=== PATIENT | female | born 1935 | race Caucasian/White ===

== ENCOUNTER → 2017-07-28 12:15 | Outpatient (CLI) | payer MEDICARE, SELFPAY ==
[2017-07-28 12:56] VITALS: PULSE 74; PULSE 79; PULSE 89; PULSE 93; PULSE 95; PULSE 96; PULSE 97; O2SAT 91; O2SAT 92; O2SAT 94; O2SAT 95
--- NOTE | 2017-07-29 08:26 | WT_ITS ---
PSN 6 Minute Walk Test - 6 Minute Walk Test 6 Minute Walk Test: 6 Minute Walk Test PSN:6-Minute Walk Test Start: 07/28/17 12: 56 Freq: Status: Active Protocol: [id number] Document 07/28/17 12:56 CARLOS (Rec: 07/28/17 12:59 CARLOS [id number]) 6 Minute Walk Test Date Performed 07/28/17 Time Performed 12:30 Height 5 ft 2 in Weight: 210 lb Weight in Pounds 210.[address]: Abhijeet Galvan Assistive device used: Cane Pre-test Oxygen Delivery Method Room Air Pulse Ox (%) 94 Pulse Rate (60-100 beats/min) 74 Dyspnea Kya Scale (0-10) 0 Exertion Kya Scale (6-20) 6 1st minute Oxygen Delivery Method Room Air Pulse Ox (%) 92 Pulse Rate (60-100 beats/min) 89 Number of Rests Taken 1 Reported Symptoms Increased Work of Breathing 2nd minute Oxygen Delivery Method Room Air Pulse Ox (%) 95 Pulse Rate (60-100 beats/min) 89 Number of Rests Taken 1 3rd minute Oxygen Delivery Method Room Air Pulse Ox (%) 94 Pulse Rate (60-100 beats/min) 93 4th minute Oxygen Delivery Method Room Air Pulse Ox (%) 94 Pulse Rate (60-100 beats/min) 95 Number of Rests Taken 1 5th minute Oxygen Delivery Method Room Air Pulse Ox (%) 92 Pulse Rate (60-100 beats/min) 96 6th minute Oxygen Delivery Method Room Air Pulse Ox (%) 91 Pulse Rate (60-100 beats/min) 97 Dyspnea Kya Scale (0-10) 4 Exertion Kya Scale (6-20) 14 Post-test Oxygen Delivery Method Room Air Pulse Ox (%) 95 Pulse Rate (60-100 beats/min) 79 Full Laps Walked 6 Partial Lap, Number of Tiles Walked 72 Total Distance Walked (ft) 426 - Interpretation Interpretation: The patient ambulated 426 feet over the course of 6 minutes on room air with the assistance of a cane. Pretesting oxygen saturation was noted to be 94% on room air. With ambulation, the meghan oxygen saturation was 91%. Although there was evidence of impaired walk distance, there was no significant exertional oxygen desaturation. - Recommendations Recommendations: There is no indication for the use of supplemental oxygen at this time.
== END ==
PROVIDERS: Family Provider Family Medicine; PCP Family Medicine; Visit Provider Internal Medicine Critical Care Medicine
DX: R06.09 Other forms of dyspnea (principal)
CPT/HCPCS: 94618

== ENCOUNTER → 2017-08-23 13:31 | Outpatient (CLI) | payer MEDICARE, SELFPAY ==
--- NOTE | 2017-08-23 13:32 | ECHOCS_ITS ---
Reason For Study: SOB Procedure This was a 2D Doppler, Color Flow transthoracic echocardiogram. Exam performed in department. Left Ventricle Normal LV size. The estimated ejection fraction is 40 %. Mild to moderate segmental systolic dysfunction (see wall motion). Mid-Posterior: Normal. Mid-Lateral : Normal. The rest of the wall segments are hypokinetic. Right Ventricle Normal RV size. Normal systolic function. Atria Normal left atrium. Normal right atrium. Mitral Valve Normal mitral valve. Tricuspid Valve Normal tricuspid valve. Mild tricuspid valve insufficiency. Pulmonary artery systolic pressure is 23 mmHg. Aortic Valve Normal aortic valve. Trisinus/trileaflet aortic valve. Pulmonic Valve The pulmonic valve is not well visualized. Great Vessels Normal aortic root. The pulmonary artery is normal size. Pericardium/Pleural No pericardial effusion. Medication 22 gauge I.V. with prn adaptor inserted into right arm. Diluted definity 3ml given slow IV push to enhance endocardial definition. MMode/2D Measurements & Calculations LVIDd: 4.9 cm IVSd: 1.1 cm Ao root diam: 3.3 cm LVIDs: 4.4 cm LVPWd: 1.1 cm LA dimension: 4.0 cm FS: 9.7 % LAV(MOD-bp): 44.2 ml LA A4 area: 17.4 cm2 RA A4 area: 16.2 cm2 LAV(MOD-bp) Indexed: 22.7 ml/m2 LAV(MOD-sp2): 42.4 ml LAV(MOD-sp4): 45.9 ml Doppler Measurements & Calculations MV E max caroline: 31.1 cm/sec Ao V2 max: 116.9 cm/sec LV V1 max: 86.6 cm/sec MV A max caroline: 77.7 cm/sec Ao max P.5 mmHg LV V1 max P.0 mmHg MV E/A: 0.40 PA V2 max: 74.7 cm/sec TR max caroline: 240.1 cm/sec TR max P.1 mmHg Interpretation Summary Normal LV size. The estimated ejection fraction is 40 %. The rest of the wall segments are hypokinetic. Mild to moderate segmental systolic dysfunction (see wall motion). Contrast injection was performed. Ordering Physician: Abhijeet Galvan Referring Physician: Stefany Durham Performed By: Radha Turner RDCS
== END ==
PROVIDERS: Family Provider Family Medicine; PCP Family Medicine; Visit Provider Internal Medicine Critical Care Medicine
DX: I25.5 Ischemic cardiomyopathy (principal)
CPT/HCPCS: 93306; Q9957; A4216; C8929

== ENCOUNTER → 2017-08-27 12:46 | Outpatient (CLI) | payer MEDICARE, SELFPAY ==
--- NOTE | 2017-08-28 09:53 | PFT ---
INTRODUCTION: The patient is an 82-year-old female currently under the care of Dr. Galvan that presents for pulmonary function testing secondary to a diagnosis of dyspnea on exertion. Respiratory therapy reports good patient effort and reports no other concerns. Bronchodilators were used during testing. INTERPRETATION: Forced expiration spirometry demonstrates the presence of a mild large airways obstructive ventilatory impairment. There was no significant response to aerosolized bronchodilators, based upon strict ATS criteria. However, the patient did have a significant mid flow bronchodilator response. In fact, the patient's small airway obstruction did reverse following administration of bronchodilators. Spirograms are of good quality and do not plateau indicating slow emptying of the lungs. The respiratory flow volume loop reveals decreased expiratory flow rates primarily at high lung volumes consistent with small airways obstruction. Body plethysmography was performed and reveals lung volumes to be within normal limits. Diffusing capacity by single breath CO is moderately reduced at 55% of predicted. IMPRESSION: These pulmonary function studies demonstrate the presence of a mild large airways obstructive ventilatory defect. Although the bronchodilator response was not considered significant by ATS criteria, the patient's large airway obstruction did reverse with bronchodilator administration. There is an associated moderate reduction in diffusing capacity.
== END ==
PROVIDERS: Family Provider Family Medicine; PCP Family Medicine; Visit Provider Internal Medicine Critical Care Medicine
DX: R06.09 Other forms of dyspnea (principal)
CPT/HCPCS: 94060; 94726; 94729

== ENCOUNTER 2017-12-01 13:50 | Observation (INO) | payer MEDICARE, MEDICAID, SELFPAY ==
[2017-12-01] VITALS (15 sets, daily range): BP systolic 115–166; BP diastolic 54–77; PULSE 60–68; RESP 14–20; TEMP 36.7–37.2; O2SAT 92–98; BMI 40.2; BMI 40.6
--- NOTE | 2017-12-01 14:15 | EKG12_ITS ---
Test Reason : NEURO S/SX Blood Pressure : / mmHG Vent. Rate : 064 BPM Atrial Rate : 064 BPM P-R Int : 174 ms QRS Dur : 150 ms QT Int : 480 ms P-R-T Axes : -03 000 132 degrees QTc Int : 495 ms Normal sinus rhythm Left bundle branch block Abnormal ECG Confirmed by ABDULLAHI TREJO, ARLETTE ([id number]), index editor NIKOLAS GRIFFIN ([id number]) on 12/03/2017 1:40:37 PM Referred By: ARETHA Confirmed By:ARLETTE FERNANDO MD
--- NOTE | 2017-12-01 14:15 | CT_ITS ---
STUDY: CT BRAIN WITHOUT CONTRAST REASON FOR EXAM: Female, 82 years old. 2 week history of right-sided weakness. RADIATION DOSAGE (If Supplied By Facility): CTDIvol = ( 44.99 ) mGy, DLP = ( 745.49 ) mGycm TECHNIQUE: Transaxial CT imaging of the brain was performed without administration of intravenous contrast material. Individualized dose optimization techniques were used for this CT. COMPARISON: Comparison is made with prior study dated December 03, 2015. FINDINGS: Normal soft tissue structures. Normal calvarium. There is mild cerebral atrophy with widening of the extra-axial spaces and ventricular dilatation. There are areas of decreased attenuation within the white matter tracts of the supratentorial brain, consistent with microvascular disease changes. Normal basal ganglia and thalami. Normal brainstem. Normal cerebellum. There is no intracranial hemorrhage. There are no findings of an acute ischemic infarction. Atherosclerotic calcification of the vertebral arteries and cavernous portions of the internal carotid arteries bilaterally. Normal visualized paranasal sinuses. CT/Brain/Head without Contrast IMPRESSION: Chronic involutional changes of the brain. Electronically Signed: Jalil Gotti MD at 15:11 EDT Tel [phone], Service support ,
--- NOTE | 2017-12-01 14:22 | RAD_ITS ---
STUDY: X-RAY CHEST REASON FOR EXAM: Female, 82 years old. Cough. TECHNIQUE: Single AP portable view of the chest. COMPARISON: Comparison is made with prior study dated April 27, 2017. FINDINGS: EKG electrodes are seen. The lungs are clear and expanded. There is no demonstrated pleural abnormality. Sternal cerclage wires and vascular clips are present from a prior sternotomy and coronary artery bypass graft procedure (CABG). Borderline cardiomegaly. Normal mediastinum and ana maria. Normal visualized pulmonary arteries. There is atherosclerotic calcification of the aortic arch with tortuosity. There are diffuse degenerative changes of the visualized thoracic spine. Normal visualized ribs, clavicles, and shoulders. There is no demonstrated abnormality of the visualized soft tissue structures of the upper abdomen. RAD/Chest 1 View (Portable) IMPRESSION: No acute abnormality is seen. Electronically Signed: Jalil Gotti MD at 15:16 EDT Tel [phone], Service support ,
[2017-12-01 14:41] LABS: Bedside Glucose 88 mg/dL (70-110)
[2017-12-01 14:49] LABS: Absolute Lymphocyte Count 2.51 X10^3/ul (0.83-4.51); Basophil# 0.07 X10^3/uL; Basophil% 0.9 % (0-1); Eosinophil# 0.29 X10^3/uL; Eosinophils% 3.8 % (0-5); Hematocrit 40.1 % (37-47); Lymphocyte # 2.51 X10^3/ul (4.0); Lymphocyte % 32.8 % (19-41); Mean Corp Hgb Conc 32.4 g/gl (32-36); Mean Corpuscular Hgb 31.4 pg (27.0-32.0); Mean Corpuscular Volume 96.9 fL (81-99); Mean Platelet Vol. 9.9 fl (6.2-12.0); Monocyte% 10.5 % (0-10); Neutrophil # 3.96 X10^3/uL (2.7-7.7); Neutrophil % 51.7 % (47-70); Platelet Count 329 K/mm3 (150-450); RBC Distribution Width CV 13.7 % (11.6-14.6); RBC Distribution Width SD 46.7 fl (35.1-43.9); Red Blood Count 4.14 M/mm3 (4.2-5.4); White Blood Count 7.7 K/mm3 (4.4-11.0)
[2017-12-01 14:50] LABS: POSITIVE COUNT NO; POSITIVE DIFFERENTIAL NO; POSITIVE MORPHOLOGY NO
[2017-12-01 15:08] LABS: Anion Gap 7 (5-15); BUN 13 mg/dL (7-18); BUN/Creat Ratio 11.7 RATIO (10-20); Calcium,Total 8.5 mg/dL (8.5-10.1); Chloride 107 mmol/L (98-107); Creatinine, Serum 1.11 mg/dL (0.55-1.02); EST Glomerular Filtration Rate 50 mL/min (>60); Est Glom Filt Rate - Afr Amer 61 mL/min (>60); Estimated Creatinine Clearance 31.97 ml/min; Glucose 90 mg/dL (74-106); Sodium Level 142 mmol/L (136-145)
[2017-12-01] MEDS: 0.9% Normal Saline 1,000 ML 100 ML IV (15:08)
[2017-12-01 15:13] LABS: Prothrombin Time (Protime)PT. 12.9 SECONDS (11.7-14.9)
--- NOTE | 2017-12-01 15:36 | ED.DCSUM_ITS ---
- ER Visit Summary Date of Service: 12/01/17 Chief Complaint: Right-sided weakness History of Present Illness: The patient is a [address] Galvan, Dr. Rueda, and Dr. damon. She reports that she went to a visit with Dr. Galvan today for follow-up on a COPD exacerbation and was sent to the emergency department for stroke workup. Patient reports that she has had right arm and leg numbness and weakness as well as a right facial droop for 2 weeks. She combines of headache is 3 out of 10 severity. She denies any vertigo. Patient reports that she has an occasional cough over the course the past 2 weeks that is nonproductive. She denies any fever, chills, chest pain, or shortness of breath. Physical Examination: Vitals: Stable. Afebrile. General: Well-nourished and well-developed. Head: Normocephalic atraumatic. Neck: Supple, no lymphadenopathy. No JVD. Nontender. Cardiovascular: Regular rate and rhythm. No murmurs. Respiratory: No respiratory distress. Clear to auscultation bilaterally. Abdominal: Soft, nontender, nondistended, normal bowel sounds. No guarding, rebound, or peritoneal signs. Back: Nontender. Extremities: Nontender, no edema. Skin: Normal color, no rash. Neurologic: Alert and oriented ?3. Cranial nerves II through XII are intact, no facial droop. She has essentially 3 out of 5 strength right upper and right lower extremity. 5 out of 5 strength on the left. Decreased sensation light touch on the right. Psych: Normal affect. Test Results: EKG is sinus at 64 for left bundle branch block and no acute changes. Troponins negative. Coags are normal. Chem-7 is more for creatinine 1.11. CBC is more for monocytes of 11. CT head shows chronic changes. Chest x -ray shows chronic changes. Emergency Department Course and Treatment: Patient's exam is inconsistent and I suspect a supratentorial component. Her NIH scale is 7, but her symptoms been present for 2 weeks and she is not a TPA candidate. Treatment Plan: Patient was discussed Dr. Davies. Given her age and risk factors she will be admitted to the hospital for further relation and treatment. Disposition: Admitted in stable condition. Impression: 1. Right-sided weakness. This note was generated with Dragon dictation software. It may contain incorrect words, spelling, and punctuation that were not noted in review of the chart prior to signing ED Disposition - Plan for ED Patient: Chief Complaint: Neuro S/Sx Referrals: Stefany Damon DO [Primary Care Provider] -
--- NOTE | 2017-12-01 15:46 | PCM.CONS.GEN ---
Problem List (1) Right sided weakness Status: Acute Reason for Consult Date of Consultation: 12/01/17 Reason for Consultation: Right sided weakness History of Present Illness: The patient is a 82 year old CF with PMH HTN, HLD, H/O seizures, CAD s/p stents, s/p CABG, CHF, COPD on oxygen, ELIE, cervical stenosis, morbid obesity admitted with right sided weakness. Per patient she started having right sided weakness and numbness for the past 2 weeks, went to see Dr. Galvan today in the office, and was sent to ED for further evaluation. Patient denies any falls, lives with , does use cane and walker to ambulate, does not drive. Per patient she is on ASA/Plavix and takes Keppra for seizures, per patient she had seizures since age 14, was on Dilantin and Phenobarbital for seizures in the past, has been on Keppra for about 10 yrs, last seizure was about 5 yrs ago, has been compliant with medications. Per ED documentation her admission NIHSS was 7, but was not a tpa candidate since symptoms have been for about 2 weeks. She does complaint of neck pain but denies any radicular symptoms. [] Past Medical History Past Medical History (Chronic Problems): Chronic Problems (Last Reviewed 12/01/17 @ 12:57 by Laureen Barragan) ELIE (obstructive sleep apnea) (Chronic) Cardiomyopathy, ischemic (Chronic) S/P CABG x 3 (Chronic) [facility]: 10/13/2012: FUENTES to LCX/OM; SVG to DX; SVG to RCA CAD (coronary artery disease) (Chronic) [facility]: 10/13/2012: FUENTES to LCX/OM; SVG to DX; SVG to RCA; PTCA/ANGELIC to proximal and mid RCA in May 2017; CHF (congestive heart failure) (Chronic) HTN (hypertension) (Chronic) Asthma (Chronic) HLD (hyperlipidemia) (Chronic) Cervical spinal stenosis (Chronic) Seizure (Chronic) cva (Chronic) Medical History: Medical History (Last Reviewed 12/01/17 @ 12:57 by Laureen Barragan) ELIE (obstructive sleep apnea) (Chronic) G47.33 Cardiomyopathy, ischemic (Chronic) I25.5 CAD (coronary artery disease) (Chronic) I25.10 [facility]: 10/13/2012: FUENTES to LCX/OM; SVG to DX; SVG to RCA; PTCA/ANGELIC to proximal and mid RCA in May 2017; Gallbladder & bile duct stone with obstruction (Resolved) K80.71 UTI (urinary tract infection) (Acute) N39.0 CHF (congestive heart failure) (Chronic) I50.9 HTN (hypertension) (Chronic) I10 Asthma (Chronic) J45.909 HLD (hyperlipidemia) (Chronic) E78.5 Cervical spinal stenosis (Chronic) M48.02 Seizure (Chronic) R56.9 cva (Chronic) Allergies acyclovir Allergy (Verified 08/30/17 13:01) Unknown belladonna alkaloids Allergy (Verified 08/30/17 13:01) Unknown tree and shrub pollen Allergy (Verified 08/30/17 13:01) cough valacyclovir HCl [From Valtrex] Allergy (Verified 08/30/17 13:01) Other venom-honey bee [bee venom (honey bee)] Allergy (Verified 08/30/17 13:01) Angioedema iodine Adverse Reaction (Unknown, Unverified 08/30/17 13:01) Unknown lisinopril Adverse Reaction (Unknown, Unverified 08/30/17 13:01) Diarrhea Vomiting, Cough, Congestion, Pain, Headache, Drainage, Nausea metformin Adverse Reaction (Unknown, Unverified 08/30/17 13:01) Diarrhea, GI upset, Vomiting, Headache, Dizziness, Nausea nitrofurantoin [From Macrodantin] Adverse Reaction (Unknown, Unverified 08/30/17 13:01) Unknown propoxyphene [From Darvocet-N] Adverse Reaction (Unknown, Unverified 08/30/17 13:01) Unknown Tetracyclines Adverse Reaction (Unknown, Unverified 08/30/17 13:01) Rash valacyclovir [From Valtrex] Adverse Reaction (Unknown, Unverified 08/30/17 13:01) Seizure acetaminophen [From Darvocet-N 100] Adverse Reaction (Verified 08/30/17 13:01) Unknown animal dander Adverse Reaction (Verified 08/30/17 13:01) Other aspirin Adverse Reaction (Verified 08/30/17 13:01) Other atropine sulfate [From ] Adverse Reaction (Verified 08/30/17 13:01) Unknown codeine Adverse Reaction (Verified 08/30/17 13:01) Nausea/Vom/Diarrhea hyoscyamine sulfate [From ] Adverse Reaction (Verified 08/30/17 13:01) Unknown Iodinated Contrast- Oral and IV Dye [CONTRASTS] Adverse Reaction (Verified 08/30/17 13:01) Rash meperidine HCl [From Demerol] Adverse Reaction (Verified 08/30/17 13:01) Unknown niacin Adverse Reaction (Verified 08/30/17 13:01) Upset Stomach nitroglycerin [From Nitro-Dur] Adverse Reaction (Verified 08/30/17 13:01) Other RASH, CAUSED PATIENT TO GET AGITATED. oxytetracycline [From Terramycin] Adverse Reaction (Verified 08/30/17 13:01) Hives oxytetracycline HCl [From Terramycin] Adverse Reaction (Verified 08/30/17 13:01) Hives Penicillins Adverse Reaction (Verified 08/30/17 13:01) Hives perfume Adverse Reaction (Verified 08/30/17 13:01) Shortness of breath phenobarbital [From ] Adverse Reaction (Verified 08/30/17 13:01) Unknown piroxicam Adverse Reaction (Verified 08/30/17 13:01) Unknown prochlorperazine Adverse Reaction (Verified 08/30/17 13:01) Rash propoxyphene napsylate [From Darvocet-N 100] Adverse Reaction (Verified 08/30/17 13:01) Unknown scopolamine hydrobromide [From ] Adverse Reaction (Verified 08/30/17 13:01) Unknown Sulfa (Sulfonamide Antibiotics) Adverse Reaction (Verified 08/30/17 13:01) Rash terfenadine [From Seldane] Adverse Reaction (Verified 08/30/17 13:01) Unknown tetracycline Adverse Reaction (Verified 08/30/17 13:01) Rash Codeine Adverse Reaction (Unknown, Uncoded 08/30/17 13:01) Diarrhea, Vomiting, Nausea Prochlorperazine Adverse Reaction (Unknown, Uncoded 08/30/17 13:01) Rash sulfonamide antibiotics Adverse Reaction (Unknown, Uncoded 08/30/17 13:01) Rash, Hives Home Medications: Ambulatory Orders Medication Instructions Recorded Acetaminophen [Tylenol] 1,000 mg PO Q4H PRN PRN 12/03/15 Cholecalciferol (VIT D3) [Vitamin 1,000 unit PO BID 12/03/15 D3] Ferrous Sulfate 325 mg PO DAILY@0800 12/03/15 Fluticasone 0.05% [Flonase Nasal 2 spray NASAL BID 12/03/15 [place]] Furosemide [Lasix] 40 mg PO BID 12/03/15 Lactobacillus Acidophilus 1 capsule PO TID 12/03/15 [Acidophilus] Loperamide [Imodium] 2 mg PO Q2H PRN PRN 12/03/15 Loratadine [Claritin] 10 mg PO DAILY 12/03/15 Metoprolol Tartrate [Lopressor 12.5 mg PO BID 12/03/15 (beta emma)] Nitroglycerin [Nitrostat] 0.4 mg SUBLINGUAL Q5M PRN 12/03/15 Potassium Chloride [Klor-Con M10] 20 meq PO BID 12/03/15 Premarin Vag Cream 0.5 gm TOPICAL SUWE 12/03/15 Ranolazine [Ranexa] 500 mg PO DAILY 12/03/15 levETIRAcetam tablet [Keppra 500 mg PO 0800,199912/03/15 tablet] proMETHazine tablet [Phenergan 25 mg PO Q6H PRN PRN 12/03/15 tablet] Albuterol Aerosols [Ventolin 2.5 mg INHALATION Q2H PRN PRN #90 04/27/17 Aerosols] vial.neb. albuterol sulfate HFA 90 2 puff INHALATION Q4H PRN g 05/04/17 mcg/actuation aerosol inhaler fenofibrate 160 mg tablet 160 mg PO DAILY #90 tab 08/16/17 isosorbide mononitrate ER 60 mg 60 mg PO DAILY tab 08/16/17 tablet,extended release 24 hr losartan 25 mg tablet 25 mg PO DAILY #90 tab 08/16/17 Aspirin E.C. [Ecotrin] 81 mg PO DAILY 12/01/17 Atorvastatin Calcium [Lipitor] 40 mg PO QHS 12/01/17 Clopidogrel Bisulfate [Clopidogrel] 75 mg PO QDAY 12/01/17 Co Q10 200 [Co Q-10] 100 mg PO DAILY 12/01/17 Dicyclomine HCl 10 mg PO BID 12/01/17 Gabapentin [Neurontin] 300 mg PO BID 12/01/17 Pantoprazole Sodium [Protonix] 40 mg PO DAILY 12/01/17 Sodium Chloride 0.65% [[place] Nasal 1 spray NASAL PRN 12/01/17 [place]] Umeclidinium Brm/Vilanterol Tr 1 inh INHALATION Q24H 12/01/17 [Anoro Ellipta 62.5-25 Mcg INH] Surgical History: Surgical History (Last Reviewed 12/01/17 @ 12:57 by Laureen Barragan) S/P PTCA (percutaneous transluminal coronary angioplasty) (Acute) Z98.61 PTCA/ANGELIC to prox RCA and mid RCA 05/24/2017 S/P CABG x 3 (Chronic) Z95.1 [facility]: 10/13/2012: FUENTES to LCX/OM; SVG to DX; SVG to RCA S/P triple vessel bypass (Resolved) Z95.1 [facility]: 10/13/2012: FUENTES to LCX/OM; SVG to DX; SVG to RCA; History of appendectomy (Resolved) Z98.890, Z90.49 History of hysterectomy (Resolved) Z98.890, Z90.710 Surgical History: appendectomy, coronary bypass surgery, hysterectomy - bladder surgery, pilonidal cyst, gallbladder surgery,, - - bladder surgery Psychiatric History: Anxiety, Depression 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 Lives: Spouse/ Significant Other Smoking Status: Never smoker Tobacco Use: Secondhand Alcohol: None Drugs: None - *Family History Maternal Family History: Family History (Last Reviewed 12/01/17 @ 12:57 by Laureen Barragan) Father Heart disease Cancer CVA (cerebral vascular accident) Mother Colon cancer Brother Cancer Brother Cancer History Items: Cancer, - - colon cancer Paternal Family History: Family History (Last Reviewed 12/01/17 @ 12:57 by Laureen Barragan) Father Heart disease Cancer CVA (cerebral vascular accident) Mother Colon cancer Brother Cancer Brother Cancer History Items: - - father with cva Review of Systems Constitutional: Reports: - - complete ROS negative except as documented in HPI Patient Problems: Active and Suspected Problems (Last Reviewed 12/01/17 @ 12:57 by Laureen Barragan) Right sided weakness (Acute) - Physical Exam General: Alert HEENT: Normocephalic Neck: Supple Lungs: Clear to auscultation Cardiovascular: Normal S1, Normal S2 Abdomen: Bowel Sounds Present Extremities: No cyanosis Musculoskeletal: No Tenderness to Palpation of Joints or Extremities Neurological: - - CN 2-12 grossly intact, power- moves all 4 extremities, movement limited by shoulder pain bilaterally per patient, moves both LE, has Chang's sign positive, has give away weakness on the right UE, complaints of subjective right sided mild loss of sensation to light touch, unable to cooperate for cerebellar signs, Reflexes + B/L B/S/T/K/A. Vital Signs Temp Pulse Resp BP Pulse Ox 98.1 F 62 16 145/67 H 96 12/01/17 13:51 12/01/17 15:08 12/01/17 15:08 12/01/17 15:08 12/01/17 15:08 Oxygen Flow Rate (L/min) 3 Oxygen Delivery Method Nasal Cannula Weight: 99.79 kg Body Mass Index (BMI) 40.2 Finger Stick Blood Glucose 88 Laboratory Tests Past 24 Hrs 12/01/17 12/01/17 12/01/17 14:38 14:38 14:38 WBC 7.7 RBC 4.14 L Hgb 13.0 Hct 40.1 MCV 96.9 MCH 31.4 MCHC 32.4 RDW 13.7 RDW Differential 46.7 H Plt Count 329 MPV 9.9 Immature Gran % (Auto) 0.300 Neut % (Auto) 51.7 Lymph % (Auto) 32.8 [place] % (Auto) 10.5 H Eos % (Auto) 3.8 Baso % (Auto) 0.9 Absolute Neuts (auto) 4.0 Absolute Lymphs (auto) 2.51 Total Counted Not Reportable PT 12.9 INR 1.0 APTT 25.0 Sodium 142 Potassium 4.0 Chloride 107 Carbon Dioxide 28.0 Anion Gap 7 BUN 13 Creatinine 1.11 H Estim Creat Clear Calc 31.97 Est GFR (MDRD) Af Amer 61 Est GFR (MDRD) Non-Af 50 L BUN/Creatinine Ratio 11.7 Glucose 90 Calcium 8.5 Troponin I < 0.015 POC Glucose 12/01/17 14:26 POC Glucose 88 Assessment/Plan All Active Problems (Last Reviewed 12/01/17 @ 12:57 by Laureen Barragan) Right sided weakness (Acute) Stage 1 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 (Acute) S/P PTCA (percutaneous transluminal coronary angioplasty) (Acute) Dyspnea on exertion (Acute) NSTEMI (non-ST elevated myocardial infarction) (Acute) COPD with acute exacerbation (Acute) Gallbladder & bile duct stone with obstruction (Resolved) S/P triple vessel bypass (Resolved) History of appendectomy (Resolved) History of hysterectomy (Resolved) UTI (urinary tract infection) (Acute) The patient is a 82 year old CF with PMH HTN, HLD, H/O seizures, CAD s/p stents, s/p CABG, CHF, COPD on oxygen, ELIE, cervical stenosis, morbid obesity admitted with right sided weakness. Per patient she started having right sided weakness and numbness for the past 2 weeks, went to see Dr. Galvan today in the office, and was sent to ED for further evaluation. Patient denies any falls, lives with , does use cane and walker to ambulate, does not drive. Per patient she is on ASA/Plavix and takes Keppra for seizures, per patient she had seizures since age 14, was on Dilantin and Phenobarbital for seizures in the past, has been on Keppra for about 10 yrs, last seizure was about 5 yrs ago, has been compliant with medications. Per ED documentation her admission NIHSS was 7, but was not a tpa candidate since symptoms have been for about 2 weeks. She does complaint of neck pain but denies any radicular symptoms. Impression Right sided weakness R/O Stroke vs Cervical stenosis/myelopathy vs Conversion d/o Plan -ON ASA/Plavix per patient -On lipitor -Continue home dose of Keppra -Check MRI brain/MRA head/neck and MRI C spine w/o contrast -Check TTE, LDL, Hba1c -PT/OT -GI/DVT prophylaxis -Please call with questions if any -Thank you for allowing us to participate in patient's care and management I spent 60 minutes of critical care time taking history, doing physical examination, reviewing medical records, coordinating care and counseling the patient. Code Visit Inpatient E&M: [id number] Init Hosp L3
--- NOTE | 2017-12-01 15:56 | CON.PCM_ITS ---
Problem List (1) Right sided weakness Status: Acute Reason for Consult Date of Consultation: 12/01/17 Reason for Consultation: Right sided weakness History of Present Illness: The patient is a 82 year old CF with PMH HTN, HLD, H/O seizures, CAD s/p stents , s/p CABG, CHF, COPD on oxygen, ELIE, cervical stenosis, morbid obesity admitted with right sided weakness. Per patient she started having right sided weakness and numbness for the past 2 weeks, went to see Dr. Galvan today in the office, and was sent to ED for further evaluation. Patient denies any falls, lives with , does use cane and walker to ambulate, does not drive. Per patient she is on ASA/Plavix and takes Keppra for seizures, per patient she had seizures since age 14, was on Dilantin and Phenobarbital for seizures in the past, has been on Keppra for about 10 yrs, last seizure was about 5 yrs ago, has been compliant with medications. Per ED documentation her admission NIHSS was 7, but was not a tpa candidate since symptoms have been for about 2 weeks. She does complaint of neck pain but denies any radicular symptoms. [] Past Medical History Past Medical History (Chronic Problems): Chronic Problems (Last Reviewed 12/01/17 @ 12:57 by Laureen Barragan) ELIE (obstructive sleep apnea) (Chronic) Cardiomyopathy, ischemic (Chronic) S/P CABG x 3 (Chronic) [facility]: FUENTES to LCX/OM; SVG to DX; SVG to RCA CAD (coronary artery disease) (Chronic) [facility] 10/[facility]2012: FUENTES to LCX/OM; SVG to DX; SVG to RCA; PTCA/ANGELIC to proximal and mid RCA in May 2017; CHF (congestive heart failure) (Chronic) HTN (hypertension) (Chronic) Asthma (Chronic) HLD (hyperlipidemia) (Chronic) Cervical spinal stenosis (Chronic) Seizure (Chronic) cva (Chronic) Medical History: Medical History (Last Reviewed 12/01/17 @ 12:57 by Laureen Barragan) ELIE (obstructive sleep apnea) (Chronic) G47.33 Cardiomyopathy, ischemic (Chronic) I25.5 CAD (coronary artery disease) (Chronic) I25.10 [facility] 10/[facility]2012: FUENTES to LCX/OM; SVG to DX; SVG to RCA; PTCA/ANGELIC to proximal and mid RCA in May 2017; Gallbladder & bile duct stone with obstruction (Resolved) K80.71 UTI (urinary tract infection) (Acute) N39.0 CHF (congestive heart failure) (Chronic) I50.9 HTN (hypertension) (Chronic) I10 Asthma (Chronic) J45.909 HLD (hyperlipidemia) (Chronic) E78.5 Cervical spinal stenosis (Chronic) M48.02 Seizure (Chronic) R56.9 cva (Chronic) Allergies acyclovir Allergy (Verified 08/30/17 13:01) Unknown belladonna alkaloids Allergy (Verified 08/30/17 13:01) Unknown tree and shrub pollen Allergy (Verified 08/30/17 13:01) cough valacyclovir HCl [From Valtrex] Allergy (Verified 08/30/17 13:01) Other venom-honey bee [bee venom (honey bee)] Allergy (Verified 08/30/17 13:01) Angioedema iodine Adverse Reaction (Unknown, Unverified 08/30/17 13:01) Unknown lisinopril Adverse Reaction (Unknown, Unverified 08/30/17 13:01) Diarrhea Vomiting, Cough, Congestion, Pain, Headache, Drainage, Nausea metformin Adverse Reaction (Unknown, Unverified 08/30/17 13:01) Diarrhea, GI upset, Vomiting, Headache, Dizziness, Nausea nitrofurantoin [From Macrodantin] Adverse Reaction (Unknown, Unverified 13:01) Unknown propoxyphene [From Darvocet-N] Adverse Reaction (Unknown, Unverified 08/30/17 13 :01) Unknown Tetracyclines Adverse Reaction (Unknown, Unverified 08/30/17 13:01) Rash valacyclovir [From Valtrex] Adverse Reaction (Unknown, Unverified 08/30/17 13:01 ) Seizure acetaminophen [From Darvocet-N 100] Adverse Reaction (Verified 08/30/17 13:01) Unknown animal dander Adverse Reaction (Verified 08/30/17 13:01) Other aspirin Adverse Reaction (Verified 08/30/17 13:01) Other atropine sulfate [From ] Adverse Reaction (Verified 08/30/17 13:01) Unknown codeine Adverse Reaction (Verified 08/30/17 13:01) Nausea/Vom/Diarrhea hyoscyamine sulfate [From ] Adverse Reaction (Verified 08/30/17 13:01) Unknown Iodinated Contrast- Oral and IV Dye [CONTRASTS] Adverse Reaction (Verified 08/30 13:01) Rash meperidine HCl [From Demerol] Adverse Reaction (Verified 08/30/17 13:01) Unknown niacin Adverse Reaction (Verified 08/30/17 13:01) Upset Stomach nitroglycerin [From Nitro-Dur] Adverse Reaction (Verified 08/30/17 13:01) Other RASH, CAUSED PATIENT TO GET AGITATED. oxytetracycline [From Terramycin] Adverse Reaction (Verified 08/30/17 13:01) Hives oxytetracycline HCl [From Terramycin] Adverse Reaction (Verified 08/30/17 13:01) Hives Penicillins Adverse Reaction (Verified 08/30/17 13:01) Hives perfume Adverse Reaction (Verified 08/30/17 13:01) Shortness of breath phenobarbital [From ] Adverse Reaction (Verified 08/30/17 13:01) Unknown piroxicam Adverse Reaction (Verified 08/30/17 13:01) Unknown prochlorperazine Adverse Reaction (Verified 08/30/17 13:01) Rash propoxyphene napsylate [From Darvocet-N 100] Adverse Reaction (Verified 13:01) Unknown scopolamine hydrobromide [From ] Adverse Reaction (Verified 08/30/17 13: 01) Unknown Sulfa (Sulfonamide Antibiotics) Adverse Reaction (Verified 08/30/17 13:01) Rash terfenadine [From Seldane] Adverse Reaction (Verified 08/30/17 13:01) Unknown tetracycline Adverse Reaction (Verified 08/30/17 13:01) Rash Codeine Adverse Reaction (Unknown, Uncoded 08/30/17 13:01) Diarrhea, Vomiting, Nausea Prochlorperazine Adverse Reaction (Unknown, Uncoded 08/30/17 13:01) Rash sulfonamide antibiotics Adverse Reaction (Unknown, Uncoded 08/30/17 13:01) Rash, Hives Home Medications: Ambulatory Orders Medication Instructions Recorded Acetaminophen [Tylenol] 1,000 mg PO Q4H PRN PRN 12/03/15 Cholecalciferol (VIT D3) [Vitamin 1,000 unit PO BID 12/03/15 D3] Ferrous Sulfate 325 mg PO DAILY@0800 12/03/15 Fluticasone 0.05% [Flonase Nasal 2 spray NASAL BID 12/03/15 [place]] Furosemide [Lasix] 40 mg PO BID 12/03/15 Lactobacillus Acidophilus 1 capsule PO TID 12/03/15 [Acidophilus] Loperamide [Imodium] 2 mg PO Q2H PRN PRN 12/03/15 Loratadine [Claritin] 10 mg PO DAILY 12/03/15 Metoprolol Tartrate [Lopressor 12.5 mg PO BID 12/03/15 (beta emma)] Nitroglycerin [Nitrostat] 0.4 mg SUBLINGUAL Q5M PRN 12/03/15 Potassium Chloride [Klor-Con M10] 20 meq PO BID 12/03/15 Premarin Vag Cream 0.5 gm TOPICAL SUWE 12/03/15 Ranolazine [Ranexa] 500 mg PO DAILY 12/03/15 levETIRAcetam tablet [Keppra 500 mg PO 0800,199912/03/15 tablet] proMETHazine tablet [Phenergan 25 mg PO Q6H PRN PRN 12/03/15 tablet] Albuterol Aerosols [Ventolin 2.5 mg INHALATION Q2H PRN PRN #90 04/27/17 Aerosols] vial.neb. albuterol sulfate HFA 90 2 puff INHALATION Q4H PRN g 05/04/17 mcg/actuation aerosol inhaler fenofibrate 160 mg tablet 160 mg PO DAILY #90 tab 08/16/17 isosorbide mononitrate ER 60 mg 60 mg PO DAILY tab 08/16/17 tablet,extended release 24 hr losartan 25 mg tablet 25 mg PO DAILY #90 tab 08/16/17 Aspirin E.C. [Ecotrin] 81 mg PO DAILY 12/01/17 Atorvastatin Calcium [Lipitor] 40 mg PO QHS 12/01/17 Clopidogrel Bisulfate [Clopidogrel] 75 mg PO QDAY 12/01/17 Co Q10 200 [Co Q-10] 100 mg PO DAILY 12/01/17 Dicyclomine HCl 10 mg PO BID 12/01/17 Gabapentin [Neurontin] 300 mg PO BID 12/01/17 Pantoprazole Sodium [Protonix] 40 mg PO DAILY 12/01/17 Sodium Chloride 0.65% [[place] Nasal 1 spray NASAL PRN 12/01/17 [place]] Umeclidinium Brm/Vilanterol Tr 1 inh INHALATION Q24H 12/01/17 [Anoro Ellipta 62.5-25 Mcg INH] Surgical History: Surgical History (Last Reviewed 12/01/17 @ 12:57 by Laureen Barragan) S/P PTCA (percutaneous transluminal coronary angioplasty) (Acute) Z98.61 PTCA/ANGELIC to prox RCA and mid RCA 05/24/2017 S/P CABG x 3 (Chronic) Z95.1 [facility]: FUENTES to LCX/OM; SVG to DX; SVG to RCA S/P triple vessel bypass (Resolved) Z95.1 [facility] 10/[facility]2012: FUENTES to LCX/OM; SVG to DX; SVG to RCA; History of appendectomy (Resolved) Z98.890, Z90.49 History of hysterectomy (Resolved) Z98.890, Z90.710 Surgical History: appendectomy, coronary bypass surgery, hysterectomy - bladder surgery, pilonidal cyst, gallbladder surgery,, - - bladder surgery Psychiatric History: Anxiety, Depression REPORT MANAGER History: No pertinent REPORT MANAGER history Lives: Spouse/ Significant Other Smoking Status: Never smoker Tobacco Use: Secondhand Alcohol: None Drugs: None - *Family History Maternal Family History: Family History (Last Reviewed 12/01/17 @ 12:57 by Laureen Barragan) Father Heart disease Cancer CVA (cerebral vascular accident) Mother Colon cancer Brother Cancer Brother Cancer History Items: Cancer, - - colon cancer Paternal Family History: Family History (Last Reviewed 12/01/17 @ 12:57 by Laureen Barragan) Father Heart disease Cancer CVA (cerebral vascular accident) Mother Colon cancer Brother Cancer Brother Cancer History Items: - - father with cva Review of Systems Constitutional: Reports: - - complete ROS negative except as documented in HPI Patient Problems: Active and Suspected Problems (Last Reviewed 12/01/17 @ 12:57 by Laureen Barragan ) Right sided weakness (Acute) - Physical Exam General: Alert HEENT: Normocephalic Neck: Supple Lungs: Clear to auscultation Cardiovascular: Normal S1, Normal S2 Abdomen: Bowel Sounds Present Extremities: No cyanosis Musculoskeletal: No Tenderness to Palpation of Joints or Extremities Neurological: - - CN 2-12 grossly intact, power- moves all 4 extremities, movement limited by shoulder pain bilaterally per patient, moves both LE, has Chang's sign positive, has give away weakness on the right UE, complaints of subjective right sided mild loss of sensation to light touch, unable to cooperate for cerebellar signs, Reflexes + B/L B/S/T/K/A. Vital Signs Temp Pulse Resp BP Pulse Ox 98.1 F 62 16 145/67 H 96 12/01/17 13:51 12/01/17 15:08 12/01/17 15:08 12/01/17 15:08 12/01/17 15:08 Oxygen Flow Rate (L/min) 3 Oxygen Delivery Method Nasal Cannula Weight: 99.79 kg Body Mass Index (BMI) 40.2 Finger Stick Blood Glucose 88 Laboratory Tests Past 24 Hrs 12/01/17 12/01/17 12/01/17 14:38 14:38 14:38 WBC 7.7 RBC 4.14 L Hgb 13.0 Hct 40.1 MCV 96.9 MCH 31.4 MCHC 32.4 RDW 13.7 RDW Differential 46.7 H Plt Count 329 MPV 9.9 Immature Gran % (Auto) 0.300 Neut % (Auto) 51.7 Lymph % (Auto) 32.8 [place] % (Auto) 10.5 H Eos % (Auto) 3.8 Baso % (Auto) 0.9 Absolute Neuts (auto) 4.0 Absolute Lymphs (auto) 2.51 Total Counted Not Reportable PT 12.9 INR 1.0 APTT 25.0 Sodium 142 Potassium 4.0 Chloride 107 Carbon Dioxide 28.0 Anion Gap 7 BUN 13 Creatinine 1.11 H Estim Creat Clear Calc 31.97 Est GFR (MDRD) Af Amer 61 Est GFR (MDRD) Non-Af 50 L BUN/Creatinine Ratio 11.7 Glucose 90 Calcium 8.5 Troponin I < 0.015 POC Glucose 12/01/17 14:26 POC Glucose 88 Assessment/Plan All Active Problems (Last Reviewed 12/01/17 @ 12:57 by Laureen Barragan) Right sided weakness (Acute) Stage 1 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 (Acute) S/P PTCA (percutaneous transluminal coronary angioplasty) (Acute) Dyspnea on exertion (Acute) NSTEMI (non-ST elevated myocardial infarction) (Acute) COPD with acute exacerbation (Acute) Gallbladder & bile duct stone with obstruction (Resolved) S/P triple vessel bypass (Resolved) History of appendectomy (Resolved) History of hysterectomy (Resolved) UTI (urinary tract infection) (Acute) The patient is a 82 year old CF with PMH HTN, HLD, H/O seizures, CAD s/p stents , s/p CABG, CHF, COPD on oxygen, ELIE, cervical stenosis, morbid obesity admitted with right sided weakness. Per patient she started having right sided weakness and numbness for the past 2 weeks, went to see Dr. Galvan today in the office, and was sent to ED for further evaluation. Patient denies any falls, lives with , does use cane and walker to ambulate, does not drive. Per patient she is on ASA/Plavix and takes Keppra for seizures, per patient she had seizures since age 14, was on Dilantin and Phenobarbital for seizures in the past, has been on Keppra for about 10 yrs, last seizure was about 5 yrs ago, has been compliant with medications. Per ED documentation her admission NIHSS was 7, but was not a tpa candidate since symptoms have been for about 2 weeks. She does complaint of neck pain but denies any radicular symptoms. Impression Right sided weakness R/O Stroke vs Cervical stenosis/myelopathy vs Conversion d/o Plan -ON ASA/Plavix per patient -On lipitor -Continue home dose of Keppra -Check MRI brain/MRA head/neck and MRI C spine w/o contrast -Check TTE, LDL, Hba1c -PT/OT -GI/DVT prophylaxis -Please call with questions if any -Thank you for allowing us to participate in patient's care and management I spent 60 minutes of critical care time taking history, doing physical examination, reviewing medical records, coordinating care and counseling the patient. Code Visit Inpatient E&M: 39464 Init Hosp L3
--- NOTE | 2017-12-01 15:57 | MRI_ITS ---
STUDY: MRI BRAIN WITHOUT CONTRAST REASON FOR EXAM: Female, 82 years old. Right-sided weakness TECHNIQUE: Standardized multiplanar fat and water weighted pulse sequences were obtained. COMPARISON: CT of the brain on December 01, 2017 FINDINGS: Mild atrophy and periventricular white matter ischemic change without mass effect or restricted diffusion.. Normal bilateral basal ganglia. Normal thalami. There is no extra-axial fluid accumulation. Normal flow voids within the major intracranial circulation suggesting patency by spin echo criteria. Normal sella turcica, pituitary gland, infundibular stalk, optic chiasm and hypothalamus. Normal tectal plate and pineal gland. Normal midbrain, jennifer and medulla. Normal cerebellum. Normal basal cisterns. Normal bilateral temporal bones. Normal bilateral internal auditory canals. There is fluid signal within left mastoid which may be consistent with inflammatory disease No demonstrated orbital abnormality, within the constraints of a routine brain study. Normal visualized paranasal sinuses. Normal calvarium and skull base. Normal visualized soft tissue structures. Normal visualized upper cervical spine. MRI/Brain without Contrast IMPRESSION: Mild atrophy and periventricular white matter ischemic change without evidence for acute infarct Electronically Signed: Jama Mccloud MD at 21:40 EDT , Service support ,
--- NOTE | 2017-12-01 15:57 | MRI_ITS ---
STUDY: MRA NECK WITHOUT CONTRAST REASON FOR EXAM: Female, 82 years old. Right-sided weakness TECHNIQUE: Source images were obtained, MIPs were performed. The study was performed unenhanced. COMPARISON: None. FINDINGS: RIGHT CAROTID ARTERIES: Normal right common carotid artery (CCA). Mild plaquing of the right common carotid bulb. Mild plaquing of the origin of the right internal carotid (ICA) artery without a hemodynamically significant stenosis. Normal visualized cervical portion of the right internal carotid artery. Normal origin of the right external carotid artery (ECA). LEFT CAROTID ARTERIES: Normal left common carotid artery (CCA). Mild plaquing of the left common carotid bulb. Mild plaquing of the origin of the left internal carotid (ICA) artery without a hemodynamically significant stenosis. Normal visualized cervical portion of the left internal carotid artery. Normal origin of the left external carotid artery (ECA). VERTEBRAL ARTERIES: Normal antegrade flow within the bilateral vertebral artery without a hemodynamically significant stenosis. MRI/MRA Neck without Contrast IMPRESSION: Mild atherosclerotic disease. No evidence for hemodynamically significant stenosis utilizing NASCET criteria Electronically Signed: Jama Mccloud MD at 21:45 EDT , Service support ,
--- NOTE | 2017-12-01 15:57 | MRI_ITS ---
STUDY: MRA OF THE HEAD WITHOUT CONTRAST REASON FOR EXAM: Female, 82 years old. Right-sided weakness TECHNIQUE: 3-D [id number] (TOF) imaging was performed with MIPs. The study was performed unenhanced. COMPARISON: None. FINDINGS: Normal bilateral petrous carotid arteries. Mild plaquing of the right cavernous carotid artery with a normal supraclinoid bifurcation. Mild plaquing of the left cavernous carotid artery with a normal supraclinoid bifurcation. Normal right A1 segments of the anterior cerebral artery. Normal left A1 segments of the anterior cerebral artery. Normal intact anterior communicating artery (ACOM). Normal bilateral A2 segments of the anterior cerebral arteries. Normal right M1 and M2 segments of the middle cerebral arteries, with a normal M1 bifurcation. Normal left M1 and M2 segments of the middle cerebral arteries, with a normal M1 bifurcation. Normal right posterior communicating artery (PCOM). Normal left posterior communicating artery (PCOM). Normal bilateral vertebral arteries. There is a small segment of focal stenosis within the distal basilar artery. The visualized bilateral superior cerebellar (SCA) arteries are normal. Normal bilateral P1, P2 and visualized P3 segments of the posterior cerebral arteries. There is no demonstrated aneurysm of the [place]. There is no major vessel occlusion or hemodynamically significant stenosis. There is no demonstrated abnormality of the visualized brain. MRI/MRA Head ONLY without Contrast IMPRESSION: Mild atherosclerotic changes with mild focal segmental stenosis of the distal basilar artery Electronically Signed: Jama Mccloud MD at 21:43 EDT , Service support ,
--- NOTE | 2017-12-01 15:57 | MRI_ITS ---
STUDY: MRI CERVICAL SPINE WITHOUT CONTRAST REASON FOR EXAM: Female, 82 years old. Right-sided weakness TECHNIQUE: Standardized fat and water weighted pulse sequences were obtained in the sagittal and axial planes. COMPARISON: None FINDINGS: Normal foramen magnum and brainstem-cervical cord junction. Normal craniovertebral junction. Normal anterior atlantoaxial articulation. Normal odontoid process. Decreased cervical lordosis. Normal vertebral bodies and posterior osseous elements. C2-3: Normal endplates. Normal disc height, signal and morphology. Normal central canal and intervertebral neural foramina. C3-4: Narrowed disc space and endplate spurring.. Small central disc osteophyte protrusion mildly narrowing the spinal canal and encroaching upon the ventral surface of the cord. Moderate to severe bilateral neural foraminal stenosis secondary to bony hypertrophy C4-5: Normal endplates. Normal disc height, signal and morphology. Normal central canal and intervertebral neural foramina. C5-6: Narrowed disc space and endplate spurring with minor bulging disc and small right posterolateral/foraminal disc/osteophyte protrusion.. Normal central canal.. Mild to moderate left neuroforaminal stenosis and severe narrowing on the right secondary to disc and bony hypertrophy C6-7: Normal endplates. Normal disc height, signal and morphology. Normal central canal and intervertebral neural foramina. C7-T1: Normal endplates. Normal disc height, signal and morphology. Normal central canal and intervertebral neural foramina. Normal cervical cord. Normal visualized soft tissue structures. MRI/Spine Cervical (Routine) IMPRESSION: No evidence for acute fracture or subluxation Mild spondylosis and spinal stenosis at C3-4 and C5-C6 greater on the right secondary to disc disease and bony hypertrophy Electronically Signed: Jama Mccloud MD at 23:18 EDT , Service support ,
--- NOTE | 2017-12-01 16:03 | CM.ED ---
Addendum entered by Geraldine Potter 12/01/17 16:11: Social Work Note Placed call to [facility] and left vm with Katelyn Chung notifying of pt's admission this date. Left contact information for SW on assigned unit. VICKIE Agrawal, LIFE TEACHER Original Note: Social Work Note Into complete initial assessment at pt is to be admitted. Pt is accompanied by spouse, Jarrod, and SW introduces self and role at [facility]. Pt reports to live with her spouse in a mobile trailer with 4 JESUS and grab bars. DME consists of walker, cane, grab bas, and oxygen ([employer]). Pt uses walker for community ambulation and cane for home ambulation. Pt reports to be independent with ADL's such as bathing, dressing and feedings. Reports that her spouse does assist with meal preparation. She does have [employer] services and aides that come out M, W, F in the mornings for two hours and her case supervisor is Katelyn Chung. Confirms that her PCP is Dr. Durham, and she also sees Dr. Galvan and Dr. Rueda. Preferred pharmacy is [facility] in [place]. Discussed palliative care services and pt declines at this time. Denies having advanced directives completed, but states that she would like to complete these throughout her admission. Inform that SW on assigned unit can assist with completion. No further needs anticipated by pt and spouse. Plan: Assistance with completion of advanced directives. VICKIE Agrawal, SHAUN
--- NOTE | 2017-12-01 16:55 | NURSING ---
110 OBS RT SIDED WEAKNESS TERELETSKY
--- NOTE | 2017-12-01 17:03 | NURSING ---
Liam notified patient may transfer to PCU.
--- NOTE | 2017-12-01 17:22 | PCM.HP.STD ---
Problem List (1) Right sided weakness Status: Acute History of Present Illness Date of Admission: 12/01/17 Chief Complaint: Right-sided weakness The patient is a 82 year old F who was seen in the emergency room at [facility] with chief complaint of right-sided weakness ?2 weeks. states she is stubborn. Patient admits that she has been able to walk, she states that she does not have the strength on her right side that she has on her left side. 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 Patient denies any visual disturbances presently, denies any speech disturbance, denies any swallowing difficulties and denies any left-sided weakness. Emergency room physician stated that her NIH score was 7. Evaluation in the ER included a CT of the brain which showed no acute process, cerebral atrophy was noted,, patient's labs were remarkable for creatinine of 1.11. On examination, patient was able to lift her right arm but not hold it in place, she was unable to hold her right leg in place after it was raised up. Patient was seen in consultation by neurology in the emergency room, I talked with neurology, neurology feels that the patient probably has a conversion reaction as her neurological exam was not consistent to indicate a stroke. Patient will be placed in observation status on PCU, and a stroke score is will be obtained, patient will be kept on Plavix and aspirin and her statin. An echocardiogram will be performed tomorrow, patient will have an MRA of her head and neck as well as an MRI of her brain tomorrow. Patient will be seen by neurology again tomorrow. She will be seen by PT and OT Past Medical History Past Medical History (Chronic Problems): Chronic Problems (Last Reviewed 12/01/17 @ 12:57 by Laureen Barragan) ELIE (obstructive sleep apnea) (Chronic) Cardiomyopathy, ischemic (Chronic) S/P CABG x 3 (Chronic) [facility]: 10/13/2012: FUENTES to LCX/OM; SVG to DX; SVG to RCA CAD (coronary artery disease) (Chronic) [facility]: 10/13/2012: FUENTES to LCX/OM; SVG to DX; SVG to RCA; PTCA/ANGELIC to proximal and mid RCA in May 2017; CHF (congestive heart failure) (Chronic) HTN (hypertension) (Chronic) Asthma (Chronic) HLD (hyperlipidemia) (Chronic) Cervical spinal stenosis (Chronic) Seizure (Chronic) cva (Chronic) Medical History: Medical History (Last Reviewed 12/01/17 @ 12:57 by Laureen Barragan) ELIE (obstructive sleep apnea) (Chronic) G47.33 Cardiomyopathy, ischemic (Chronic) I25.5 CAD (coronary artery disease) (Chronic) I25.10 [facility]: 10/13/2012: FUENTES to LCX/OM; SVG to DX; SVG to RCA; PTCA/ANGELIC to proximal and mid RCA in May 2017; Gallbladder & bile duct stone with obstruction (Resolved) K80.71 CHF (congestive heart failure) (Chronic) I50.9 HTN (hypertension) (Chronic) I10 Asthma (Chronic) J45.909 HLD (hyperlipidemia) (Chronic) E78.5 Cervical spinal stenosis (Chronic) M48.02 Seizure (Chronic) R56.9 cva (Chronic) Allergies acyclovir Allergy (Verified 08/30/17 13:01) Unknown belladonna alkaloids Allergy (Verified 08/30/17 13:01) Unknown tree and shrub pollen Allergy (Verified 08/30/17 13:01) cough valacyclovir HCl [From Valtrex] Allergy (Verified 08/30/17 13:01) Other venom-honey bee [bee venom (honey bee)] Allergy (Verified 08/30/17 13:01) Angioedema iodine Adverse Reaction (Unknown, Unverified 08/30/17 13:01) Unknown lisinopril Adverse Reaction (Unknown, Unverified 08/30/17 13:01) Diarrhea Vomiting, Cough, Congestion, Pain, Headache, Drainage, Nausea metformin Adverse Reaction (Unknown, Unverified 08/30/17 13:01) Diarrhea, GI upset, Vomiting, Headache, Dizziness, Nausea nitrofurantoin [From Macrodantin] Adverse Reaction (Unknown, Unverified 08/30/17 13:01) Unknown propoxyphene [From Darvocet-N] Adverse Reaction (Unknown, Unverified 08/30/17 13:01) Unknown Tetracyclines Adverse Reaction (Unknown, Unverified 08/30/17 13:01) Rash valacyclovir [From Valtrex] Adverse Reaction (Unknown, Unverified 08/30/17 13:01) Seizure acetaminophen [From Darvocet-N 100] Adverse Reaction (Verified 08/30/17 13:01) Unknown animal dander Adverse Reaction (Verified 08/30/17 13:01) Other aspirin Adverse Reaction (Verified 08/30/17 13:01) Other atropine sulfate [From ] Adverse Reaction (Verified 08/30/17 13:01) Unknown codeine Adverse Reaction (Verified 08/30/17 13:01) Nausea/Vom/Diarrhea hyoscyamine sulfate [From ] Adverse Reaction (Verified 08/30/17 13:01) Unknown Iodinated Contrast- Oral and IV Dye [CONTRASTS] Adverse Reaction (Verified 08/30/17 13:01) Rash meperidine HCl [From Demerol] Adverse Reaction (Verified 08/30/17 13:01) Unknown niacin Adverse Reaction (Verified 08/30/17 13:01) Upset Stomach nitroglycerin [From Nitro-Dur] Adverse Reaction (Verified 08/30/17 13:01) Other RASH, CAUSED PATIENT TO GET AGITATED. oxytetracycline [From Terramycin] Adverse Reaction (Verified 08/30/17 13:01) Hives oxytetracycline HCl [From Terramycin] Adverse Reaction (Verified 08/30/17 13:01) Hives Penicillins Adverse Reaction (Verified 08/30/17 13:01) Hives perfume Adverse Reaction (Verified 08/30/17 13:01) Shortness of breath phenobarbital [From ] Adverse Reaction (Verified 08/30/17 13:01) Unknown piroxicam Adverse Reaction (Verified 08/30/17 13:01) Unknown prochlorperazine Adverse Reaction (Verified 08/30/17 13:01) Rash propoxyphene napsylate [From Darvocet-N 100] Adverse Reaction (Verified 08/30/17 13:01) Unknown scopolamine hydrobromide [From ] Adverse Reaction (Verified 08/30/17 13:01) Unknown Sulfa (Sulfonamide Antibiotics) Adverse Reaction (Verified 08/30/17 13:01) Rash terfenadine [From Seldane] Adverse Reaction (Verified 08/30/17 13:01) Unknown tetracycline Adverse Reaction (Verified 08/30/17 13:01) Rash Codeine Adverse Reaction (Unknown, Uncoded 08/30/17 13:01) Diarrhea, Vomiting, Nausea Prochlorperazine Adverse Reaction (Unknown, Uncoded 08/30/17 13:01) Rash sulfonamide antibiotics Adverse Reaction (Unknown, Uncoded 08/30/17 13:01) Rash, Hives Home Medications: Ambulatory Orders Medication Instructions Recorded Acetaminophen [Tylenol] 1,000 mg PO Q4H PRN PRN 12/03/15 Cholecalciferol (VIT D3) [Vitamin 1,000 unit PO BID 12/03/15 D3] Ferrous Sulfate 325 mg PO DAILY@0800 12/03/15 Fluticasone 0.05% [Flonase Nasal 2 spray NASAL BID 12/03/15 [place]] Furosemide [Lasix] 40 mg PO BID 12/03/15 Lactobacillus Acidophilus 1 capsule PO TID 12/03/15 [Acidophilus] Loperamide [Imodium] 2 mg PO Q2H PRN PRN 12/03/15 Loratadine [Claritin] 10 mg PO DAILY 12/03/15 Metoprolol Tartrate [Lopressor 12.5 mg PO BID 12/03/15 (beta emma)] Nitroglycerin [Nitrostat] 0.4 mg SUBLINGUAL Q5M PRN 12/03/15 Potassium Chloride [Klor-Con M10] 20 meq PO BID 12/03/15 Premarin Vag Cream 0.5 gm TOPICAL SUWE 12/03/15 Ranolazine [Ranexa] 500 mg PO DAILY 12/03/15 levETIRAcetam tablet [Keppra 500 mg PO 0800,199912/03/15 tablet] proMETHazine tablet [Phenergan 25 mg PO Q6H PRN PRN 12/03/15 tablet] Albuterol Aerosols [Ventolin 2.5 mg INHALATION Q2H PRN PRN #90 04/27/17 Aerosols] vial.neb. albuterol sulfate HFA 90 2 puff INHALATION Q4H PRN g 05/04/17 mcg/actuation aerosol inhaler fenofibrate 160 mg tablet 160 mg PO DAILY #90 tab 08/16/17 isosorbide mononitrate ER 60 mg 60 mg PO DAILY tab 08/16/17 tablet,extended release 24 hr losartan 25 mg tablet 25 mg PO DAILY #90 tab 08/16/17 Aspirin E.C. [Ecotrin] 81 mg PO DAILY 12/01/17 Atorvastatin Calcium [Lipitor] 40 mg PO QHS 12/01/17 Clopidogrel Bisulfate [Clopidogrel] 75 mg PO QDAY 12/01/17 Co Q10 200 [Co Q-10] 100 mg PO DAILY 12/01/17 Dicyclomine HCl 10 mg PO BID 12/01/17 Gabapentin [Neurontin] 300 mg PO BID 12/01/17 Pantoprazole Sodium [Protonix] 40 mg PO DAILY 12/01/17 Sodium Chloride 0.65% [Nikep Nasal 1 spray NASAL PRN 12/01/17 [place]] Umeclidinium Brm/Vilanterol Tr 1 inh INHALATION Q24H 12/01/17 [Anoro Ellipta 62.5-25 Mcg INH] Surgical History: Surgical History (Last Reviewed 12/01/17 @ 12:57 by Laureen Barragan) S/P CABG x 3 (Chronic) Z95.1 [facility]: 10/13/2012: FUENTES to LCX/OM; SVG to DX; SVG to RCA S/P triple vessel bypass (Resolved) Z95.1 [facility]: 10/13/2012: FUENTES to LCX/OM; SVG to DX; SVG to RCA; History of appendectomy (Resolved) Z98.890, Z90.49 History of hysterectomy (Resolved) Z98.890, Z90.710 Surgical History: appendectomy, coronary bypass surgery, hysterectomy - bladder surgery, pilonidal cyst, gallbladder surgery,, - - bladder surgery (multiple), left ovarian removal, pilonidal cyst surgery, coronary artery stent placement Psychiatric History: No pertinent psych hx INSULATION HELPER History: No pertinent INSULATION HELPER history Lives: Spouse/ Significant Other Smoking Status: Never smoker Tobacco Use: Secondhand Alcohol: None Drugs: None - *Family History Maternal Family History: Family History (Last Reviewed 12/01/17 @ 12:57 by Laureen Barragan) Father Heart disease Cancer CVA (cerebral vascular accident) Mother Colon cancer Brother Cancer Brother Cancer History Items: Cancer, - - colon cancer Paternal Family History: Family History (Last Reviewed 12/01/17 @ 12:57 by Laureen Barragan) Father Heart disease Cancer CVA (cerebral vascular accident) Mother Colon cancer Brother Cancer Brother Cancer History Items: Stroke, - - father with cva Review of Systems Constitutional: Reports: Weakness - Complains of right sided weakness. Denies: Anorexia, Chills, Fever, Night Sweats, Malaise, Weight Change, Fatigue Eyes: Denies: Blurred vision, Cataracts, Conjunctivae Inflammation, Double vision, Drainage HEENT: Denies: Difficulty Swallowing, Dysphasia, Ear Pain, Eye Pain, Head Aches, Hearing Changes, Nasal bleeding, Nasal Congestion, Post Nasal Drip Cardiovascular: Denies: Chest Pain, Claudication, Chest Pressure, Chest Tightness, Edema, Heaviness, Orthopnea, Palpitations Respiratory: Reports: Shortness of breath upon exertion - Patient has history of asthma. Denies: Cough, Hemoptysis, Pleuritic Pain, Shortness of Breath, Shortness of breath at rest, Sputum production Gastrointestinal: Denies: Abdominal Pain, Constipation, Diarrhea, Hematemesis, Hematochezia, Nausea, Melena, Vomiting Genitourinary: Reports: Incontinence - Patient has chronic incontinence. Denies: Dysuria, Frequency, Hematuria, Hesitancy, Urgency Gynecological: Denies: Breast symptoms Musculoskeletal: Denies: Back Pain, Foot Pain, Hand Pain, Joint Pain, Joint stiffness, Joint swelling, Joint Tenderness, Leg Pain Skin: Denies: Dryness, Jaundice, Pruritis, Rash Neurological: Reports: Focal weakness - Right upper lower extremity weakness ?2 weeks. Denies: Blurred vision, Double vision, Slurred speech, Difficulty swallowing, Headaches, Numbness, Tingling Psychiatric: Denies: Anxiety, Depression, Homicidal Ideations, Suicidal Ideations Endocrine: Denies: Change in Body Habitus, Heat/ Cold Intolerance, Polydipsia, Polyuria Hematologic/ Lymphatic: Denies: Adenopathy, Anemia, Easy Bruising, Easy Bleeding, Petechiae, Purpura VTE Information - Inpt Only VTE Present on Admission: No VTE Mechan Device Prophylaxis: None VTE Pharm Prophylaxis ordered?: Yes Patient Problems: Active and Suspected Problems (Last Reviewed 12/01/17 @ 12:57 by Laureen Barragan) Right sided weakness (Acute) - Physical Exam General: Alert, Oriented x3, Cooperative, No apparent distress, Well developed, Well nourished HEENT: Atraumatic, PERRLA, EOMI, Normocephalic Oral: Moist Mucosa Neck: Supple, No JVD, Negative Carotid Bruits, No Nuchal Rigidity, Trachea Midline, Thyroid Normal Size and Texture Lungs: Clear to auscultation, Normal air movement, No rhonchi, No wheeze, No rales Cardiovascular: Regular rate, Regular Rhythm, Normal S1, Normal S2, No murmurs, No Ectopic Activity, PMI Normal, No rub noted, No Gallop Abdomen: Bowel Sounds Present, Soft, Non Tender, Non-Distended, Obese, No hernias noted Extremities: No clubbing, No cyanosis, No edema, Capillary Refill Less than 3 Seconds Skin: No rashes, No breakdown Musculoskeletal: No Tenderness to Palpation of Joints or Extremities Neurological: Cranial nerves II-XII grossly intact, Neuro grossly intact, - - Patient has right upper extremity weakness at 3/5 as compared with the left upper extremity, patient was unable to hold her right leg up or flex her knee or hip. She has decreased sensation to light touch over her right leg Psych/Mental Status: Appropriate, Flat Affect, Alert and oriented to time, place, person, mood and affect Vital Signs Temp Pulse Resp BP Pulse Ox 98.1 F 60 17 124/62 H 97 12/01/17 13:51 12/01/17 16:08 12/01/17 16:08 12/01/17 16:08 12/01/17 16:08 Assessment/Plan All Active Problems (Last Reviewed 12/01/17 @ 12:57 by Laureen Barragan) Right sided weakness (Acute) Stage 1 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 (Acute) NSTEMI (non-ST elevated myocardial infarction) (Resolved) COPD with acute exacerbation (Resolved) Gallbladder & bile duct stone with obstruction (Resolved) S/P triple vessel bypass (Resolved) History of appendectomy (Resolved) History of hysterectomy (Resolved) UTI (urinary tract infection) (Resolved) #1 right sided hemiparesis-etiology unclear, 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 She will be seen again tomorrow by neurology, echocardiogram will be performed tomorrow #2 coronary artery disease-stable at this time #3 obstructive sleep apnea-patient uses 2 L of oxygen at night via nasal cannula #4 cerebrovascular disease-by history #5 Hypertension #6 hyperlipidemia #7 asthma-by history Code Visit OBSV E&M: [id number] Initial observation care L3
[2017-12-01 18:02] LABS: Bacteria 0 SEEN /hpf (None Seen); Mucous, Urine 0 SEEN /hpf (<or=2+); Red Blood Cells-Urine 0 SEEN /hpf (0-5); White Blood Cells 0 SEEN /hpf (0-5)
[2017-12-01] MEDS: Furosemide 40 MG Tablet PO (18:03)
[2017-12-01 18:20] LABS: Color, Urine Yellow (Yellow); Glucose, Dipstick Normal (Normal); Ketone-Dipstick Negative (Negative); Leukocyte Esterase-Dipstick Negative /ul (Negative); Nitrite-Dipstick Negative (Negative); Occult Blood-Urine Negative /ul (Negative); Protein-Dipstick Negative (Negative); Specific Gravity, Urine 1.015 (1.002-1.030); Urine Bilirubin Dipstick Negative (Negative); Urine Clarity Clear (Clear); Urine Urobilinogen Normal (Normal)
[2017-12-01 19:01] LABS: Squamous Epithelial Cells - UA 0-5 SEEN /hpf (5-10)
--- NOTE | 2017-12-01 22:04 | NURSING ---
PATIENT BACK FROM MRI AT THIS TIME.
[2017-12-01] MEDS: Acetaminophen 325 MG Tablet 650 MG PO (22:18)
[2017-12-01] MEDS: Dicyclomine 10 MG Capsule PO (22:19)
[2017-12-01] MEDS: Atorvastatin Calcium 40 MG Tablet PO (22:19)
[2017-12-01] MEDS: levETIRAcetam 500 MG Tablet PO (22:19)
[2017-12-01] MEDS: Metoprolol Tartrate 25 MG Tablet 12.5 MG PO (22:20)
[2017-12-01] MEDS: Gabapentin 300 MG Capsule PO (22:21)
[2017-12-02] VITALS (16 sets, daily range): BP systolic 117–149; BP diastolic 52–83; PULSE 56–77; RESP 16–18; TEMP 36–36.9; O2SAT 93–97; BMI 40.6
[2017-12-02] MEDS: Acetaminophen 325 MG Tablet 650 MG PO (03:59)
[2017-12-02 06:21] LABS: Cholesterol 127 mg/dL (200); High Density Lipoprotein 33 mg/dL; Triglycerides 177 mg/dL; Very Low Density Lipoprotein 35 mg/dL (5-40)
[2017-12-02] MEDS: Ipratropium/Albuterol Sulfate 3 ML AMPUL.NEB INHALATION ×3 (07:25→23:08)
[2017-12-02] MEDS: levETIRAcetam 500 MG Tablet PO ×2 (08:27→20:41)
[2017-12-02] MEDS: Dicyclomine 10 MG Capsule PO ×2 (10:13→22:25)
[2017-12-02] MEDS: Clopidogrel Bisulfate 75 MG Tablet PO (10:13)
[2017-12-02] MEDS: Isosorbide Mononitrate 60 MG Tablet PO (10:13)
[2017-12-02] MEDS: Pantoprazole Sodium 40 MG Tablet PO (10:14)
[2017-12-02] MEDS: Gabapentin 300 MG Capsule PO ×2 (10:14→22:25)
[2017-12-02] MEDS: Metoprolol Tartrate 25 MG Tablet 12.5 MG PO ×2 (10:14→22:25)
[2017-12-02] MEDS: Furosemide 40 MG Tablet PO ×2 (10:15→17:17)
[2017-12-02] MEDS: Ranolazine 500 MG Tablet PO (10:15)
[2017-12-02] MEDS: Aspirin E.C. 81 MG Tablet PO (10:15)
[2017-12-02] MEDS: Losartan Potassium 25 MG Tablet PO (10:16)
--- NOTE | 2017-12-02 11:40 | CASEMGMT ---
Addendum entered by Ioana Luis 12/02/17 14:23: SW spoke with [facility] and they can take patient pending insurance approval. Ileana at [place] said she started the pre-cert already. Plan: [facility] pending insurance approval Ioana NETTLES SKILLED NURSING FACILITY COUNSELOR Original Note: SW spoke with patient and her granddaughter. Patient spoke with ED SW and was interested in completing advance directives. Patient said she will take the documents home, but would like to talk with her daughter about them. SW discussed home health and patient's granddaughter spoke up and asked how patient can go home if she is not getting around very well. SW asked patient if she was interested in going to a custodial facility. She said [facility] has a unit and she would be open to going there for a short time. SW told her SW will contact them with referral. SW told her insurance will have to approve her before she can go. SW notified physician and MEDICAID NURSE. SW called [facility] and made a referral as well as faxed referral information. Await their response. Plan: SNF pending accepting facility and insurance approval. Ioana NETTLES SKILLED NURSING FACILITY COUNSELOR
--- NOTE | 2017-12-02 11:56 | TREXTCA.CO_ITS ---
- Diet 12/01/17 16:49 Diet: Regular Diet Is pt able to select menu?: Yes - Routine Orders/Code Status Enema Type: Fleetz Enema Frequency: Daily PRN Suppository Type: Dulcolax 10mg Suppository Frequency: Daily PRN Routine Lab Work: CBC, BMP, - - Q Week - Suggestions for Active Care Change Position every (hours): 2 Times a day to sit in chair: 3 - Therapies Weight Bearing: Full weight bearing Extremity Affected:: Right Upper Physical Therapy: Eval and Treat Occupational Therapy: Eval and Treat - Problem/Diagnosis (1) Right sided weakness Status: Acute Comment: Secondary to suspected conversion disorder Current Visit: Yes (2) Stage 1 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 Status: Chronic Current Visit: No (3) Asthma Status: Chronic Current Visit: No (4) CAD (coronary artery disease) Status: Chronic Comment: [facility]: 10/13/2012: FUENTES to LCX/OM; SVG to DX; SVG to RCA; PTCA/ANGELIC to proximal and mid RCA in May 2017; Current Visit: No (5) CHF (congestive heart failure) Status: Chronic Current Visit: No (6) Cardiomyopathy, ischemic Status: Chronic Current Visit: No (7) Cervical spinal stenosis Status: Chronic Current Visit: No (8) HLD (hyperlipidemia) Status: Chronic Current Visit: No (9) HTN (hypertension) Status: Chronic Current Visit: No (10) ELIE (obstructive sleep apnea) Status: Chronic Current Visit: No (11) Seizure Status: Chronic Current Visit: No (12) cva Status: Chronic Current Visit: No (13) Gallbladder & bile duct stone with obstruction Status: Resolved Current Visit: No (14) History of appendectomy Status: Resolved Current Visit: No (15) History of hysterectomy Status: Resolved Current Visit: No (16) NSTEMI (non-ST elevated myocardial infarction) Status: Resolved Current Visit: No (17) S/P triple vessel bypass Status: Resolved Comment: [facility]: 10/13/2012: FUENTES to LCX/OM; SVG to DX; SVG to RCA; Current Visit: No (18) UTI (urinary tract infection) Status: Resolved Current Visit: No (19) Dyspnea on exertion Status: Inactive Current Visit: No (20) S/P PTCA (percutaneous transluminal coronary angioplasty) Status: Inactive Comment: PTCA/ANGELIC to prox RCA and mid RCA 05/24/2017 Current Visit: No - Allergies/Procedures Done in Hospital Allergies/Adverse Reactions: Allergies acyclovir Allergy (Verified 08/30/17 13:01) Unknown belladonna alkaloids Allergy (Verified 08/30/17 13:01) Unknown tree and shrub pollen Allergy (Verified 08/30/17 13:01) cough valacyclovir HCl [From Valtrex] Allergy (Verified 08/30/17 13:01) Other venom-honey bee [bee venom (honey bee)] Allergy (Verified 08/30/17 13:01) Angioedema iodine Adverse Reaction (Severe, Verified 12/02/17 00:35) Other burning, rash lisinopril Adverse Reaction (Severe, Verified 12/02/17 00:35) Diarrhea Vomiting, Cough, Congestion, Pain, Headache, Drainage, Nausea metformin Adverse Reaction (Severe, Verified 12/02/17 00:35) Diarrhea, GI upset, Vomiting, Headache, Dizziness, Nausea Tetracyclines Adverse Reaction (Severe, Verified 12/02/17 00:35) headache, vomiting, rash nitrofurantoin [From Macrodantin] Adverse Reaction (Unknown, Unverified 13:01) Unknown propoxyphene [From Darvocet-N] Adverse Reaction (Unknown, Unverified 08/30/17 13 :01) Unknown valacyclovir [From Valtrex] Adverse Reaction (Unknown, Unverified 08/30/17 13:01 ) Seizure acetaminophen [From Darvocet-N 100] Adverse Reaction (Verified 08/30/17 13:01) Unknown animal dander Adverse Reaction (Verified 08/30/17 13:01) Other aspirin Adverse Reaction (Verified 08/30/17 13:01) Other atropine sulfate [From ] Adverse Reaction (Verified 08/30/17 13:01) Unknown codeine Adverse Reaction (Verified 08/30/17 13:01) Nausea/Vom/Diarrhea hyoscyamine sulfate [From ] Adverse Reaction (Verified 08/30/17 13:01) Unknown Iodinated Contrast- Oral and IV Dye [CONTRASTS] Adverse Reaction (Verified 08/30 13:01) Rash meperidine HCl [From Demerol] Adverse Reaction (Verified 08/30/17 13:01) Unknown niacin Adverse Reaction (Verified 08/30/17 13:01) Upset Stomach nitroglycerin [From Nitro-Dur] Adverse Reaction (Verified 08/30/17 13:01) Other RASH, CAUSED PATIENT TO GET AGITATED. oxytetracycline [From Terramycin] Adverse Reaction (Verified 08/30/17 13:01) Hives oxytetracycline HCl [From Terramycin] Adverse Reaction (Verified 08/30/17 13:01) Hives Penicillins Adverse Reaction (Verified 08/30/17 13:01) Hives perfume Adverse Reaction (Verified 08/30/17 13:01) Shortness of breath phenobarbital [From ] Adverse Reaction (Verified 08/30/17 13:01) Unknown piroxicam Adverse Reaction (Verified 08/30/17 13:01) Unknown prochlorperazine Adverse Reaction (Verified 08/30/17 13:01) Rash propoxyphene napsylate [From Darvocet-N 100] Adverse Reaction (Verified 13:01) Unknown scopolamine hydrobromide [From ] Adverse Reaction (Verified 08/30/17 13: 01) Unknown Sulfa (Sulfonamide Antibiotics) Adverse Reaction (Verified 08/30/17 13:01) Rash terfenadine [From Seldane] Adverse Reaction (Verified 08/30/17 13:01) Unknown tetracycline Adverse Reaction (Verified 08/30/17 13:01) Rash Codeine Adverse Reaction (Unknown, Uncoded 08/30/17 13:01) Diarrhea, Vomiting, Nausea Prochlorperazine Adverse Reaction (Unknown, Uncoded 08/30/17 13:01) Rash sulfonamide antibiotics Adverse Reaction (Unknown, Uncoded 08/30/17 13:01) Rash, Hives Procedures: 2-D Echocardiogram - Type of Care/Length of Stay Estimated LOS: Convalescent Care Less Than 30 days Type of Care Needed: Skilled Rehab Potential: Fair Prognosis: Fair - Additional Orders/Day of Discharge H&P will serve as current which was dated: 12/01/17 Day of Discharge: 12/02/17 - Follow Up Care Primary Care Physician: Stefany Durham DO [Primary Care Provider] - Please follow up with your Primary Care Physician in: 1 Week Please Follow Up With: Jackson Davies MD When: 2-4 Weeks Please Follow Up With: [facility] When: Call to schedule
--- NOTE | 2017-12-02 14:32 | CASEMGMT ---
FAUZIA called Kristin Chung to let her know SW is working on getting patient to [facility] for rehab. FAUZIA explained hopefully will have insurance approval tomorrow. She asked that FAUZIA let her know when she is d/c. Plan: [facility] unit pending insurance approval. Ioana JOHNSTON
--- NOTE | 2017-12-02 14:50 | PN_ITS ---
Patient Problems: Active and Suspected Problems (Last Reviewed 12/01/17 @ 12:57 by Laureen Barragan ) Right sided weakness (Acute) Secondary to suspected conversion disorder Subjective: Patient seen and examined. Continues to complain of right-sided weakness. States this is been ongoing for weeks. Denies other neurologic deficits. [facility] [place] [facility] [place] [facility]. Pre-cert pending. - Physical Exam General: Alert, Oriented x3, Cooperative HEENT: Atraumatic, PERRLA, EOMI, Normocephalic Neck: Supple, No JVD, Negative Carotid Bruits Lungs: Clear to auscultation, Normal air movement Cardiovascular: Regular rate, Regular Rhythm, Normal S1, Normal S2, No murmurs Abdomen: Bowel Sounds Present, Soft, Non Tender, Non-Distended Extremities: No clubbing, No cyanosis, No edema, Capillary Refill Less than 3 Seconds Skin: No rashes, No breakdown Musculoskeletal: No Tenderness to Palpation of Joints or Extremities Neurological: Cranial nerves II-XII grossly intact, - - 3/5 strength right upper and right lower extremity. Neuro otherwise grossly intact. Psych/Mental Status: Normal Affect, Appropriate Vital Signs Temp Pulse Resp BP Pulse Ox 98.1 F 70 18 117/52 L 95 12/02/17 11:33 12/02/17 13:55 12/02/17 13:55 12/02/17 11:33 12/02/17 11:33 Oxygen Delivery Method Room Air Weight: 222 lb 7.143 oz Body Mass Index (BMI) 40.6 Intake and Output for Last 24 Hours 11/30/17 12/01/17 12/02/17 23:59 23:59 23:59 Intake Total 282 / 282 1480 / 1480 Output Total 500 / 500 600 / 600 Balance -218 / -218 880 / 880 Laboratory Tests Past 24 Hrs 12/01/17 12/02/17 17:55 05:35 Triglycerides 177 Cholesterol 127 LDL Cholesterol 59 VLDL Cholesterol 35 HDL Cholesterol 33 L Urine Color Yellow Urine Clarity Clear Urine pH 5.0 Ur Specific [place] 1.015 Urine Protein Negative Urine Glucose (UA) Normal Urine Ketones Negative Urine Occult Blood Negative Urine Nitrite Negative Urine Bilirubin Negative Urine Urobilinogen Normal Ur Leukocyte Esterase Negative Urine RBC 0 SEEN Urine WBC 0 SEEN Ur Squamous Epith Cells 0-5 SEEN Urine Bacteria 0 SEEN Urine Mucus 0 SEEN Medical Necessity - Tobacco Use Smoking Status: Never smoker Tobacco Use: Secondhand Assessment/Plan All Active Problems (Last Reviewed 12/01/17 @ 12:57 by Laureen Barragan) Right sided weakness (Acute) NSTEMI (non-ST elevated myocardial infarction) (Resolved) Gallbladder & bile duct stone with obstruction (Resolved) S/P triple vessel bypass (Resolved) History of appendectomy (Resolved) History of hysterectomy (Resolved) UTI (urinary tract infection) (Resolved) 1. Right-sided weakness-probable conversion reaction. Neuro consulted. MRI of brain without acute infarct. Cervical spine MRI with mild spondylosis and spinal stenosis at C3-C4 and C5-C6. No evidence of acute fracture. Neck MRA with no evidence of hemodynamically significant stenosis. PT/OT. Follow-up with neurology and [facility] as previously referred as outpatient. Pending pre-CERT to SNF. 2. CAD status post triple-vessel bypass/PTCA-continue aspirin, statin, Plavix, metoprolol. 3. Chronic systolic CHF-echocardiogram August 2017 with an EF of 40%, mild to moderate segmental systolic dysfunction. No acute exacerbation. 4. ELIE with chronic hypoxia-continue supplemental oxygen nightly, PRN. 5. COPD-no acute exacerbation. Continue albuterol and DuoNeb aerosols. 6. Hypertension-stable, continue home regimen. 7. Hyperlipidemia-continue statin. 8. History of seizure-continue home Keppra regimen. 9. History of CVA-continue aspirin, statin, Plavix. DVT prophylaxis-SCDs, lovenox sc This patient was seen by JORGE Perry under the supervision of Dr. Spence.
--- NOTE | 2017-12-02 15:07 | CHAPLAIN ---
Type of Pastoral Visit _x__ Initial Visit ___ Follow-up Visit ___ On-call Visit ___ General Patient Visit ___ Spiritual Assessment ___ Family Conference ___ Bereavement ___ Rapid Response ___ Code Blue ___ Other (describe below) Pastoral Care Referral From _x__ Patient ___ Family ___ Nurse ___ Physician ___ Gerontological Nurse Practitioner ___ Woodwork Salvage Inspector ___ Other (describe below) Sacrament/Intervention _x__ Active listening ___ Anointing ___ Temple ___ Bereavement ___ Communion ___ Aileen exploration ___ ___ Life review _x__ Prayer ___ Reconciliation ___ Sacrament of Sick ___ Supportive presence ___ Wedding ___ Other (describe below) Pastoral Comments family member is visiting with patient; pt requests a prayer is what I need; family member also joins in saying a prayer for pt; pt is pleasant and has no concerns expressed; pt says that her issue is using her legs which don't seem to work well right now; pt reports having family members and mu-ism for her support
[2017-12-02] MEDS: Atorvastatin Calcium 40 MG Tablet PO (22:25)
[2017-12-03] VITALS (7 sets, daily range): BP systolic 135–144; BP diastolic 69–72; PULSE 60–74; RESP 16–18; TEMP 37; O2SAT 92–95; BMI 40.6
[2017-12-03] MEDS: Enoxaparin 40 MG/0.4 ML Syringe SC (05:05)
[2017-12-03 06:35] LABS: Anion Gap 8 (5-15); BUN 16 mg/dL (7-18); BUN/Creat Ratio 16.9 RATIO (10-20); Chloride 108 mmol/L (98-107); Creatinine, Serum 0.95 mg/dL (0.55-1.02); EST Glomerular Filtration Rate 60 mL/min (>60); Est Glom Filt Rate - Afr Amer 73 mL/min (>60); Estimated Creatinine Clearance 37.36 ml/min; Glucose 96 mg/dL (74-106); Potassium 3.9 mmol/L (3.5-5.1); Sodium Level 140 mmol/L (136-145)
[2017-12-03] MEDS: Ipratropium/Albuterol Sulfate 3 ML AMPUL.NEB INHALATION (07:09)
[2017-12-03] MEDS: levETIRAcetam 500 MG Tablet PO (08:10)
[2017-12-03] MEDS: Furosemide 40 MG Tablet PO (10:17)
[2017-12-03] MEDS: Aspirin E.C. 81 MG Tablet PO (10:17)
[2017-12-03] MEDS: Isosorbide Mononitrate 60 MG Tablet PO (10:17)
[2017-12-03] MEDS: Losartan Potassium 25 MG Tablet PO (10:17)
[2017-12-03] MEDS: Metoprolol Tartrate 25 MG Tablet 12.5 MG PO (10:17)
[2017-12-03] MEDS: Dicyclomine 10 MG Capsule PO (10:17)
[2017-12-03] MEDS: Gabapentin 300 MG Capsule PO (10:18)
[2017-12-03] MEDS: Pantoprazole Sodium 40 MG Tablet PO (10:18)
[2017-12-03] MEDS: Ranolazine 500 MG Tablet PO (10:18)
[2017-12-03] MEDS: Clopidogrel Bisulfate 75 MG Tablet PO (10:18)
--- NOTE | 2017-12-03 11:36 | PCM.DC.SUM ---
Discharge Date and Diagnosis Date of Admission: 12/01/17 Date of Discharge: 12/03/17 - Primary Discharge Diagnosis Active and Suspected Problems (Last Reviewed 12/01/17 @ 12:57 by Laureen Barragan) 1. Right sided weakness secondary to suspected conversion disorder - Secondary Discharge Diagnosis Chronic Problems (Last Reviewed 12/01/17 @ 12:57 by Laureen Barragan) 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) ELIE (obstructive sleep apnea) (Chronic) Cardiomyopathy, ischemic (Chronic) S/P CABG x 3 (Chronic) [facility]: 10/13/2012: FUENTES to LCX/OM; SVG to DX; SVG to RCA CAD (coronary artery disease) (Chronic) [facility]: 10/13/2012: FUENTES to LCX/OM; SVG to DX; SVG to RCA; PTCA/ANGELIC to proximal and mid RCA in May 2017; CHF (congestive heart failure) (Chronic) HTN (hypertension) (Chronic) Asthma (Chronic) HLD (hyperlipidemia) (Chronic) Cervical spinal stenosis (Chronic) Seizure (Chronic) cva (Chronic) Hospital Course and Treatment Imaging Results: Diagnostic Data Brain CT 12/01/17 14:15 IMPRESSION: Chronic involutional changes of the brain. Electronically Signed: Jalil Gotti MD at 15:11 EDT Tel [phone], Service support , ADDENDUM: 12/01/17 195 Chest X-Ray 12/01/17 14:22 IMPRESSION: No acute abnormality is seen. Electronically Signed: Jalil Gotti MD at 15:16 EDT Tel [phone], Service support , Brain MRI 12/01/17 15:57 IMPRESSION: Mild atrophy and periventricular white matter ischemic change without evidence for acute infarct Electronically Signed: Jama Mccloud MD at 21:40 EDT , Service support , Cervical Spine MRI 12/01/17 15:57 IMPRESSION: No evidence for acute fracture or subluxation Mild spondylosis and spinal stenosis at C3-4 and C5-C6 greater on the right secondary to disc disease and bony hypertrophy Electronically Signed: Jama Mccloud MD at 23:18 EDT , Service support , Head MRA 12/01/17 15:57 IMPRESSION: Mild atherosclerotic changes with mild focal segmental stenosis of the distal basilar artery Electronically Signed: Jama Mccloud MD at 21:43 EDT , Service support , Neck MRA 12/01/17 15:57 IMPRESSION: Mild atherosclerotic disease. No evidence for hemodynamically significant stenosis utilizing NASCET criteria Electronically Signed: Jama Mccloud MD at 21:45 EDT , Service support , Dr. Davies- Neurology Operations: None Procedures: None Summary of Care Provided: Patient is a 82-year-old female admitted 12/01/2017 due to right-sided weakness. She has a past medical history of CAD status post triple-vessel bypass and PTCA, chronic systolic CHF, ELIE with chronic hypoxia, COPD, hypertension, hyperlipidemia, history of seizure, history of CVA. 1. Right-sided weakness-probable conversion reaction. Neuro consulted. MRI of brain without acute infarct. Cervical spine MRI with mild spondylosis and spinal stenosis at C3-C4 and C5-C6. No evidence of acute fracture. Neck MRA with no evidence of hemodynamically significant stenosis. PT/OT. Follow-up with neurology in 1-2 weeks and [facility] as previously referred as outpatient. SNF at discharge for further therapy. 2. CAD status post triple-vessel bypass/PTCA-continue aspirin, statin, Plavix, metoprolol. 3. Chronic systolic CHF-echocardiogram August 2017 with an EF of 40%, mild to moderate segmental systolic dysfunction. No acute exacerbation. 4. ELIE with chronic hypoxia-continue supplemental oxygen nightly, PRN. 5. COPD-no acute exacerbation. Continue albuterol PRN. 6. Hypertension-stable, continue home regimen. 7. Hyperlipidemia-continue statin. 8. History of seizure-continue home Keppra regimen. 9. History of CVA-continue aspirin, statin, Plavix. General: Alert, Oriented x3, Cooperative HEENT: Atraumatic, PERRLA, EOMI, Normocephalic Neck: Supple, No JVD, Negative Carotid Bruits Lungs: Clear to auscultation, Normal air movement Cardiovascular: Regular rate, Regular Rhythm, Normal S1, Normal S2, No murmurs Abdomen: Bowel Sounds Present, Soft, Non Tender, Non-Distended Extremities: No clubbing, No cyanosis, No edema, Capillary Refill Less than 3 Seconds Skin: No rashes, No breakdown Musculoskeletal: No Tenderness to Palpation of Joints or Extremities Neurological: Cranial nerves II-XII grossly intact, - - 3/5 strength right upper and right lower extremity. Neuro otherwise grossly intact. Psych/Mental Status: Normal Affect, Appropriate Patient seen exam prior to discharge. Physical assessment as above. Patient stable for discharge to SNF. This patient was seen by JORGE Perry under the supervision of Dr. Spence. Home Medications: Medications to take at Discharge Acetaminophen [Tylenol] 1,000 mg PO Q4H PRN PRN 12/03/15 Cholecalciferol (VIT D3) [Vitamin D3] 1,000 unit PO BID 12/03/15 Ferrous Sulfate 325 mg PO DAILY@0800 12/03/15 Fluticasone 0.05% [Flonase Nasal [place]] 2 spray NASAL BID 12/03/15 Furosemide [Lasix] 40 mg PO BID 12/03/15 Lactobacillus Acidophilus [Acidophilus] 1 capsule PO TID 12/03/15 Loperamide [Imodium] 2 mg PO Q2H PRN PRN 12/03/15 Loratadine [Claritin] 10 mg PO DAILY 12/03/15 Metoprolol Tartrate [Lopressor (beta emma)] 12.5 mg PO BID 12/03/15 Nitroglycerin [Nitrostat] 0.4 mg SUBLINGUAL Q5M PRN 12/03/15 Potassium Chloride [Klor-Con M10] 20 meq PO BID 12/03/15 Premarin Vag Cream 0.5 gm TOPICAL SUWE 12/03/15 Ranolazine [Ranexa] 500 mg PO DAILY 12/03/15 levETIRAcetam tablet [Keppra tablet] 500 mg PO 0800,199912/03/15 proMETHazine tablet [Phenergan tablet] 25 mg PO Q6H PRN PRN 12/03/15 Albuterol Aerosols [Ventolin Aerosols] 2.5 mg INHALATION Q2H PRN PRN #90 vial.neb. 04/27/17 albuterol sulfate HFA 90 mcg/actuation aerosol inhaler 2 puff INHALATION Q4H PRN g 05/04/17 fenofibrate 160 mg tablet 160 mg PO DAILY #90 tab 08/16/17 isosorbide mononitrate ER 60 mg tablet,extended release 24 hr 60 mg PO DAILY tab 08/16/17 losartan 25 mg tablet 25 mg PO DAILY #90 tab 08/16/17 Aspirin E.C. [Ecotrin] 81 mg PO DAILY 12/01/17 Atorvastatin Calcium [Lipitor] 40 mg PO QHS 12/01/17 Clopidogrel Bisulfate [Clopidogrel] 75 mg PO QDAY 12/01/17 Co Q10 200 [Co Q-10] 100 mg PO DAILY 12/01/17 Dicyclomine HCl 10 mg PO BID 12/01/17 Gabapentin [Neurontin] 300 mg PO BID 12/01/17 Pantoprazole Sodium [Protonix] 40 mg PO DAILY 12/01/17 Sodium Chloride 0.65% [[place] Nasal [place]] 1 spray NASAL PRN 12/01/17 Umeclidinium Brm/Vilanterol Tr [Anoro Ellipta 62.5-25 Mcg INH] 1 inh INHALATION Q24H 12/01/17 Primary Care Physician: Stefany Durham DO [Primary Care Provider] - Please follow up with your Primary Care Physician in: 1 Week Please Follow Up With: Jacksno Davies MD When: 2-4 Weeks Please Follow Up With: [facility] When: Call to schedule Disposition: Detention facility Minutes spent on discharge:: 35 Patient Condition:: Stable Medical Necessity - Tobacco Use Smoking Status: Never smoker Tobacco Use: Secondhand Meaningful Use Info Meaningful Use Diagnoses (Choose all that apply): None applicable
--- NOTE | 2017-12-03 11:43 | DS.PCM_ITS ---
Discharge Date and Diagnosis Date of Admission: 12/01/17 Date of Discharge: 12/03/17 - Primary Discharge Diagnosis Active and Suspected Problems (Last Reviewed 12/01/17 @ 12:57 by Laureen Barragan ) 1. Right sided weakness secondary to suspected conversion disorder - Secondary Discharge Diagnosis Chronic Problems (Last Reviewed 12/01/17 @ 12:57 by Laureen Barragan) 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) ELIE (obstructive sleep apnea) (Chronic) Cardiomyopathy, ischemic (Chronic) S/P CABG x 3 (Chronic) [facility]: 10/13/2012: FUENTES to LCX/OM; SVG to DX; SVG to RCA CAD (coronary artery disease) (Chronic) [facility]: 10/13/2012: FUENTES to LCX/OM; SVG to DX; SVG to RCA; PTCA/ANGELIC to proximal and mid RCA in May 2017; CHF (congestive heart failure) (Chronic) HTN (hypertension) (Chronic) Asthma (Chronic) HLD (hyperlipidemia) (Chronic) Cervical spinal stenosis (Chronic) Seizure (Chronic) cva (Chronic) Hospital Course and Treatment Imaging Results: Diagnostic Data Brain CT 12/01/17 14:15 IMPRESSION: Chronic involutional changes of the brain. Electronically Signed: Jalil Gotti MD at 15:11 EDT Tel [phone], Service support , ADDENDUM: 12/01/17 195 Chest X-Ray 12/01/17 14:22 IMPRESSION: No acute abnormality is seen. Electronically Signed: Jalil Gotti MD at 15:16 EDT Tel [phone], Service support , Brain MRI 12/01/17 15:57 IMPRESSION: Mild atrophy and periventricular white matter ischemic change without evidence for acute infarct Electronically Signed: Jama Mccloud MD at 21:40 EDT , Service support , Cervical Spine MRI 12/01/17 15:57 IMPRESSION: No evidence for acute fracture or subluxation Mild spondylosis and spinal stenosis at C3-4 and C5-C6 greater on the right secondary to disc disease and bony hypertrophy Electronically Signed: Jama Mccloud MD at 23:18 EDT , Service support , Head MRA 12/01/17 15:57 IMPRESSION: Mild atherosclerotic changes with mild focal segmental stenosis of the distal basilar artery Electronically Signed: Jama Mccloud MD at 21:43 EDT , Service support , Neck MRA 12/01/17 15:57 IMPRESSION: Mild atherosclerotic disease. No evidence for hemodynamically significant stenosis utilizing NASCET criteria Electronically Signed: Jama Mccloud MD at 21:45 EDT , Service support , Dr. Davies- Neurology Operations: None Procedures: None Summary of Care Provided: Patient is a 82-year-old female admitted 12/01/2017 due to right-sided weakness. She has a past medical history of CAD status post triple-vessel bypass and PTCA, chronic systolic CHF, ELIE with chronic hypoxia, COPD, hypertension, hyperlipidemia, history of seizure, history of CVA. 1. Right-sided weakness-probable conversion reaction. Neuro consulted. MRI of brain without acute infarct. Cervical spine MRI with mild spondylosis and spinal stenosis at C3-C4 and C5-C6. No evidence of acute fracture. Neck MRA with no evidence of hemodynamically significant stenosis. PT/OT. Follow-up with neurology in 1-2 weeks and [facility] as previously referred as outpatient. SNF at discharge for further therapy. 2. CAD status post triple-vessel bypass/PTCA-continue aspirin, statin, Plavix, metoprolol. 3. Chronic systolic CHF-echocardiogram August 2017 with an EF of 40%, mild to moderate segmental systolic dysfunction. No acute exacerbation. 4. ELIE with chronic hypoxia-continue supplemental oxygen nightly, PRN. 5. COPD-no acute exacerbation. Continue albuterol PRN. 6. Hypertension-stable, continue home regimen. 7. Hyperlipidemia-continue statin. 8. History of seizure-continue home Keppra regimen. 9. History of CVA-continue aspirin, statin, Plavix. General: Alert, Oriented x3, Cooperative HEENT: Atraumatic, PERRLA, EOMI, Normocephalic Neck: Supple, No JVD, Negative Carotid Bruits Lungs: Clear to auscultation, Normal air movement Cardiovascular: Regular rate, Regular Rhythm, Normal S1, Normal S2, No murmurs Abdomen: Bowel Sounds Present, Soft, Non Tender, Non-Distended Extremities: No clubbing, No cyanosis, No edema, Capillary Refill Less than 3 Seconds Skin: No rashes, No breakdown Musculoskeletal: No Tenderness to Palpation of Joints or Extremities Neurological: Cranial nerves II-XII grossly intact, - - 3/5 strength right upper and right lower extremity. Neuro otherwise grossly intact. Psych/Mental Status: Normal Affect, Appropriate Patient seen exam prior to discharge. Physical assessment as above. Patient stable for discharge to SNF. This patient was seen by JORGE Perry under the supervision of Dr. Spence. Home Medications: Medications to take at Discharge Acetaminophen [Tylenol] 1,000 mg PO Q4H PRN PRN 12/03/15 Cholecalciferol (VIT D3) [Vitamin D3] 1,000 unit PO BID 12/03/15 Ferrous Sulfate 325 mg PO DAILY@0800 12/03/15 Fluticasone 0.05% [Flonase Nasal [place]] 2 spray NASAL BID 12/03/15 Furosemide [Lasix] 40 mg PO BID 12/03/15 Lactobacillus Acidophilus [Acidophilus] 1 capsule PO TID 12/03/15 Loperamide [Imodium] 2 mg PO Q2H PRN PRN 12/03/15 Loratadine [Claritin] 10 mg PO DAILY 12/03/15 Metoprolol Tartrate [Lopressor (beta emma)] 12.5 mg PO BID 12/03/15 Nitroglycerin [Nitrostat] 0.4 mg SUBLINGUAL Q5M PRN 12/03/15 Potassium Chloride [Klor-Con M10] 20 meq PO BID 12/03/15 Premarin Vag Cream 0.5 gm TOPICAL SUWE 12/03/15 Ranolazine [Ranexa] 500 mg PO DAILY 12/03/15 levETIRAcetam tablet [Keppra tablet] 500 mg PO 0800,199912/03/15 proMETHazine tablet [Phenergan tablet] 25 mg PO Q6H PRN PRN 12/03/15 Albuterol Aerosols [Ventolin Aerosols] 2.5 mg INHALATION Q2H PRN PRN #90 vial.neb. 04/27/17 albuterol sulfate HFA 90 mcg/actuation aerosol inhaler 2 puff INHALATION Q4H PRN g 05/04/17 fenofibrate 160 mg tablet 160 mg PO DAILY #90 tab 08/16/17 isosorbide mononitrate ER 60 mg tablet,extended release 24 hr 60 mg PO DAILY tab 08/16/17 losartan 25 mg tablet 25 mg PO DAILY #90 tab 08/16/17 Aspirin E.C. [Ecotrin] 81 mg PO DAILY 12/01/17 Atorvastatin Calcium [Lipitor] 40 mg PO QHS 12/01/17 Clopidogrel Bisulfate [Clopidogrel] 75 mg PO QDAY 12/01/17 Co Q10 200 [Co Q-10] 100 mg PO DAILY 12/01/17 Dicyclomine HCl 10 mg PO BID 12/01/17 Gabapentin [Neurontin] 300 mg PO BID 12/01/17 Pantoprazole Sodium [Protonix] 40 mg PO DAILY 12/01/17 Sodium Chloride 0.65% [[place] Nasal [place]] 1 spray NASAL PRN 12/01/17 Umeclidinium Brm/Vilanterol Tr [Anoro Ellipta 62.5-25 Mcg INH] 1 inh INHALATION Q24H 12/01/17 Primary Care Physician: Stefany Durham DO [Primary Care Provider] - Please follow up with your Primary Care Physician in: 1 Week Please Follow Up With: Jackson Davies MD When: 2-4 Weeks Please Follow Up With: [facility] When: Call to schedule Disposition: Assisted facility Minutes spent on discharge:: 35 Patient Condition:: Stable Medical Necessity - Tobacco Use Smoking Status: Never smoker Tobacco Use: Secondhand Meaningful Use Info Meaningful Use Diagnoses (Choose all that apply): None applicable
--- NOTE | 2017-12-03 12:01 | CASEMGMT ---
Patient was approved to go to [facility]. Notified physician, RN, and patient. Await orders and will then arrange transport. Plan: [facility] Ioana JOHNSTON
--- NOTE | 2017-12-03 12:16 | CASEMGMT ---
Faxed orders to [facility]. Called [facility] and arranged for patient to get picked up at via wheelchair van. SW notified patient, supercharge repair supervisor who notified RN, patient's , and Yolis at [facility]. Plan: d/c to [facility] under skilled level of care. [facility] transported via wheelchair van. Ioana NETTLES MSW
== END 2017-12-03 14:10 | disposition skilled nursing facility (03) ==
LOC: ED 16:11 → PCU 16:56
PROVIDERS: Nurse Practitioner Family; Admitting Provider Internal Medicine; Emergency Provider Emergency Medicine; Family Provider Family Medicine; PCP Family Medicine; Visit Provider Family Medicine
DX: G81.91 Hemiplegia, unspecified affecting right dominant side (principal); E78.5 Hyperlipidemia, unspecified; E66.01 Morbid (severe) obesity due to excess calories; I25.10 Atherosclerotic heart disease of native coronary artery without angina pectoris; J44.9 Chronic obstructive pulmonary disease, unspecified; G40.909 Epilepsy, unspecified, not intractable, without status epilepticus; G47.33 Obstructive sleep apnea (adult) (pediatric); K21.9 Gastro-esophageal reflux disease without esophagitis; G89.29 Other chronic pain; M48.02 Spinal stenosis, cervical region; I11.0 Hypertensive heart disease with heart failure; I50.22 Chronic systolic (congestive) heart failure; Z68.41 Body mass index [BMI] 40.0-44.9, adult; Z71.3 Dietary counseling and surveillance; Z95.1 Presence of aortocoronary bypass graft; Z79.899 Other long term (current) drug therapy; Z79.51 Long term (current) use of inhaled steroids; Z79.02 Long term (current) use of antithrombotics/antiplatelets; Z79.82 Long term (current) use of aspirin; R29.810 Facial weakness; I25.2 Old myocardial infarction; I69.354 Hemiplegia and hemiparesis following cerebral infarction affecting left non-dominant side
CPT/HCPCS: 36415; 70450; 70544; 70547; 70551; 71045; 72141; 80048; 80061; 81001; 82962; 84484; 85025; 85610; 85730; 93005; 94640; 97162; 97165; 97530; 99218; 99284; 99406; J7030; A4216; G0378

== ENCOUNTER 2017-12-21 11:09 | Inpatient (IN) | payer MEDICARE, MEDICAID, SELFPAY ==
[2017-12-21] VITALS (15 sets, daily range): BP systolic 104–159; BP diastolic 46–77; PULSE 64–77; RESP 14–18; TEMP 36.7–37.7; O2SAT 94–96; BMI 40.6; BMI 40.1
[2017-12-21 11:46] LABS: Absolute Lymphocyte Count 2.07 X10^3/ul (0.83-4.51); Absolute Neutrophil Count 5.6 X10^3/uL (2.0-7.7); Basophil# 0.05 X10^3/uL; Basophil% 0.6 % (0-1); Eosinophil# 0.25 X10^3/uL; Eosinophils% 2.8 % (0-5); Hematocrit 41.7 % (37-47); Hemoglobin 13.2 g/dl (12.0-15.0); Lymphocyte # 2.07 X10^3/ul (4.0); Lymphocyte % 23.5 % (19-41); Mean Corp Hgb Conc 31.7 g/gl (32-36); Mean Corpuscular Hgb 30.6 pg (27.0-32.0); Mean Corpuscular Volume 96.5 fL (81-99); Mean Platelet Vol. 9.5 fl (6.2-12.0); Monocyte# 0.84 X10^3/uL; Monocyte% 9.5 % (0-10); Neutrophil # 5.58 X10^3/uL (2.7-7.7); Neutrophil % 63.5 % (47-70); Platelet Count 319 K/mm3 (150-450); RBC Distribution Width CV 13.4 % (11.6-14.6); RBC Distribution Width SD 47.5 fl (35.1-43.9); Red Blood Count 4.32 M/mm3 (4.2-5.4); White Blood Count 8.8 K/mm3 (4.4-11.0)
[2017-12-21 11:47] LABS: POSITIVE COUNT NO; POSITIVE DIFFERENTIAL NO; POSITIVE MORPHOLOGY NO
--- NOTE | 2017-12-21 12:00 | RAD_ITS ---
STUDY: X-RAY CHEST REASON FOR EXAM: Female, 82 years old. Chest pain. TECHNIQUE: Chest two-view study with PA and lateral projections. COMPARISON: None. FINDINGS: EKG wires overlie chest. The lungs are clear and expanded. There is no demonstrated pleural abnormality. Heart size appears upper limits of normal for AP upright portable view, stable appearance as are sternal wires and jean and mediastinal/pericardial post CABG surgical clips. No change mediastinum/ana maria. Normal visualized pulmonary arteries. No change visualized heavily calcified aortic arch. Stable appearing visualized thoracic spine noted. No change single thoracic mild anterior wedge compression fracture noted versus CT chest 04/25/2017. Nonacute visualized bones including old left AC separation. There is no demonstrated abnormality of the visualized soft tissue structures of the upper abdomen. No subdiaphragmatic free air seen grossly. RAD/Chest PA and Lateral IMPRESSION: Stable chest study. No finding of active carpal disease status post prior thoracic surgery and old mild mid thoracic single anterior wedge compression fracture. Electronically Signed: Minh Ryan, at 12:31 EDT Tel , Service support ,
[2017-12-21 12:02] LABS: Anion Gap 6 (5-15); BUN 16 mg/dL (7-18); BUN/Creat Ratio 15.5 RATIO (10-20); Calcium,Total 8.4 mg/dL (8.5-10.1); Chloride 110 mmol/L (98-107); Creatinine, Serum 1.03 mg/dL (0.55-1.02); EST Glomerular Filtration Rate 55 mL/min (>60); Est Glom Filt Rate - Afr Amer 66 mL/min (>60); Estimated Creatinine Clearance 34.45 ml/min; Glucose 134 mg/dL (74-106); Potassium 3.5 mmol/L (3.5-5.1); Sodium Level 144 mmol/L (136-145)
--- NOTE | 2017-12-21 14:20 | ED.VISSUMM ---
- ER Visit Summary Date of Service: 12/21/17 Chief Complaint: Chest pain History of Present Illness: The patient is a 82 F who presents with chest pain that began approximately 5 hours prior to arrival. Patient describes as burning pain in her chest. Patient states nothing seems to make it worse. She states nothing seems to make it better. Patient admits to some shortness of breath. Patient states she did have some diaphoresis and palpitations with the pain. Patient also admits to a cough. Patient admits to some lightheadedness. Patient does have a history of coronary artery disease. Patient also has a history of hypertension hypercholesterolemia. Physical Examination: Vital signs are stable. Patient is afebrile. Patient is in no acute distress. Oral mucosa is pink and moist. Neck is supple. There is no JVD noted. Heart was regular rate and rhythm. Lungs are clear and equal bilaterally. There is good respiratory effort noted. Abdomen is soft and nontender. Cranial nerves II through XII are intact. There are no focal motor or sensory deficits noted. Extremities are intact. There is no peripheral edema noted. Test Results: EKG showed a normal sinus rhythm with a rate of 75. There is a left bundle branch block pattern noted. This was unchanged compared to previous EKG dated 12/01/2017. Chest x-ray does not show any acute cardiopulmonary process. This was interpreted by the radiologist and reviewed by myself. CBC, basic metabolic profile, troponin were obtained and were within normal limits. Emergency Department Course and Treatment: Patient was given 4 baby aspirin here. Patient was given 3 sublingual nitroglycerin tablets here. Patient states her pain is resolved after this. Patient has a HEART score of 6. Patient has a JOSE score of 4. I reviewed the patient's most recent heart catheterization which showed 85% stenosis of the vein graft and 75% stenosis in the right coronary artery. There is also some stenosis in the left anterior descending artery. This was in May of this year. Case was discussed with Dr. Storey. He will admit the patient to his service. Patient understood and was agreeable with the plan. All questions were answered. Disposition: Admit to hospital Impression: Chest pain, history of coronary artery disease This note was generated with Sonicbids[employer] software. It may contain incorrect words, spelling, and punctuation that were not noted in review of the chart prior to signing ED Disposition - Plan for ED Patient: Disposition: Acute Care Hospital [facility] Chief Complaint: Chest Pain Diagnosis: Chest pain, CAD (coronary artery disease), S/P CABG x 3 Referrals: Stefany Durham DO [Primary Care Provider] -
--- NOTE | 2017-12-21 14:30 | NURSING ---
DR HOPKINS IN ER
--- NOTE | 2017-12-21 14:39 | PCM.HP.STD ---
Problem List (1) Unstable angina Status: Acute History of Present Illness Date of Admission: 12/21/17 Chief Complaint: chest pain The patient is a 82 year old F complains of midsternal chest pain, radiating to her right shoulder, left neck into her back. This is similar to when the patient had not ovation myocardial infarction back in May requiring 2 stents. Patient states he feels short of breath and dizzy. Patient does endorse that she has lower extremity edema but that is unchanged. Patient was evaluated in the emergency room with troponins which were negative ?1. EKG shows a left bundle branch block change from previous. Patient being admitted for further chest pain evaluation. [] Past Medical History Past Medical History (Chronic Problems): Chronic Problems (Last Reviewed 12/01/17 @ 12:57 by Laureen Barragan) History of coronary artery stent placement (Chronic) S/P A/ANGELIC to proximal and mid RCA in May 2017; 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) ELIE (obstructive sleep apnea) (Chronic) Cardiomyopathy, ischemic (Chronic) S/P CABG x 3 (Chronic) [facility]: 10/13/2012: FUENTES to LCX/OM; SVG to DX; SVG to RCA CAD (coronary artery disease) (Chronic) [facility]: 10/13/2012: FUENTES to LCX/OM; SVG to DX; SVG to RCA; PTCA/ANGELIC to proximal and mid RCA in May 2017; CHF (congestive heart failure) (Chronic) HTN (hypertension) (Chronic) Asthma (Chronic) HLD (hyperlipidemia) (Chronic) Cervical spinal stenosis (Chronic) Seizure (Chronic) cva (Chronic) Medical History: Medical History (Last Reviewed 12/21/17 @ 14:40 by Rufus Storey DO) ELIE (obstructive sleep apnea) (Chronic) G47.33 Cardiomyopathy, ischemic (Chronic) I25.5 CAD (coronary artery disease) (Chronic) I25.10 [facility]: 10/13/2012: FUENTES to LCX/OM; SVG to DX; SVG to RCA; PTCA/ANGELIC to proximal and mid RCA in May 2017; Gallbladder & bile duct stone with obstruction (Resolved) K80.71 CHF (congestive heart failure) (Chronic) I50.9 HTN (hypertension) (Chronic) I10 Asthma (Chronic) J45.909 HLD (hyperlipidemia) (Chronic) E78.5 Cervical spinal stenosis (Chronic) M48.02 Seizure (Chronic) R56.9 cva (Chronic) Allergies acyclovir Allergy (Verified 12/21/17 11:17) Unknown belladonna alkaloids Allergy (Verified 12/21/17 11:17) Unknown tree and shrub pollen Allergy (Verified 12/21/17 11:17) cough valacyclovir HCl [From Valtrex] Allergy (Verified 12/21/17 11:17) Other venom-honey bee [bee venom (honey bee)] Allergy (Verified 12/21/17 11:17) Angioedema iodine Adverse Reaction (Severe, Verified 12/21/17 11:17) Other burning, rash lisinopril Adverse Reaction (Severe, Verified 12/21/17 11:17) Diarrhea Vomiting, Cough, Congestion, Pain, Headache, Drainage, Nausea metformin Adverse Reaction (Severe, Verified 12/21/17 11:17) Diarrhea, GI upset, Vomiting, Headache, Dizziness, Nausea Tetracyclines Adverse Reaction (Severe, Verified 12/21/17 11:17) headache, vomiting, rash nitrofurantoin [From Macrodantin] Adverse Reaction (Unknown, Verified 12/21/17 11:17) Unknown propoxyphene [From Darvocet-N] Adverse Reaction (Unknown, Verified 12/21/17 11:17) Unknown valacyclovir [From Valtrex] Adverse Reaction (Unknown, Verified 12/21/17 11:17) Seizure acetaminophen [From Darvocet-N 100] Adverse Reaction (Verified 12/21/17 11:17) Unknown animal dander Adverse Reaction (Verified 12/21/17 11:17) Other aspirin Adverse Reaction (Verified 12/21/17 11:17) Other atropine sulfate [From ] Adverse Reaction (Verified 12/21/17 11:17) Unknown codeine Adverse Reaction (Verified 12/21/17 11:17) Nausea/Vom/Diarrhea hyoscyamine sulfate [From ] Adverse Reaction (Verified 12/21/17 11:17) Unknown Iodinated Contrast- Oral and IV Dye [CONTRASTS] Adverse Reaction (Verified 12/21/17 11:17) Rash meperidine HCl [From Demerol] Adverse Reaction (Verified 12/21/17 11:17) Unknown niacin Adverse Reaction (Verified 12/21/17 11:17) Upset Stomach nitroglycerin [From Nitro-Dur] Adverse Reaction (Verified 12/21/17 11:17) Other RASH, CAUSED PATIENT TO GET AGITATED. oxytetracycline [From Terramycin] Adverse Reaction (Verified 12/21/17 11:17) Hives oxytetracycline HCl [From Terramycin] Adverse Reaction (Verified 12/21/17 11:17) Hives Penicillins Adverse Reaction (Verified 12/21/17 11:17) Hives perfume Adverse Reaction (Verified 12/21/17 11:17) Shortness of breath phenobarbital [From ] Adverse Reaction (Verified 12/21/17 11:17) Unknown piroxicam Adverse Reaction (Verified 12/21/17 11:17) Unknown prochlorperazine Adverse Reaction (Verified 12/21/17 11:17) Rash propoxyphene napsylate [From Darvocet-N 100] Adverse Reaction (Verified 12/21/17 11:17) Unknown scopolamine hydrobromide [From ] Adverse Reaction (Verified 12/21/17 11:17) Unknown Sulfa (Sulfonamide Antibiotics) Adverse Reaction (Verified 12/21/17 11:17) Rash terfenadine [From Seldane] Adverse Reaction (Verified 12/21/17 11:17) Unknown tetracycline Adverse Reaction (Verified 12/21/17 11:17) Rash Codeine Adverse Reaction (Unknown, Uncoded 08/30/17 13:01) Diarrhea, Vomiting, Nausea Prochlorperazine Adverse Reaction (Unknown, Uncoded 08/30/17 13:01) Rash sulfonamide antibiotics Adverse Reaction (Unknown, Uncoded 08/30/17 13:01) Rash, Hives Home Medications: Ambulatory Orders Medication Instructions Recorded Acetaminophen [Tylenol] 1,000 mg PO Q4H PRN PRN 12/03/15 Cholecalciferol (VIT D3) [Vitamin 1,000 unit PO BID 12/03/15 D3] Ferrous Sulfate 325 mg PO DAILY@0800 12/03/15 Fluticasone 0.05% [Flonase Nasal 2 spray NASAL BID 12/03/15 [place]] Furosemide [Lasix] 40 mg PO BID 12/03/15 Lactobacillus Acidophilus 1 capsule PO TID 12/03/15 [Acidophilus] Loperamide [Imodium] 2 mg PO Q2H PRN PRN 12/03/15 Loratadine [Claritin] 10 mg PO DAILY 12/03/15 Metoprolol Tartrate [Lopressor 12.5 mg PO BID 12/03/15 (beta emma)] Nitroglycerin [Nitrostat] 0.4 mg SUBLINGUAL Q5M PRN 12/03/15 Potassium Chloride [Klor-Con M10] 20 meq PO BID 12/03/15 Premarin Vag Cream 0.5 gm TOPICAL SUWE 12/03/15 Ranolazine [Ranexa] 500 mg PO DAILY 12/03/15 levETIRAcetam tablet [Keppra 500 mg PO 0800,199912/03/15 tablet] proMETHazine tablet [Phenergan 25 mg PO Q6H PRN PRN 12/03/15 tablet] Albuterol Aerosols [Ventolin 2.5 mg INHALATION Q2H PRN PRN #90 04/27/17 Aerosols] vial.neb. albuterol sulfate HFA 90 2 puff INHALATION Q4H PRN g 05/04/17 mcg/actuation aerosol inhaler fenofibrate 160 mg tablet 160 mg PO DAILY #90 tab 08/16/17 isosorbide mononitrate ER 60 mg 60 mg PO DAILY tab 08/16/17 tablet,extended release 24 hr Aspirin E.C. [Ecotrin] 81 mg PO DAILY 12/01/17 Atorvastatin Calcium [Lipitor] 40 mg PO QHS 12/01/17 Clopidogrel Bisulfate [Clopidogrel] 75 mg PO QDAY 12/01/17 Gabapentin [Neurontin] 300 mg PO BID 12/01/17 Pantoprazole Sodium [Protonix] 40 mg PO DAILY 12/01/17 Sodium Chloride 0.65% [[place] Nasal 1 spray NASAL PRN 12/01/17 [place]] Umeclidinium Brm/Vilanterol Tr 1 inh INHALATION Q24H 12/01/17 [Anoro Ellipta 62.5-25 Mcg INH] lorazepam 0.5 mg tablet 0.5 mg PO BID PRN tab 12/14/17 tramadol 50 mg tablet 50 mg PO Q6H 12/14/17 Surgical History: Surgical History (Last Reviewed 12/21/17 @ 14:40 by Rufus Storey DO) S/P CABG x 3 (Chronic) Z95.1 [facility]: 10/13/2012: FUENTES to LCX/OM; SVG to DX; SVG to RCA S/P triple vessel bypass (Resolved) Z95.1 [facility]: 10/13/2012: FUENTES to LCX/OM; SVG to DX; SVG to RCA; History of appendectomy (Resolved) Z98.890, Z90.49 History of hysterectomy (Resolved) Z98.890, Z90.710 History of cholecystectomy Z90.49 History of excision of pilonidal cyst Z98.890 Status post left oophorectomy Z90.721 Surgical History: appendectomy, coronary bypass surgery, hysterectomy - bladder surgery, pilonidal cyst, gallbladder surgery,, - - bladder surgery (multiple), left ovarian removal, pilonidal cyst surgery, coronary artery stent placement Psychiatric History: No pertinent psych hx 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 METAL 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 History: No pertinent HOT METAL CHARGER history Smoking Status: Former smoker - *Family History Maternal Family History: Family History (Last Reviewed 12/21/17 @ 14:40 by Rufus Storey DO) Father Heart disease Cancer CVA (cerebral vascular accident) Mother Colon cancer Brother Cancer Brother Cancer History Items: Cancer, - - colon cancer Paternal Family History: Family History (Last Reviewed 12/21/17 @ 14:40 by Rufus Storey DO) Father Heart disease Cancer CVA (cerebral vascular accident) Mother Colon cancer Brother Cancer Brother Cancer History Items: Stroke, - - father with cva Review of Systems Constitutional: Denies: Chills, Fever, Weight Change Eyes: Denies: Blurred vision, Double vision HEENT: Denies: Head Aches, Sinus Congestion, Sinus Drainage Cardiovascular: Reports: Chest Pain, Edema Respiratory: Reports: Shortness of Breath. Denies: Cough Gastrointestinal: Denies: Abdominal Pain, Nausea, Vomiting Genitourinary: Denies: Dysuria Musculoskeletal: Reports: Shoulder Pain - Right Skin: Denies: Rash, Wounds Neurological: Denies: Numbness, Tingling, Focal weakness Psychiatric: Denies: Anxiety, Depression Endocrine: Denies: Change in Body Habitus, Heat/ Cold Intolerance Hematologic/ Lymphatic: Denies: Easy Bruising, Easy Bleeding, Hx of blood clot Comment: All review of systems are negative except as mentioned in the history of present illness and the other review of systems. VTE Information - Inpt Only VTE Present on Admission: No VTE Mechan Device Prophylaxis: None VTE Pharm Prophylaxis ordered?: Yes Patient Problems: Active and Suspected Problems (Last Reviewed 12/01/17 @ 12:57 by Laureen Barragan) Chest pain (Acute) Unstable angina (Acute) - Physical Exam General: Alert, - - This list. Afebrile. Nontoxic. HEENT: Atraumatic, Normocephalic Oral: Moist Mucosa, No Gingival or Mucosal Lesions/ Ulcerations Neck: No Nodes, Thyroid Normal Size and Texture Lungs: Clear to auscultation, Normal air movement, No rhonchi, No wheeze Cardiovascular: Regular rate, Regular Rhythm, Normal S1, Normal S2, No murmurs Abdomen: Bowel Sounds Present, Soft, Non Tender, Non-Distended, No Hepato-splenomegaly, Obese Extremities: No Calf Tenderness, Edema - Nonpitting lower extremities Skin: No rashes, No breakdown Musculoskeletal: - - Reproducible chest pain though the patient states that this is different than the chest pain that brought her in today. Psych/Mental Status: Appropriate, Flat Affect Vital Signs Temp Pulse Resp BP Pulse Ox 37.7 C H 72 16 104/63 94 12/21/17 11:11 12/21/17 12:21 12/21/17 12:15 12/21/17 12:21 12/21/17 12:15 Oxygen Flow Rate (L/min) 2 Oxygen Delivery Method Nasal Cannula Weight: 100.7 kg Body Mass Index (BMI) 40.6 Finger Stick Blood Glucose 88 Laboratory Tests Past 24 Hrs 12/21/17 12/21/17 11:34 11:34 WBC 8.8 RBC 4.32 Hgb 13.2 Hct 41.7 MCV 96.5 MCH 30.6 MCHC 31.7 L RDW 13.4 RDW Differential 47.5 H Plt Count 319 MPV 9.5 Immature Gran % (Auto) 0.100 Neut % (Auto) 63.5 Lymph % (Auto) 23.5 [place] % (Auto) 9.5 Eos % (Auto) 2.8 Baso % (Auto) 0.6 Absolute Neuts (auto) 5.6 Absolute Lymphs (auto) 2.07 Total Counted Not Reportable Sodium 144 Potassium 3.5 Chloride 110 H Carbon Dioxide 28.0 Anion Gap 6 BUN 16 Creatinine 1.03 H Estim Creat Clear Calc 34.45 Est GFR (MDRD) Af Amer 66 Est GFR (MDRD) Non-Af 55 L BUN/Creatinine Ratio 15.5 Glucose 134 H Calcium 8.4 L Troponin I < 0.015 EKG showed normal sinus rhythm with left bundle branch block. Clinical Impression(s) from Imaging Studies Chest X-Ray 12/21/17 12:00 IMPRESSION: Stable chest study. No finding of active carpal disease status post prior thoracic surgery and old mild mid thoracic single anterior wedge compression fracture. Electronically Signed: Minh Ryan, at 12:31 EDT Tel , Service support , Assessment/Plan All Active Problems (Last Reviewed 12/01/17 @ 12:57 by Laureen Barragan) Chest pain (Acute) Unstable angina (Acute) Right sided weakness (Acute) NSTEMI (non-ST elevated myocardial infarction) (Resolved) Gallbladder & bile duct stone with obstruction (Resolved) S/P triple vessel bypass (Resolved) History of appendectomy (Resolved) History of hysterectomy (Resolved) UTI (urinary tract infection) (Resolved) 1. Unstable angina Thus far workup is unremarkable. The patient's extensive cardiac history and recent non-ST vision myocardial infarction requiring stents back in May, I am going to consult cardiology for further evaluation. Continue with her home medications Patient's troponins start to go up then may need to consider putting patient on a heparin drip per weight-based dosing of Lovenox. 2. CAD As above Continue with prior cardiac medications 3. DVT prophylaxis with Lovenox Code Visit OBSV E&M: 09121 Initial observation care L2
--- NOTE | 2017-12-21 14:44 | HP.PCM_ITS ---
Problem List (1) Unstable angina Status: Acute History of Present Illness Date of Admission: 12/21/17 Chief Complaint: chest pain The patient is a 82 year old F complains of midsternal chest pain, radiating to her right shoulder, left neck into her back. This is similar to when the patient had not ovation myocardial infarction back in May requiring 2 stents. Patient states he feels short of breath and dizzy. Patient does endorse that she has lower extremity edema but that is unchanged. Patient was evaluated in the emergency room with troponins which were negative ?1. EKG shows a left bundle branch block change from previous. Patient being admitted for further chest pain evaluation. [] Past Medical History Past Medical History (Chronic Problems): Chronic Problems (Last Reviewed 12/01/17 @ 12:57 by Laureen Barragan) History of coronary artery stent placement (Chronic) S/P A/ANGELIC to proximal and mid RCA in May 2017; 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) ELIE (obstructive sleep apnea) (Chronic) Cardiomyopathy, ischemic (Chronic) S/P CABG x 3 (Chronic) [facility]: 10/13/2012: FUENTES to LCX/OM; SVG to DX; SVG to RCA CAD (coronary artery disease) (Chronic) [facility]: 10/13/2012: FUENTES to LCX/OM; SVG to DX; SVG to RCA; PTCA/ANGELIC to proximal and mid RCA in May 2017; CHF (congestive heart failure) (Chronic) HTN (hypertension) (Chronic) Asthma (Chronic) HLD (hyperlipidemia) (Chronic) Cervical spinal stenosis (Chronic) Seizure (Chronic) cva (Chronic) Medical History: Medical History (Last Reviewed 12/21/17 @ 14:40 by Rufus Storey DO) ELIE (obstructive sleep apnea) (Chronic) G47.33 Cardiomyopathy, ischemic (Chronic) I25.5 CAD (coronary artery disease) (Chronic) I25.10 [facility]: 10/13/2012: FUENTES to LCX/OM; SVG to DX; SVG to RCA; PTCA/ANGELIC to proximal and mid RCA in May 2017; Gallbladder & bile duct stone with obstruction (Resolved) K80.71 CHF (congestive heart failure) (Chronic) I50.9 HTN (hypertension) (Chronic) I10 Asthma (Chronic) J45.909 HLD (hyperlipidemia) (Chronic) E78.5 Cervical spinal stenosis (Chronic) M48.02 Seizure (Chronic) R56.9 cva (Chronic) Allergies acyclovir Allergy (Verified 12/21/17 11:17) Unknown belladonna alkaloids Allergy (Verified 12/21/17 11:17) Unknown tree and shrub pollen Allergy (Verified 12/21/17 11:17) cough valacyclovir HCl [From Valtrex] Allergy (Verified 12/21/17 11:17) Other venom-honey bee [bee venom (honey bee)] Allergy (Verified 12/21/17 11:17) Angioedema iodine Adverse Reaction (Severe, Verified 12/21/17 11:17) Other burning, rash lisinopril Adverse Reaction (Severe, Verified 12/21/17 11:17) Diarrhea Vomiting, Cough, Congestion, Pain, Headache, Drainage, Nausea metformin Adverse Reaction (Severe, Verified 12/21/17 11:17) Diarrhea, GI upset, Vomiting, Headache, Dizziness, Nausea Tetracyclines Adverse Reaction (Severe, Verified 12/21/17 11:17) headache, vomiting, rash nitrofurantoin [From Macrodantin] Adverse Reaction (Unknown, Verified 12/21/17 11:17) Unknown propoxyphene [From Darvocet-N] Adverse Reaction (Unknown, Verified 12/21/17 11: 17) Unknown valacyclovir [From Valtrex] Adverse Reaction (Unknown, Verified 12/21/17 11:17) Seizure acetaminophen [From Darvocet-N 100] Adverse Reaction (Verified 12/21/17 11:17) Unknown animal dander Adverse Reaction (Verified 12/21/17 11:17) Other aspirin Adverse Reaction (Verified 12/21/17 11:17) Other atropine sulfate [From ] Adverse Reaction (Verified 12/21/17 11:17) Unknown codeine Adverse Reaction (Verified 12/21/17 11:17) Nausea/Vom/Diarrhea hyoscyamine sulfate [From ] Adverse Reaction (Verified 12/21/17 11:17) Unknown Iodinated Contrast- Oral and IV Dye [CONTRASTS] Adverse Reaction (Verified 12/21 11:17) Rash meperidine HCl [From Demerol] Adverse Reaction (Verified 12/21/17 11:17) Unknown niacin Adverse Reaction (Verified 12/21/17 11:17) Upset Stomach nitroglycerin [From Nitro-Dur] Adverse Reaction (Verified 12/21/17 11:17) Other RASH, CAUSED PATIENT TO GET AGITATED. oxytetracycline [From Terramycin] Adverse Reaction (Verified 12/21/17 11:17) Hives oxytetracycline HCl [From Terramycin] Adverse Reaction (Verified 12/21/17 11:17) Hives Penicillins Adverse Reaction (Verified 12/21/17 11:17) Hives perfume Adverse Reaction (Verified 12/21/17 11:17) Shortness of breath phenobarbital [From ] Adverse Reaction (Verified 12/21/17 11:17) Unknown piroxicam Adverse Reaction (Verified 12/21/17 11:17) Unknown prochlorperazine Adverse Reaction (Verified 12/21/17 11:17) Rash propoxyphene napsylate [From Darvocet-N 100] Adverse Reaction (Verified 11:17) Unknown scopolamine hydrobromide [From ] Adverse Reaction (Verified 12/21/17 11: 17) Unknown Sulfa (Sulfonamide Antibiotics) Adverse Reaction (Verified 12/21/17 11:17) Rash terfenadine [From [place]] Adverse Reaction (Verified 12/21/17 11:17) Unknown tetracycline Adverse Reaction (Verified 12/21/17 11:17) Rash Codeine Adverse Reaction (Unknown, Uncoded 08/30/17 13:01) Diarrhea, Vomiting, Nausea Prochlorperazine Adverse Reaction (Unknown, Uncoded 08/30/17 13:01) Rash sulfonamide antibiotics Adverse Reaction (Unknown, Uncoded 08/30/17 13:01) Rash, Hives Home Medications: Ambulatory Orders Medication Instructions Recorded Acetaminophen [Tylenol] 1,000 mg PO Q4H PRN PRN 12/03/15 Cholecalciferol (VIT D3) [Vitamin 1,000 unit PO BID 12/03/15 D3] Ferrous Sulfate 325 mg PO DAILY@0800 12/03/15 Fluticasone 0.05% [Flonase Nasal 2 spray NASAL BID 12/03/15 [place]] Furosemide [Lasix] 40 mg PO BID 12/03/15 Lactobacillus Acidophilus 1 capsule PO TID 12/03/15 [Acidophilus] Loperamide [Imodium] 2 mg PO Q2H PRN PRN 12/03/15 Loratadine [Claritin] 10 mg PO DAILY 12/03/15 Metoprolol Tartrate [Lopressor 12.5 mg PO BID 12/03/15 (beta emma)] Nitroglycerin [Nitrostat] 0.4 mg SUBLINGUAL Q5M PRN 12/03/15 Potassium Chloride [Klor-Con M10] 20 meq PO BID 12/03/15 Premarin Vag Cream 0.5 gm TOPICAL SUWE 12/03/15 Ranolazine [Ranexa] 500 mg PO DAILY 12/03/15 levETIRAcetam tablet [Keppra 500 mg PO 0800,199912/03/15 tablet] proMETHazine tablet [Phenergan 25 mg PO Q6H PRN PRN 12/03/15 tablet] Albuterol Aerosols [Ventolin 2.5 mg INHALATION Q2H PRN PRN #90 04/27/17 Aerosols] vial.neb. albuterol sulfate HFA 90 2 puff INHALATION Q4H PRN g 05/04/17 mcg/actuation aerosol inhaler fenofibrate 160 mg tablet 160 mg PO DAILY #90 tab 08/16/17 isosorbide mononitrate ER 60 mg 60 mg PO DAILY tab 08/16/17 tablet,extended release 24 hr Aspirin E.C. [Ecotrin] 81 mg PO DAILY 12/01/17 Atorvastatin Calcium [Lipitor] 40 mg PO QHS 12/01/17 Clopidogrel Bisulfate [Clopidogrel] 75 mg PO QDAY 12/01/17 Gabapentin [Neurontin] 300 mg PO BID 12/01/17 Pantoprazole Sodium [Protonix] 40 mg PO DAILY 12/01/17 Sodium Chloride 0.65% [[place] Nasal 1 spray NASAL PRN 12/01/17 [place]] Umeclidinium Brm/Vilanterol Tr 1 inh INHALATION Q24H 12/01/17 [Anoro Ellipta 62.5-25 Mcg INH] lorazepam 0.5 mg tablet 0.5 mg PO BID PRN tab 12/14/17 tramadol 50 mg tablet 50 mg PO Q6H 12/14/17 Surgical History: Surgical History (Last Reviewed 12/21/17 @ 14:40 by Rufus Storey DO) S/P CABG x 3 (Chronic) Z95.1 [facility]: 10/13/2012: FUENTES to LCX/OM; SVG to DX; SVG to RCA S/P triple vessel bypass (Resolved) Z95.1 [facility]: 10/13/2012: FUENTES to LCX/OM; SVG to DX; SVG to RCA; History of appendectomy (Resolved) Z98.890, Z90.49 History of hysterectomy (Resolved) Z98.890, Z90.710 History of cholecystectomy Z90.49 History of excision of pilonidal cyst Z98.890 Status post left oophorectomy Z90.721 Surgical History: appendectomy, coronary bypass surgery, hysterectomy - bladder surgery, pilonidal cyst, gallbladder surgery,, - - bladder surgery ( multiple), left ovarian removal, pilonidal cyst surgery, coronary artery stent placement Psychiatric History: No pertinent psych hx [employer] History: No pertinent [employer] history Smoking Status: Former smoker - *Family History Maternal Family History: Family History (Last Reviewed 12/21/17 @ 14:40 by Rufus Storey DO) Father Heart disease Cancer CVA (cerebral vascular accident) Mother Colon cancer Brother Cancer Brother Cancer History Items: Cancer, - - colon cancer Paternal Family History: Family History (Last Reviewed 12/21/17 @ 14:40 by Rufus Storey DO) Father Heart disease Cancer CVA (cerebral vascular accident) Mother Colon cancer Brother Cancer Brother Cancer History Items: Stroke, - - father with cva Review of Systems Constitutional: Denies: Chills, Fever, Weight Change Eyes: Denies: Blurred vision, Double vision HEENT: Denies: Head Aches, Sinus Congestion, Sinus Drainage Cardiovascular: Reports: Chest Pain, Edema Respiratory: Reports: Shortness of Breath. Denies: Cough Gastrointestinal: Denies: Abdominal Pain, Nausea, Vomiting Genitourinary: Denies: Dysuria Musculoskeletal: Reports: Shoulder Pain - Right Skin: Denies: Rash, Wounds Neurological: Denies: Numbness, Tingling, Focal weakness Psychiatric: Denies: Anxiety, Depression Endocrine: Denies: Change in Body Habitus, Heat/ Cold Intolerance Hematologic/ Lymphatic: Denies: Easy Bruising, Easy Bleeding, Hx of blood clot Comment: All review of systems are negative except as mentioned in the history of present illness and the other review of systems. VTE Information - Inpt Only VTE Present on Admission: No VTE Mechan Device Prophylaxis: None VTE Pharm Prophylaxis ordered?: Yes Patient Problems: Active and Suspected Problems (Last Reviewed 12/01/17 @ 12:57 by Laureen Barragan ) Chest pain (Acute) Unstable angina (Acute) - Physical Exam General: Alert, - - This list. Afebrile. Nontoxic. HEENT: Atraumatic, Normocephalic Oral: Moist Mucosa, No Gingival or Mucosal Lesions/ Ulcerations Neck: No Nodes, Thyroid Normal Size and Texture Lungs: Clear to auscultation, Normal air movement, No rhonchi, No wheeze Cardiovascular: Regular rate, Regular Rhythm, Normal S1, Normal S2, No murmurs Abdomen: Bowel Sounds Present, Soft, Non Tender, Non-Distended, No Hepato- splenomegaly, Obese Extremities: No Calf Tenderness, Edema - Nonpitting lower extremities Skin: No rashes, No breakdown Musculoskeletal: - - Reproducible chest pain though the patient states that this is different than the chest pain that brought her in today. Psych/Mental Status: Appropriate, Flat Affect Vital Signs Temp Pulse Resp BP Pulse Ox 37.7 C H 72 16 104/63 94 12/21/17 11:11 12/21/17 12:21 12/21/17 12:15 12/21/17 12:21 12/21/17 12:15 Oxygen Flow Rate (L/min) 2 Oxygen Delivery Method Nasal Cannula Weight: 100.7 kg Body Mass Index (BMI) 40.6 Finger Stick Blood Glucose 88 Laboratory Tests Past 24 Hrs 12/21/17 12/21/17 11:34 11:34 WBC 8.8 RBC 4.32 Hgb 13.2 Hct 41.7 MCV 96.5 MCH 30.6 MCHC 31.7 L RDW 13.4 RDW Differential 47.5 H Plt Count 319 MPV 9.5 Immature Gran % (Auto) 0.100 Neut % (Auto) 63.5 Lymph % (Auto) 23.5 [place] % (Auto) 9.5 Eos % (Auto) 2.8 Baso % (Auto) 0.6 Absolute Neuts (auto) 5.6 Absolute Lymphs (auto) 2.07 Total Counted Not Reportable Sodium 144 Potassium 3.5 Chloride 110 H Carbon Dioxide 28.0 Anion Gap 6 BUN 16 Creatinine 1.03 H Estim Creat Clear Calc 34.45 Est GFR (MDRD) Af Amer 66 Est GFR (MDRD) Non-Af 55 L BUN/Creatinine Ratio 15.5 Glucose 134 H Calcium 8.4 L Troponin I < 0.015 EKG showed normal sinus rhythm with left bundle branch block. Clinical Impression(s) from Imaging Studies Chest X-Ray 12/21/17 12:00 IMPRESSION: Stable chest study. No finding of active carpal disease status post prior thoracic surgery and old mild mid thoracic single anterior wedge compression fracture. Electronically Signed: Minh Ryan, at 12:31 EDT Tel , Service support , Assessment/Plan All Active Problems (Last Reviewed 12/01/17 @ 12:57 by Laureen Barragan) Chest pain (Acute) Unstable angina (Acute) Right sided weakness (Acute) NSTEMI (non-ST elevated myocardial infarction) (Resolved) Gallbladder & bile duct stone with obstruction (Resolved) S/P triple vessel bypass (Resolved) History of appendectomy (Resolved) History of hysterectomy (Resolved) UTI (urinary tract infection) (Resolved) 1. Unstable angina * Thus far workup is unremarkable. * The patient's extensive cardiac history and recent non-ST vision myocardial infarction requiring stents back in May, I am going to consult cardiology for further evaluation. * Continue with her home medications * Patient's troponins start to go up then may need to consider putting patient on a heparin drip per weight-based dosing of Lovenox. 2. CAD * As above * Continue with prior cardiac medications 3. DVT prophylaxis with Lovenox Code Visit OBSV E&M: [id number] Initial observation care L2
--- NOTE | 2017-12-21 16:04 | CASEMGMT ---
RN CM NOTE. Attempted to see pt for RN CM Assessment. Nursing in room with pt at this time. Message left with FAUZIA Akbar to notify of pt admission from home, [facility] RN ACM
[2017-12-21] MEDS: traMADol 50 MG Tablet PO ×2 (16:21→21:12)
[2017-12-21] MEDS: Furosemide 40 MG Tablet PO (16:21)
--- NOTE | 2017-12-21 18:39 | ECHOCS_ITS ---
Reason For Study: CAD Procedure This was a 2D Doppler, Color Flow transthoracic echocardiogram. The study was technically difficult. Contrast injection was performed. Exam performed portable in patient room. Left Ventricle Normal LV size. Moderate segmental systolic dysfunction (see wall motion). The estimated ejection fraction is 35 %. Normal diastology for age. Anterio-Basal: Not visualized. Infero-Basal: Akinetic. Basal inferoseptal: Akinetic. Basal anteroseptal: Hypokinetic. Mid-Anterior : Hypokinetic. Mid- Lateral : Hypokinetic. Mid-Posterior: Hypokinetic. Mid-Inferior: Akinetic. Mid-inferoseptal : Akinetic. Mid-anteroseptal : Hypokinetic. [place] : Hypokinetic. Right Ventricle Normal RV size. Normal systolic function. Atria Normal left atrium. Normal right atrium. No doppler evidence for ASD. Mitral Valve There is no mitral annular calcification. Mild diffuse mitral valve thickening. Mild (1+) mitral valve insufficiency. Tricuspid Valve Normal tricuspid valve. Trivial tricuspid valve insufficiency. Right ventricular systolic pressure estimated to be 25 mmHg. Aortic Valve Trisinus/trileaflet aortic valve. Mild focal aortic valve calcification. Pulmonic Valve The pulmonic valve is not well visualized. Great Vessels Normal sized aortic root. Calcified aortic root. Pericardium/Pleural No pericardial effusion. Medication Diluted definity 4ml given slow IV push to enhance endocardial definition. MMode/2D Measurements & Calculations LVIDd: 4.3 cm IVSd: 0.98 cm Ao root diam: 2.8 cm LVIDs: 3.5 cm LVPWd: 1.1 cm LA dimension: 4.2 cm RVDd: 3.2 cm FS: 18.8 % LAV(MOD-bp): 50.9 ml LVAd ap4: 36.4 cm2 SV(MOD-sp4): 67.5 ml LAV(MOD-bp) Indexed: 25.6 ml/m2 EDV(MOD-sp4): 126.9 ml LAV(MOD-sp2): 55.7 ml EDV(sp4-el): 130.3 ml LAV(MOD-sp4): 46.9 ml LVAs ap4: 22.0 cm2 ESV(MOD-sp4): 59.4 ml ESV(sp4-el): 58.7 ml EF(MOD-sp4): 53.2 % EF(sp4-el): 54.9 % SV(sp4-el): 71.6 ml LA A4 area: 18.6 cm2 RA A4 area: 15.6 cm2 Time Measurements MV dec time: 0.26 sec Doppler Measurements & Calculations MV E max arnel: 36.7 cm/sec Lat Peak E' Arnel: 4.6 cm/sec Med Peak E' Arnel: 3.9 cm/sec MV A max arnel: 66.9 cm/sec E/E' lat: 7.9 E/E' med: 9.3 MV E/A: 0.55 Ao V2 max: 120.2 cm/sec LV V1 max: 78.7 cm/sec PA V2 max: 66.3 cm/sec Ao max P.8 mmHg LV V1 max P.5 mmHg TR max arnel: 233.6 cm/sec TR max P.8 mmHg Interpretation Summary The study was technically difficult. Contrast injection was performed. Moderate segmental systolic dysfunction (see wall motion). The estimated ejection fraction is 35 %. Mild diffuse mitral valve thickening. Mild (1+) mitral valve insufficiency. Trivial tricuspid valve insufficiency. Mild focal aortic valve calcification. Calcified aortic root. Right ventricular systolic pressure estimated to be 25 mmHg. Normal diastology for age. Ordering Physician: Kailash Rueda Referring Physician: ALEK SUBRAMANIAN DO Performed By: Lanny Perry, RDCS, RVT
--- NOTE | 2017-12-21 18:41 | PCM.CONS.C ---
Problem List (1) Chest pain Status: Acute (2) CAD (coronary artery disease) Status: Chronic Qualifiers: Coronary Disease-Associated Artery/Lesion type: bypass graft [place] vs. transplanted heart: [place] dehe heart Associated angina: with unstable angina Qualified Code(s): I25.700 - Atherosclerosis of coronary artery bypass graft(s), unspecified, with unstable angina pectoris Comment: [facility]: 10/13/2012: FUENTES to LCX/OM; SVG to DX; SVG to RCA; PTCA/ANGELIC to proximal and mid RCA in May 2017; (3) S/P PTCA (percutaneous transluminal coronary angioplasty) Status: Inactive Comment: PTCA/ANGELIC to prox RCA and mid RCA 05/24/2017 (4) S/P CABG x 3 Status: Chronic Comment: [facility]: 10/13/2012: FUENTES to LCX/OM; SVG to DX; SVG to RCA (5) Cardiomyopathy, ischemic Status: Chronic (6) CHF (congestive heart failure) Status: Chronic (7) HLD (hyperlipidemia) Status: Chronic Qualifiers: Hyperlipidemia type: unspecified Qualified Code(s): E78.5 - Hyperlipidemia, unspecified (8) HTN (hypertension) Status: Chronic Qualifiers: Hypertension type: essential hypertension Qualified Code(s): I10 - Essential (primary) hypertension Reason for Consult Date of Consultation: 12/21/17 History of Present Illness: The patient is a 82 year old white female with a past medical history which is included CAD, NE, PCI, CABG, ischemic mediated cardiomyopathy, CHF, hyperlipidemia, hypertension, and underlying seizure disorder, who presents for evaluation of chest pain. She states that she awoke earlier this morning with chest discomfort radiating towards her neck. She thought this was reminiscent of discomfort she has had in the past related to her cardiovascular disease. She felt this was somewhat different from any underlying gastrointestinal related issues. She did not complain of any acute shortness of breath or dyspnea nor did she have obvious nausea, emesis, or diaphoresis. She states she did attempt nitroglycerin sublingual at home without significant relief. She presented to the [facility] emergency department for further evaluation. Upon evaluation she had a troponin I level which was negative. Her ECG demonstrated sinus rhythm with a left bundle branch block pattern which was similar to previous ECGs. She was subsequently placed in the PCU for further evaluation and care. She had repeat troponin I level which was considered negative. She notes overall the present time she does feel better. She is denied any recent acute orthopnea, PND, however, she does admit to waxing and waning peripheral pitting edema. There has been no near syncope or syncope. [] Past Medical History Allergies/Adverse Reactions: Allergies acyclovir Allergy (Verified 12/21/17 11:17) Unknown belladonna alkaloids Allergy (Verified 12/21/17 11:17) Unknown tree and shrub pollen Allergy (Verified 12/21/17 11:17) cough valacyclovir HCl [From Valtrex] Allergy (Verified 12/21/17 11:17) Other venom-honey bee [bee venom (honey bee)] Allergy (Verified 12/21/17 11:17) Angioedema iodine Adverse Reaction (Severe, Verified 12/21/17 11:17) Other burning, rash lisinopril Adverse Reaction (Severe, Verified 12/21/17 11:17) Diarrhea Vomiting, Cough, Congestion, Pain, Headache, Drainage, Nausea metformin Adverse Reaction (Severe, Verified 12/21/17 11:17) Diarrhea, GI upset, Vomiting, Headache, Dizziness, Nausea Tetracyclines Adverse Reaction (Severe, Verified 12/21/17 11:17) headache, vomiting, rash nitrofurantoin [From Macrodantin] Adverse Reaction (Unknown, Verified 12/21/17 11:17) Unknown propoxyphene [From Darvocet-N] Adverse Reaction (Unknown, Verified 12/21/17 11:17) Unknown valacyclovir [From Valtrex] Adverse Reaction (Unknown, Verified 12/21/17 11:17) Seizure acetaminophen [From Darvocet-N 100] Adverse Reaction (Verified 12/21/17 11:17) Unknown animal dander Adverse Reaction (Verified 12/21/17 11:17) Other aspirin Adverse Reaction (Verified 12/21/17 11:17) Other atropine sulfate [From ] Adverse Reaction (Verified 12/21/17 11:17) Unknown codeine Adverse Reaction (Verified 12/21/17 11:17) Nausea/Vom/Diarrhea hyoscyamine sulfate [From ] Adverse Reaction (Verified 12/21/17 11:17) Unknown Iodinated Contrast- Oral and IV Dye [CONTRASTS] Adverse Reaction (Verified 12/21/17 11:17) Rash meperidine HCl [From Demerol] Adverse Reaction (Verified 12/21/17 11:17) Unknown niacin Adverse Reaction (Verified 12/21/17 11:17) Upset Stomach nitroglycerin [From Nitro-Dur] Adverse Reaction (Verified 12/21/17 11:17) Other RASH, CAUSED PATIENT TO GET AGITATED. oxytetracycline [From Terramycin] Adverse Reaction (Verified 12/21/17 11:17) Hives oxytetracycline HCl [From Terramycin] Adverse Reaction (Verified 12/21/17 11:17) Hives Penicillins Adverse Reaction (Verified 12/21/17 11:17) Hives perfume Adverse Reaction (Verified 12/21/17 11:17) Shortness of breath phenobarbital [From ] Adverse Reaction (Verified 12/21/17 11:17) Unknown piroxicam Adverse Reaction (Verified 12/21/17 11:17) Unknown prochlorperazine Adverse Reaction (Verified 12/21/17 11:17) Rash propoxyphene napsylate [From Darvocet-N 100] Adverse Reaction (Verified 12/21/17 11:17) Unknown scopolamine hydrobromide [From ] Adverse Reaction (Verified 12/21/17 11:17) Unknown Sulfa (Sulfonamide Antibiotics) Adverse Reaction (Verified 12/21/17 11:17) Rash terfenadine [From Seldane] Adverse Reaction (Verified 12/21/17 11:17) Unknown tetracycline Adverse Reaction (Verified 12/21/17 11:17) Rash Codeine Adverse Reaction (Unknown, Uncoded 08/30/17 13:01) Diarrhea, Vomiting, Nausea Prochlorperazine Adverse Reaction (Unknown, Uncoded 08/30/17 13:01) Rash sulfonamide antibiotics Adverse Reaction (Unknown, Uncoded 08/30/17 13:01) Rash, Hives Home Medications: Ambulatory Orders Medication Instructions Recorded Acetaminophen [Tylenol] 1,000 mg PO Q4H PRN PRN 12/03/15 Cholecalciferol (VIT D3) [Vitamin 1,000 unit PO BID 12/03/15 D3] Ferrous Sulfate 325 mg PO DAILY@0800 12/03/15 Fluticasone 0.05% [Flonase Nasal 2 spray NASAL BID 12/03/15 Dixon] Furosemide [Lasix] 40 mg PO BID 12/03/15 Lactobacillus Acidophilus 1 capsule PO TID 12/03/15 [Acidophilus] Loperamide [Imodium] 2 mg PO Q2H PRN PRN 12/03/15 Loratadine [Claritin] 10 mg PO DAILY 12/03/15 Metoprolol Tartrate [Lopressor 12.5 mg PO BID 12/03/15 (beta emma)] Nitroglycerin [Nitrostat] 0.4 mg SUBLINGUAL Q5M PRN 12/03/15 Potassium Chloride [Klor-Con M10] 20 meq PO BID 12/03/15 Premarin Vag Cream 0.5 gm TOPICAL SUWE 12/03/15 Ranolazine [Ranexa] 500 mg PO DAILY 12/03/15 levETIRAcetam tablet [Keppra 500 mg PO 08,199912/03/15 tablet] proMETHazine tablet [Phenergan 25 mg PO Q6H PRN PRN 12/03/15 tablet] Albuterol Aerosols [Ventolin 2.5 mg INHALATION Q2H PRN PRN #90 04/27/17 Aerosols] vial.neb. albuterol sulfate HFA 90 2 puff INHALATION Q4H PRN g 05/04/17 mcg/actuation aerosol inhaler fenofibrate 160 mg tablet 160 mg PO DAILY #90 tab 08/16/17 isosorbide mononitrate ER 60 mg 60 mg PO DAILY tab 08/16/17 tablet,extended release 24 hr Aspirin E.C. [Ecotrin] 81 mg PO DAILY 12/01/17 Atorvastatin Calcium [Lipitor] 40 mg PO QHS 12/01/17 Clopidogrel Bisulfate [Clopidogrel] 75 mg PO QDAY 12/01/17 Gabapentin [Neurontin] 300 mg PO BID 12/01/17 Pantoprazole Sodium [Protonix] 40 mg PO DAILY 12/01/17 Sodium Chloride 0.65% [[place] Nasal 1 spray NASAL PRN 12/01/17 Dixon] Umeclidinium Brm/Vilanterol Tr 1 inh INHALATION Q24H 12/01/17 [Anoro Ellipta 62.5-25 Mcg INH] lorazepam 0.5 mg tablet 0.5 mg PO BID PRN tab 12/14/17 tramadol 50 mg tablet 50 mg PO Q6H 07/31/18 Past Medical History (Chronic Problems): Chronic Problems (Last Reviewed 12/21/17 @ 14:40 by Rufus Storey DO) History of coronary artery stent placement (Chronic) S/P A/ANGELIC to proximal and mid RCA in May 2017; 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) ELIE (obstructive sleep apnea) (Chronic) Cardiomyopathy, ischemic (Chronic) S/P CABG x 3 (Chronic) [facility]: 10/13/2012: FUENTES to LCX/OM; SVG to DX; SVG to RCA CAD (coronary artery disease) (Chronic) [facility]: 10/13/2012: FUENTES to LCX/OM; SVG to DX; SVG to RCA; PTCA/ANGELIC to proximal and mid RCA in May 2017; CHF (congestive heart failure) (Chronic) HTN (hypertension) (Chronic) Asthma (Chronic) HLD (hyperlipidemia) (Chronic) Cervical spinal stenosis (Chronic) Seizure (Chronic) cva (Chronic) Surgical History: appendectomy, coronary bypass surgery, hysterectomy - bladder surgery, pilonidal cyst, gallbladder surgery,, - - bladder surgery (multiple), left ovarian removal, pilonidal cyst surgery, coronary artery stent placement Psychiatric History: No pertinent psych hx [employer] 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[employer] 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 - *Family History Maternal Family History: Family History (Last Reviewed 12/21/17 @ 14:40 by Rufus Storey DO) Father Heart disease Cancer CVA (cerebral vascular accident) Mother Colon cancer Brother Cancer Brother Cancer History Items: Cancer, - - colon cancer Paternal Family History: Family History (Last Reviewed 12/21/17 @ 14:40 by Rufus Storey DO) Father Heart disease Cancer CVA (cerebral vascular accident) Mother Colon cancer Brother Cancer Brother Cancer History Items: Stroke, - - father with cva Smoking Status: Former smoker Review of Systems - Review of Systems General: Denies: Fever, Night Sweats, Fatigue Cardiovascular: Reports: Chest Discomfort, Chest Discomfort at Rest, Peripheral Edema. Denies: Shortness of Breath, Orthopnea, PND, Palpitations, Lightheadedness, Dizziness, Near Syncope, Syncope Respiratory: Denies: Cough, Sputum Production, Hemoptysis Gastrointestinal: Denies: Hematemesis, Hematochezia, Melena Genitourinary: Denies: Dysuria, Hematuria Skin: Denies: Rash Subjectve: This is an 82-year-old white female who appears to be resting comfortably at the moment in no acute distress. Objective: Vital Signs Temp Pulse Resp BP Pulse Ox 98.1 F 73 18 129/69 H 95 12/21/17 15:43 12/21/17 15:45 12/21/17 16:10 12/21/17 15:43 12/21/17 15:43 Oxygen Flow Rate (L/min) 2 Oxygen Delivery Method Nasal Cannula Weight: 219 lb 2.232 oz Body Mass Index (BMI) 40.1 Intake and Output for Last 24 Hours 12/19/17 12/20/17 12/21/17 23:59 23:59 23:59 Intake Total 360 / 360 Balance 360 / 360 General: Awake, Alert, Oriented x 3, Cooperative, No Acute Distress, Obese HEENT: Atraumatic, Normocephalic, PERRL, EOMI, Sclera Non Icteric Oral: Moist Mucosa Neck: Supple, Good ROM, No JVD Lungs: Clear to auscultation Cardiovascular: Regular Rhythm, Normal S1, Normal S2 Vascular: No Carotid Bruits Abdomen: Bowel Sounds Present, Soft, Non Tender Extremities: Trace RLE Edema, Trace LLE Edema Neurological: No Focal Motor or Sensory Deficit Psych/Mental Status: Appropriate, Normal Affect 12/21/17 16:20: Troponin I < 0.015 Rhythm: Sinus rhythm EKG: As noted above ECHO: 02/03/2018: Left ventricle: Left ventricular regional wall motion abnormalities; LVEF 40%; mild TR; estimated RV systolic pressure of 23 mmHg Cardiac Cath: 05/24/2017: Elevated left ventricular end-diastolic pressure; segmental left ventricular systolic dysfunction with an estimated LVEF 50%; y[place] dehe multivessel CAD; FUENTES to the LCx/OM patent; SVG to diagonal branch patent; SVG to the RCA atretic and some subsequently occluded PCI: 05/24/2017: PTCA/ANGELIC of the proximal and mid RCA CT Surgery: Report unavailable for review: However: Based on previous medical records available for review it appears the patient had a FUENTES graft to the OM 1, and SVG to diagonal branch 1, and an SVG to the RCA CXR: Luminary evaluation: No acute cardiopulmonary disease process appreciated: Postsurgical changes noted: Please see official report Assessment/Plan 1. Chest pain The patient presents with chest pain. It is unclear whether this truly represents her underlying cardiovascular disease process or a noncardiac process. At the present time she is being monitored. Her repeat troponin I levels are negative. Her ECG demonstrates a continued left bundle branch block pattern. She will continue further evaluation. Barring a change in her clinical course or objective findings this will include a pharmacologic stress nuclear imaging study to reassess her coronary physiology. Depending upon the findings she may need repeat invasive evaluation and care as well. The interim she will continue medical management. 2. CAD status post NE status post PCI status post CABG The patient has undergone extensive noninvasive and invasive evaluation care as noted above. She will continue to be monitored. She will continue her noninvasive evaluation thus far. She will continue medical management with respect to her underlying CAD and graft status as deemed appropriate. 3. Ischemic mediated cardiomyopathy The patient appears to be without acute on chronic systolic CHF at this time. She will continue medical management. Her LV wall motion systolic function will be reassessed with a transthoracic echocardiogram. 4. CHF: Chronic systolic Patient appears to be without acute issues. Again she will continue medical management. Her LV be reassessed as noted above. 5. Hyperlipidemia The patient will continue risk factor modification and medical management. 6. Hypertension The patient's blood pressure will be monitored. She will continue medical therapy. Comment: The above was discussed and reviewed with the patient and her family members present. This note was generated with [employer] software. It may contain incorrect words, spelling, and punctuation that were not noted in checking the note before signing.
--- NOTE | 2017-12-21 18:46 | CON.PCM_ITS ---
Problem List (1) Chest pain Status: Acute (2) CAD (coronary artery disease) Status: Chronic Qualifiers: Coronary Disease-Associated Artery/Lesion type: bypass graft [place] vs. transplanted heart: [place] heart Associated angina: with unstable angina Qualified Code(s): I25.700 - Atherosclerosis of coronary artery bypass graft(s) , unspecified, with unstable angina pectoris Comment: [facility]: 10/13/2012: FUENTES to LCX/OM; SVG to DX; SVG to RCA; PTCA/ANGELIC to proximal and mid RCA in May 2017; (3) S/P PTCA (percutaneous transluminal coronary angioplasty) Status: Inactive Comment: PTCA/ANGELIC to prox RCA and mid RCA 05/24/2017 (4) S/P CABG x 3 Status: Chronic Comment: [facility]: 10/13/2012: FUENTES to LCX/OM; SVG to DX; SVG to RCA (5) Cardiomyopathy, ischemic Status: Chronic (6) CHF (congestive heart failure) Status: Chronic (7) HLD (hyperlipidemia) Status: Chronic Qualifiers: Hyperlipidemia type: unspecified Qualified Code(s): E78.5 - Hyperlipidemia , unspecified (8) HTN (hypertension) Status: Chronic Qualifiers: Hypertension type: essential hypertension Qualified Code(s): I10 - Essential (primary) hypertension Reason for Consult Date of Consultation: 12/21/17 History of Present Illness: The patient is a 82 year old white female with a past medical history which is included CAD, AZ, PCI, CABG, ischemic mediated cardiomyopathy, CHF, hyperlipidemia, hypertension, and underlying seizure disorder, who presents for evaluation of chest pain. She states that she awoke earlier this morning with chest discomfort radiating towards her neck. She thought this was reminiscent of discomfort she has had in the past related to her cardiovascular disease. She felt this was somewhat different from any underlying gastrointestinal related issues. She did not complain of any acute shortness of breath or dyspnea nor did she have obvious nausea, emesis, or diaphoresis. She states she did attempt nitroglycerin sublingual at home without significant relief. She presented to the [facility] emergency department for further evaluation. Upon evaluation she had a troponin I level which was negative. Her ECG demonstrated sinus rhythm with a left bundle branch block pattern which was similar to previous ECGs. She was subsequently placed in the PCU for further evaluation and care. She had repeat troponin I level which was considered negative. She notes overall the present time she does feel better. She is denied any recent acute orthopnea, PND, however, she does admit to waxing and waning peripheral pitting edema. There has been no near syncope or syncope. [] Past Medical History Allergies/Adverse Reactions: Allergies acyclovir Allergy (Verified 12/21/17 11:17) Unknown belladonna alkaloids Allergy (Verified 12/21/17 11:17) Unknown tree and shrub pollen Allergy (Verified 12/21/17 11:17) cough valacyclovir HCl [From Valtrex] Allergy (Verified 12/21/17 11:17) Other venom-honey bee [bee venom (honey bee)] Allergy (Verified 12/21/17 11:17) Angioedema iodine Adverse Reaction (Severe, Verified 12/21/17 11:17) Other burning, rash lisinopril Adverse Reaction (Severe, Verified 12/21/17 11:17) Diarrhea Vomiting, Cough, Congestion, Pain, Headache, Drainage, Nausea metformin Adverse Reaction (Severe, Verified 12/21/17 11:17) Diarrhea, GI upset, Vomiting, Headache, Dizziness, Nausea Tetracyclines Adverse Reaction (Severe, Verified 12/21/17 11:17) headache, vomiting, rash nitrofurantoin [From Macrodantin] Adverse Reaction (Unknown, Verified 12/21/17 11:17) Unknown propoxyphene [From Darvocet-N] Adverse Reaction (Unknown, Verified 12/21/17 11: 17) Unknown valacyclovir [From Valtrex] Adverse Reaction (Unknown, Verified 12/21/17 11:17) Seizure acetaminophen [From Darvocet-N 100] Adverse Reaction (Verified 12/21/17 11:17) Unknown animal dander Adverse Reaction (Verified 12/21/17 11:17) Other aspirin Adverse Reaction (Verified 12/21/17 11:17) Other atropine sulfate [From ] Adverse Reaction (Verified 12/21/17 11:17) Unknown codeine Adverse Reaction (Verified 12/21/17 11:17) Nausea/Vom/Diarrhea hyoscyamine sulfate [From ] Adverse Reaction (Verified 12/21/17 11:17) Unknown Iodinated Contrast- Oral and IV Dye [CONTRASTS] Adverse Reaction (Verified 12/21 11:17) Rash meperidine HCl [From Demerol] Adverse Reaction (Verified 12/21/17 11:17) Unknown niacin Adverse Reaction (Verified 12/21/17 11:17) Upset Stomach nitroglycerin [From Nitro-Dur] Adverse Reaction (Verified 12/21/17 11:17) Other RASH, CAUSED PATIENT TO GET AGITATED. oxytetracycline [From Terramycin] Adverse Reaction (Verified 12/21/17 11:17) Hives oxytetracycline HCl [From Terramycin] Adverse Reaction (Verified 12/21/17 11:17) Hives Penicillins Adverse Reaction (Verified 12/21/17 11:17) Hives perfume Adverse Reaction (Verified 12/21/17 11:17) Shortness of breath phenobarbital [From ] Adverse Reaction (Verified 12/21/17 11:17) Unknown piroxicam Adverse Reaction (Verified 12/21/17 11:17) Unknown prochlorperazine Adverse Reaction (Verified 12/21/17 11:17) Rash propoxyphene napsylate [From Darvocet-N 100] Adverse Reaction (Verified 11:17) Unknown scopolamine hydrobromide [From ] Adverse Reaction (Verified 12/21/17 11: 17) Unknown Sulfa (Sulfonamide Antibiotics) Adverse Reaction (Verified 12/21/17 11:17) Rash terfenadine [From [place]] Adverse Reaction (Verified 12/21/17 11:17) Unknown tetracycline Adverse Reaction (Verified 12/21/17 11:17) Rash Codeine Adverse Reaction (Unknown, Uncoded 08/30/17 13:01) Diarrhea, Vomiting, Nausea Prochlorperazine Adverse Reaction (Unknown, Uncoded 08/30/17 13:01) Rash sulfonamide antibiotics Adverse Reaction (Unknown, Uncoded 08/30/17 13:01) Rash, Hives Home Medications: Ambulatory Orders Medication Instructions Recorded Acetaminophen [Tylenol] 1,000 mg PO Q4H PRN PRN 12/03/15 Cholecalciferol (VIT D3) [Vitamin 1,000 unit PO BID 12/03/15 D3] Ferrous Sulfate 325 mg PO DAILY@0800 12/03/15 Fluticasone 0.05% [Flonase Nasal 2 spray NASAL BID 12/03/15 [place]] Furosemide [Lasix] 40 mg PO BID 12/03/15 Lactobacillus Acidophilus 1 capsule PO TID 12/03/15 [Acidophilus] Loperamide [Imodium] 2 mg PO Q2H PRN PRN 12/03/15 Loratadine [Claritin] 10 mg PO DAILY 12/03/15 Metoprolol Tartrate [Lopressor 12.5 mg PO BID 12/03/15 (beta emma)] Nitroglycerin [Nitrostat] 0.4 mg SUBLINGUAL Q5M PRN 12/03/15 Potassium Chloride [Klor-Con M10] 20 meq PO BID 12/03/15 Premarin Vag Cream 0.5 gm TOPICAL SUWE 12/03/15 Ranolazine [Ranexa] 500 mg PO DAILY 12/03/15 levETIRAcetam tablet [Keppra 500 mg PO 08,199912/03/15 tablet] proMETHazine tablet [Phenergan 25 mg PO Q6H PRN PRN 12/03/15 tablet] Albuterol Aerosols [Ventolin 2.5 mg INHALATION Q2H PRN PRN #90 04/27/17 Aerosols] vial.neb. albuterol sulfate HFA 90 2 puff INHALATION Q4H PRN g 05/04/17 mcg/actuation aerosol inhaler fenofibrate 160 mg tablet 160 mg PO DAILY #90 tab 08/16/17 isosorbide mononitrate ER 60 mg 60 mg PO DAILY tab 08/16/17 tablet,extended release 24 hr Aspirin E.C. [Ecotrin] 81 mg PO DAILY 12/01/17 Atorvastatin Calcium [Lipitor] 40 mg PO QHS 12/01/17 Clopidogrel Bisulfate [Clopidogrel] 75 mg PO QDAY 12/01/17 Gabapentin [Neurontin] 300 mg PO BID 12/01/17 Pantoprazole Sodium [Protonix] 40 mg PO DAILY 12/01/17 Sodium Chloride 0.65% [[place] Nasal 1 spray NASAL PRN 12/01/17 [place]] Umeclidinium Brm/Vilanterol Tr 1 inh INHALATION Q24H 12/01/17 [Anoro Ellipta 62.5-25 Mcg INH] lorazepam 0.5 mg tablet 0.5 mg PO BID PRN tab 12/14/17 tramadol 50 mg tablet 50 mg PO Q6H 07/31/18 Past Medical History (Chronic Problems): Chronic Problems (Last Reviewed 12/21/17 @ 14:40 by Rufus Storey DO) History of coronary artery stent placement (Chronic) S/P A/ANGELIC to proximal and mid RCA in May 2017; 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) ELIE (obstructive sleep apnea) (Chronic) Cardiomyopathy, ischemic (Chronic) S/P CABG x 3 (Chronic) [facility]: 10/13/2012: FUENTES to LCX/OM; SVG to DX; SVG to RCA CAD (coronary artery disease) (Chronic) [facility]: 10/13/2012: FUENTES to LCX/OM; SVG to DX; SVG to RCA; PTCA/ANGELIC to proximal and mid RCA in May 2017; CHF (congestive heart failure) (Chronic) HTN (hypertension) (Chronic) Asthma (Chronic) HLD (hyperlipidemia) (Chronic) Cervical spinal stenosis (Chronic) Seizure (Chronic) cva (Chronic) Surgical History: appendectomy, coronary bypass surgery, hysterectomy - bladder surgery, pilonidal cyst, gallbladder surgery,, - - bladder surgery ( multiple), left ovarian removal, pilonidal cyst surgery, coronary artery stent placement Psychiatric History: No pertinent psych hx 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: No pertinent CAR BODY INSPECTOR history - *Family History Maternal Family History: Family History (Last Reviewed 12/21/17 @ 14:40 by Rufus Storey DO) Father Heart disease Cancer CVA (cerebral vascular accident) Mother Colon cancer Brother Cancer Brother Cancer History Items: Cancer, - - colon cancer Paternal Family History: Family History (Last Reviewed 12/21/17 @ 14:40 by Rufus Storey DO) Father Heart disease Cancer CVA (cerebral vascular accident) Mother Colon cancer Brother Cancer Brother Cancer History Items: Stroke, - - father with cva Smoking Status: Former smoker Review of Systems - Review of Systems General: Denies: Fever, Night Sweats, Fatigue Cardiovascular: Reports: Chest Discomfort, Chest Discomfort at Rest, Peripheral Edema. Denies: Shortness of Breath, Orthopnea, PND, Palpitations, Lightheadedness, Dizziness, Near Syncope, Syncope Respiratory: Denies: Cough, Sputum Production, Hemoptysis Gastrointestinal: Denies: Hematemesis, Hematochezia, Melena Genitourinary: Denies: Dysuria, Hematuria Skin: Denies: Rash Subjectve: This is an 82-year-old white female who appears to be resting comfortably at the moment in no acute distress. Objective: Vital Signs Temp Pulse Resp BP Pulse Ox 98.1 F 73 18 129/69 H 95 12/21/17 15:43 12/21/17 15:45 12/21/17 16:10 12/21/17 15:43 12/21/17 15:43 Oxygen Flow Rate (L/min) 2 Oxygen Delivery Method Nasal Cannula Weight: 219 lb 2.232 oz Body Mass Index (BMI) 40.1 Intake and Output for Last 24 Hours 12/19/17 12/20/17 12/21/17 23:59 23:59 23:59 Intake Total 360 / 360 Balance 360 / 360 General: Awake, Alert, Oriented x 3, Cooperative, No Acute Distress, Obese HEENT: Atraumatic, Normocephalic, PERRL, EOMI, Sclera Non Icteric Oral: Moist Mucosa Neck: Supple, Good ROM, No JVD Lungs: Clear to auscultation Cardiovascular: Regular Rhythm, Normal S1, Normal S2 Vascular: No Carotid Bruits Abdomen: Bowel Sounds Present, Soft, Non Tender Extremities: Trace RLE Edema, Trace LLE Edema Neurological: No Focal Motor or Sensory Deficit Psych/Mental Status: Appropriate, Normal Affect 12/21/17 16:20: Troponin I < 0.015 Rhythm: Sinus rhythm EKG: As noted above ECHO: 02/03/2018: Left ventricle: Left ventricular regional wall motion abnormalities; LVEF 40%; mild TR; estimated RV systolic pressure of 23 mmHg Cardiac Cath: 05/24/2017: Elevated left ventricular end-diastolic pressure; segmental left ventricular systolic dysfunction with an estimated LVEF 50%; [place] multivessel CAD; FUENTES to the LCx/OM patent; SVG to diagonal branch patent ; SVG to the RCA atretic and some subsequently occluded PCI: 05/24/2017: PTCA/ANGELIC of the proximal and mid RCA CT Surgery: Report unavailable for review: However: Based on previous medical records available for review it appears the patient had a FUENTES graft to the OM 1 , and SVG to diagonal branch 1, and an SVG to the RCA CXR: Luminary evaluation: No acute cardiopulmonary disease process appreciated: Postsurgical changes noted: Please see official report Assessment/Plan 1. Chest pain The patient presents with chest pain. It is unclear whether this truly represents her underlying cardiovascular disease process or a noncardiac process. At the present time she is being monitored. Her repeat troponin I levels are negative. Her ECG demonstrates a continued left bundle branch block pattern. She will continue further evaluation. Barring a change in her clinical course or objective findings this will include a pharmacologic stress nuclear imaging study to reassess her coronary physiology. Depending upon the findings she may need repeat invasive evaluation and care as well. The interim she will continue medical management. 2. CAD status post AZ status post PCI status post CABG The patient has undergone extensive noninvasive and invasive evaluation care as noted above. She will continue to be monitored. She will continue her noninvasive evaluation thus far. She will continue medical management with respect to her underlying CAD and graft status as deemed appropriate. 3. Ischemic mediated cardiomyopathy The patient appears to be without acute on chronic systolic CHF at this time. She will continue medical management. Her LV wall motion systolic function will be reassessed with a transthoracic echocardiogram. 4. CHF: Chronic systolic Patient appears to be without acute issues. Again she will continue medical management. Her LV be reassessed as noted above. 5. Hyperlipidemia The patient will continue risk factor modification and medical management. 6. Hypertension The patient's blood pressure will be monitored. She will continue medical therapy. Comment: The above was discussed and reviewed with the patient and her family members present. This note was generated with [employer] software. It may contain incorrect words, spelling, and punctuation that were not noted in checking the note before signing.
[2017-12-21] MEDS: Ipratropium 0.5 MG/2.5 ML SOLUTION INHALATION (19:32)
[2017-12-21] MEDS: Atorvastatin Calcium 40 MG Tablet PO (21:11)
[2017-12-21] MEDS: Metoprolol Tartrate 25 MG Tablet PO (21:11)
[2017-12-21] MEDS: levETIRAcetam 500 MG Tablet PO (21:12)
[2017-12-21] MEDS: Ranolazine 500 MG Tablet PO (21:12)
[2017-12-21] MEDS: Gabapentin 300 MG Capsule PO (21:12)
[2017-12-21] MEDS: LORazepam 0.5 MG Tablet PO (21:13)
[2017-12-21] MEDS: Fluticasone 0.05% 1 SPRAY NASAL.SRY 2 SPRAY NASAL (21:16)
[2017-12-21] MEDS: 0.9% NaCl Peripheral Flush Adult/Peds IV (21:17)
[2017-12-21] MEDS: Acetaminophen 325 MG Tablet 650 MG PO (23:27)
[2017-12-22] VITALS (15 sets, daily range): BP systolic 104–166; BP diastolic 58–70; PULSE 60–78; RESP 16–20; TEMP 36.3–36.9; O2SAT 94–98
[2017-12-22] MEDS: traMADol 50 MG Tablet PO ×4 (03:23→21:42)
[2017-12-22 04:39] LABS: Absolute Lymphocyte Count 3.23 X10^3/ul (0.83-4.51); Absolute Neutrophil Count 4.3 X10^3/uL (2.0-7.7); Basophil# 0.06 X10^3/uL; Basophil% 0.7 % (0-1); Eosinophil# 0.33 X10^3/uL; Eosinophils% 3.7 % (0-5); Hematocrit 38.6 % (37-47); Hemoglobin 12.5 g/dl (12.0-15.0); Lymphocyte # 3.23 X10^3/ul (4.0); Lymphocyte % 36.5 % (19-41); Mean Corp Hgb Conc 32.4 g/gl (32-36); Mean Corpuscular Hgb 31.6 pg (27.0-32.0); Mean Corpuscular Volume 97.7 fL (81-99); Mean Platelet Vol. 9.7 fl (6.2-12.0); Monocyte# 0.96 X10^3/uL; Monocyte% 10.8 % (0-10); Neutrophil # 4.26 X10^3/uL (2.7-7.7); Neutrophil % 48.1 % (47-70); Platelet Count 313 K/mm3 (150-450); RBC Distribution Width CV 13.3 % (11.6-14.6); RBC Distribution Width SD 46.7 fl (35.1-43.9); Red Blood Count 3.95 M/mm3 (4.2-5.4); White Blood Count 8.9 K/mm3 (4.4-11.0)
[2017-12-22 04:43] LABS: POSITIVE COUNT NO; POSITIVE DIFFERENTIAL NO; POSITIVE MORPHOLOGY NO; Prothrombin Time (Protime)PT. 13.4 SECONDS (11.7-14.9)
[2017-12-22 04:44] LABS: Partial Thromboplast Time 31.8 Seconds (24.1-36.2)
[2017-12-22 05:00] LABS: Anion Gap 9 (5-15); BUN 16 mg/dL (7-18); BUN/Creat Ratio 15.5 RATIO (10-20); Calcium,Total 8.1 mg/dL (8.5-10.1); Chloride 108 mmol/L (98-107); Cholesterol 116 mg/dL (200); Creatinine, Serum 1.03 mg/dL (0.55-1.02); EST Glomerular Filtration Rate 55 mL/min (>60); Est Glom Filt Rate - Afr Amer 66 mL/min (>60); Estimated Creatinine Clearance 34.45 ml/min; Glucose 92 mg/dL (74-106); High Density Lipoprotein 32 mg/dL; Sodium Level 144 mmol/L (136-145); Triglycerides 132 mg/dL; Very Low Density Lipoprotein 26 mg/dL (5-40)
[2017-12-22] MEDS: Aspirin E.C. 81 MG Tablet PO (05:10)
[2017-12-22] MEDS: Clopidogrel Bisulfate 75 MG Tablet PO (05:10)
--- NOTE | 2017-12-22 05:55 | EKG12_ITS ---
Test Reason : AM EKG Blood Pressure : / mmHG Vent. Rate : 060 BPM Atrial Rate : 060 BPM P-R Int : 202 ms QRS Dur : 152 ms QT Int : 484 ms P-R-T Axes : 046 020 116 degrees QTc Int : 484 ms Normal sinus rhythm Left bundle branch block Abnormal ECG Confirmed by COLLIN TREJO, SARWAT ([id number]), editor in chief newspaper NIKOLAS GRIFFIN ([id number]) on 12/24/2017 2:04:38 PM Referred By: KELLIE Confirmed By:SARWAT POLANCO MD
[2017-12-22] MEDS: Ipratropium 0.5 MG/2.5 ML SOLUTION INHALATION ×2 (07:28→20:43)
[2017-12-22] MEDS: Ranolazine 500 MG Tablet PO ×2 (10:12→21:43)
[2017-12-22] MEDS: Fluticasone 0.05% 1 SPRAY NASAL.SRY 2 SPRAY NASAL ×2 (10:13→21:43)
[2017-12-22] MEDS: Loratadine 10 MG Tablet PO (10:13)
[2017-12-22] MEDS: levETIRAcetam 500 MG Tablet PO ×2 (10:13→21:43)
[2017-12-22] MEDS: Pantoprazole Sodium 40 MG Tablet PO (10:13)
[2017-12-22] MEDS: Furosemide 40 MG Tablet PO ×2 (10:13→17:49)
[2017-12-22] MEDS: Gabapentin 300 MG Capsule PO ×2 (10:13→21:44)
[2017-12-22] MEDS: Fenofibrate 145 MG Tablet PO (10:13)
[2017-12-22] MEDS: Ferrous Sulfate 325 MG Tablet PO (10:13)
[2017-12-22] MEDS: Metoprolol Tartrate 25 MG Tablet PO ×2 (10:13→21:43)
[2017-12-22] MEDS: Isosorbide Mononitrate 60 MG Tablet PO (10:13)
[2017-12-22] MEDS: Acetaminophen 325 MG Tablet 650 MG PO (13:15)
--- NOTE | 2017-12-22 13:59 | STRESSREP_ITS ---
Stress Test Report Date: 12/22/2017 Procedure: Pharmacologic stress nuclear imaging study Indications: Chest pain; CAD; status post CABG; status post PCI Consent: Per the patient Procedure: The patient underwent pharmacologic (Regadenoson) evaluation with a peak heart rate of 82 beats per minute (58 predicted maximal heart rate) and a peak blood pressure of 142/70 mmHg. The baseline ECG demonstrated normal sinus rhythm; left bundle branch block pattern. The peak pharmacologic ECG demonstrated no obvious ECG changes. There were no cardiac dysrhythmias pretest, during pharmacologic infusion, or recovery. There was no complaint of chest discomfort during pharmacologic infusion or recovery. The examination was discontinued secondary to completion of protocol. Impression: 1. Pharmacologic (Regadenoson) evaluation 2. Peak pharmacologic ECG with continued left bundle branch block pattern with no obvious ECG changes. 3. There were no cardiac dysrhythmias pretest, during pharmacologic infusion, or recovery 4. Nuclear images pending Myocardial perfusion imaging study: Technique: The patient was injected with 12 millicuries of technetium 99m Cardiolite and subsequently rest SPECT Cardiolite nuclear imaging was obtained in the horizontal long, vertical long, and short axis views. The patient underwent pharmacologic (Regadenoson) evaluation with a peak heart rate of 82 beats per minute (58 % percent predicted maximal heart rate) and a peak blood pressure of 142/70 mmHg. The patient was injected with 35.9 millicuries of technetium 99m Cardiolite and subsequently stress SPECT Cardiolite nuclear imaging was obtained in the horizontal long, vertical long, and short axis views. A gated Cardiolite study at peak stress was obtained. Interpretation: Rest and stress SPECT Cardiolite nuclear imaging status post realignment, normalization, and attenuation correction demonstrate an area of diminished absence of tracer uptake in portions of the mid to distal anterior and anterior apical segments which appear to be somewhat more prominent following stress as opposed to rest. There is diminished end systolic thickening and brightening in the aforementioned areas. The gated Cardiolite study demonstrates diminished myocardial thickening and inward wall motion. The reported LVEF is 32 %. Impression: 1. Rest and stress SPECT currently nuclear imaging demonstrate myocardial perfusion changes appearing compatible with an area of previous myocardial injury/infarction in portions of the mid to distal anterior/anterior apical segments with post stress myocardial perfusion changes appearing compatible with edgardo-infarct related myocardial ischemia. 2. The gated Cardiolite study reports an LVEF of 32%. This note was generated with [employer] software. It may contain incorrect words, spelling, and punctuation that were not noted in checking the note before signing.
--- NOTE | 2017-12-22 14:33 | PN_ITS ---
Patient Problems: Active and Suspected Problems (Last Reviewed 12/21/17 @ 14:40 by Rufus Storey DO) Unstable angina (Acute) Subjective: Chief complaint: Follow-up after admission for chest pain/probable unstable angina. Patient seen and examined. No acute events overnight. This morning, she mentioned that chest pain is getting better but still there. She denied shortness of breath this morning. She denied dizziness or lightheadedness. Her vital signs are stable. - Physical Exam General: Alert, Oriented x3, Cooperative, No apparent distress HEENT: Atraumatic, PERRLA, EOMI, Normocephalic Oral: Moist Mucosa Neck: Supple, No JVD, Negative Carotid Bruits, Trachea Midline, Thyroid Normal Size and Texture Lungs: Clear to auscultation, No rhonchi, No wheeze, No rales, Diminished Cardiovascular: Regular rate, Regular Rhythm, Normal S1, Normal S2, PMI Normal Abdomen: Bowel Sounds Present, Soft, Non Tender, Non-Distended, No Hepato- splenomegaly Extremities: No clubbing, No cyanosis, Edema - Trace edema. Skin: No rashes, No breakdown Lymphatic: No Cervical, Supraclavicular, or Inguinal Adenopathy Neurological: Cranial nerves II-XII grossly intact, Motor Exam 5/5 strength throughout Psych/Mental Status: Normal Affect, Appropriate, Alert and oriented to time, place, person, mood and affect Vital Signs Temp Pulse Resp BP Pulse Ox 97.4 F L 69 16 150/70 H 94 12/22/17 10:17 12/22/17 11:04 12/22/17 10:17 12/22/17 10:17 12/22/17 10:17 Oxygen Flow Rate (L/min) 2 Oxygen Delivery Method Nasal Cannula Weight: 219 lb 2.232 oz Body Mass Index (BMI) 40.1 Intake and Output for Last 24 Hours 12/20/17 12/21/17 12/22/17 23:59 23:59 23:59 Intake Total 480 / 480 550 / 550 Balance 480 / 480 550 / 550 Laboratory Tests Past 24 Hrs 12/21/17 12/21/17 12/22/17 16:20 18:48 04:26 WBC RBC Hgb Hct MCV MCH MCHC RDW RDW Differential Plt Count MPV Immature Gran % (Auto) Neut % (Auto) Lymph % (Auto) Humphreys % (Auto) Eos % (Auto) Baso % (Auto) Absolute Neuts (auto) Absolute Lymphs (auto) Total Counted PT INR APTT Sodium 144 Potassium 4.0 Chloride 108 H Carbon Dioxide 27.0 Anion Gap 9 BUN 16 Creatinine 1.03 H Estim Creat Clear Calc 34.45 Est GFR (MDRD) Af Amer 66 Est GFR (MDRD) Non-Af 55 L BUN/Creatinine Ratio 15.5 Glucose 92 Calcium 8.1 L Troponin I < 0.015 < 0.015 Triglycerides 132 Cholesterol 116 LDL Cholesterol 58 VLDL Cholesterol 26 HDL Cholesterol 32 L 12/22/17 12/22/17 04:26 04:26 WBC 8.9 RBC 3.95 L Hgb 12.5 Hct 38.6 MCV 97.7 MCH 31.6 MCHC 32.4 RDW 13.3 RDW Differential 46.7 H Plt Count 313 MPV 9.7 Immature Gran % (Auto) 0.200 Neut % (Auto) 48.1 Lymph % (Auto) 36.5 Humphreys % (Auto) 10.8 H Eos % (Auto) 3.7 Baso % (Auto) 0.7 Absolute Neuts (auto) 4.3 Absolute Lymphs (auto) 3.23 Total Counted Not Reportable PT 13.4 INR 1.0 APTT 31.8 Sodium Potassium Chloride Carbon Dioxide Anion Gap BUN Creatinine Estim Creat Clear Calc Est GFR (MDRD) Af Amer Est GFR (MDRD) Non-Af BUN/Creatinine Ratio Glucose Calcium Troponin I Triglycerides Cholesterol LDL Cholesterol VLDL Cholesterol HDL Cholesterol Clinical Impression(s) from Imaging Studies Chest X-Ray 12/21/17 12:00 IMPRESSION: Stable chest study. No finding of active carpal disease status post prior thoracic surgery and old mild mid thoracic single anterior wedge compression fracture. Electronically Signed: Minh Ryan, at 12:31 EDT Tel , Service support , Medical Necessity - Tobacco Use Smoking Status: Former smoker Assessment/Plan All Active Problems (Last Reviewed 12/21/17 @ 14:40 by Rufus Storey DO) Unstable angina (Acute) NSTEMI (non-ST elevated myocardial infarction) (Resolved) Gallbladder & bile duct stone with obstruction (Resolved) S/P triple vessel bypass (Resolved) This is an 82 years old female patient admitted for chest pain for evaluation. #1 chest pain/probable unstable angina: Her EKG revealed no acute ischemic changes. Troponin negative ?2. Chest x-ray showed no acute findings. Her vital signs are stable. Routine blood work was unremarkable. Today, she underwent stress test that was reported as abnormal with post stress myocardial perfusion changes of previous myocardial injury/infarction with edgardo-infarct relative myocardial ischemia. She is on aspirin, statins, Plavix, nitrates and metoprolol. Cardiology on the case. Plan for possible cardiac catheterization tomorrow. #2 CAD status post CABG and stents: Plan as above, continue aspirin, statins, Plavix, Ranexa, nitrates and beta blockers. 2D echocardiogram ordered. #3 hypertension: Blood pressure stable, continue Lasix, isosorbide mononitrate and metoprolol. #4 COPD: Clinically stable. Chest x-ray showed no acute findings. She is on albuterol as needed. Pulse ox is 94% on 2 L. Patient was on 2 L at home mainly at night. #5 chronic systolic CHF/ischemic cardiomyopathy: Compensated, stable, no evidence of acute CHF. Plan to continue Lasix, metoprolol and nitrates. She is allergic to lisinopril. #6 hyperlipidemia: Continue statins. #7 seizure disorder: Continue Keppra. #8 DVT prophylaxis: Subcu Lovenox. This note was generated with [employer] dictation software. It may contain incorrect words, spelling, and punctuation that were not noted in checking the note before signing. Code Visit OBSV E&M: 43552 Subsequent observation care L2
--- NOTE | 2017-12-22 14:43 | CASEMGMT ---
This RN CM to room to f/u with discharge planning for pt. Pt states that she is current with [facility] for RN and PT/OT and plans to go home with same. Call to [facility] to verify and notify of pt admission. Per [facility], pt is current with them. Resumption of care order placed at this time. [facility] to be notified of pt discharge and faxed discharge instructions when available. Green sheet left on chart at this time. [place]en LISSA CERON
[2017-12-22] MEDS: Enoxaparin 40 MG/0.4 ML Syringe SC (14:54)
--- NOTE | 2017-12-22 15:22 | CASEMGMT ---
This RN CM to room with MALAGON form at this time, explanation done and pt voices understanding at this time. Pt signed MALAGON form at this time and voices no further questions/concerns/needs at this time. Original to chart at this time. SStaten LISSA CM
--- NOTE | 2017-12-22 18:03 | PCM.PN.CARD ---
Subjectve: The patient underwent pharmacologic stress nuclear study earlier this day. It did demonstrate concerns of myocardial perfusion changes compatible with anterior/anterior apical infarct with edgardo-infarct related ischemia. He underwent her procedure without obvious adverse event. Objective: Vital Signs Temp Pulse Resp BP Pulse Ox 97.3 F L 66 16 131/58 H 96 12/22/17 14:59 12/22/17 14:59 12/22/17 14:59 12/22/17 14:59 12/22/17 14:59 Oxygen Flow Rate (L/min) 2 Oxygen Delivery Method Nasal Cannula Weight: 219 lb 2.232 oz Body Mass Index (BMI) 40.1 Intake and Output for Last 24 Hours 12/20/17 12/21/17 12/22/17 23:59 23:59 23:59 Intake Total 480 / 480 550 / 550 Balance 480 / 480 550 / 550 General: Awake, Alert, Oriented x 3, Obese Neck: No JVD Cardiovascular: Regular Rhythm, Normal S1, Normal S2 Abdomen: Bowel Sounds Present, Soft, Non Tender Extremities: Mild RLE Edema, Mild LLE Edema 12/21/17 18:48: Troponin I < 0.015 12/22/17 04:26: Sodium 144, Potassium 4.0, Chloride 108 H, Carbon Dioxide 27.0, Anion Gap 9, BUN 16, Creatinine 1.03 H, Est GFR (MDRD) Af Amer 66, Est GFR (MDRD) Non-Af 55 L, BUN/Creatinine Ratio 15.5, Glucose 92, Calcium 8.1 L, Triglycerides 132, Cholesterol 116, LDL Cholesterol 58, VLDL Cholesterol 26, HDL Cholesterol 32 L 12/22/17 04:26: WBC 8.9, RBC 3.95 L, Hgb 12.5, Hct 38.6, MCV 97.7, MCH 31.6, MCHC 32.4, RDW 13.3, RDW Differential 46.7 H, Plt Count 313, MPV 9.7, Immature Gran % (Auto) 0.200, Neut % (Auto) 48.1, Lymph % (Auto) 36.5, [place] % (Auto) 10.8 H, Eos % (Auto) 3.7, Baso % (Auto) 0.7, Absolute Neuts (auto) 4.3, Total Counted Not Reportable 12/22/17 04:26: PT 13.4, INR 1.0, APTT 31.8 Rhythm: Sinus rhythm EKG: Sinus rhythm; left bundle branch block pattern Stress Test: Please see official report Medical Necessity - Tobacco Use Smoking Status: Former smoker Assessment/Plan 1. Chest pain The patient presents with chest pain. Her troponin I levels have remained negative. Her ECG continues to demonstrate a left bundle branch block pattern. A pharmacologic stress nuclear imaging study is as described above. Her case has been reviewed. At the present time it appears that she will require repeat diagnostic cardiac catheterization. She may require additional catheter based revascularization therapy of her LAD distribution, depending upon the cardiac catheterization results. 2. CAD status post [place] status post PCI status post CABG The patient has undergone extensive noninvasive and invasive evaluation care as noted above. She will continue to be monitored. She will continue evaluation as noted above. She will continue medical therapy in the interim. 3. Ischemic mediated cardiomyopathy The patient appears to be without acute on chronic systolic CHF at this time. She will continue medical management. An echocardiogram to reevaluate her left ventricular wall motion and systolic function is pending. 4. CHF: Chronic systolic Patient appears to be without acute issues. Again she will continue medical management. Her LV be reassessed as noted above. 5. Hyperlipidemia The patient will continue risk factor modification and medical management. 6. Hypertension The patient's blood pressure will be monitored. She will continue medical therapy. Comment: The above was discussed and reviewed with the patient. This note was generated with [employer] software. It may contain incorrect words, spelling, and punctuation that were not noted in checking the note before signing.
--- NOTE | 2017-12-22 18:07 | PN.CARD_ITS ---
Subjectve: The patient underwent pharmacologic stress nuclear study earlier this day. It did demonstrate concerns of myocardial perfusion changes compatible with anterior/anterior apical infarct with edgardo-infarct related ischemia. He underwent her procedure without obvious adverse event. Objective: Vital Signs Temp Pulse Resp BP Pulse Ox 97.3 F L 66 16 131/58 H 96 12/22/17 14:59 12/22/17 14:59 12/22/17 14:59 12/22/17 14:59 12/22/17 14:59 Oxygen Flow Rate (L/min) 2 Oxygen Delivery Method Nasal Cannula Weight: 219 lb 2.232 oz Body Mass Index (BMI) 40.1 Intake and Output for Last 24 Hours 12/20/17 12/21/17 12/22/17 23:59 23:59 23:59 Intake Total 480 / 480 550 / 550 Balance 480 / 480 550 / 550 General: Awake, Alert, Oriented x 3, Obese Neck: No JVD Cardiovascular: Regular Rhythm, Normal S1, Normal S2 Abdomen: Bowel Sounds Present, Soft, Non Tender Extremities: Mild RLE Edema, Mild LLE Edema 12/21/17 18:48: Troponin I < 0.015 12/22/17 04:26: Sodium 144, Potassium 4.0, Chloride 108 H, Carbon Dioxide 27.0, Anion Gap 9, BUN 16, Creatinine 1.03 H, Est GFR (MDRD) Af Amer 66, Est GFR (MDRD ) Non-Af 55 L, BUN/Creatinine Ratio 15.5, Glucose 92, Calcium 8.1 L, Triglycerides 132, Cholesterol 116, LDL Cholesterol 58, VLDL Cholesterol 26, HDL Cholesterol 32 L 12/22/17 04:26: WBC 8.9, RBC 3.95 L, Hgb 12.5, Hct 38.6, MCV 97.7, MCH 31.6, MCHC 32.4, RDW 13.3, RDW Differential 46.7 H, Plt Count 313, MPV 9.7, Immature Gran % (Auto) 0.200, Neut % (Auto) 48.1, Lymph % (Auto) 36.5, [place] % (Auto) 10.8 H, Eos % (Auto) 3.7, Baso % (Auto) 0.7, Absolute Neuts (auto) 4.3, Total Counted Not Reportable 12/22/17 04:26: PT 13.4, INR 1.0, APTT 31.8 Rhythm: Sinus rhythm EKG: Sinus rhythm; left bundle branch block pattern Stress Test: Please see official report Medical Necessity - Tobacco Use Smoking Status: Former smoker Assessment/Plan 1. Chest pain The patient presents with chest pain. Her troponin I levels have remained negative. Her ECG continues to demonstrate a left bundle branch block pattern. A pharmacologic stress nuclear imaging study is as described above. Her case has been reviewed. At the present time it appears that she will require repeat diagnostic cardiac catheterization. She may require additional catheter based revascularization therapy of her LAD distribution, depending upon the cardiac catheterization results. 2. CAD status post [place] status post PCI status post CABG The patient has undergone extensive noninvasive and invasive evaluation care as noted above. She will continue to be monitored. She will continue evaluation as noted above. She will continue medical therapy in the interim. 3. Ischemic mediated cardiomyopathy The patient appears to be without acute on chronic systolic CHF at this time. She will continue medical management. An echocardiogram to reevaluate her left ventricular wall motion and systolic function is pending. 4. CHF: Chronic systolic Patient appears to be without acute issues. Again she will continue medical management. Her LV be reassessed as noted above. 5. Hyperlipidemia The patient will continue risk factor modification and medical management. 6. Hypertension The patient's blood pressure will be monitored. She will continue medical therapy. Comment: The above was discussed and reviewed with the patient. This note was generated with [employer] software. It may contain incorrect words, spelling, and punctuation that were not noted in checking the note before signing.
[2017-12-22] MEDS: Atorvastatin Calcium 40 MG Tablet PO (21:44)
[2017-12-23] VITALS (29 sets, daily range): BP systolic 115–166; BP diastolic 41–102; PULSE 60–76; RESP 11–23; TEMP 36.7–37.2; O2SAT 91–97; BMI 40.0
[2017-12-23] MEDS: traMADol 50 MG Tablet PO ×3 (03:48→21:17)
[2017-12-23 04:24] LABS: Hematocrit 38.7 % (37-47); Hemoglobin 12.7 g/dl (12.0-15.0); Mean Corp Hgb Conc 32.8 g/gl (32-36); Mean Corpuscular Hgb 31.8 pg (27.0-32.0); Mean Corpuscular Volume 96.8 fL (81-99); Mean Platelet Vol. 9.8 fl (6.2-12.0); Platelet Count 315 K/mm3 (150-450); White Blood Count 8.3 K/mm3 (4.4-11.0)
[2017-12-23 04:25] LABS: International Normalized Ratio 1.1; Partial Thromboplast Time 31.8 Seconds (24.1-36.2); Prothrombin Time (Protime)PT. 13.7 SECONDS (11.7-14.9)
[2017-12-23 04:30] LABS: Scan Indicated on CBC? Y/N NO
[2017-12-23 04:32] LABS: Anion Gap 9 (5-15); BUN 16 mg/dL (7-18); BUN/Creat Ratio 15.4 RATIO (10-20); Calcium,Total 8.2 mg/dL (8.5-10.1); Chloride 107 mmol/L (98-107); Creatinine, Serum 1.04 mg/dL (0.55-1.02); EST Glomerular Filtration Rate 54 mL/min (>60); Est Glom Filt Rate - Afr Amer 66 mL/min (>60); Estimated Creatinine Clearance 34.12 ml/min; Glucose 115 mg/dL (74-106); Potassium 3.7 mmol/L (3.5-5.1); Sodium Level 142 mmol/L (136-145)
[2017-12-23] MEDS: Clopidogrel Bisulfate 75 MG Tablet PO (06:06)
[2017-12-23] MEDS: Isosorbide Mononitrate 60 MG Tablet PO (06:06)
[2017-12-23] MEDS: Metoprolol Tartrate 25 MG Tablet PO ×2 (06:06→21:17)
[2017-12-23] MEDS: Aspirin E.C. 81 MG Tablet PO (06:06)
[2017-12-23] MEDS: levETIRAcetam 500 MG Tablet PO ×2 (06:12→19:41)
[2017-12-23 06:59] LABS: Color, Urine Yellow (Yellow); Glucose, Dipstick Normal (Normal); Ketone-Dipstick Negative (Negative); Leukocyte Esterase-Dipstick 25 /ul (Negative); Nitrite-Dipstick Negative (Negative); Occult Blood-Urine Negative /ul (Negative); Protein-Dipstick Negative (Negative); Specific Gravity, Urine 1.015 (1.002-1.030); Urine Bilirubin Dipstick Negative (Negative); Urine Clarity Clear (Clear); Urine Urobilinogen Normal (Normal); Urine pH 6.5 (5.0 - 8.0)
--- NOTE | 2017-12-23 09:00 | CL.I_ITS ---
Patient Name: SILVESTRE FERMIN Study Date: 12/23/2017 Performing: Royal Zurita MD Ht: 61.81 inches 157 cm : 1935 Wt: 218.26 lbs 99 kg Age: 82 Gender: female BSA: 1.98 PROCEDURE(S) PERFORMED [id number] W OR WO PTCA, SINGLE CORONARY ARTERY CLINICAL PROFILE AND CO-MORBIDITIES Indications: ACS <= 24 hrs Heart Failure: None Stress/Imaging Stress Test w/SPECT MPI: Yes Result: Positive Intermediate Risk Stress Test with S PECT MPI: Positive Intermediate Risk Angina Classification Anginal Classification w/in 2 Weeks: CCS III CAD Presentations: Unstable angina. Comorbidities/Risk Factors: Hypertension Dyslipidemia Prior PCI CONCLUSIONS Successful PTCA/ANGELIC of the of distal LAD with a 2.25 x 38 Resolute, followed immediately distally wit h a 2.25 x 12 Resolute ANGELIC; 85%-->0%, no dissection. RECOMMENDATIONS Highly recommend quitting all tobacco products Follow up with primary music autographer Risk factor modification Plavix for at least 12 months Routine post interventional care Refer for Outpatient Cardiac Rehab Manual sheath removal per protocol Follow up with Dr. Zurita Plavix indefinitely as pt has true ASA allergy. Successful Mynx closure to RFA. DESCRIPTION OF PROCEDURE The patient arrived to the procedure lab. The risks and benefits of the procedure as well as a full d escription of our services here and current unavailability of surgical backup were fully explained to the patient and/or their significant other prior to the catheterization. The Timeout was completed, verifying the correct patient and procedure. The patient's procedural site was prepped and draped in the usual fashion. Local anesthetic was given subcutaneously to right groin region with Lidocaine 2% Using a modified Seldinger technique,arterial access was obtained via the right femoral artery, a 4Fr sheath was inserted Left Coronary Artery selective angiography was performed in multiple views using a 4 Fr. JL5 catheter. Right Coronary Artery selective angiography was then performed in multiple vie ws using a 4 Fr. 3DRC catheter. Left internal mammary artery graft to the Circumflex/OM selective ang iography was performed in multiple views using a 4 Fr. JR4 catheter. Saphenous Vein graft to the DIAG 1 selective angiography was performed in multiple views using a 4 Fr. JR4 catheter.The images were r eviewed and options discussed. A decision was then made to proceed with an Intervention, IVUS or othe r adjunct procedure. Arterial sheath was exchanged for a 6 Fr Sheath. EBU 3.75 Guide catheter was inserted and engaged int o the LCA. BMW Guide wire was advanced to the LAD. emerge 2.0x12 Balloon catheter was inserted. PTCA balloon inflated at 6 atms for 12 secs. PTCA balloon inflated at 6 atms for 9 secs. PTCA balloon infl ated at 8 atms for 13 secs. PTCA balloon inflated at 8 atms for 14 secs. PTCA balloon inflated at 8 a tms for 14 secs. PTCA balloon inflated at 6 atms for 14 secs. Angiogram performed post balloon dilata tion. Resolute 2.25x30 Drug Eluting stent was inserted. Angiogram performed post stent deployment. Re solute 2.25x12 Drug Eluting stent was inserted. Angiogram performed post stent deployment. Contrast w as injected through the sheath and the Right Iliac and Femoral artery were assessed for possible clos ure device. The arterial sheath was pulled and a Mynx closure device was deployed for hemostasis INTERVENTION INFORMATION LESION SITE: LAD (Distal) Lesion Complexity: High/C, lesion at bifurcation: No, thrombus present: No, lesion length: 50 mm, cul prit lesion: Yes Pre Stenosis: 85 % Pre intervention JOSE flow: 3 PROCEDURE: Drug Eluting Stent with pre dilatation. Post Stenosis: 0 % Post intervention JOSE flow: 3 Lesion Devices: Medtronic 6 Fr EBU3.75 100cm Guide Catheter [place] .014 BMW [place] Straight 190cm Mj Sci EMERGE MR 2.00x12 BALLOON Medtronic Resolute RX ANGELIC 2.25x30 Medtronic Resolute RX ANGELIC 2.25x12 COMPLICATIONS No Complications PROCEDURE MEDICATIONS Fentanyl 50 mcg IV Versed 1 mg IV Oxygen: 2 L/min via nasal cannula Oxygen: 4 L/min via nasal cannula Benadryl 50 mg IV @ 12/23/2017 07:25:16 Heparin 6000 unit(s) IV 12/23/2017 08:15:44 Nitro 100 mcg IC 12/23/2017 08:17:23 Nitro 200 mcg IC 12/23/2017 08:25:55 Nitro 200 mcg IC 12/23/2017 08:30:37 Pepcid 20 mg IV 12/23/2017 07:33:07 Solu-medrol 125 mg IV 12/23/2017 07:25:25 SUMMARY OF HEMODYNAMIC DATA Time AIR REST ECG 07:18:32 AO 144/74 (100) SA 07:44:52 LV 160/18, 34 07:56:43 LV 163/19, 36 07:56:50 LVp 151/21, 30 07:57:23 AOp 152/72 (101) 07:57:28 Signed By Royal Zurita MD On 12/23/2017 09:00:16 Royal Zurita MD
[2017-12-23 09:11] LABS: ACT Activated Clotting Time 136 sec (74-137)
[2017-12-23 09:11] LABS: ACT Activated Clotting Time 87 sec (74-137)
--- NOTE | 2017-12-23 09:17 | PCM.PN.CARD ---
Subjectve: The patient underwent diagnostic cardiac catheterization earlier this day. She was found to have progression of her [place] vessel disease/LAD disease. Her previously stented RCA was patent with no angiographically significant appearing in-stent restenosis. Her FUENTES graft to the LCx OM system remain patent, her SVG graft to diagonal system remain patent, her SVG graft to the RCA system has previously been documented as occluded and was not reassessed. The patient appears to be resting comfortably at this time. Objective: Vital Signs Temp Pulse Resp BP Pulse Ox 98.1 F 68 18 146/71 H 97 12/23/17 03:30 12/23/17 07:05 12/23/17 03:30 12/23/17 03:30 12/23/17 03:30 Oxygen Flow Rate (L/min) 2 Oxygen Delivery Method Nasal Cannula Weight: 219 lb 2.232 oz Body Mass Index (BMI) 40.1 Intake and Output for Last 24 Hours 12/21/17 12/22/17 12/23/17 23:59 23:59 23:59 Intake Total 480 / 480 550 / 550 Balance 480 / 480 550 / 550 General: Awake, Alert, Oriented x 3, No Acute Distress Neck: No JVD Lungs: Clear to auscultation Cardiovascular: Regular Rhythm, Normal S1, Normal S2 Abdomen: Bowel Sounds Present, Soft, Non Tender Extremities: Trace RLE Edema, Trace LLE Edema 12/23/17 04:06: WBC 8.3, RBC 4.00 L, Hgb 12.7, Hct 38.7, MCV 96.8, MCH 31.8, MCHC 32.8, RDW 13.0, RDW Differential 45.0 H, Plt Count 315, MPV 9.8 12/23/17 04:06: PT 13.7, INR 1.1, APTT 31.8 12/23/17 04:06: Sodium 142, Potassium 3.7, Chloride 107, Carbon Dioxide 26.0, Anion Gap 9, BUN 16, Creatinine 1.04 H, Est GFR (MDRD) Af Amer 66, Est GFR (MDRD) Non-Af 54 L, BUN/Creatinine Ratio 15.4, Glucose 115 H, Calcium 8.2 L 12/23/17 06:02: Urine Color Yellow, Urine Clarity Clear, Urine pH 6.5, Ur Specific [place] 1.015, Urine Protein Negative, Urine Glucose (UA) Normal, Urine Ketones Negative, Urine Occult Blood Negative, Urine Nitrite Negative, Urine Bilirubin Negative, Urine Urobilinogen Normal, Ur Leukocyte Esterase 25 H Rhythm: Sinus rhythm Cardiac Cath: Please see official report PCI: Please see official report Medical Necessity - Tobacco Use Smoking Status: Former smoker Assessment/Plan 1. CAD status post CT status post PCI status post CABG The patient has undergone extensive noninvasive and invasive evaluation care as noted above. She will continue to be monitored. She is now status post repeat diagnostic cardiac catheterization which subsequently led to LAD PCI. She will continue medical management and follow-up. 2. Ischemic mediated cardiomyopathy The patient appears to be without acute on chronic systolic CHF at this time. Her echocardiogram was repeated. Her estimated LVEF was approximately 35%. She will continue medical therapy. Over time her LV wall motion and systolic function can be reassessed to see if there is any evidence of improvement status post her LAD PCI. 4. CHF: Chronic systolic She appears to be without acute on chronic systolic CHF symptoms.. Again she will continue medical management. 5. Hyperlipidemia The patient will continue risk factor modification and medical management. 6. Hypertension The patient's blood pressure will be monitored. She will continue medical therapy. Comment: The above was discussed and reviewed with the patient. This note was generated with [employer] dictation software. It may contain incorrect words, spelling, and punctuation that were not noted in checking the note before signing.
[2017-12-23] MEDS: 0.9% Normal Saline 1,000 ML 150 ML IV (09:20)
--- NOTE | 2017-12-23 09:20 | PN.CARD_ITS ---
Subjectve: The patient underwent diagnostic cardiac catheterization earlier this day. She was found to have progression of her [place] vessel disease/LAD disease. Her previously stented RCA was patent with no angiographically significant appearing in-stent restenosis. Her FUENTES graft to the LCx OM system remain patent, her SVG graft to diagonal system remain patent, her SVG graft to the RCA system has previously been documented as occluded and was not reassessed. The patient appears to be resting comfortably at this time. Objective: Vital Signs Temp Pulse Resp BP Pulse Ox 98.1 F 68 18 146/71 H 97 12/23/17 03:30 12/23/17 07:05 12/23/17 03:30 12/23/17 03:30 12/23/17 03:30 Oxygen Flow Rate (L/min) 2 Oxygen Delivery Method Nasal Cannula Weight: 219 lb 2.232 oz Body Mass Index (BMI) 40.1 Intake and Output for Last 24 Hours 12/21/17 12/22/17 12/23/17 23:59 23:59 23:59 Intake Total 480 / 480 550 / 550 Balance 480 / 480 550 / 550 General: Awake, Alert, Oriented x 3, No Acute Distress Neck: No JVD Lungs: Clear to auscultation Cardiovascular: Regular Rhythm, Normal S1, Normal S2 Abdomen: Bowel Sounds Present, Soft, Non Tender Extremities: Trace RLE Edema, Trace LLE Edema 12/23/17 04:06: WBC 8.3, RBC 4.00 L, Hgb 12.7, Hct 38.7, MCV 96.8, MCH 31.8, MCHC 32.8, RDW 13.0, RDW Differential 45.0 H, Plt Count 315, MPV 9.8 12/23/17 04:06: PT 13.7, INR 1.1, APTT 31.8 12/23/17 04:06: Sodium 142, Potassium 3.7, Chloride 107, Carbon Dioxide 26.0, Anion Gap 9, BUN 16, Creatinine 1.04 H, Est GFR (MDRD) Af Amer 66, Est GFR (MDRD ) Non-Af 54 L, BUN/Creatinine Ratio 15.4, Glucose 115 H, Calcium 8.2 L 12/23/17 06:02: Urine Color Yellow, Urine Clarity Clear, Urine pH 6.5, Ur Specific [place] 1.015, Urine Protein Negative, Urine Glucose (UA) Normal, Urine Ketones Negative, Urine Occult Blood Negative, Urine Nitrite Negative, Urine Bilirubin Negative, Urine Urobilinogen Normal, Ur Leukocyte Esterase 25 H Rhythm: Sinus rhythm Cardiac Cath: Please see official report PCI: Please see official report Medical Necessity - Tobacco Use Smoking Status: Former smoker Assessment/Plan 1. CAD status post [place] status post PCI status post CABG The patient has undergone extensive noninvasive and invasive evaluation care as noted above. She will continue to be monitored. She is now status post repeat diagnostic cardiac catheterization which subsequently led to LAD PCI. She will continue medical management and follow-up. 2. Ischemic mediated cardiomyopathy The patient appears to be without acute on chronic systolic CHF at this time. Her echocardiogram was repeated. Her estimated LVEF was approximately 35%. She will continue medical therapy. Over time her LV wall motion and systolic function can be reassessed to see if there is any evidence of improvement status post her LAD PCI. 4. CHF: Chronic systolic She appears to be without acute on chronic systolic CHF symptoms.. Again she will continue medical management. 5. Hyperlipidemia The patient will continue risk factor modification and medical management. 6. Hypertension The patient's blood pressure will be monitored. She will continue medical therapy. Comment: The above was discussed and reviewed with the patient. This note was generated with [employer] dictation software. It may contain incorrect words, spelling, and punctuation that were not noted in checking the note before signing.
--- NOTE | 2017-12-23 09:35 | PN_ITS ---
Patient Problems: Active and Suspected Problems (Last Reviewed 12/21/17 @ 14:40 by Rufus Storey DO) Unstable angina (Acute) Subjective: Chief complaint: Follow-up after admission for unstable angina, status post cardiac catheterization, status post PTCA/D is to distal LAD. Patient seen and examined. She just arrived to ICU from the [facility]. She is sleepy but arousable. She was able to answer my questions. She denied chest pain or shortness of breath. Denied abdominal pain, nausea or vomiting. Her vital signs are stable. - Physical Exam General: Alert, Cooperative, No apparent distress, - - Sleepy but arousable. HEENT: Atraumatic, PERRLA, EOMI, Normocephalic Oral: Moist Mucosa, No Gingival or Mucosal Lesions/ Ulcerations Neck: Supple, No JVD, Negative Carotid Bruits, Trachea Midline, Thyroid Normal Size and Texture Lungs: Clear to auscultation, No rhonchi, No wheeze, No rales, Diminished Cardiovascular: Regular rate, Regular Rhythm, Normal S1, Normal S2, PMI Normal Abdomen: Bowel Sounds Present, Soft, Non Tender, Non-Distended, No Hepato- splenomegaly, Obese Extremities: No clubbing, No cyanosis, No edema Skin: No rashes, No breakdown Lymphatic: No Cervical, Supraclavicular, or Inguinal Adenopathy Neurological: Cranial nerves II-XII grossly intact, Neuro grossly intact Psych/Mental Status: Normal Affect, Appropriate Vital Signs Temp Pulse Resp BP Pulse Ox 98.1 F 68 18 146/71 H 97 12/23/17 03:30 12/23/17 07:05 12/23/17 03:30 12/23/17 03:30 12/23/17 03:30 Oxygen Flow Rate (L/min) 2 Oxygen Delivery Method Nasal Cannula Weight: 219 lb 2.232 oz Body Mass Index (BMI) 40.1 Intake and Output for Last 24 Hours 12/21/17 12/22/17 12/23/17 23:59 23:59 23:59 Intake Total 480 / 480 550 / 550 Balance 480 / 480 550 / 550 Laboratory Tests Past 24 Hrs 12/23/17 12/23/17 12/23/17 04:06 04:06 04:06 WBC 8.3 RBC 4.00 L Hgb 12.7 Hct 38.7 MCV 96.8 MCH 31.8 MCHC 32.8 RDW 13.0 RDW Differential 45.0 H Plt Count 315 MPV 9.8 PT 13.7 INR 1.1 APTT 31.8 Activated Clotting Time Sodium 142 Potassium 3.7 Chloride 107 Carbon Dioxide 26.0 Anion Gap 9 BUN 16 Creatinine 1.04 H Estim Creat Clear Calc 34.12 Est GFR (MDRD) Af Amer 66 Est GFR (MDRD) Non-Af 54 L BUN/Creatinine Ratio 15.4 Glucose 115 H Calcium 8.2 L Urine Color Urine Clarity Urine pH Ur Specific [place] Urine Protein Urine Glucose (UA) Urine Ketones Urine Occult Blood Urine Nitrite Urine Bilirubin Urine Urobilinogen Ur Leukocyte Esterase 12/23/17 12/23/17 12/23/17 06:02 08:40 08:45 WBC RBC Hgb Hct MCV MCH MCHC RDW RDW Differential Plt Count MPV PT INR APTT Activated Clotting Time 87 136 Sodium Potassium Chloride Carbon Dioxide Anion Gap BUN Creatinine Estim Creat Clear Calc Est GFR (MDRD) Af Amer Est GFR (MDRD) Non-Af BUN/Creatinine Ratio Glucose Calcium Urine Color Yellow Urine Clarity Clear Urine pH 6.5 Ur Specific [place] 1.015 Urine Protein Negative Urine Glucose (UA) Normal Urine Ketones Negative Urine Occult Blood Negative Urine Nitrite Negative Urine Bilirubin Negative Urine Urobilinogen Normal Ur Leukocyte Esterase 25 H Medical Necessity - Tobacco Use Smoking Status: Former smoker Assessment/Plan All Active Problems (Last Updated 12/22/17 @ 14:34 by Abdiaziz Tomlin MD) Unstable angina (Acute) NSTEMI (non-ST elevated myocardial infarction) (Resolved) Gallbladder & bile duct stone with obstruction (Resolved) S/P triple vessel bypass (Resolved) This is an 82 years old female patient admitted for chest pain for evaluation. #1 chest pain/ unstable angina: Status post cardiac catheterization because she was found to have abnormal stress test, underwent PTCA/ANGELIC to distal LAD. At this time, vital signs are stable. She is on aspirin, Plavix, statins, metoprolol and isosorbide mononitrate. 2D echocardiogram revealed ejection fraction of 35% with moderate segmental systolic dysfunction, RVSP of 25. Troponin negative ?2. Chest x-ray showed no acute findings. Plan to continue same treatment. #2 CAD status post CABG and stents: Plan as above, continue aspirin, statins, Plavix, Ranexa, nitrates and beta blockers. 2D echocardiogram reviewed. #3 hypertension: Blood pressure stable, continue Lasix, isosorbide mononitrate and metoprolol. #4 COPD: Clinically stable. Chest x-ray showed no acute findings. She is on albuterol as needed. Pulse ox is 94% on 2 L. Patient was on 2 L at home mainly at night. #5 chronic systolic CHF/ischemic cardiomyopathy: Compensated, stable, no evidence of acute CHF. 2D echocardiogram revealed ejection fraction of 35%. Continue Lasix, metoprolol and nitrates. She is allergic to lisinopril. #6 hyperlipidemia: Continue statins. #7 seizure disorder: Continue Keppra. #8 DVT prophylaxis: Subcu Lovenox. This note was generated with [employer] dictation software. It may contain incorrect words, spelling, and punctuation that were not noted in checking the note before signing. Code Visit Inpatient E&M: 17894 Subs Hosp L2
--- NOTE | 2017-12-23 13:00 | CL.D_ITS ---
Patient Name: SILVESTRE FERMIN Study Date: 12/23/2017 Performing: Kailash Rueda MD Ht: 62 inches 157 cm : 1935 Wt: 218.5 lbs 99 kg Age: 82 Gender: female BSA: 1.98 PROCEDURE(S) PERFORMED [id number] W OR WO PTCA, SINGLE CORONARY ARTERY CLINICAL PROFILE AND INDICATIONS Indications: ACS <= 24 hrs, Worsening Angina Heart Failure: None Stress/Imaging Stress Test w/SPECT MPI: Yes Result: Positive Intermediate RiskStress Test with SP ECT MPI: Positive Intermediate Risk Angina Classification Anginal Classification w/in 2 Weeks: CCS III CAD Presentations: Unstable angina. Unstable angina. Comorbidities/Risk Factors: Hypertension Dyslipidemia Prior PCI CONCLUSIONS Elevated Left Ventricular End Diastolic Pressure [place] Multivessel CAD FUENTES to LCX/OM: patent SVG to DX1: patent SVG to RCA: previously documented as atretic and subsequently occluded and not reevaluated during thi s examination RECOMMENDATIONS Risk factor modification Medical therapy Referred for immediate PCI DESCRIPTION OF PROCEDURE The patient arrived to the procedure lab. The risks and benefits of the procedure as well as a full d escription of our services here and current unavailability of surgical backup were fully explained to the patient and/or their significant other prior to the catheterization. The Timeout was completed, verifying the correct patient and procedure. The patient's procedural site was prepped and draped in the usual fashion. Local anesthetic was given subcutaneously to right groin region with Lidocaine 2%. Using a modified Seldinger technique, arterial access was obtained via the right femoral artery, a 4 Fr sheath was inserted Left Coronary Artery selective angiography was performed in multiple views us ing a 4 Fr. JL5 catheter. Right Coronary Artery selective angiography was then performed in multiple views using a 4 Fr. 3DRC catheter. Left internal mammary artery graft to the Circumflex/OM selective angiography was performed in multiple views using a 4 Fr. JR4 catheter. Saphenous Vein graft to the D IAG 1 selective angiography was performed in multiple views using a 4 Fr. JR4 catheter.Contrast was i njected through the sheath and the Right Iliac and Femoral artery were assessed for possible closure device.The arterial sheath was pulled and a Mynx closure device was deployed for hemostasis CORONARY ANGIOGRAPHY DOMINANCE: Right Dominant LEFT HEART ASSESSMENT Left Ventricular Ejection Fraction: Not assessed Elevated Left Ventricular End Diastolic Pressure LVEDP: 34 mmHg LEFT MAIN: Angiographically normal LEFT ANTERIOR DECENDING ARTERY: OSTIAL LAD: 25 % Stenosis PROX LAD: Mild calcification MID LAD: 75 % Stenosis CIRCUMFLEX ARTERY: PROX CIRC: Eccentric: 50 % Stenosis MID CIRC: Long: Diffuse: 50 % Stenosis RIGHT CORONARY ARTERY: PROX RCA: Previously placed stent is patent MID RCA: Previously placed stent is patent GRAFTS: FUENTES graft to the 1st OM is patent with no angiographically significant appearing disease distal to t he graft attachment Saphenous Vein graft to the 1st Diagonal is patent with diffuse, irrgular, 75% stenosis distal to the graft attachment prior to proceeding as a small caliber vessel system Saphenous Vein graft to the RCA is totally occluded (documented on 05/24/2017 [facility] Cardiac Catheteriza tion: not reevaluated during this examination) COMPLICATIONS No Complications PROCEDURE MEDICATIONS Fentanyl 50 mcg IV Versed 1 mg IV Oxygen: 2 L/min via nasal cannula Oxygen: 4 L/min via nasal cannula Benadryl 50 mg IV @ 12/23/2017 07:25:16 Heparin 6000 unit(s) IV 12/23/2017 08:15:44 Nitro 100 mcg IC 12/23/2017 08:17:23 Nitro 200 mcg IC 12/23/2017 08:25:55 Nitro 200 mcg IC 12/23/2017 08:30:37 Pepcid 20 mg IV 12/23/2017 07:33:07 Solu-medrol 125 mg IV 12/23/2017 07:25:25 SUMMARY OF HEMODYNAMIC DATA Time AIR REST ECG 07:18:32 AO 144/74 (100) SA 07:44:52 LV 160/18, 34 07:56:43 LV 163/19, 36 07:56:50 LVp 151/21, 30 07:57:23 AOp 152/72 (101) 07:57:28 RM AIR REST 09:00:27 Signed By Kailash Rueda MD On 12/23/2017 13:00:01 Kailash Rueda MD
--- NOTE | 2017-12-23 13:40 | CRPHASE1 ---
Patient Data/Charges [place]:: Royal Zurita Phase II Referral:: [facility] Start Phase II:: After follow up visit with Cardiology Phase I Charge:: Level I - Education Risk Factors/Lifestyle Smoking Status: Never smoker Hx Hypertension: Yes Hx Dyslipidemia: Yes Hx Obesity: Yes Height: 1.57 m Weight:: 99.337 kg BMI: 40.0 Post-Menopausal: Yes Stress: Recent, Home/Family Family History: Family History (Last Reviewed 12/21/17 @ 14:40 by Rufus Storey DO) Father Heart disease Cancer CVA (cerebral vascular accident) Mother Colon cancer Brother Cancer Brother Cancer Family History: Cancer, Heart Disease, Stroke Past Cardiac Illness: Coronary Artery Disease, Coronary Artery Bypass Graft Laboratory Values: Cardiac Rehab Phase I Labs Triglycerides 132 mg/dL (-199) 12/22/17 04:26 Cholesterol 116 mg/dL (200) 12/22/17 04:26 LDL Cholesterol 58 mg/dL (0-130) 12/22/17 04:26 HDL Cholesterol 32 mg/dL (40-) L 12/22/17 04:26 Phase I Education Given On:: [place], Nutrition, Antiplatelet medication, CHF Issues Affecting Care:: Physical Knowledge of Condition:: Yes Learning Preferences: Verbal, Written, Audio/Visual, Demonstration Medical/Surgical History [place]:: Yes Cardiomyopathy:: Yes COPD:: Yes Hypertension:: Yes Dyslipidemia:: Yes Other Medical/Surgical Issues:: 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 CABG: Yes Ambulation Notes:: Neuropathy RLS Discharge/Home/Social Eval Marital Status:
--- NOTE | 2017-12-23 13:44 | CRPHASE1_ITS ---
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 Phase II Referral:: [facility] Start Phase II:: After follow up visit with Cardiology Phase I Charge:: Level I - Education Risk Factors/Lifestyle Smoking Status: Never smoker Hx Hypertension: Yes Hx Dyslipidemia: Yes Hx Obesity: Yes Height: 1.57 m Weight:: 99.337 kg BMI: 40.0 Post-Menopausal: Yes Stress: Recent, Home/Family Family History: Family History (Last Reviewed 12/21/17 @ 14:40 by Rufus Storey DO) Father Heart disease Cancer CVA (cerebral vascular accident) Mother Colon cancer Brother Cancer Brother Cancer Family History: Cancer, Heart Disease, Stroke Past Cardiac Illness: Coronary Artery Disease, Coronary Artery Bypass Graft Laboratory Values: Cardiac Rehab Phase I Labs Triglycerides 132 mg/dL (-199) 12/22/17 04:26 Cholesterol 116 mg/dL (200) 12/22/17 04:26 LDL Cholesterol 58 mg/dL (0-130) 12/22/17 04:26 HDL Cholesterol 32 mg/dL (40-) L 12/22/17 04:26 Phase I Education Given On:: [place], Nutrition, Antiplatelet medication, CHF Issues Affecting Care:: Physical Knowledge of Condition:: Yes Learning Preferences: Verbal, Written, Audio/Visual, Demonstration Medical/Surgical History [place]:: Yes Cardiomyopathy:: Yes COPD:: Yes Hypertension:: Yes Dyslipidemia:: Yes Other Medical/Surgical Issues:: 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 CABG: Yes Ambulation Notes:: Neuropathy RLS Discharge/Home/Social Eval Marital Status:
--- NOTE | 2017-12-23 13:45 | CRPH1.INSTRU ---
General Education CAD and cardiac anatomy and function:: Patient communicates acknowledgment, Needs reinforcement Explanation of diagnoses and procedures:: Patient communicates acknowledgment, Needs reinforcement Sign/Symptoms of ME:: Patient communicates acknowledgment, Needs reinforcement Antiplatelet therapy: Patient communicates acknowledgment, Needs reinforcement Proper use of NTG-SL: Patient communicates acknowledgment, Needs reinforcement Emergency procedures and activation of EMS: Patient communicates acknowledgment, Needs reinforcement Compliance of all prescribed medications: Patient communicates acknowledgment, Needs reinforcement Smoking Patient Nicotine/Smoking Risk Factors Are:: Non-smoker Nicotine/Smoking Response Code:: Not instructed Dyslipidemia Recommendations Include:: Reviewed NCEP/ATP guidelines, Therapeutic Lifestyle Change dietary guidelines Dyslipidemia Response Code:: Patient communicates acknowledgment, Needs reinforcement Overweight/Obesity Patient Overweight/Obesity Risk Factors Are:: Obesity - > or = 30 Recommendations Include:: Weight loss of 5-10%, Reduced calorie diet, Exercise 5-7 times/week Overweight/Obesity:: Patient communicates acknowledgment, Needs reinforcement Hypertension Recommendations Include:: Maintain BP <130/85, DASH dietary guidelines, Decrease/maintain normal body weight, Moderation of ETOH Hypertension:: Patient communicates acknowledgment, Needs reinforcement Heart Disease Patient Heart Disease Risk Factors Are:: Family history of heart disease < 65 years old, Previous cardiac event Recommendations Include:: Educated family members of their risk, Educated family members of importance of prevention of heart disease Heart Disease Response Code:: Patient communicates acknowledgment, Needs reinforcement Diabetes Patient Diabetes Risk Factors Are:: No documented hx of diabetes Diabetes:: Not instructed Metabolic Syndrome Patient Metabolic Syndrome Risk Factors Are [3 of 5]:: Waist circumference > 35 [female] or 40 [male], Hypertension Recommendations Include:: Reinforce compliance to risk factor modifications Metabolic Syndrome Response Code:: Patient communicates acknowledgment, Needs reinforcement Sedentary Patient Sedentary Risk Factors Are:: Lack of regular exercise Recommendations Include:: Aerobic exercise 5-7 times/week for 20-30 minutes continuously, Benefits of regular exercise, Discussed home walking program, Monitored Outpatient Cardiac Rehab Sedentary Response Code:: Patient communicates acknowledgment, Needs reinforcement Stress Recommendations Include:: Identification of stressors, and assessment of coping skills, Stress management techniques Stress Response Code:: Patient communicates acknowledgment, Needs reinforcement
--- NOTE | 2017-12-23 13:48 | CRPH1.INST_ITS ---
General Education CAD and cardiac anatomy and function:: Patient communicates acknowledgment, Needs reinforcement Explanation of diagnoses and procedures:: Patient communicates acknowledgment, Needs reinforcement Sign/Symptoms of DC:: Patient communicates acknowledgment, Needs reinforcement Antiplatelet therapy: Patient communicates acknowledgment, Needs reinforcement Proper use of NTG-SL: Patient communicates acknowledgment, Needs reinforcement Emergency procedures and activation of EMS: Patient communicates acknowledgment , Needs reinforcement Compliance of all prescribed medications: Patient communicates acknowledgment, Needs reinforcement Smoking Patient Nicotine/Smoking Risk Factors Are:: Non-smoker Nicotine/Smoking Response Code:: Not instructed Dyslipidemia Recommendations Include:: Reviewed NCEP/ATP guidelines, Therapeutic Lifestyle Change dietary guidelines Dyslipidemia Response Code:: Patient communicates acknowledgment, Needs reinforcement Overweight/Obesity Patient Overweight/Obesity Risk Factors Are:: Obesity - > or = 30 Recommendations Include:: Weight loss of 5-10%, Reduced calorie diet, Exercise 5 -7 times/week Overweight/Obesity:: Patient communicates acknowledgment, Needs reinforcement Hypertension Recommendations Include:: Maintain BP <130/85, DASH dietary guidelines, Decrease /maintain normal body weight, Moderation of ETOH Hypertension:: Patient communicates acknowledgment, Needs reinforcement Heart Disease Patient Heart Disease Risk Factors Are:: Family history of heart disease < 65 years old, Previous cardiac event Recommendations Include:: Educated family members of their risk, Educated family members of importance of prevention of heart disease Heart Disease Response Code:: Patient communicates acknowledgment, Needs reinforcement Diabetes Patient Diabetes Risk Factors Are:: No documented hx of diabetes Diabetes:: Not instructed Metabolic Syndrome Patient Metabolic Syndrome Risk Factors Are [3 of 5]:: Waist circumference > 35 [female] or 40 [male], Hypertension Recommendations Include:: Reinforce compliance to risk factor modifications Metabolic Syndrome Response Code:: Patient communicates acknowledgment, Needs reinforcement Sedentary Patient Sedentary Risk Factors Are:: Lack of regular exercise Recommendations Include:: Aerobic exercise 5-7 times/week for 20-30 minutes continuously, Benefits of regular exercise, Discussed home walking program, Monitored Outpatient Cardiac Rehab Sedentary Response Code:: Patient communicates acknowledgment, Needs reinforcement Stress Recommendations Include:: Identification of stressors, and assessment of coping skills, Stress management techniques Stress Response Code:: Patient communicates acknowledgment, Needs reinforcement
[2017-12-23] MEDS: Ipratropium 0.5 MG/2.5 ML SOLUTION INHALATION (13:52)
--- NOTE | 2017-12-23 14:34 | CASEMGMT ---
RN CM Assessment. DC PLAN: home PCP: Stefany Durham Pharmacy: [facility] role of CM to patient and her in room. Pt states she uses cane, but otherwise independent in ADL's, care of home. provides transportation. Anticipate home on Plavix. DME: cane, Oxygen through [employer]. Concentrator only for use @ night (no portability), nebulizer. Symone LOCKETT RN ACM
[2017-12-23] MEDS: Pantoprazole Sodium 40 MG Tablet PO (15:36)
[2017-12-23] MEDS: Loratadine 10 MG Tablet PO (15:36)
[2017-12-23] MEDS: Furosemide 40 MG Tablet PO (15:36)
[2017-12-23] MEDS: Ferrous Sulfate 325 MG Tablet PO (15:36)
[2017-12-23] MEDS: Gabapentin 300 MG Capsule PO ×2 (15:37→21:17)
--- NOTE | 2017-12-23 17:15 | PCM.PN.BLA ---
Progress Note Patient is scheduled for a post hospital follow-up with Aleksandar Nguyen Nurse Practitioner, with the [facility] on 01/07/2018 at 10:30 AM. If this needs changed please call [facility] at [phone].
[2017-12-23] MEDS: Fenofibrate 145 MG Tablet PO (18:45)
[2017-12-23] MEDS: Ranolazine 500 MG Tablet PO (18:46)
[2017-12-23] MEDS: Atorvastatin Calcium 40 MG Tablet PO (21:17)
[2017-12-23] MEDS: Fluticasone 0.05% 1 SPRAY NASAL.SRY 2 SPRAY NASAL (21:18)
[2017-12-24] VITALS (20 sets, daily range): BP systolic 119–173; BP diastolic 38–102; PULSE 57–72; RESP 11–18; TEMP 36.7–36.8; O2SAT 91–97
[2017-12-24] MEDS: traMADol 50 MG Tablet PO ×2 (03:21→09:51)
[2017-12-24 06:15] LABS: Hematocrit 37.8 % (37-47); Hemoglobin 12.2 g/dl (12.0-15.0); Mean Corp Hgb Conc 32.3 g/gl (32-36); Mean Corpuscular Hgb 30.8 pg (27.0-32.0); Mean Corpuscular Volume 95.5 fL (81-99); Mean Platelet Vol. 9.6 fl (6.2-12.0); Platelet Count 309 K/mm3 (150-450); RBC Distribution Width SD 45.1 fl (35.1-43.9); Red Blood Count 3.96 M/mm3 (4.2-5.4); White Blood Count 12.8 K/mm3 (4.4-11.0)
[2017-12-24 06:22] LABS: Scan Indicated on CBC? Y/N NO
[2017-12-24] MEDS: Ipratropium 0.5 MG/2.5 ML SOLUTION INHALATION (07:10)
--- NOTE | 2017-12-24 08:44 | PCM.PN.CARD ---
Subjectve: Patient doing very well this morning. No chest pain, angina or shortness of breath. Right groin is clean/dry/intact, no thrills or bruits. No tenderness. EKG shows normal sinus rhythm, no acute changes. Hemoglobin and creatinine within nominal limits. Unable to obtain creatinine this morning despite 5 different IV blood attempts. Telemetry negative. Objective: Vital Signs Temp Pulse Resp BP Pulse Ox 98.1 F 62 18 140/71 H 97 12/24/17 04:00 12/24/17 07:11 12/24/17 07:11 12/24/17 06:00 12/24/17 07:11 Oxygen Flow Rate (L/min) 2 Oxygen Delivery Method Nasal Cannula Weight: 219 lb Intake and Output for Last 24 Hours 12/22/17 12/23/17 12/24/17 23:59 23:59 23:59 Intake Total 300 / 300 Output Total 1050 / 1050 Balance -750 / -750 General: Awake, Alert, Oriented x 3 HEENT: PERRL, EOMI, Sclera Non Icteric Neck: Supple, Good ROM, No Lymph Node Enlargement Lungs: Clear to auscultation Cardiovascular: Regular Rhythm, Normal S1, Normal S2, No Murmurs, No Rubs, No Gallops Vascular: No Carotid Bruits, Normal Femoral Pulses, Normal Radial Pulses, Normal Dorsalis Pedal Pulse, Normal Posterior Tibial Pulses Abdomen: Bowel Sounds Present, Soft, Non Tender, No HSM, No Organomegaly Extremities: No Cyanosis, No Clubbing, No edema Neurological: No Focal Motor or Sensory Deficit 12/24/17 06:00: WBC 12.8 H, RBC 3.96 L, Hgb 12.2, Hct 37.8, MCV 95.5, MCH 30.8, MCHC 32.3, RDW 13.0, RDW Differential 45.1 H, Plt Count 309, MPV 9.6 Rhythm: EKG: ECHO: Stress Test: Cardiac Cath: PCI: CT Surgery: Holter monitor: EPS: PPM: CXR: Chest CT Scan: Medical Necessity - Tobacco Use Smoking Status: Never smoker Assessment/Plan 1. Coronary artery disease: Patient is status post angioplasty and drug-eluting stenting x2 to [place] LAD which was not bypassed. Patient is done well overnight, does not need any further evaluation. Hemoglobin and creatinine are within nominal limits although unable to obtain creatinine this morning despite several IV sticks attempts. I recommended the patient continue aspirin, Plavix, and antihypertensive agents. She will be enrolled in cardiac rehab in 2-3 weeks time. She will follow-up with Dr. Rueda going forward. 2. Hyperlipidemia: Continue TriCor and Lipitor. Repeat lipid profile after cardiac rehab is completed. 3. Patient may be discharged home. Code Visit Inpatient E&M: [id number] Subs Hosp L2
--- NOTE | 2017-12-24 08:47 | PN.CARD_ITS ---
Subjectve: Patient doing very well this morning. No chest pain, angina or shortness of breath. Right groin is clean/dry/intact, no thrills or bruits. No tenderness. EKG shows normal sinus rhythm, no acute changes. Hemoglobin and creatinine within nominal limits. Unable to obtain creatinine this morning despite 5 different IV blood attempts. Telemetry negative. Objective: Vital Signs Temp Pulse Resp BP Pulse Ox 98.1 F 62 18 140/71 H 97 12/24/17 04:00 12/24/17 07:11 12/24/17 07:11 12/24/17 06:00 12/24/17 07:11 Oxygen Flow Rate (L/min) 2 Oxygen Delivery Method Nasal Cannula Weight: 219 lb Intake and Output for Last 24 Hours 12/22/17 12/23/17 12/24/17 23:59 23:59 23:59 Intake Total 300 / 300 Output Total 1050 / 1050 Balance -750 / -750 General: Awake, Alert, Oriented x 3 HEENT: PERRL, EOMI, Sclera Non Icteric Neck: Supple, Good ROM, No Lymph Node Enlargement Lungs: Clear to auscultation Cardiovascular: Regular Rhythm, Normal S1, Normal S2, No Murmurs, No Rubs, No Gallops Vascular: No Carotid Bruits, Normal Femoral Pulses, Normal Radial Pulses, Normal Dorsalis Pedal Pulse, Normal Posterior Tibial Pulses Abdomen: Bowel Sounds Present, Soft, Non Tender, No HSM, No Organomegaly Extremities: No Cyanosis, No Clubbing, No edema Neurological: No Focal Motor or Sensory Deficit 12/24/17 06:00: WBC 12.8 H, RBC 3.96 L, Hgb 12.2, Hct 37.8, MCV 95.5, MCH 30.8, MCHC 32.3, RDW 13.0, RDW Differential 45.1 H, Plt Count 309, MPV 9.6 Rhythm: EKG: ECHO: Stress Test: Cardiac Cath: PCI: CT Surgery: Holter monitor: EPS: PPM: CXR: Chest CT Scan: Medical Necessity - Tobacco Use Smoking Status: Never smoker Assessment/Plan 1. Coronary artery disease: Patient is status post angioplasty and drug- eluting stenting x2 to [place] LAD which was not bypassed. Patient is done well overnight, does not need any further evaluation. Hemoglobin and creatinine are within nominal limits although unable to obtain creatinine this morning despite several IV sticks attempts. I recommended the patient continue aspirin, Plavix , and antihypertensive agents. She will be enrolled in cardiac rehab in 2-3 weeks time. She will follow-up with Dr. Rueda going forward. 2. Hyperlipidemia: Continue TriCor and Lipitor. Repeat lipid profile after cardiac rehab is completed. 3. Patient may be discharged home. Code Visit Inpatient E&M: [id number] Subs Hosp L2
[2017-12-24] MEDS: Fluticasone 0.05% 1 SPRAY NASAL.SRY 2 SPRAY NASAL (09:45)
[2017-12-24] MEDS: Pantoprazole Sodium 40 MG Tablet PO (09:46)
[2017-12-24] MEDS: Metoprolol Tartrate 25 MG Tablet PO (09:46)
[2017-12-24] MEDS: Ranolazine 500 MG Tablet PO (09:46)
[2017-12-24] MEDS: Clopidogrel Bisulfate 75 MG Tablet PO (09:46)
[2017-12-24] MEDS: Gabapentin 300 MG Capsule PO (09:46)
[2017-12-24] MEDS: Fenofibrate 145 MG Tablet PO (09:46)
[2017-12-24] MEDS: Furosemide 40 MG Tablet PO (09:46)
[2017-12-24] MEDS: levETIRAcetam 500 MG Tablet PO (09:47)
[2017-12-24] MEDS: Aspirin E.C. 81 MG Tablet PO (09:47)
[2017-12-24] MEDS: Loratadine 10 MG Tablet PO (09:47)
[2017-12-24] MEDS: Isosorbide Mononitrate 60 MG Tablet PO (09:47)
[2017-12-24] MEDS: Ferrous Sulfate 325 MG Tablet PO (09:47)
--- NOTE | 2017-12-24 10:35 | DCINST_ITS ---
- Discharge Diagnoses Current Active Problems: Current Active and Chronic Problems (Last Reviewed 12/21/17 @ 14:40 by Rufus Storey DO) Unstable angina (Acute) S/P CABG x 3 (Chronic) [facility]: 10/13/2012: FUENTES to LCX/OM; SVG to DX; SVG to RCA CAD (coronary artery disease) (Chronic) [facility]: 10/13/2012: FUENTES to LCX/OM; SVG to DX; SVG to RCA; PTCA/ANGELIC to proximal and mid RCA in May 2017; You will use the following diet at home:: Cardiac Your food should be the consistency of: Regular Discharge Activity: Return to Normal Activity Weight Bearing Status: Weight bearing as tolerated Call your doctor if you observe: Fever of 101 or Higher, Shortness of breath, Dizziness, Fainting spells, Chest pain, Increased palpitations (irregular heartbeat), Uncontrolled pain Allergies/Adverse Reactions: Allergies acyclovir Allergy (Verified 12/21/17 11:17) Unknown belladonna alkaloids Allergy (Verified 12/21/17 11:17) Unknown tree and shrub pollen Allergy (Verified 12/21/17 11:17) cough valacyclovir HCl [From Valtrex] Allergy (Verified 12/21/17 11:17) Other venom-honey bee [bee venom (honey bee)] Allergy (Verified 12/21/17 11:17) Angioedema iodine Adverse Reaction (Severe, Verified 12/21/17 11:17) Other burning, rash lisinopril Adverse Reaction (Severe, Verified 12/21/17 11:17) Diarrhea Vomiting, Cough, Congestion, Pain, Headache, Drainage, Nausea metformin Adverse Reaction (Severe, Verified 12/21/17 11:17) Diarrhea, GI upset, Vomiting, Headache, Dizziness, Nausea Tetracyclines Adverse Reaction (Severe, Verified 12/21/17 11:17) headache, vomiting, rash nitrofurantoin [From Macrodantin] Adverse Reaction (Unknown, Verified 12/21/17 11:17) Unknown propoxyphene [From Darvocet-N] Adverse Reaction (Unknown, Verified 12/21/17 11: 17) Unknown valacyclovir [From Valtrex] Adverse Reaction (Unknown, Verified 12/21/17 11:17) Seizure acetaminophen [From Darvocet-N 100] Adverse Reaction (Verified 12/21/17 11:17) Unknown animal dander Adverse Reaction (Verified 12/21/17 11:17) Other aspirin Adverse Reaction (Verified 12/21/17 11:17) Other atropine sulfate [From ] Adverse Reaction (Verified 12/21/17 11:17) Unknown codeine Adverse Reaction (Verified 12/21/17 11:17) Nausea/Vom/Diarrhea hyoscyamine sulfate [From ] Adverse Reaction (Verified 12/21/17 11:17) Unknown Iodinated Contrast- Oral and IV Dye [CONTRASTS] Adverse Reaction (Verified 12/21 11:17) Rash meperidine HCl [From Demerol] Adverse Reaction (Verified 12/21/17 11:17) Unknown niacin Adverse Reaction (Verified 12/21/17 11:) Upset Stomach nitroglycerin [From Nitro-Dur] Adverse Reaction (Verified 12/21/17 11:17) Other RASH, CAUSED PATIENT TO GET AGITATED. oxytetracycline [From Terramycin] Adverse Reaction (Verified 12/21/17 11:17) Hives oxytetracycline HCl [From Terramycin] Adverse Reaction (Verified 12/21/17 11:17) Hives Penicillins Adverse Reaction (Verified 12/21/17 11:17) Hives perfume Adverse Reaction (Verified 12/21/17 11:17) Shortness of breath phenobarbital [From ] Adverse Reaction (Verified 12/21/17 11:17) Unknown piroxicam Adverse Reaction (Verified 12/21/17 11:17) Unknown prochlorperazine Adverse Reaction (Verified 12/21/17 11:17) Rash propoxyphene napsylate [From Darvocet-N 100] Adverse Reaction (Verified 11:17) Unknown scopolamine hydrobromide [From ] Adverse Reaction (Verified 12/21/17 11: 17) Unknown Sulfa (Sulfonamide Antibiotics) Adverse Reaction (Verified 12/21/17 11:17) Rash terfenadine [From Seldane] Adverse Reaction (Verified 12/21/17 11:17) Unknown tetracycline Adverse Reaction (Verified 12/21/17 11:17) Rash Codeine Adverse Reaction (Unknown, Uncoded 08/30/17 13:01) Diarrhea, Vomiting, Nausea Prochlorperazine Adverse Reaction (Unknown, Uncoded 08/30/17 13:01) Rash sulfonamide antibiotics Adverse Reaction (Unknown, Uncoded 08/30/17 13:01) Rash, Hives Medications to take at Discharge Acetaminophen [Tylenol] 1,000 mg PO Q4H PRN PRN 12/03/15 Cholecalciferol (VIT D3) [Vitamin D3] 1,000 unit PO BID 12/03/15 Ferrous Sulfate 325 mg PO DAILY@0800 12/03/15 Fluticasone 0.05% [Flonase Nasal [place]] 2 spray NASAL BID 12/03/15 Furosemide [Lasix] 40 mg PO BID 12/03/15 Lactobacillus Acidophilus [Acidophilus] 1 capsule PO TID 12/03/15 Loperamide [Imodium] 2 mg PO Q2H PRN PRN 12/03/15 Loratadine [Claritin] 10 mg PO DAILY 12/03/15 Nitroglycerin [Nitrostat] 0.4 mg SUBLINGUAL Q5M PRN 12/03/15 Potassium Chloride [Klor-Con M10] 20 meq PO BID 12/03/15 Premarin Vag Cream 0.5 gm TOPICAL SUWE 12/03/15 Ranolazine [Ranexa] 500 mg PO DAILY 12/03/15 levETIRAcetam tablet [Keppra tablet] 500 mg PO 0800,199912/03/15 proMETHazine tablet [Phenergan tablet] 25 mg PO Q6H PRN PRN 12/03/15 Albuterol Aerosols [Ventolin Aerosols] 2.5 mg INHALATION Q2H PRN PRN #90 vial.neb. 04/27/17 albuterol sulfate HFA 90 mcg/actuation aerosol inhaler 2 puff INHALATION Q4H PRN g 05/04/17 fenofibrate 160 mg tablet 160 mg PO DAILY #90 tab 08/16/17 isosorbide mononitrate ER 60 mg tablet,extended release 24 hr 60 mg PO DAILY tab 08/16/17 Aspirin E.C. [Ecotrin] 81 mg PO DAILY 12/01/17 Atorvastatin Calcium [Lipitor] 40 mg PO QHS 12/01/17 Clopidogrel Bisulfate [Clopidogrel] 75 mg PO QDAY 12/01/17 Gabapentin [Neurontin] 300 mg PO BID 12/01/17 Pantoprazole Sodium [Protonix] 40 mg PO DAILY 12/01/17 Sodium Chloride 0.65% [[place] Nasal [place]] 1 spray NASAL PRN 12/01/17 Umeclidinium Brm/Vilanterol Tr [Anoro Ellipta 62.5-25 Mcg INH] 1 inh INHALATION Q24H 12/01/17 lorazepam 0.5 mg tablet 0.5 mg PO BID PRN tab 12/14/17 tramadol 50 mg tablet 50 mg PO Q6H 12/14/17 Metoprolol Tartrate [Lopressor (beta emma)] 25 mg PO BID #90 tab 12/24/17 The following prescriptions were given: Metoprolol Tartrate [Lopressor (beta emma)] 25 mg PO BID #90 tab Primary Care Physician: Stefany Durham DO [Primary Care Provider] - Please follow up with your Primary Care Physician in: 1-2 weeks. Test Results: Test results from this visit will be discussed in further detail at your follow- up appointment, if applicable. Please Follow Up With: Kailash Rueda MD When: call his office.
--- NOTE | 2017-12-24 11:39 | CASEMGMT ---
Resumption of care and discharge instructions faxed to [facility] at this time. Call to Ileana at [facility] and aware that pt to be discharged today and that fax sent for resumption of care and with discharge instructions. Graciela ALCARAZ CM
[2017-12-24] MEDS: Morphine 2 MG/ML Syringe IV (12:35)
[2017-12-24] MEDS: 0.9% NaCl Peripheral Flush Adult/Peds IV (12:36)
--- NOTE | 2017-12-24 15:13 | PCM.DC.SUM ---
Discharge Date and Diagnosis Date of Admission: 12/21/17 Date of Discharge: 12/24/17 - Primary Discharge Diagnosis Active and Suspected Problems (Last Reviewed 12/21/17 @ 14:40 by Rufus Storey DO) #1 unstable angina status post PTCA/ANGELIC to distal LAD (Acute) #2 ischemic cardiomyopathy. - Secondary Discharge Diagnosis Chronic Problems (Last Reviewed 12/21/17 @ 14:40 by Rufus Storey DO) History of coronary artery stent placement (Chronic) S/P A/ANGELIC to proximal and mid RCA in May 2017; 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) ELIE (obstructive sleep apnea) (Chronic) Cardiomyopathy, ischemic (Chronic) S/P CABG x 3 (Chronic) [facility]: 10/13/2012: FUENTES to LCX/OM; SVG to DX; SVG to RCA CAD (coronary artery disease) (Chronic) [facility]: 10/13/2012: FUENTES to LCX/OM; SVG to DX; SVG to RCA; PTCA/ANGELIC to proximal and mid RCA in May 2017; CHF (congestive heart failure) (Chronic) HTN (hypertension) (Chronic) Asthma (Chronic) HLD (hyperlipidemia) (Chronic) Cervical spinal stenosis (Chronic) Seizure (Chronic) cva (Chronic) Hospital Course and Treatment Imaging Results: Clinical Impression(s) from Imaging Studies Chest X-Ray 12/21/17 12:00 IMPRESSION: Stable chest study. No finding of active carpal disease status post prior thoracic surgery and old mild mid thoracic single anterior wedge compression fracture. Electronically Signed: Minh Villasenorer, at 12:31 EDT Tel , Service support , Dr. Zurita, cardiology. Operations: None Procedures: 2-D Echocardiogram, Cardiac catheterization, EKG, Stress test Summary of Care Provided: Patient seen and examined on the day of discharge and appeared to be stable to be discharged home. She denies any more chest pain. Her vital signs are stable. - Physical Exam General: Alert, Oriented x3, Cooperative, No apparent distress. HEENT: Atraumatic, PERRLA, EOMI. Neck: Supple, No JVD, Negative Carotid Bruits, Trachea Midline, Thyroid Normal. Lungs: Clear to auscultation, Normal air movement, No rhonchi, No wheeze, No rales. Cardiovascular: Regular rate, Regular Rhythm, Normal S1, Normal S2, PMI Normal. Abdomen: Bowel Sounds Present, Soft, Non Tender, Non-Distended, No Hepato-splenomegaly. Extremities: No clubbing, No cyanosis, No edema Skin: No rashes, No breakdown Neurological: Neuro grossly intact Vital Signs are stable. Hospital course: The patient is a 82 year old F admitted because of chest pain, diagnosed with unstable angina. Her EKG revealed no evidence of acute ischemic changes. Her troponin was negative ?3. Her chest x-ray revealed no acute findings. She underwent nuclear stress test that was abnormal and revealed area of previous myocardial injury with post stress myocardial perfusion changes. Compatible with edgardo-infarct myocardial ischemia, ejection fraction was 32%. Cardiology consulted and she underwent cardiac catheterization that revealed single coronary artery disease, status post PTCA/ANGELIC to distal LAD. She was treated with aspirin, Plavix, statins, beta blockers, nitrates and Ranexa. 2D echocardiogram revealed ejection fraction of 35%. There was no evidence of acute CHF. Her vital signs were stable throughout admission. Her routine blood work was unremarkable. After treatment with PTCA/ANGELIC, patient had no more chest pain and she remained stable. Patient discharged home with home health in a stable medical condition, discharged on aspirin, Plavix, statins, beta blockers, nitrates and Ranexa, recommended follow-up with PCP in 1-2 weeks and follow-up with cardiology according to Dr. Rueda. Discharge Activity: Return to Normal Activity Weight Bearing Status: Weight bearing as tolerated Call your doctor if you observe: Fever of 101 or Higher, Shortness of breath, Dizziness, Fainting spells, Chest pain, Increased palpitations (irregular heartbeat), Uncontrolled pain Home Medications: Medications to take at Discharge Acetaminophen [Tylenol] 1,000 mg PO Q4H PRN PRN 12/03/15 Cholecalciferol (VIT D3) [Vitamin D3] 1,000 unit PO BID 12/03/15 Ferrous Sulfate 325 mg PO DAILY@0800 12/03/15 Fluticasone 0.05% [Flonase Nasal [place]] 2 spray NASAL BID 12/03/15 Furosemide [Lasix] 40 mg PO BID 12/03/15 Lactobacillus Acidophilus [Acidophilus] 1 capsule PO TID 12/03/15 Loperamide [Imodium] 2 mg PO Q2H PRN PRN 12/03/15 Loratadine [Claritin] 10 mg PO DAILY 12/03/15 Nitroglycerin [Nitrostat] 0.4 mg SUBLINGUAL Q5M PRN 12/03/15 Potassium Chloride [Klor-Con M10] 20 meq PO BID 12/03/15 Premarin Vag Cream 0.5 gm TOPICAL SUWE 12/03/15 Ranolazine [Ranexa] 500 mg PO DAILY 12/03/15 levETIRAcetam tablet [Keppra tablet] 500 mg PO 0800,199912/03/15 proMETHazine tablet [Phenergan tablet] 25 mg PO Q6H PRN PRN 12/03/15 Albuterol Aerosols [Ventolin Aerosols] 2.5 mg INHALATION Q2H PRN PRN #90 vial.neb. 04/27/17 albuterol sulfate HFA 90 mcg/actuation aerosol inhaler 2 puff INHALATION Q4H PRN g 05/04/17 fenofibrate 160 mg tablet 160 mg PO DAILY #90 tab 08/16/17 isosorbide mononitrate ER 60 mg tablet,extended release 24 hr 60 mg PO DAILY tab 08/16/17 Aspirin E.C. [Ecotrin] 81 mg PO DAILY 12/01/17 Atorvastatin Calcium [Lipitor] 40 mg PO QHS 12/01/17 Clopidogrel Bisulfate [Clopidogrel] 75 mg PO QDAY 12/01/17 Gabapentin [Neurontin] 300 mg PO BID 12/01/17 Pantoprazole Sodium [Protonix] 40 mg PO DAILY 12/01/17 Sodium Chloride 0.65% [[place] Nasal [place]] 1 spray NASAL PRN 12/01/17 Umeclidinium Brm/Vilanterol Tr [Anoro Ellipta 62.5-25 Mcg INH] 1 inh INHALATION Q24H 12/01/17 lorazepam 0.5 mg tablet 0.5 mg PO BID PRN tab 12/14/17 tramadol 50 mg tablet 50 mg PO Q6H 12/14/17 Metoprolol Tartrate [Lopressor (beta emma)] 25 mg PO BID #90 tab 12/24/17 Following Prescrptions Were Given to Patient: Metoprolol Tartrate [Lopressor (beta emma)] 25 mg PO BID #90 tab Primary Care Physician: Stefany Durham DO [Primary Care Provider] - Please follow up with your Primary Care Physician in: 1-2 weeks. Please Follow Up With: Kailash Rueda MD When: call his office. Disposition: Home with Home Health Minutes spent on discharge:: 32 Patient Condition:: Stable Medical Necessity - Tobacco Use Smoking Status: Never smoker Meaningful Use Info Meaningful Use Diagnoses (Choose all that apply): None applicable Code Visit Inpatient E&M: 56952 Disch Hosp
--- NOTE | 2017-12-27 11:28 | CASEMGMT ---
RN JIE DC Phone Call: Call to pt's home phone. Intro role of CM to patient DC DATE: 12/24/17 LACE/STRATA: 01/17 -Pt states she is doing well. Home Health Nurse had been to see her, reviewed Dc instructions and her medications. Physical Therapist is coming this afternoon. No questions per pt. Symone LOCKETT RN ACM
== END 2017-12-24 15:30 | disposition home health service (06) | DRG 247 ==
LOC: ED 14:21 → PCU 14:49 → ICU 12-23 08:18
PROVIDERS: Internal Medicine Cardiovascular Disease; Emergency Provider Emergency Medicine; Family Provider Family Medicine; PCP Family Medicine; Visit Provider Hospitalist
DX: I25.110 Atherosclerotic heart disease of native coronary artery with unstable angina pectoris (principal); Z68.41 Body mass index [BMI] 40.0-44.9, adult; I50.22 Chronic systolic (congestive) heart failure; I25.810 Atherosclerosis of coronary artery bypass graft(s) without angina pectoris; Z87.891 Personal history of nicotine dependence; I25.2 Old myocardial infarction; I25.5 Ischemic cardiomyopathy; J44.9 Chronic obstructive pulmonary disease, unspecified; Z95.5 Presence of coronary angioplasty implant and graft; G47.33 Obstructive sleep apnea (adult) (pediatric); E78.5 Hyperlipidemia, unspecified; E66.9 Obesity, unspecified; I11.0 Hypertensive heart disease with heart failure; Z95.1 Presence of aortocoronary bypass graft; G40.909 Epilepsy, unspecified, not intractable, without status epilepticus; M48.02 Spinal stenosis, cervical region; Z79.899 Other long term (current) drug therapy; Z86.73 Personal history of transient ischemic attack (TIA), and cerebral infarction without residual deficits
CPT/HCPCS: 36415; 71046; 78452; 80048; 80061; 81002; 84484; 85025; 85027; 85347; 85610; 85730; 92928; 93005; 93017; 93306; 93455; 94640; 97162; 97166; 97802; 99152; 99153; 99285; A9500; J7030; Q9957; A4216; C1725; C1769; C1874; C1887; C1894; C8929; C9600; J2785; J3490; Q9967

== ENCOUNTER → 2018-08-30 06:50 | Outpatient (CLI) | payer MEDICARE, SELFPAY ==
[2017-12-23 13:44] VITALS: BMI 40.0
[2018-08-05 13:16] VITALS: BMI 41.3
--- NOTE | 2018-08-30 06:57 | ECHOD_ITS ---
Reason For Study: DYSPNEA Procedure This was a 2D Doppler, Color Flow transthoracic echocardiogram. The study was technically difficult. Exam performed in department. Left Ventricle Normal LV size. Mild segmental systolic dysfunction (see wall motion). The estimated ejection fraction is 50 %. Unable to assess diastolic dysfunction. Anterio-Basal: Hypokinetic. Infero-Basal: Akinetic. Basal inferoseptal: Hypokinetic. Basal anteroseptal: Hypokinetic. Mid-Anterior : Hypokinetic. Mid-Posterior: Hypokinetic. Mid-Inferior: Akinetic. Mid-inferoseptal : Akinetic. Mid- anteroseptal : Hypokinetic. Anterior [place] : Hypokinetic. Inferior [place] : Hypokinetic. Lateral [place] : Hypokinetic. Septal [place] : Hypokinetic. Right Ventricle Normal RV size. Normal systolic function. Atria Normal left atrium. Normal right atrium. No doppler evidence for ASD. Mitral Valve There is no mitral annular calcification. Mild diffuse mitral valve thickening. Mild (1+) mitral valve insufficiency. Tricuspid Valve Normal tricuspid valve. Trivial tricuspid valve insufficiency. Unable to estimate RV systolic pressure/pulmonary artery pressure due to technically difficult study. Aortic Valve Trisinus/trileaflet aortic valve. Mild focal aortic valve calcification. Pulmonic Valve The pulmonic valve is not well visualized. Great Vessels Normal sized aortic root. Pericardium/Pleural No pericardial effusion. MMode/2D Measurements & Calculations LVIDd: 4.4 cm IVSd: 0.99 cm Ao root diam: 2.8 cm LVIDs: 3.6 cm LVPWd: 1.0 cm FS: 18.2 % LAV(MOD-bp): 39.0 ml EDV(MOD-sp4): 110.0 ml EDV(MOD-sp2): 77.0 ml LAV(MOD-bp) Indexed: 20.0 ml/m2 ESV(MOD-sp4): 61.4 ml EF(MOD-sp2): 49.0 % LAV(MOD-sp2): 39.8 ml EF(MOD-sp4): 44.1 % LAV(MOD-sp4): 37.7 ml SV(MOD-sp4): 48.5 ml SV(MOD-sp2): 37.7 ml LA A4 area: 16.1 cm2 LA dimension(2D): 4.2 cm RA A4 area: 11.5 cm2 Time Measurements MV dec time: 0.27 sec Doppler Measurements & Calculations MV E max arnel: 43.5 cm/sec Lat Peak E' Arnel: 4.8 cm/sec Med Peak E' Arnel: 4.5 cm/sec MV A max arnel: 80.1 cm/sec E/E' lat: 9.0 E/E' med: 9.6 MV E/A: 0.54 Ao V2 max: 117.2 cm/sec LV V1 max: 76.0 cm/sec Ao max P.5 mmHg LV V1 max P.3 mmHg Interpretation Summary The study was technically difficult. Mild segmental systolic dysfunction (see wall motion). The estimated ejection fraction is 50 %. Mild diffuse mitral valve thickening. Mild (1+) mitral valve insufficiency. Trivial tricuspid valve insufficiency. Mild focal aortic valve calcification. Unable to estimate RV systolic pressure/pulmonary artery pressure due to technically difficult study. Unable to assess diastolic dysfunction. Ordering Physician: Aleksandar Odell/Kailash Rueda Referring Physician: ALEK ABBOTT Performed By: Lanny Perry, TERELL, RVT
--- NOTE | 2018-08-30 11:06 | STRESSREP_ITS ---
Stress Test Report Date: 08-30-18 Procedure: Pharmacologic stress nuclear imaging study Indications: Chest pain; shortness of breath/dyspnea on exertion PR: CAD; PCI; CABG Consent: Per the patient Procedure: The patient underwent pharmacologic (Regadenoson) evaluation with a peak heart rate of 88 beats per minute (63 %predicted maximal heart rate) and a peak blood pressure of 134/70 mmHg. The baseline ECG demonstrated sinus rhythm; left bundle branch block pattern. The peak pharmacologic ECG demonstrated continued left bundle branch block pattern. There were occasional PVCs during infusion and recovery. There was no complaint of chest discomfort during pharmacologic infusion or recovery. The examination was discontinued secondary to completion of protocol. Impression: 1. Pharmacologic (Regadenoson) evaluation 2. Peak pharmacologic ECG with continued left bundle branch block pattern. 3. There were occasional PVCs during infusion and recovery. 4. Nuclear images pending Myocardial perfusion imaging study: Technique: The patient was injected with 11.2 millicuries of technetium 99m Cardiolite and subsequently rest SPECT Cardiolite nuclear imaging was obtained in the horizontal long, vertical long, and short axis views. The patient underwent pharmacologic (Regadenoson) evaluation with a peak heart rate of 88 beats per minute (63 % percent predicted maximal heart rate) and a peak blood pressure of 134/70 mmHg. The patient was injected with 33.7 millicuries of technetium 99m Cardiolite and subsequently stress SPECT Cardiolite nuclear imaging was obtained in the horizontal long, vertical long, and short axis views. A gated Cardiolite study at peak stress was obtained. Interpretation: Rest and stress SPECT Cardiolite nuclear imaging status post realignment, normalization, and attenuation correction demonstrate diminished myocardial perfusion/tracer uptake in portions of the mid to distal anterior and anterior apical segments without significant change between rest and stress. There is diminished and systolic thickening and brightening. The gated Cardiolite study demonstrates diminished myocardial thickening and and were wall motion. The reported LVEF is 502%. Impression: 1. Rest and stress SPECT Cardiolite nuclear imaging demonstrate myocardial perfusion changes appearing compatible with an area of previous myocardial injury/infarction involving portions of the distal anterior and anterior apical segments with no myocardial perfusion changes consider diagnostic for associated stress-induced myocardial ischemia. 2. The gated Cardiolite study reports an LVEF of 52%. This note was generated with [employer] software. It may contain incorrect words, spelling, and punctuation that were not noted in checking the note before signing.
== END ==
PROVIDERS: Family Provider Family Medicine; PCP Family Medicine; Referring Provider Nurse Practitioner Family; Visit Provider Nurse Practitioner Family
DX: I25.110 Atherosclerotic heart disease of native coronary artery with unstable angina pectoris (principal); I25.5 Ischemic cardiomyopathy; Z95.1 Presence of aortocoronary bypass graft; R06.09 Other forms of dyspnea
CPT/HCPCS: 78452; 93017; 93306; A9500; A4216; J2785

== ENCOUNTER 2019-01-06 21:08 | Inpatient (IN) | payer MEDICARE, SELFPAY ==
[2017-12-23 13:44] VITALS: BMI 40.0
[2018-08-05 13:16] VITALS: BMI 41.3
[2019-01-06 21:15] VITALS: BP 145/59; PULSE 77; RESP 18; TEMP 37.1; O2SAT 92
--- NOTE | 2019-01-06 21:51 | PCM.HP.STD ---
Problem List (1) Community acquired pneumonia Status: Acute History of Present Illness Date of Admission: 01/06/19 Chief Complaint: nausea and vomiting The patient is a 83 year old F with a significant history of CAD status post CABG; hypertension; COPD; obstructive sleep apnea who presented to outside hospital because of nausea and vomiting. Patient was transferred from outside hospital ED to our hospital because of patient's preference. Recently patient's was recently admitted at our hospital for Legionella pneumonia. Patient thinks that her symptoms is consistent with her symptoms when her had Legionella pneumonia. Her is currently undergoing rehabilitation after his hospitalization for pneumonia. Associated with patient's symptoms is severe headache; subjective fever; rigors; shortness of breath, anorexia; and jitteriness and dry cough. At outside hospital ED because of high clinical index of suspicion of pneumonia patient was given azithromycin. On paperwork from outside hospital the patient was told Legionella may be from a condition in her trailer. Past Medical History Past Medical History (Chronic Problems): Chronic Problems (Last Reviewed 01/07/19 @ 05:06 by Asif Davis MD) Pure hypercholesterolemia (Chronic) Essential (primary) hypertension (Chronic) History of coronary artery stent placement (Chronic) S/P PTCA/ANGELIC to proximal and mid RCA in May 2017; PTCA/ANGELIC to LAD x2 in December 2017; 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) ELIE (obstructive sleep apnea) (Chronic) Cardiomyopathy, ischemic (Chronic) S/P CABG x 3 (Chronic) [facility]: 10/13/2012: FUENTES to LCX/OM; SVG to DX; SVG to RCA CAD (coronary artery disease) (Chronic) [facility]: 10/13/2012: FUENTES to LCX/OM; SVG to DX; SVG to RCA; PTCA/ANGELIC to proximal and mid RCA in May 2017; PTCA/ANGELIC to LAD x2 in December 2017; CHF (congestive heart failure) (Chronic) Asthma (Chronic) Cervical spinal stenosis (Chronic) Seizure (Chronic) cva (Chronic) Medical History: Medical History (Last Reviewed 01/07/19 @ 05:24 by Asif Davis MD) Pure hypercholesterolemia (Chronic) E78.00 Essential (primary) hypertension (Chronic) I10 Unstable angina (Acute) I20.0 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) J44.9 ELIE (obstructive sleep apnea) (Chronic) G47.33 Cardiomyopathy, ischemic (Chronic) I25.5 CAD (coronary artery disease) (Chronic) I25.10 [facility]: 10/13/2012: FUENTES to LCX/OM; SVG to DX; SVG to RCA; PTCA/ANGELIC to proximal and mid RCA in May 2017; PTCA/ANGELIC to LAD x2 in December 2017; NSTEMI (non-ST elevated myocardial infarction) (Resolved) I21.4 Gallbladder & bile duct stone with obstruction (Resolved) K80.71 CHF (congestive heart failure) (Chronic) I50.9 Asthma (Chronic) J45.909 Cervical spinal stenosis (Chronic) M48.02 Seizure (Chronic) R56.9 cva (Chronic) History of hysterectomy Z90.710 Allergies acyclovir Allergy (Verified 08/05/18 13:23) Unknown belladonna alkaloids Allergy (Verified 08/05/18 13:23) Unknown tree and shrub pollen Allergy (Verified 08/05/18 13:23) cough valacyclovir HCl [From Valtrex] Allergy (Verified 08/05/18 13:23) Other venom-honey bee [bee venom (honey bee)] Allergy (Verified 08/05/18 13:23) Angioedema iodine Adverse Reaction (Severe, Verified 08/05/18 13:23) Other burning, rash lisinopril Adverse Reaction (Severe, Verified 08/05/18 13:23) Diarrhea Vomiting, Cough, Congestion, Pain, Headache, Drainage, Nausea metformin Adverse Reaction (Severe, Verified 08/05/18 13:23) Diarrhea, GI upset, Vomiting, Headache, Dizziness, Nausea Tetracyclines Adverse Reaction (Severe, Verified 08/05/18 13:23) headache, vomiting, rash nitrofurantoin [From Macrodantin] Adverse Reaction (Unknown, Verified 08/05/18 13:23) Unknown propoxyphene [From Darvocet-N] Adverse Reaction (Unknown, Verified 08/05/18 13:23) Unknown valacyclovir [From Valtrex] Adverse Reaction (Unknown, Verified 08/05/18 13:23) Seizure acetaminophen [From Darvocet-N 100] Adverse Reaction (Verified 08/05/18 13:23) Unknown animal dander Adverse Reaction (Verified 08/05/18 13:23) Other aspirin Adverse Reaction (Verified 08/05/18 13:23) Other atropine sulfate [From ] Adverse Reaction (Verified 08/05/18 13:23) Unknown codeine Adverse Reaction (Verified 08/05/18 13:23) Nausea/Vom/Diarrhea hyoscyamine sulfate [From ] Adverse Reaction (Verified 08/05/18 13:23) Unknown Iodinated Contrast Media [CONTRASTS] Adverse Reaction (Verified 08/05/18 13:23) Rash meperidine HCl [From Demerol] Adverse Reaction (Verified 08/05/18 13:23) Unknown niacin Adverse Reaction (Verified 08/05/18 13:23) Upset Stomach nitroglycerin [From Nitro-Dur] Adverse Reaction (Verified 08/05/18 13:23) Other RASH, CAUSED PATIENT TO GET AGITATED. oxytetracycline [From Terramycin] Adverse Reaction (Verified 08/05/18 13:23) Hives oxytetracycline HCl [From Terramycin] Adverse Reaction (Verified 08/05/18 13:23) Hives Penicillins Adverse Reaction (Verified 08/05/18 13:23) Hives perfume Adverse Reaction (Verified 08/05/18 13:23) Shortness of breath phenobarbital [From ] Adverse Reaction (Verified 08/05/18 13:23) Unknown piroxicam Adverse Reaction (Verified 08/05/18 13:23) Unknown prochlorperazine Adverse Reaction (Verified 08/05/18 13:23) Rash propoxyphene napsylate [From Darvocet-N 100] Adverse Reaction (Verified 08/05/18 13:23) Unknown scopolamine hydrobromide [From ] Adverse Reaction (Verified 08/05/18 13:23) Unknown Sulfa (Sulfonamide Antibiotics) Adverse Reaction (Verified 08/05/18 13:23) Rash terfenadine [From Seldane] Adverse Reaction (Verified 08/05/18 13:23) Unknown tetracycline Adverse Reaction (Verified 08/05/18 13:23) Rash Codeine Adverse Reaction (Unknown, Uncoded 08/05/18 13:23) Diarrhea, Vomiting, Nausea Prochlorperazine Adverse Reaction (Unknown, Uncoded 08/05/18 13:23) Rash sulfonamide antibiotics Adverse Reaction (Unknown, Uncoded 08/05/18 13:23) Rash, Hives Home Medications: Ambulatory Orders Medication Instructions Recorded Acetaminophen [Tylenol] 1,000 mg PO Q6H PRN PRN 12/03/15 Cholecalciferol (VIT D3) [Vitamin 1,000 unit PO BID 12/03/15 D3] Ferrous Sulfate 325 mg PO DAILY@0800 12/03/15 Fluticasone 0.05% [Flonase Nasal 2 spray NASAL BID 12/03/15 [place]] Lactobacillus Acidophilus 1 cap PO TID 12/03/15 [Acidophilus] Loperamide [Imodium] 2 mg PO Q2H PRN PRN 12/03/15 Loratadine [Claritin] 10 mg PO DAILY 12/03/15 Nitroglycerin (INPATIENT USE) 0.4 mg SUBLINGUAL Q5M PRN 12/03/15 [Nitrostat] Premarin Vag Cream 0.5 gm TOPICAL SUWE 12/03/15 levETIRAcetam tablet [Keppra 500 mg PO 0800,199912/03/15 tablet] proMETHazine tablet [Phenergan 25 mg PO Q6H PRN PRN 12/03/15 tablet] Albuterol Aerosols [Ventolin 2.5 mg INHALATION Q2H PRN PRN #90 04/27/17 Aerosols] vial.neb. albuterol sulfate HFA 90 2 puff INHALATION Q4H PRN g 05/04/17 mcg/actuation aerosol inhaler Aspirin E.C. [Ecotrin] 81 mg PO DAILY 12/01/17 Gabapentin [Neurontin] 300 mg PO BID 12/01/17 Sodium Chloride 0.65% [[place] Nasal 1 spray NASAL PRN 12/01/17 [place]] umeclidinium 62.5 mcg-vilanterol 1 inh INHALATION Q24H #60 ea 03/24/18 25 mcg/actuation powdr for inhalation clopidogrel 75 mg tablet 75 mg PO DAILY #90 tab 08/04/18 fenofibrate 160 mg tablet 160 mg PO DAILY #90 tab 08/04/18 furosemide 40 mg tablet 40 mg PO BID #60 tab 08/10/18 pantoprazole 40 mg tablet,delayed 40 mg PO DAILY #30 tab 08/10/18 release potassium chloride ER 10 mEq 20 meq PO BID #60 tab 08/10/18 tablet,extended release(part/cryst) isosorbide mononitrate ER 60 mg 60 mg PO BID #60 tab 08/31/18 tablet,extended release 24 hr Metoprolol Tartrate [Lopressor 25 mg PO BID 01/06/19 (beta emma)] Surgical History: Surgical History (Last Reviewed 01/07/19 @ 05:07 by Asif Davis MD) History of coronary artery stent placement (Chronic) Z95.5 S/P PTCA/ANGELIC to proximal and mid RCA in May 2017; PTCA/ANGELIC to LAD x2 in December 2017; S/P PTCA (percutaneous transluminal coronary angioplasty) (Inactive) Z98.61 PTCA/ANGELIC to prox RCA and mid RCA 05/24/2017; PTCA/ANGELIC to LAD x2 in December 2017; S/P CABG x 3 (Chronic) Z95.1 [facility]: 10/13/2012: FUENTES to LCX/OM; SVG to DX; SVG to RCA S/P triple vessel bypass (Resolved) Z95.1 [facility]: 10/13/2012: FUENTES to LCX/OM; SVG to DX; SVG to RCA; History of cholecystectomy Z90.49 History of excision of pilonidal cyst Z98.890 Status post left oophorectomy Z90.721 Surgical History: appendectomy, coronary bypass surgery, hysterectomy - bladder surgery, pilonidal cyst, gallbladder surgery,, - - bladder surgery (multiple), left ovarian removal, pilonidal cyst surgery, coronary artery stent placement Psychiatric History: No pertinent psych hx 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 LAB History: No pertinent MANAGER CATH LAB history Lives: Spouse/ Significant Other - However spouse recently was admitted into a rehab unit for rehabilitation posthospitalization Smoking Status: Former smoker - *Family History Maternal Family History: Family History (Last Reviewed 01/07/19 @ 05:07 by Asif Davis MD) Father Heart disease CVA (cerebral vascular accident) Mother Colon cancer Brother Cancer Brother Cancer History Items: Cancer, - - colon cancer Paternal Family History: Family History (Last Reviewed 01/07/19 @ 05:07 by Asif Davis MD) Father Heart disease CVA (cerebral vascular accident) Mother Colon cancer Brother Cancer Brother Cancer History Items: Stroke, - - father with cva Review of Systems Constitutional: Reports: Chills, Fever - subjective, Malaise, Weakness, Fatigue. Denies: Weight Change HEENT: Reports: Head Aches. Denies: Sinus Congestion, Sinus Drainage Cardiovascular: Denies: Chest Pain, Palpitations Respiratory: Reports: Cough, Shortness of Breath. Denies: Sputum production Gastrointestinal: Reports: Abdominal Pain, Diarrhea, Nausea, Vomiting Genitourinary: Denies: Dysuria Musculoskeletal: Reports: Leg Pain. Denies: Joint Pain, Joint Tenderness Skin: Denies: Rash, Wounds Neurological: Denies: Numbness, Tingling, Focal weakness Psychiatric: Denies: Anxiety, Depression, Homicidal Ideations, Suicidal Ideations Hematologic/ Lymphatic: Denies: Easy Bruising, Easy Bleeding VTE Information - Inpt Only VTE Present on Admission: No VTE Mechan Device Prophylaxis: None VTE Pharm Prophylaxis ordered?: Yes Patient Problems: Active and Suspected Problems (Last Reviewed 01/07/19 @ 05:06 by Asif Davis MD) Community acquired pneumonia (Acute) - Physical Exam General: Alert, Oriented x3, Cooperative HEENT: Atraumatic, PERRLA, EOMI, Normocephalic Neck: Supple, No JVD, Negative Carotid Bruits Lungs: Normal air movement, Rales - left lower Cardiovascular: Regular rate, No murmurs Abdomen: Bowel Sounds Present, Soft, Non Tender Extremities: No edema, Capillary Refill Less than 3 Seconds Skin: No rashes, No breakdown Musculoskeletal: No Tenderness to Palpation of Joints or Extremities Neurological: Cranial nerves II-XII grossly intact Psych/Mental Status: Normal Affect, Appropriate Body Mass Index (BMI) 41.3 Finger Stick Blood Glucose 88 Assessment/Plan All Active Problems (Last Reviewed 01/07/19 @ 05:07 by Asif Davis MD) Community acquired pneumonia (Acute) Unstable angina (Acute) NSTEMI (non-ST elevated myocardial infarction) (Resolved) Gallbladder & bile duct stone with obstruction (Resolved) S/P triple vessel bypass (Resolved) The patient is a 83 year old F with a significant history of CAD status post CABG; hypertension; COPD; obstructive sleep apnea who presented to outside hospital because of nausea and vomiting; severe headache; subjective fever; rigors; shortness of breath, anorexia; and jitteriness and dry cough; and family member recently diagnosed with Legionella pneumonia consistent with community-acquired pneumonia probably secondary to Legionella pneumonia. community-acquired pneumonia Patient with rales on the left lower posterior lungs. Chest x-ray at outside hospital ED was interpreted as hazy opacities seen on lateral view may be represent developing inflammation/infection. With her recent diagnosis of Legionella pneumonia cannot rule out Legionella pneumonia at this time. Droplet precautions for probable Legionella pneumonia ordered. Other organisms for community acquired pneumonia is also possible. Patient was given azithromycin at outside hospital ED. Patient reported that when she takes penicillin she becomes unconscious. Will shy away from penicillins and cephalosporins at this time. Patient will be started on Levaquin. Trend CBC and BMP. Follow blood cultures from. Patient received Toradol at outside hospital ED for pain. CAD status post CABG Aspirin and Plavix continued TriCor continued Metoprolol and lisinopril continued Congestive heart failure Lasix with potassium supplementation continued GERD Protonix continued Hypertension On presentation her blood pressure was stable in regard to her age. Metoprolol and lisinopril continued Trend blood pressures and adjust blood pressure medications. Stage I mild COPD by gold classification At home patient is on LABA-LAMA. Changed to scheduled PAULO-NIECY at the hospital PRN Paulo continued DVT prophylaxis Subcutaneous heparin Code Visit Inpatient E&M: 19588 Init Hosp L3
[2019-01-06 21:56] VITALS: BMI 36.8
[2019-01-07] VITALS (8 sets, daily range): BP systolic 121–141; BP diastolic 54–64; PULSE 74–91; RESP 16–20; TEMP 36.9–38.1; O2SAT 95–98
[2019-01-07] MEDS: levoFLOXacin IV 750 MG/150 ML BAG 100 MG IV (01:08)
[2019-01-07] MEDS: Albuterol 2.5 MG/3 ML VIAL.NEB. INHALATION (03:42)
--- NOTE | 2019-01-07 04:29 | NURSING ---
Dysphagia screen completed at this time. Pt tolerated well and passed.
[2019-01-07] MEDS: Acetaminophen 325 MG Tablet 650 MG PO ×2 (04:30→16:49)
[2019-01-07] MEDS: Ondansetron 4 MG/2 ML Vial IV ×2 (05:50→10:10)
[2019-01-07] MEDS: 0.9% NaCl Peripheral Flush Adult/Peds IV ×2 (05:51→10:10)
[2019-01-07 06:35] LABS: Absolute Lymphocyte Count 1.24 X10^3/uL (0.83-4.51); Absolute Neutrophil Count 11.1 X10^3/uL (2.0-7.7); Basophil# 0.03 X10^3/uL; Basophil% 0.2 % (0-1); Eosinophil# 0.15 X10^3/uL; Eosinophils% 1.1 % (0-5); Hematocrit 35.1 % (37-47); Hemoglobin 11.6 g/dL (12.0-15.0); Lymphocyte # 1.24 X10^3/ul (4.0); Mean Corpuscular Hgb 31.3 pg (27.0-32.0); Mean Corpuscular Volume 94.6 fL (81-99); Mean Platelet Vol. 9.8 fl (6.2-12.0); Monocyte# 1.18 X10^3/uL; Monocyte% 8.6 % (0-10); NRBC Flagged by Analyzer 0 % (0-5); Neutrophil # 11.12 X10^3/uL (2.7-7.7); Neutrophil % 80.7 % (47-70); POSITIVE MORPHOLOGY YES; Platelet Count 255 K/mm3 (150-450); RBC Distribution Width CV 13.1 % (11.6-14.6); RBC Distribution Width SD 45.2 fl (35.1-43.9); Red Blood Count 3.71 M/mm3 (4.2-5.4); White Blood Count 13.8 K/mm3 (4.4-11.0)
[2019-01-07 06:46] LABS: Differential Indicated SCAN CRITERIA MET
[2019-01-07 07:03] LABS: Anion Gap 9 (5-15); BUN 18 mg/dL (7-18); BUN/Creat Ratio 16.8 RATIO (10-20); Calcium,Total 8.4 mg/dL (8.5-10.1); Chloride 106 mmol/L (98-107); Creatinine, Serum 1.07 mg/dL (0.55-1.02); EST Glomerular Filtration Rate 52 mL/min (>60); Est Glom Filt Rate - Afr Amer 63 mL/min (>60); Estimated Creatinine Clearance 32.61 ml/min; Glucose 111 mg/dL (74-106); Potassium 3.5 mmol/L (3.5-5.1); Sodium Level 140 mmol/L (136-145)
--- NOTE | 2019-01-07 08:39 | PN_ITS ---
Patient Problems: Active and Suspected Problems (Last Reviewed 01/07/19 @ 05:24 by Asif Davis MD) Community acquired pneumonia (Acute) Subjective: Not feeling much better since yesterday. No issues overnight Vitals/I&O's: Vital Signs Temp Pulse Resp BP Pulse Ox 100.5 F H 82 20 H 137/63 H 96 01/07/19 03:15 01/07/19 03:43 01/07/19 03:43 01/07/19 03:15 01/07/19 03:43 Oxygen Flow Rate (L/min) 2 Oxygen Delivery Method Nasal Cannula Weight: 201 lb 4.513 oz Body Mass Index (BMI) 36.8 Finger Stick Blood Glucose 88 Intake and Output for Last 24 Hours 01/05/19 01/06/19 01/07/19 23:59 23:59 23:59 Intake Total 650 / 650 Output Total 150 / 150 Balance 500 / 500 General: Alert, Oriented x3, Cooperative, No apparent distress HEENT: Atraumatic, PERRLA, EOMI, Normocephalic Oral: Moist Mucosa Neck: Supple, No JVD Lungs: Clear to auscultation, Normal air movement, No rhonchi, No wheeze, No rales Cardiovascular: Regular rate, Regular Rhythm, Normal S1, Normal S2, No murmurs Abdomen: Soft, Non Tender, Non-Distended, No Hepato-splenomegaly Extremities: No edema, Capillary Refill Less than 3 Seconds Skin: No rashes, No breakdown Neurological: Neuro grossly intact, Sensory exam intact to light touch and pain Psych/Mental Status: Normal Affect, Appropriate Microbiology Past 72 Hours 01/07/19 03:25 Urine, Clean Catch Legionella Antigen - Final Laboratory Results 01/07/19 06:28: WBC 13.8 H, RBC 3.71 L, Hgb 11.6 L, Hct 35.1 L, MCV 94.6, MCH 31.3, MCHC 33.0, RDW Std Deviation 45.2 H, RDW Coeff of Khalida 13.1, Plt Count 255, MPV 9.8, Immature Gran % (Auto) 0.400, Neut % (Auto) 80.7 H, Lymph % (Auto) 9.0 L, [place] % (Auto) 8.6, Eos % (Auto) 1.1, Baso % (Auto) 0.2, Absolute Neuts (auto) 11.1 H, Absolute Lymphs (auto) 1.24, Nucleated RBC % 0 01/07/19 06:28: Sodium 140, Potassium 3.5, Chloride 106, Carbon Dioxide 25.0, Anion Gap 9, BUN 18, Creatinine 1.07 H, Estim Creat Clear Calc 32.61, Est GFR (MDRD) Af Amer 63, Est GFR (MDRD) Non-Af 52 L, BUN/Creatinine Ratio 16.8, Glucose 111 H, Calcium 8.4 L Current Medications Acetaminophen (Tylenol) 650 mg PO Q6H PRN PRN PRN Reason: Temp > 100.7 F Last Admin: 01/07/19 04:30 Dose: 650 mg Documented by: Acetaminophen (Tylenol) 1,000 mg PO Q6H PRN PRN PRN Reason: PAIN Albuterol Sulfate (Ventolin Aerosols) 2.5 mg INHALATION Q2H PRN PRN PRN Reason: Shortness of Breath/Wheezing Last Admin: 01/07/19 03:42 Dose: 2.5 mg Documented by: Albuterol/Ipratropium (Duoneb) 3 ml INHALATION Q6HWA.RT MARÍA Last Admin: 01/07/19 07:20 Dose: Not Given Documented by: Aspirin (Ecotrin) 81 mg PO DAILYCM MARÍA Cholecalciferol (Vitamin D) 1,000 unit PO BID MARÍA Clopidogrel Bisulfate (Plavix) 75 mg PO DAILY MARÍA Dextrose (D50w Syringe) 0 gm IV X1 PRN; Protocol PRN Reason: Hypoglycemia Fenofibrate (Tricor) 145 mg PO DAILY MARÍA Ferrous Sulfate (Ferrous Sulfate) 325 mg PO DAILY@0800 [facility] Fluticasone Propionate (Flonase Nasal [place]) 2 spray NASAL BID MARÍA Furosemide (Lasix) 40 mg PO BIDLX MARÍA Gabapentin (Neurontin) 300 mg PO BID MARÍA Glucagon () 1 mg IM .X1 PRN PRN Reason: Hypoglycemia Guaifenesin (Mucinex) 1,200 mg PO BID MARÍA Heparin Sodium (Porcine) (Heparin Na) 5,000 unit SC Q12 MARÍA Sodium Chloride () 250 mls @ 15 mls/hr IV .[id number] PRN PRN Reason: SALINE FLUSH Levofloxacin (Levaquin Iv) 750 mg in 150 mls @ 100 mls/hr IV Q24@2200 MARÍA Last Infusion: 08/24/19 02:38 Dose: Infused Documented by: Isosorbide Mononitrate (Imdur) 60 mg PO BID [facility] Lactobacillus Acidophilus (Acidophilus) 1 tablet PO TID [facility] Last Admin: 01/07/19 06:33 Dose: Not Given Documented by: Levetiracetam (Keppra Tablet) 500 mg PO 0800,1999 [facility] Loperamide HCl (Imodium) 2 mg PO Q2H PRN PRN PRN Reason: Diarrhea Loratadine (Claritin) 10 mg PO DAILY [facility] Melatonin (Melatonin) 3 mg PO QHS PRN PRN PRN Reason: INSOMNIA Metoprolol Tartrate (Lopressor (Beta Rani)) 25 mg PO BID MARÍA Ondansetron HCl (Zofran) 4 mg IV Q8H PRN PRN PRN Reason: NAUSEA/VOMITING Last Admin: 01/07/19 05:50 Dose: 4 mg Documented by: Pantoprazole Sodium (Protonix) 40 mg PO DAILY [facility] Potassium Chlor[facility] (K[facility]Dur) [facility] Sodium Chloride () 10 - 40 ml IV UD PRN PRN Reason: SALINE FLUSH Last Admin: 01/07/19 05:51 Dose: 10 ml Documented by: Sodium Chloride ([place] Nasal [place]) 1 spray NASAL Q2H PRN PRN Medical Necessity - Tobacco Use Smoking Status: Former smoker Assessment/Plan All Active Problems (Last Reviewed 01/07/19 @ 05:07 by Asif Davis MD) Community acquired pneumonia (Acute) Unstable angina (Acute) NSTEMI (non-ST elevated myocardial infarction) (Resolved) Gallbladder & bile duct stone with obstruction (Resolved) S/P triple vessel bypass (Resolved) 1. Community-acquired pneumonia likely from gram-positive with acute hypoxic respiratory insufficiency/COPD without exacerbation/ELIE -Legionella antigen is negative -Continue with Levaquin daily -Sputum culture pending -Tinea with in the incentive spirometer -2 L nasal cannula, she is not on any home O2 -Continue with home inhalers 2. CAD status post CABG and stent/chronic diastolic CHF/HTN/HLD -Continue with aspirin and Plavix -Continue with home cholesterol medications and blood pressure medications 3. GERD -Stable -Continue with PPI DVT: Heparin Code Visit Inpatient E&M: 07841 Subs Hosp L2
[2019-01-07] MEDS: Furosemide 40 MG Tablet PO (12:45)
[2019-01-07] MEDS: Metoprolol Tartrate 25 MG Tablet PO ×2 (12:45→21:36)
[2019-01-07] MEDS: Gabapentin 300 MG Capsule PO ×2 (12:45→21:35)
[2019-01-07] MEDS: Isosorbide Mononitrate 60 MG Tablet PO ×2 (12:45→21:36)
[2019-01-07] MEDS: Clopidogrel Bisulfate 75 MG Tablet PO (12:46)
[2019-01-07] MEDS: levETIRAcetam 500 MG Tablet PO ×2 (12:48→21:36)
[2019-01-07] MEDS: Fenofibrate 145 MG Tablet PO (12:49)
[2019-01-07] MEDS: Heparin Injection (Vial) 5,000 UNIT/ML VIAL 5000 UNIT SC ×2 (12:50→21:35)
--- NOTE | 2019-01-07 12:51 | CM.UR ---
RN CM Assessment Introduced role of RN CM to patient. Patient is alert and able to participate in RN CM Assessment. Care providers, pharmacy, and demographics verified. No family at bedside. Presentation: Transferred from another hospital ED per patient request. Presented to that ER for n/v Admit Dx: CAP Re-Admit: no Barriers/Issues: 's health is declining. He used to do more to help her. PCP: Dr. Arambula Specialists: Dr. Rueda (cardiology) and Dr. Galvan (pulm). Preferred Pharmacy: [facility] Insurance: [facility]/medicaid Rx Benefit: Yes, no concerns. Has no copays. LNOK: , [place] LW/HPOA: Yes on file. HPOA is [facility] Living Arrangements: lives with ADL?s: Needs assistance with cooking, tank processor. Transportation: 's health declined and he is no longer driving. Son takes them where they need to go now. DME: Cane, oxygen concentrator (night only) nebulizer, rollator, shower chair, grab bars, handheld shower DME co: Oxygen is through [facility]: VNS before. 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 States caser up is Katelyn Chung. SNF: in [place]. Goal: Return home with resumption of MAGAZINE DESIGNER. DC PLAN: Home with resumption of MAGAZINE DESIGNER. ? need portability for oxygen. Still doesn't have any however she rarely leaves the home. Richar Louie RN, CCM.
--- NOTE | 2019-01-07 12:58 | NURSING ---
pt has been nauseated or resting w/eyes closed all morning. held some scheduled meds d/t this
[2019-01-07] MEDS: proMETHazine 25 MG Tablet 12.5 MG PO (16:43)
[2019-01-07] MEDS: Ipratropium/Albuterol Sulfate 3 ML AMPUL.NEB INHALATION (18:55)
[2019-01-07] MEDS: Fluticasone 0.05% 1 SPRAY NASAL.SRY 2 SPRAY NASAL (21:35)
[2019-01-07] MEDS: guaiFENesin 1,200 MG Tablet 1200 MG PO (21:35)
[2019-01-08] VITALS (11 sets, daily range): BP systolic 134–147; BP diastolic 56–63; PULSE 70–88; RESP 16–20; TEMP 37.1–37.4; O2SAT 92–97
[2019-01-08 05:52] LABS: Absolute Lymphocyte Count 1.94 X10^3/uL (0.83-4.51); Absolute Neutrophil Count 4.9 X10^3/uL (2.0-7.7); Basophil# 0.04 X10^3/uL; Basophil% 0.5 % (0-1); Eosinophil# 0.11 X10^3/uL; Eosinophils% 1.4 % (0-5); Hemoglobin 10.9 g/dL (12.0-15.0); Lymphocyte # 1.94 X10^3/ul (4.0); Lymphocyte % 24.5 % (19-41); Mean Corp Hgb Conc 32.1 g/dL (32-36); Mean Corpuscular Hgb 30.6 pg (27.0-32.0); Mean Corpuscular Volume 95.5 fL (81-99); Mean Platelet Vol. 10.2 fl (6.2-12.0); Monocyte# 0.91 X10^3/uL; Monocyte% 11.5 % (0-10); NRBC Flagged by Analyzer 0 % (0-5); Neutrophil # 4.91 X10^3/uL (2.7-7.7); Neutrophil % 61.8 % (47-70); Platelet Count 254 K/mm3 (150-450); RBC Distribution Width CV 13.1 % (11.6-14.6); RBC Distribution Width SD 45.9 fl (35.1-43.9); Red Blood Count 3.56 M/mm3 (4.2-5.4); White Blood Count 7.9 K/mm3 (4.4-11.0)
[2019-01-08 06:14] LABS: Anion Gap 6 (5-15); BUN 14 mg/dL (7-18); BUN/Creat Ratio 17.1 RATIO (10-20); Calcium,Total 8.4 mg/dL (8.5-10.1); Chloride 107 mmol/L (98-107); Creatinine, Serum 0.82 mg/dL (0.55-1.02); EST Glomerular Filtration Rate 71 mL/min (>60); Est Glom Filt Rate - Afr Amer 86 mL/min (>60); Estimated Creatinine Clearance 42.56 ml/min; Glucose 93 mg/dL (74-106); Potassium 4.5 mmol/L (3.5-5.1); Sodium Level 140 mmol/L (136-145)
[2019-01-08] MEDS: Ipratropium/Albuterol Sulfate 3 ML AMPUL.NEB INHALATION ×3 (07:13→19:18)
--- NOTE | 2019-01-08 08:02 | PCM.PN.HOSP ---
Patient Problems: Active and Suspected Problems (Last Reviewed 01/07/19 @ 05:24 by Asif Davis MD) Community acquired pneumonia (Acute) Subjective: Feeling better today, no issues overnight, breathing better. Her nausea is more controlled with the Zofran and Phenergan. Vitals/I&O's: Vital Signs Temp Pulse Resp BP Pulse Ox 98.7 F 70 18 134/63 H 97 01/08/19 05:00 01/08/19 05:00 01/08/19 05:00 01/08/19 05:00 01/08/19 05:00 Oxygen Flow Rate (L/min) 2 Oxygen Delivery Method Nasal Cannula Weight: 201 lb 4.513 oz Body Mass Index (BMI) 36.8 Finger Stick Blood Glucose 88 Intake and Output for Last 24 Hours 01/06/19 01/07/19 01/08/19 23:59 23:59 23:59 Intake Total 950 / 1190 240 / 240 Output Total 150 / 150 Balance 800 / 1040 240 / 240 General: Alert, Oriented x3, Cooperative, No apparent distress HEENT: Atraumatic, PERRLA, EOMI, Normocephalic Oral: Moist Mucosa Neck: Supple, No JVD Lungs: Normal air movement, No rhonchi, No wheeze, No rales, slight crackle in the left base Cardiovascular: Regular rate, Regular Rhythm, Normal S1, Normal S2, No murmurs Abdomen: Soft, Non Tender, Non-Distended, No Hepato-splenomegaly Extremities: No edema, Capillary Refill Less than 3 Seconds Skin: No rashes, No breakdown Neurological: Neuro grossly intact, Sensory exam intact to light touch and pain Psych/Mental Status: Normal Affect, Appropriate Microbiology Past 72 Hours 01/07/19 03:25 Urine, Clean Catch Streptococcus pneumoniae Antigen (M - Final 01/07/19 03:25 Urine, Clean Catch Legionella Antigen - Final Laboratory Results 01/08/19 05:25: WBC 7.9, RBC 3.56 L, Hgb 10.9 L, Hct 34.0 L, MCV 95.5, MCH 30.6, MCHC 32.1, RDW Std Deviation 45.9 H, RDW Coeff of Khalida 13.1, Plt Count 254, MPV 10.2, Immature Gran % (Auto) 0.300, Neut % (Auto) 61.8, Lymph % (Auto) 24.5, Starke % (Auto) 11.5 H, Eos % (Auto) 1.4, Baso % (Auto) 0.5, Absolute Neuts (auto) 4.9, Absolute Lymphs (auto) 1.94, Nucleated RBC % 0 01/08/19 05:25: Sodium 140, Potassium 4.5, Chloride 107, Carbon Dioxide 27.0, Anion Gap 6, BUN 14, Creatinine 0.82, Estim Creat Clear Calc 42.56, Est GFR (MDRD) Af Amer 86, Est GFR (MDRD) Non-Af 71, BUN/Creatinine Ratio 17.1, Glucose 93, Calcium 8.4 L Current Medications Acetaminophen (Tylenol) 650 mg PO Q6H PRN PRN PRN Reason: Temp > 100.7 F Last Admin: 01/07/19 16:49 Dose: 650 mg Documented by: Acetaminophen (Tylenol) 1,000 mg PO Q6H PRN PRN PRN Reason: PAIN Albuterol Sulfate (Ventolin Aerosols) 2.5 mg INHALATION Q2H PRN PRN PRN Reason: Shortness of Breath/Wheezing Last Admin: 01/07/19 03:42 Dose: 2.5 mg Documented by: Albuterol/Ipratropium (Duoneb) 3 ml INHALATION Q6HWA.RT [facility] Last Admin: 01/08/19 07:13 Dose: 3 ml Documented by: [facility]) [facility] Last Admin: 01/07/19 12:46 Dose: Not Given Documented by: Cholecalciferol (Vitamin D) 1,000 unit PO BID [facility] Last Admin: 01/07/19 21:35 Dose: 1,000 unit Documented by: Clopidogrel Bisulfate (Plavix) 75 mg PO DAILY [facility] Last Admin: 01/07/19 12:46 Dose: 75 mg Documented by: Dextrose (D50w Syringe) 0 gm IV X1 PRN; Protocol PRN Reason: Hypoglycemia Fenofibrate (Tricor) 145 mg PO DAILY [facility] Last Admin: 01/07/19 12:49 Dose: 145 mg Documented by: Ferrous Sulfate (Ferrous Sulfate) 325 mg PO DAILY@0800 [facility] Last Admin: 01/07/19 12:46 Dose: Not Given Documented by: Fluticasone Propionate (Flonase Nasal [place]) 2 spray NASAL BID [facility] Last Admin: 01/07/19 21:35 Dose: 2 spray Documented by: Furosemide (Lasix) 40 mg PO BIDLX [facility] Last Admin: 01/07/19 16:44 Dose: Not Given Documented by: Gabapentin (Neurontin) 300 mg PO BID [facility] Last Admin: 01/07/19 21:35 Dose: 300 mg Documented by: Glucagon () 1 mg IM .X1 PRN PRN Reason: Hypoglycemia Guaifenesin (Mucinex) 1,200 mg PO BID [facility] Last Admin: 01/07/19 21:35 Dose: 1,200 mg Documented by: Heparin Sodium (Porcine) (Heparin Na) 5,000 unit SC Q12 [facility] Last Admin: 01/07/19 21:35 Dose: 5,000 unit Documented by: Sodium Chloride () 250 mls @ 15 mls/hr IV .[id number] PRN PRN Reason: SALINE FLUSH Levofloxacin (Levaquin Iv) 750 mg in 150 mls @ 100 mls/hr IV Q48 [facility] Isosorbide Mononitrate (Imdur) 60 mg PO BID [facility] Last Admin: 01/07/19 21:36 Dose: 60 mg Documented by: Lactobacillus Acidophilus (Acidophilus) 1 tablet PO TID [facility] Last Admin: 01/08/19 05:05 Dose: 1 tablet Documented by: Levetiracetam (Keppra Tablet) 500 mg PO 00,1999 [facility] Last Admin: 01/07/19 21:36 Dose: 500 mg Documented by: Loperamide HCl (Imodium) 2 mg PO Q2H PRN PRN PRN Reason: Diarrhea Loratadine (Claritin) 10 mg PO DAILY [facility] Last Admin: 01/07/19 12:46 Dose: Not Given Documented by: Melatonin (Melatonin) 3 mg PO QHS PRN PRN PRN Reason: INSOMNIA Metoprolol Tartrate (Lopressor (Beta Rani)) 25 mg PO BID [facility] Last Admin: 01/07/19 21:36 Dose: 25 mg Documented by: Ondansetron HCl (Zofran) 4 mg IV Q6H PRN PRN PRN Reason: NAUSEA/VOMITING Pantoprazole Sodium (Protonix) 40 mg PO DAILY [facility] Last Admin: 01/07/19 12:47 Dose: Not Given Documented by: Potassium Chloride (K-Dur) 20 meq PO BIDCM [facility] Last Admin: 01/07/19 16:44 Dose: Not Given Documented by: Promethazine HCl (Phenergan Tablet) 12.5 mg PO Q6H PRN PRN PRN Reason: NAUSEA/VOMITING Sodium Chloride () 10 - 40 ml IV UD PRN PRN Reason: SALINE FLUSH Last Admin: 01/07/19 10:10 Dose: 20 ml Documented by: Sodium Chloride ([place] Nasal [place]) 1 spray NASAL Q2H PRN PRN Medical Necessity - Tobacco Use Smoking Status: Former smoker Assessment/Plan All Active Problems (Last Reviewed 01/07/19 @ 05:07 by Asif Davis MD) Community acquired pneumonia (Acute) Unstable angina (Acute) NSTEMI (non-ST elevated myocardial infarction) (Resolved) Gallbladder & bile duct stone with obstruction (Resolved) S/P triple vessel bypass (Resolved) 1. Community-acquired pneumonia likely from gram-positive with acute hypoxic respiratory insufficiency/COPD without exacerbation/ELIE -Legionella antigen is negative -Continue with Levaquin daily -Sputum culture pending, she states she is not coughing up anything -Continue with in the incentive spirometer -2 L nasal cannula, she is not on any home O2, will wean today as able -Continue with home inhalers, if she is still on O2 by tomorrow, reasonable to start prednisone 2. CAD status post CABG and stent/chronic diastolic CHF/HTN/HLD -Continue with aspirin and Plavix -Continue with home cholesterol medications and blood pressure medications 3. GERD -Stable -Continue with PPI DVT: Heparin Code Visit Inpatient E&M: 95457 Subs Hosp L2
[2019-01-08] MEDS: levETIRAcetam 500 MG Tablet PO ×2 (08:22→20:15)
[2019-01-08] MEDS: Aspirin E.C. 81 MG Tablet PO (08:22)
[2019-01-08] MEDS: Ferrous Sulfate 325 MG Tablet PO (08:22)
[2019-01-08] MEDS: Loratadine 10 MG Tablet PO (10:14)
[2019-01-08] MEDS: Fluticasone 0.05% 1 SPRAY NASAL.SRY 2 SPRAY NASAL ×2 (10:15→22:19)
[2019-01-08] MEDS: Heparin Injection (Vial) 5,000 UNIT/ML VIAL 5000 UNIT SC ×2 (10:15→22:21)
[2019-01-08] MEDS: Isosorbide Mononitrate 60 MG Tablet PO ×2 (10:15→22:20)
[2019-01-08] MEDS: Pantoprazole Sodium 40 MG Tablet PO (10:15)
[2019-01-08] MEDS: Fenofibrate 145 MG Tablet PO (10:15)
[2019-01-08] MEDS: guaiFENesin 1,200 MG Tablet 1200 MG PO ×2 (10:15→22:20)
[2019-01-08] MEDS: Clopidogrel Bisulfate 75 MG Tablet PO (10:15)
[2019-01-08] MEDS: Furosemide 40 MG Tablet PO ×2 (10:15→17:31)
[2019-01-08] MEDS: Gabapentin 300 MG Capsule PO ×2 (10:15→22:20)
[2019-01-08] MEDS: Metoprolol Tartrate 25 MG Tablet PO ×2 (10:16→22:20)
[2019-01-08] MEDS: Acetaminophen 325 MG Tablet 650 MG PO (14:26)
--- NOTE | 2019-01-08 14:43 | NURSING ---
1425-BLEW NOSE, HAD SCANT RED DRAINAGE. WILL MONITOR, INSTRUCTED TO REPORT ANY MORE OCCURRENCES.
[2019-01-09] VITALS (9 sets, daily range): BP systolic 117–144; BP diastolic 58–70; PULSE 64–83; RESP 18–20; TEMP 36.5–36.9; O2SAT 87–96
[2019-01-09] MEDS: Ipratropium/Albuterol Sulfate 3 ML AMPUL.NEB INHALATION ×2 (07:23→13:27)
[2019-01-09] MEDS: Ferrous Sulfate 325 MG Tablet PO (07:57)
[2019-01-09] MEDS: levETIRAcetam 500 MG Tablet PO (07:57)
[2019-01-09] MEDS: Aspirin E.C. 81 MG Tablet PO (07:57)
--- NOTE | 2019-01-09 08:26 | PCM.PN.HOSP ---
Patient Problems: Active and Suspected Problems (Last Reviewed 01/07/19 @ 05:24 by Asif Davis MD) Community acquired pneumonia (Acute) Vitals/I&O's: Vital Signs Temp Pulse Resp BP Pulse Ox 97.7 F L 64 20 H 117/70 91 01/09/19 04:01 01/09/19 07:23 01/09/19 07:23 01/09/19 04:01 01/09/19 07:23 Oxygen Flow Rate (L/min) 2 Oxygen Delivery Method Room Air Weight: 201 lb 4.513 oz Body Mass Index (BMI) 36.8 Finger Stick Blood Glucose 88 Intake and Output for Last 24 Hours 01/07/19 01/08/19 01/09/19 23:59 23:59 23:59 Intake Total 950 / 1190 810 / 1310 800 / 800 Output Total 150 / 150 0 / 0 Balance 800 / 1040 810 / 1310 800 / 800 Microbiology Past 72 Hours 01/07/19 03:25 Urine, Clean Catch Streptococcus pneumoniae Antigen (M - Final 01/07/19 03:25 Urine, Clean Catch Legionella Antigen - Final Current Medications Acetaminophen (Tylenol) 650 mg PO Q6H PRN PRN PRN Reason: Temp > 100.7 F Last Admin: 01/08/19 14:26 Dose: 325 mg Documented by: Acetaminophen (Tylenol) 1,000 mg PO Q6H PRN PRN PRN Reason: PAIN Albuterol Sulfate (Ventolin Aerosols) 2.5 mg INHALATION Q2H PRN PRN PRN Reason: Shortness of Breath/Wheezing Last Admin: 01/07/19 03:42 Dose: 2.5 mg Documented by: Albuterol/Ipratropium (Duoneb) 3 ml INHALATION Q6HWA.RT [facility] Last Admin: 01/09/19 07:23 Dose: 3 ml Documented by: [facility] Last Admin: 01/09/19 07:57 Dose: 81 mg Documented by: Cholecalciferol (Vitamin D) 1,000 unit PO BID [facility] Last Admin: 01/08/19 22:59 Dose: 1,000 unit Documented by: Clopidogrel Bisulfate (Plavix) 75 mg PO DAILY [facility] Last Admin: 01/08/19 10:15 Dose: 75 mg Documented by: Dextrose (D50w Syringe) 0 gm IV X1 PRN; Protocol PRN Reason: Hypoglycemia Fenofibrate (Tricor) 145 mg PO DAILY [facility] Last Admin: 01/08/19 10:15 Dose: 145 mg Documented by: Ferrous Sulfate (Ferrous Sulfate) 325 mg PO DAILY@0800 [facility] Last Admin: 01/09/19 07:57 Dose: 325 mg Documented by: Fluticasone Propionate (Flonase Nasal [place]) 2 spray NASAL BID [facility] Last Admin: 01/08/19 22:19 Dose: 2 spray Documented by: Furosemide (Lasix) 40 mg PO BIDLX [facility] Last Admin: 01/08/19 17:31 Dose: 40 mg Documented by: Gabapentin (Neurontin) 300 mg PO BID [facility] Last Admin: 01/08/19 22:20 Dose: 300 mg Documented by: Glucagon () 1 mg IM .X1 PRN PRN Reason: Hypoglycemia Guaifenesin (Mucinex) 1,200 mg PO BID [facility] Last Admin: 01/08/19 22:20 Dose: 1,200 mg Documented by: Heparin Sodium (Porcine) (Heparin Na) 5,000 unit SC Q12 [facility] Last Admin: 01/08/19 22:21 Dose: 5,000 unit Documented by: Sodium Chloride () 250 mls @ 15 mls/hr IV .[id number] PRN PRN Reason: SALINE FLUSH Levofloxacin (Levaquin Iv) 750 mg in 150 mls @ 100 mls/hr IV Q48 [facility] Isosorbide Mononitrate (Imdur) 60 mg PO BID [facility] Last Admin: 01/08/19 22:20 Dose: 60 mg Documented by: Lactobacillus Acidophilus (Acidophilus) 1 tablet PO TID [facility] Last Admin: 01/09/19 06:57 Dose: 1 tablet Documented by: Levetiracetam (Keppra Tablet) 500 mg PO 0800,1999 [facility] Last Admin: 01/09/19 07:57 Dose: 500 mg Documented by: Loperamide HCl (Imodium) 2 mg PO Q2H PRN PRN PRN Reason: Diarrhea Loratadine (Claritin) 10 mg PO DAILY [facility] Last Admin: 01/08/19 10:14 Dose: 10 mg Documented by: Melatonin (Melatonin) 3 mg PO QHS PRN PRN PRN Reason: INSOMNIA Metoprolol Tartrate (Lopressor (Beta Rani)) 25 mg PO BID [facility] Last Admin: 01/08/19 22:20 Dose: 25 mg Documented by: Ondansetron HCl (Zofran) 4 mg IV Q6H PRN PRN PRN Reason: NAUSEA/VOMITING Pantoprazole Sodium (Protonix) 40 mg PO DAILY [facility] Last Admin: 01/08/19 10:15 Dose: 40 mg Documented by: Potassium Chloride (K-Dur) 20 meq PO BIDCM [facility] Last Admin: 01/09/19 07:57 Dose: 20 meq Documented by: Promethazine HCl (Phenergan Tablet) 12.5 mg PO Q6H PRN PRN PRN Reason: NAUSEA/VOMITING Sodium Chloride () 10 - 40 ml IV UD PRN PRN Reason: SALINE FLUSH Last Admin: 01/07/19 10:10 Dose: 20 ml Documented by: Sodium Chloride ([place] Nasal [place]) 1 spray NASAL Q2H PRN PRN Medical Necessity - Tobacco Use Smoking Status: Former smoker Assessment/Plan All Active Problems (Last Reviewed 01/07/19 @ 05:07 by Asif Davis MD) Community acquired pneumonia (Acute) Unstable angina (Acute) NSTEMI (non-ST elevated myocardial infarction) (Resolved) Gallbladder & bile duct stone with obstruction (Resolved) S/P triple vessel bypass (Resolved) The patient is a 83 year old F with a significant history of CAD status post CABG; hypertension; COPD; obstructive sleep apnea who was admitted to [place] from outside hospital because of nausea and vomiting; severe headache; subjective fever; rigors; shortness of breath, anorexia; and jitteriness and dry cough; and family member recently diagnosed with Legionella pneumonia consistent with community-acquired pneumonia probably secondary to Legionella pneumonia. 1. Community-acquired pneumonia likely from gram-positive with acute hypoxic respiratory insufficiency/COPD without exacerbation and ELIE -Legionella antigen is negative -Continue with Levaquin daily -Sputum culture pending, she states she is not coughing up anything -Continue with in the incentive spirometer -2 L nasal cannula, she is not on any home O2, will wean today as able -Continue with home inhalers, if she is still on O2 by tomorrow, reasonable to start prednisone 2. CAD status post CABG and stent/chronic diastolic CHF/HTN/HLD -Continue with aspirin and Plavix -Continue with home cholesterol medications and blood pressure medications 3. GERD -Stable -Continue with PPI DVT: Heparin Microbiology Past 72 Hours 01/07/19 03:25 Urine, Clean Catch Streptococcus pneumoniae Antigen (M - Final 01/07/19 03:25 Urine, Clean Catch Legionella Antigen - Final
[2019-01-09] MEDS: levoFLOXacin IV 750 MG/150 ML BAG 100 MG IV (09:22)
[2019-01-09] MEDS: 0.9% NaCl Peripheral Flush Adult/Peds IV (09:23)
[2019-01-09] MEDS: Gabapentin 300 MG Capsule PO (09:28)
[2019-01-09] MEDS: Pantoprazole Sodium 40 MG Tablet PO (09:28)
[2019-01-09] MEDS: Clopidogrel Bisulfate 75 MG Tablet PO (09:28)
[2019-01-09] MEDS: guaiFENesin 1,200 MG Tablet 1200 MG PO (09:28)
[2019-01-09] MEDS: Furosemide 40 MG Tablet PO (09:28)
[2019-01-09] MEDS: Isosorbide Mononitrate 60 MG Tablet PO (09:28)
[2019-01-09] MEDS: Loratadine 10 MG Tablet PO (09:28)
[2019-01-09] MEDS: Fluticasone 0.05% 1 SPRAY NASAL.SRY 2 SPRAY NASAL (09:28)
[2019-01-09] MEDS: Fenofibrate 145 MG Tablet PO (09:28)
[2019-01-09] MEDS: Heparin Injection (Vial) 5,000 UNIT/ML VIAL 5000 UNIT SC (09:28)
[2019-01-09] MEDS: Metoprolol Tartrate 25 MG Tablet PO (09:29)
--- NOTE | 2019-01-09 10:28 | DCINST_ITS ---
- Discharge Diagnoses Current Active Problems: Current Active and Chronic Problems (Last Reviewed 01/07/19 @ 05:24 by Asif Davis MD) Community acquired pneumonia (Acute) You will use the following diet at home:: Cardiac Your liquids should be the consistency of: Regular/Thin Discharge Activity: May Not Drive Call your doctor if you observe: Fever of 101 or Higher, Inability to urinate, Inability to have a bowel movement, Shortness of breath, Dizziness, Fainting spells, Swelling in the ankles, Chest pain, Increased palpitations (irregular heartbeat) Allergies/Adverse Reactions: Allergies acyclovir Allergy (Verified 08/05/18 13:23) Unknown belladonna alkaloids Allergy (Verified 08/05/18 13:23) Unknown tree and shrub pollen Allergy (Verified 08/05/18 13:23) cough valacyclovir HCl [From Valtrex] Allergy (Verified 08/05/18 13:23) Other venom-honey bee [bee venom (honey bee)] Allergy (Verified 08/05/18 13:23) Angioedema iodine Adverse Reaction (Severe, Verified 08/05/18 13:23) Other burning, rash lisinopril Adverse Reaction (Severe, Verified 08/05/18 13:23) Diarrhea Vomiting, Cough, Congestion, Pain, Headache, Drainage, Nausea metformin Adverse Reaction (Severe, Verified 08/05/18 13:23) Diarrhea, GI upset, Vomiting, Headache, Dizziness, Nausea Tetracyclines Adverse Reaction (Severe, Verified 08/05/18 13:23) headache, vomiting, rash nitrofurantoin [From Macrodantin] Adverse Reaction (Unknown, Verified 08/05/18 13:23) Unknown propoxyphene [From Darvocet-N] Adverse Reaction (Unknown, Verified 08/05/18 13:23) Unknown valacyclovir [From Valtrex] Adverse Reaction (Unknown, Verified 08/05/18 13:23) Seizure acetaminophen [From Darvocet-N 100] Adverse Reaction (Verified 08/05/18 13:23) Unknown animal dander Adverse Reaction (Verified 08/05/18 13:23) Other aspirin Adverse Reaction (Verified 08/05/18 13:23) Other atropine sulfate [From ] Adverse Reaction (Verified 08/05/18 13:23) Unknown codeine Adverse Reaction (Verified 08/05/18 13:23) Nausea/Vom/Diarrhea hyoscyamine sulfate [From ] Adverse Reaction (Verified 08/05/18 13:23) Unknown Iodinated Contrast Media [CONTRASTS] Adverse Reaction (Verified 08/05/18 13:23) Rash meperidine HCl [From Demerol] Adverse Reaction (Verified 08/05/18 13:23) Unknown niacin Adverse Reaction (Verified 08/05/18 13:23) Upset Stomach nitroglycerin [From Nitro-Dur] Adverse Reaction (Verified 08/05/18 13:23) Other RASH, CAUSED PATIENT TO GET AGITATED. oxytetracycline [From Terramycin] Adverse Reaction (Verified 08/05/18 13:23) Hives oxytetracycline HCl [From Terramycin] Adverse Reaction (Verified 08/05/18 13:23) Hives Penicillins Adverse Reaction (Verified 08/05/18 13:23) Hives perfume Adverse Reaction (Verified 08/05/18 13:23) Shortness of breath phenobarbital [From ] Adverse Reaction (Verified 08/05/18 13:23) Unknown piroxicam Adverse Reaction (Verified 08/05/18 13:23) Unknown prochlorperazine Adverse Reaction (Verified 08/05/18 13:23) Rash propoxyphene napsylate [From Darvocet-N 100] Adverse Reaction (Verified 08/05/18 13:23) Unknown scopolamine hydrobromide [From ] Adverse Reaction (Verified 08/05/18 13:23) Unknown Sulfa (Sulfonamide Antibiotics) Adverse Reaction (Verified 08/05/18 13:23) Rash terfenadine [From [place]] Adverse Reaction (Verified 08/05/18 13:23) Unknown tetracycline Adverse Reaction (Verified 08/05/18 13:23) Rash Codeine Adverse Reaction (Unknown, Uncoded 08/05/18 13:23) Diarrhea, Vomiting, Nausea Prochlorperazine Adverse Reaction (Unknown, Uncoded 08/05/18 13:23) Rash sulfonamide antibiotics Adverse Reaction (Unknown, Uncoded 08/05/18 13:23) Rash, Hives Medications to take at Discharge Acetaminophen [Tylenol] 1,000 mg PO Q6H PRN PRN 12/03/15 Cholecalciferol (VIT D3) [Vitamin D3] 1,000 unit PO BID 12/03/15 Ferrous Sulfate 325 mg PO DAILY@0800 12/03/15 Fluticasone 0.05% [Flonase Nasal [place]] 2 spray NASAL BID 12/03/15 Lactobacillus Acidophilus [Acidophilus] 1 cap PO TID 12/03/15 Loperamide [Imodium] 2 mg PO Q2H PRN PRN 12/03/15 Loratadine [Claritin] 10 mg PO DAILY 12/03/15 Nitroglycerin (INPATIENT USE) [Nitrostat] 0.4 mg SUBLINGUAL Q5M PRN 12/03/15 Premarin Vag Cream 0.5 gm TOPICAL SUWE 12/03/15 levETIRAcetam tablet [Keppra tablet] 500 mg PO 08,199912/03/15 proMETHazine tablet [Phenergan tablet] 25 mg PO Q6H PRN PRN 12/03/15 Albuterol Aerosols [Ventolin Aerosols] 2.5 mg INHALATION Q2H PRN PRN #90 vial.neb. 04/27/17 albuterol sulfate HFA 90 mcg/actuation aerosol inhaler 2 puff INHALATION Q4H PRN g 05/04/17 Aspirin E.C. [Ecotrin] 81 mg PO DAILY 12/01/17 Gabapentin [Neurontin] 300 mg PO BID 12/01/17 Sodium Chloride 0.65% [[place] Nasal [place]] 1 spray NASAL PRN 12/01/17 umeclidinium 62.5 mcg-vilanterol 25 mcg/actuation powdr for inhalation 1 inh INHALATION Q24H #60 ea 03/24/18 clopidogrel 75 mg tablet 75 mg PO DAILY #90 tab 08/04/18 fenofibrate 160 mg tablet 160 mg PO DAILY #90 tab 08/04/18 furosemide 40 mg tablet 40 mg PO BID #60 tab 08/10/18 pantoprazole 40 mg tablet,delayed release 40 mg PO DAILY #30 tab 08/10/18 potassium chloride ER 10 mEq tablet,extended release(part/cryst) 20 meq PO BID #60 tab 08/10/18 isosorbide mononitrate ER 60 mg tablet,extended release 24 hr 60 mg PO BID #60 tab 08/31/18 Metoprolol Tartrate [Lopressor (beta emma)] 25 mg PO BID 01/06/19 Guaifenesin [Mucinex] 1,200 mg PO BID #14 tab 01/09/19 Levofloxacin [Levaquin] 500 mg PO DAILY #5 tab 01/09/19 The following prescriptions were given: Levofloxacin [Levaquin] 500 mg PO DAILY #5 tab Transmission Status: Pending to [id number] Guaifenesin [Mucinex] 1,200 mg PO BID #14 tab Transmission Status: Pending to [id number] Primary Care Physician: Stefany Arambula DO [Primary Care Provider] - Please follow up with your Primary Care Physician in: in 1-2 weeks Test Results: Test results from this visit will be discussed in further detail at your follow- up appointment, if applicable. Please Follow Up With: Abhijeet Galvan MD When: COPD and ELIE on O2 HS.
--- NOTE | 2019-01-09 10:30 | PCM.DC.SUM ---
Discharge Date and Diagnosis - Problem List Patient Problems: Active and Suspected Problems (Last Reviewed 01/07/19 @ 05:24 by Asif Davis MD) Community acquired pneumonia (Acute) Date of Admission: 01/06/19 Date of Discharge: 01/09/19 - Primary Discharge Diagnosis Active and Suspected Problems (Last Reviewed 01/07/19 @ 05:24 by Asif Davis MD) Community acquired pneumonia (Acute) - Secondary Discharge Diagnosis Chronic Problems (Last Reviewed 01/07/19 @ 05:24 by Asif Davis MD) Pure hypercholesterolemia (Chronic) Essential (primary) hypertension (Chronic) History of coronary artery stent placement (Chronic) S/P PTCA/ANGELIC to proximal and mid RCA in May 2017; PTCA/ANGELIC to LAD x2 in December 2017; 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) ELIE (obstructive sleep apnea) (Chronic) Cardiomyopathy, ischemic (Chronic) S/P CABG x 3 (Chronic) [facility]: 10/13/2012: FUENTES to LCX/OM; SVG to DX; SVG to RCA CAD (coronary artery disease) (Chronic) [facility]: 10/13/2012: FUENTES to LCX/OM; SVG to DX; SVG to RCA; PTCA/ANGELIC to proximal and mid RCA in May 2017; PTCA/ANGELIC to LAD x2 in December 2017; CHF (congestive heart failure) (Chronic) Asthma (Chronic) Cervical spinal stenosis (Chronic) Seizure (Chronic) cva (Chronic) Hospital Course and Treatment Operations: None Summary of Care Provided: The patient is a 83 year old F with a significant history of CAD status post CABG; hypertension; COPD; obstructive sleep apnea who was admitted from outside hospital because of nausea and vomiting; severe headache; subjective fever; rigors; shortness of breath, anorexia; and jitteriness and dry cough; and family member recently diagnosed with Legionella pneumonia consistent with community-acquired pneumonia. 1. Community-acquired pneumonia likely from gram-positive with chronic hypoxic respiratory insufficiency/COPD without exacerbation and ELIE. No high-grade fever for more than 48 hours. Last fever T 100.5 on 01/07. No tachycardia. -Legionella antigen is negative -Continue with Levaquin daily. -Continue with in the incentive spirometer -Patient uses oxygen at night. She had a sleep study done and was positive for obstructive sleep apnea but could not tolerate CPAP and therefore was given oxygen at night. Currently, pulse ox 9194% on room air. -Continue with home inhalers. On walking pulse oximetry, pulse ox 87% on ambulation on RA, 92% on 1 L of oxygen on ambulation. At rest, 95% on room air Patient is ambulatory in home and in the community and requires home oxygen with portability. 2. CAD status post CABG and stent/chronic diastolic CHF/HTN/HLD -Continue with aspirin and Plavix -Continue with home cholesterol medications and blood pressure medications 3. GERD -Stable -Continue with PPI DVT: Heparin Patient follows Dr. Galvan, or the gate supervisor. Advised to follow-up in 2 to 4 weeks. Prescription given for Levaquin for 5 more days to complete a total of 7 days. Patient has inhalers at home. Discharge medication reconciliation done. Discharge follow-up instructions completed. Discharge process discussed with the patient and all questions were answered to patient's satisfaction.. Total time spent, exact 35 minutes on discharge meds reconciliation, examination, review of imaging and blood test and discussion with the patient on follow-up instructions. Microbiology Past 72 Hours 01/07/19 03:25 Urine, Clean Catch Streptococcus pneumoniae Antigen (M - Final 01/07/19 03:25 Urine, Clean Catch Legionella Antigen - Final [] Patient Problems: Active and Suspected Problems (Last Reviewed 01/07/19 @ 05:24 by Asif Davis MD) Community acquired pneumonia (Acute) - Physical Exam General: Alert, Oriented x3, Cooperative HEENT: Atraumatic, PERRLA, EOMI, Normocephalic Neck: Supple, No JVD, Negative Carotid Bruits Lungs: Clear to auscultation, No rhonchi, No wheeze, No rales, Diminished - Air entry is diminished. Cardiovascular: Regular rate, Regular Rhythm, Normal S1, Normal S2, No murmurs Abdomen: Bowel Sounds Present, Soft, Non Tender, Non-Distended Extremities: No edema, Capillary Refill Less than 3 Seconds Skin: No rashes, No breakdown Musculoskeletal: No Tenderness to Palpation of Joints or Extremities, Arthritic Changes Neurological: Cranial nerves II-XII grossly intact, Deep Tendon Reflexes 2+/4 and Symmetrical, Neuro grossly intact, Motor Exam 5/5 strength throughout Psych/Mental Status: Normal Affect, Appropriate Vital Signs Temp Pulse Resp BP Pulse Ox 98.5 F 83 18 144/58 H 94 01/09/19 09:32 01/09/19 09:32 01/09/19 09:32 01/09/19 09:32 01/09/19 09:32 Oxygen Flow Rate (L/min) 2 Oxygen Delivery Method Room Air Weight: 201 lb 4.513 oz Body Mass Index (BMI) 36.8 Finger Stick Blood Glucose 88 Intake and Output for Last 24 Hours 01/07/19 01/08/19 01/09/19 23:59 23:59 23:59 Intake Total 950 / 1190 810 / 1310 800 / 800 Output Total 150 / 150 0 / 0 Balance 800 / 1040 810 / 1310 800 / 800 Microbiology Past 72 Hours 01/07/19 03:25 Streptococcus pneumoniae Antigen (M - Final Urine, Clean Catch 01/07/19 03:25 Legionella Antigen - Final Urine, Clean Catch Discharge Activity: May Not Drive Call your doctor if you observe: Fever of 101 or Higher, Inability to urinate, Inability to have a bowel movement, Shortness of breath, Dizziness, Fainting spells, Swelling in the ankles, Chest pain, Increased palpitations (irregular heartbeat) Home Medications: Medications to take at Discharge Acetaminophen [Tylenol] 1,000 mg PO Q6H PRN PRN 12/03/15 Cholecalciferol (VIT D3) [Vitamin D3] 1,000 unit PO BID 12/03/15 Ferrous Sulfate 325 mg PO DAILY@0800 12/03/15 Fluticasone 0.05% [Flonase Nasal [facility]] 2 spray NASAL BID 12/03/15 Lactobacillus Acidophilus [Acidophilus] 1 cap PO TID 12/03/15 Loperamide [Imodium] 2 mg PO Q2H PRN PRN 12/03/15 Loratadine [Claritin] 10 mg PO DAILY 12/03/15 Nitroglycerin (INPATIENT USE) [Nitrostat] 0.4 mg SUBLINGUAL Q5M PRN 12/03/15 Premarin Vag Cream 0.5 gm TOPICAL SUWE 12/03/15 levETIRAcetam tablet [Keppra tablet] 500 mg PO 0800,199912/03/15 proMETHazine tablet [Phenergan tablet] 25 mg PO Q6H PRN PRN 12/03/15 Albuterol Aerosols [Ventolin Aerosols] 2.5 mg INHALATION Q2H PRN PRN #90 vial.neb. 04/27/17 albuterol sulfate HFA 90 mcg/actuation aerosol inhaler 2 puff INHALATION Q4H PRN g 05/04/17 Aspirin E.C. [Ecotrin] 81 mg PO DAILY 12/01/17 Gabapentin [Neurontin] 300 mg PO BID 12/01/17 Sodium Chloride 0.65% [[place] Nasal [facility]] 1 spray NASAL PRN 12/01/17 umeclidinium 62.5 mcg-vilanterol 25 mcg/actuation powdr for inhalation 1 inh INHALATION Q24H #60 ea 03/24/18 clopidogrel 75 mg tablet 75 mg PO DAILY #90 tab 08/04/18 fenofibrate 160 mg tablet 160 mg PO DAILY #90 tab 08/04/18 furosemide 40 mg tablet 40 mg PO BID #60 tab 08/10/18 pantoprazole 40 mg tablet,delayed release 40 mg PO DAILY #30 tab 08/10/18 potassium chloride ER 10 mEq tablet,extended release(part/cryst) 20 meq PO BID #60 tab 08/10/18 isosorbide mononitrate ER 60 mg tablet,extended release 24 hr 60 mg PO BID #60 tab 08/31/18 Metoprolol Tartrate [Lopressor (beta emma)] 25 mg PO BID 01/06/19 Guaifenesin [Mucinex] 1,200 mg PO BID #14 tab 01/09/19 Levofloxacin [Levaquin] 500 mg PO DAILY #5 tab 01/09/19 Following Prescrptions Were Given to Patient: Levofloxacin [Levaquin] 500 mg PO DAILY #5 tab Transmission Status: Received by [facility] Guaifenesin [Mucinex] 1,200 mg PO BID #14 tab Transmission Status: Received by [facility] Primary Care Physician: Stefany Arambula DO [Primary Care Provider] - Please follow up with your Primary Care Physician in: in 1-2 weeks Please Follow Up With: Abhijeet Galvan MD When: COPD and ELIE on O2 HS. Medical Necessity - Tobacco Use Smoking Status: Former smoker Meaningful Use Info Meaningful Use Diagnoses (Choose all that apply): None applicable Code Visit Inpatient E&M: 21944 [facility]
--- NOTE | 2019-01-09 10:39 | CASEMGMT ---
LISSA CERON in to discuss discharge plans with patient. Patient wishes to discharge home with [employer] [facility] [employer]. LISSA CERON discussed possible HHC for nursing and therapy. Patient declines need for HHC at this time. LISSA CERON instructed patient that should she reconsider once home she can follow-up with her PCP. Patient to have walking oxygen testing completed prior to discharge. CM to monitor need for home oxygen for portability. Patient has stationary concentrator at home for oxygen at through [facility].
--- NOTE | 2019-01-09 11:25 | CASEMGMT ---
Social Work Note Pt is discharging home today. FAUZIA placed a call to pt's CM Katelyn Chung and updated her that pt will be discharged home today. FAUZIA faxed discharge paperwork to Katelyn Chung. 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
--- NOTE | 2019-01-09 12:00 | CASEMGMT ---
LISSA CERON updated that patient will need portable oxygen at discharge. Script received for home oxygen with portability. LISSA CERON updated patient, she would like oxygen setup with [facility], whom she already has nocturnal oxygen through. LISSA CERON sent referral to [facility] and requested portable tank be delivered to hospital prior to discharge. CM will continue to follow this patient and plan for a safe discharge.
[2019-01-09] MEDS: levoFLOXacin 750 MG Tablet PO (13:56)
== END 2019-01-09 14:58 | disposition home or self-care (01) | DRG 194 ==
PROVIDERS: Family Medicine; Admitting Provider Hospitalist; Family Provider Family Medicine; PCP Family Medicine; Referring Provider Internal Medicine; Visit Provider Internal Medicine
DX: J15.9 Unspecified bacterial pneumonia (principal); I50.32 Chronic diastolic (congestive) heart failure; I25.10 Atherosclerotic heart disease of native coronary artery without angina pectoris; K21.9 Gastro-esophageal reflux disease without esophagitis; Z87.891 Personal history of nicotine dependence; J44.9 Chronic obstructive pulmonary disease, unspecified; I11.0 Hypertensive heart disease with heart failure; R09.02 Hypoxemia; R06.89 Other abnormalities of breathing; Z95.1 Presence of aortocoronary bypass graft; Z95.5 Presence of coronary angioplasty implant and graft; E78.00 Pure hypercholesterolemia, unspecified
CPT/HCPCS: 36415; 80048; 85025; 87449; 94640; 94667; 94668; 97162; 97165; 97530; A4216; J2405

== ENCOUNTER 2020-09-04 18:58 | Observation (INO) | payer MEDICARE, MEDICAID, SELFPAY ==
[2017-12-23 13:44] VITALS: BMI 40.0
[2019-05-05 10:50] VITALS: BMI 35.8
[2020-09-04 18:49] VITALS: BMI 39.9
[2020-09-04 19:00] VITALS: PULSE 61
--- NOTE | 2020-09-04 19:18 | PCM.HP.STD ---
<Yessica Keller - Last Filed: 09/04/20 19:18> Problem List (1) Chest pain Status: Acute (2) Atherosclerotic heart disease of [place] coronary artery without angina pectoris Status: Chronic (3) Pure hypercholesterolemia Status: Chronic (4) Essential (primary) hypertension Status: Chronic (5) Stage 1 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 Status: Chronic (6) ELIE (obstructive sleep apnea) Status: Chronic Comment: Noncomplaint (7) CHF (congestive heart failure) Status: Chronic (8) Asthma Status: Chronic (9) History of coronary artery bypass graft x 3 Status: Chronic Comment: FUENTES to LCX/OM; SVG to DX; SVG to RCA [facility]: 10/13/2012 (10) Presence of stent in coronary artery Status: Chronic Comment: PTCA/ANGELIC to prox RCA and mid RCA 05/24/2017; PTCA/ANGELIC to LAD x2 in December 2017; History of Present Illness Date of Admission: 09/04/20 Chief Complaint: CHEST PAIN The patient is a 85 year old F today from [facility] with complaints of chest pain. Patient states that she was at home sitting in her recliner around 1:00 this afternoon when she got a sudden sharp chest pain that is substernal and did not radiate to her back neck or arm. Patient states that when the pain began it was a 10 out of 10. Patient states that she then got up to the bathroom and the pain worsened with ambulation. Patient reports that she took a nitro 0.4 sublingual every 5 minutes x3 with no relief of chest pain at which time she presented to [facility]. Patient has an extensive cardiac history including 2 stents and CABG x3 along with hypertension, hyperlipidemia, coronary artery disease, CHF, history of unstable angina. Past Medical History Past Medical History (Chronic Problems): Chronic Problems (Last Reviewed 09/04/20 @ 19:23 by Yessica Keller, WEIGHT CONTROL ENGINEER-C) History of coronary artery bypass graft x 3 (Chronic ~10/13/12) FUENTES to LCX/OM; SVG to DX; SVG to RCA [facility]: 10/13/2012 Presence of stent in coronary artery (Chronic ~12/23/17) PTCA/ANGELIC to prox RCA and mid RCA 05/24/2017; PTCA/ANGELIC to LAD x2 in December 2017; Atherosclerotic heart disease of [place] coronary artery without angina pectoris (Chronic) Pure hypercholesterolemia (Chronic) Essential (primary) hypertension (Chronic) 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) ELIE (obstructive sleep apnea) (Chronic) Noncomplaint Cardiomyopathy, ischemic (Chronic) CHF (congestive heart failure) (Chronic) Asthma (Chronic) Medical History: Medical History (Last Reviewed 09/04/20 @ 19:23 by Yessica Keller NP-C) Presence of stent in coronary artery (Chronic) Onset Date: ~12/23/17 Z95.5 PTCA/ANGELIC to prox RCA and mid RCA 05/24/2017; PTCA/ANGELIC to LAD x2 in December 2017; Atherosclerotic heart disease of [place] coronary artery without angina pectoris (Chronic) I25.10 Pure hypercholesterolemia (Chronic) E78.00 Essential (primary) hypertension (Chronic) I10 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) J44.9 ELIE (obstructive sleep apnea) (Chronic) G47.33 Noncomplaint Cardiomyopathy, ischemic (Chronic) I25.5 CHF (congestive heart failure) (Chronic) I50.9 Asthma (Chronic) J45.909 CVA (cerebral vascular accident) I63.9 Cervical spinal stenosis M48.02 Seizure R56.9 Gallbladder & bile duct stone with obstruction K80.71 NSTEMI (non-ST elevated myocardial infarction) I21.4 Unstable angina (Resolved) I20.0 Allergies acyclovir Allergy (Verified 05/05/19 10:47) Unknown belladonna alkaloids Allergy (Verified 05/05/19 10:47) Unknown tree and shrub pollen Allergy (Verified 05/05/19 10:47) cough valacyclovir HCl [From Valtrex] Allergy (Verified 05/05/19 10:47) Other venom-honey bee [bee venom (honey bee)] Allergy (Verified 05/05/19 10:47) Angioedema iodine Adverse Reaction (Severe, Verified 05/05/19 10:47) Other burning, rash lisinopril Adverse Reaction (Severe, Verified 05/05/19 10:47) Diarrhea Vomiting, Cough, Congestion, Pain, Headache, Drainage, Nausea metformin Adverse Reaction (Severe, Verified 05/05/19 10:47) Diarrhea, GI upset, Vomiting, Headache, Dizziness, Nausea Tetracyclines Adverse Reaction (Severe, Verified 05/05/19 10:47) headache, vomiting, rash nitrofurantoin [From Macrodantin] Adverse Reaction (Unknown, Verified 05/05/19 10:47) Unknown propoxyphene [From Darvocet-N] Adverse Reaction (Unknown, Verified 05/05/19 10:47) Unknown valacyclovir [From Valtrex] Adverse Reaction (Unknown, Verified 05/05/19 10:47) Seizure acetaminophen [From Darvocet-N 100] Adverse Reaction (Verified 05/05/19 10:47) Unknown animal dander Adverse Reaction (Verified 05/05/19 10:47) Other aspirin Adverse Reaction (Verified 05/05/19 10:47) Other atropine sulfate [From ] Adverse Reaction (Verified 05/05/19 10:47) Unknown codeine Adverse Reaction (Verified 05/05/19 10:47) Nausea/Vom/Diarrhea hyoscyamine sulfate [From ] Adverse Reaction (Verified 05/05/19 10:47) Unknown Iodinated Contrast Media [CONTRASTS] Adverse Reaction (Verified 05/05/19 10:47) Rash meperidine HCl [From Demerol] Adverse Reaction (Verified 05/05/19 10:47) Unknown niacin Adverse Reaction (Verified 05/05/19 10:47) Upset Stomach nitroglycerin [From Nitro-Dur] Adverse Reaction (Verified 05/05/19 10:47) Other RASH, CAUSED PATIENT TO GET AGITATED. oxytetracycline [From Terramycin] Adverse Reaction (Verified 05/05/19 10:47) Hives oxytetracycline HCl [From Terramycin] Adverse Reaction (Verified 05/05/19 10:47) Hives Penicillins Adverse Reaction (Verified 05/05/19 10:47) Hives perfume Adverse Reaction (Verified 05/05/19 10:47) Shortness of breath phenobarbital [From ] Adverse Reaction (Verified 05/05/19 10:47) Unknown piroxicam Adverse Reaction (Verified 05/05/19 10:47) Unknown prochlorperazine Adverse Reaction (Verified 05/05/19 10:47) Rash propoxyphene napsylate [From Darvocet-N 100] Adverse Reaction (Verified 05/05/19 10:47) Unknown scopolamine hydrobromide [From ] Adverse Reaction (Verified 05/05/19 10:47) Unknown Sulfa (Sulfonamide Antibiotics) Adverse Reaction (Verified 05/05/19 10:47) Rash terfenadine [From Seldane] Adverse Reaction (Verified 05/05/19 10:47) Unknown tetracycline Adverse Reaction (Verified 05/05/19 10:47) Rash Codeine Adverse Reaction (Unknown, Uncoded 05/05/19 10:47) Diarrhea, Vomiting, Nausea Prochlorperazine Adverse Reaction (Unknown, Uncoded 05/05/19 10:47) Rash sulfonamide antibiotics Adverse Reaction (Unknown, Uncoded 05/05/19 10:47) Rash, Hives Home Medications: Ambulatory Orders Medication Instructions Recorded Acetaminophen [Tylenol] 1,000 mg PO BID 12/03/15 Cholecalciferol (VIT D3) [Vitamin 1,000 unit PO BID 12/03/15 D3] Ferrous Sulfate 325 mg PO DAILY@0800 12/03/15 Fluticasone 0.05% [Flonase Nasal 2 spray NASAL BID 12/03/15 [place]] Lactobacillus Acidophilus 1 cap PO TID 12/03/15 [Acidophilus] Loperamide [Imodium] 2 mg PO Q2H PRN PRN 12/03/15 Loratadine [Claritin] 10 mg PO DAILY 12/03/15 Nitroglycerin (INPATIENT USE) 0.4 mg SUBLINGUAL Q5M PRN 12/03/15 [Nitrostat] levETIRAcetam tablet [Keppra 500 mg PO 0800,199912/03/15 tablet] proMETHazine tablet [Phenergan 25 mg PO Q6H PRN PRN 12/03/15 tablet] Albuterol Aerosols [Ventolin 2.5 mg INHALATION Q2H PRN PRN #90 04/27/17 Aerosols] vial.neb. albuterol sulfate 90 mcg/actuation 2 puff INHALATION Q4H PRN g 05/04/17 aerosol inhaler Aspirin E.C. [Ecotrin] 81 mg PO DAILY 12/01/17 Gabapentin [Neurontin] 300 mg PO BID 12/01/17 Sodium Chloride 0.65% [Door Nasal 1 spray NASAL PRN 12/01/17 [place]] pantoprazole 40 mg tablet,delayed 40 mg PO DAILY #30 tab 08/10/18 release Metoprolol Tartrate [Lopressor 25 mg PO BID 01/06/19 (beta emma)] coenzyme Q10 100 mg capsule 100 mg PO DAILY 02/08/19 dicyclomine 10 mg capsule 10 mg PO Q6H cap 02/08/19 diphenoxylate-atropine 2.5 1 tab PO Q6H PRN tab 02/08/19 mg-0.025 mg tablet estradiol 1 g VAGINAL 2XW 02/08/19 losartan 25 mg tablet 25 mg PO DAILY 02/08/19 ranolazine 500 mg tablet,extended 500 mg PO Q12H 02/08/19 release,12 hr clopidogrel 75 mg tablet 75 mg PO DAILY #90 tab 07/01/20 fenofibrate 160 mg tablet 160 mg PO DAILY #90 tab 07/01/20 furosemide 40 mg tablet 40 mg PO BID #180 tab 07/01/20 isosorbide mononitrate 60 mg 60 mg PO BID #180 tab 07/01/20 tablet,extended release 24 hr potassium chloride 10 mEq 20 meq PO BID #180 tab 07/25/20 tablet,extended release(part/cryst) Surgical History: Surgical History (Last Reviewed 09/04/20 @ 19:23 by JORGE Armando) History of coronary artery bypass graft x 3 (Chronic) Onset Date: ~10/13/12 Z95.1 FUENTES to LCX/OM; SVG to DX; SVG to RCA [facility]: 10/13/2012 Presence of coronary angioplasty implant and graft Onset Date: ~12/23/17 Z95.5 PTCA/ANGELIC to prox RCA and mid RCA 05/24/2017; PTCA/ANGELIC to LAD x2 in December 2017; History of cholecystectomy Z90.49 History of excision of pilonidal cyst Z98.890 History of hysterectomy Z90.710 Status post left oophorectomy Z90.721 Surgical History: appendectomy, coronary bypass surgery, hysterectomy - bladder surgery, pilonidal cyst, gallbladder surgery,, - - bladder surgery (multiple), left ovarian removal, pilonidal cyst surgery, coronary artery stent placement Psychiatric History: No pertinent psych hx FIELD TRAINING AGENT History: No pertinent FIELD TRAINING AGENT history Lives: Spouse/ Significant Other Smoking Status: Former smoker - Day x1 year, quit in 1963 Alcohol: None Drugs: None - *Family History Maternal Family History: Family History (Last Reviewed 09/04/20 @ 19:24 by Yessica Knoble, WEIGHT CONTROL ENGINEER-C) Father Heart disease CVA (cerebral vascular accident) Mother Colon cancer Brother Cancer Brother Cancer History Items: Cancer, - - colon cancer Paternal Family History: Family History (Last Reviewed 09/04/20 @ 19:24 by LULU ArmandoC) Father Heart disease CVA (cerebral vascular accident) Mother Colon cancer Brother Cancer Brother Cancer History Items: Stroke, - - father with cva Review of Systems Constitutional: Denies: Chills, Fever, Weight Change HEENT: Denies: Head Aches, Sinus Congestion, Sinus Drainage Cardiovascular: Reports: Chest Pain - Sharp shooting substernal initially 10 out of 10, 4 out of 10 at this time. Denies: Palpitations Respiratory: Reports: Shortness of Breath - Concurrent chest pain. Denies: Cough, Shortness of breath at rest, Sputum production Gastrointestinal: Denies: Abdominal Pain, Nausea, Vomiting Genitourinary: Denies: Dysuria Musculoskeletal: Denies: Joint Pain, Joint Tenderness Skin: Denies: Rash, Wounds Neurological: Denies: Numbness, Tingling, Focal weakness Psychiatric: Denies: Anxiety, Depression, Homicidal Ideations, Suicidal Ideations Hematologic/ Lymphatic: Denies: Easy Bruising, Easy Bleeding VTE Information - Inpt Only VTE Present on Admission: No VTE Mechan Device Prophylaxis: None VTE Pharm Prophylaxis ordered?: Yes - Physical Exam Vitals/I&O's: Weight: 218 lb 0.595 oz Body Mass Index (BMI) 39.9 Finger Stick Blood Glucose 88 General: Alert, Oriented x3, Cooperative HEENT: Atraumatic, PERRLA, EOMI, Normocephalic Neck: Supple, No JVD, Negative Carotid Bruits Lungs: Normal air movement, No rhonchi, No wheeze, No rales, Diminished Cardiovascular: Regular rate, Regular Rhythm, Normal S1, Normal S2, No murmurs Abdomen: Bowel Sounds Present, Soft, Non Tender Extremities: No edema, Capillary Refill Less than 3 Seconds, Peripheral Pulses Normal Skin: No rashes, No breakdown Musculoskeletal: No Tenderness to Palpation of Joints or Extremities Neurological: Cranial nerves II-XII grossly intact Psych/Mental Status: Normal Affect, Appropriate Current Medications Sodium Chloride () 250 mls @ 15 mls/hr IV .[id number] PRN PRN Reason: Saline Flush Sodium Chloride () 250 mls @ 15 mls/hr IV .[id number] PRN PRN Reason: Additional IVPB Infusion Nutritional Formula (Lactose Free) (Ensure Enlive 120 Ml Liquid) 120 ml PO 4X/DAY MARÍA Sodium Chloride (0.9% Saline Lock 10 Ml Syringe) 10 - 40 ml IV UD PRN PRN Reason: SALINE FLUSH Assessment/Plan All Active Problems (Last Reviewed 09/04/20 @ 19:23 by Yessica Keller NP-C) Chest pain (Acute) Community acquired pneumonia (Resolved) Unstable angina (Resolved) 1. Chest Pain -Admit to PCU for continuous cardiac monitoring -Trend cardiac enzymes, initial troponin negative at [place] -EKG upon arrival shows normal sinus rhythm -Stress test ordered for a.m., last stress test completed in 2019 -CBC and CMP daily -Vital signs per protocol -Cardiac calorie controlled diet ordered, n.p.o. at midnight for stress test in a.m. -Consult cardiology, heart score 5, JOSE score 5 -As needed sublingual nitroglycerin ordered due to patient ongoing chest pain 2. Atherosclerotic heart disease of [place] coronary artery without angina pectoris -Continue aspirin and Plavix 3. Congestive heart failure -BNP mildly elevated, daily weights and strict I and O -Continue furosemide 40 mg twice daily -CXR negative for acute findings 4. Essential hypertension -Continue Lasix, losartan, metoprolol, and ranolazine. -Vital signs stable at this time 5. Obstructive sleep apnea -Patient does not use CPAP, refuses. 6. Pure hypercholesterolemia -Continue fenofibrate 7. Stage I mild COPD by Gold classification -Albuterol and DuoNeb nebulizer treatment as needed 8. Seizure -Continue Keppra, pt well controlled 9. Presence of stent in coronary artery -2017 10. History of coronary artery bypass graft x3 -2013 DVT prophylaxis-subcu Lovenox This patient was seen by JORGE Armando under the supervision of Dr. Pineda. <Helena Pineda - Last Filed: 09/04/20 20:17> History of Present Illness The patient is a 85 year old F [] Past Medical History Medical History: Medical History (Last Reviewed 09/04/20 @ 19:23 by JORGE Armando) Presence of stent in coronary artery (Chronic) Onset Date: ~12/23/17 Z95.5 PTCA/ANGELIC to prox RCA and mid RCA 05/24/2017; PTCA/ANGELIC to LAD x2 in December 2017; Atherosclerotic heart disease of [place] coronary artery without angina pectoris (Chronic) I25.10 Pure hypercholesterolemia (Chronic) E78.00 Essential (primary) hypertension (Chronic) I10 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) J44.9 ELIE (obstructive sleep apnea) (Chronic) G47.33 Noncomplaint Cardiomyopathy, ischemic (Chronic) I25.5 CHF (congestive heart failure) (Chronic) I50.9 Asthma (Chronic) J45.909 CVA (cerebral vascular accident) I63.9 Cervical spinal stenosis M48.02 Seizure R56.9 Gallbladder & bile duct stone with obstruction K80.71 NSTEMI (non-ST elevated myocardial infarction) I21.4 Unstable angina (Resolved) I20.0 Allergies acyclovir Allergy (Verified 05/05/19 10:47) Unknown belladonna alkaloids Allergy (Verified 05/05/19 10:47) Unknown tree and shrub pollen Allergy (Verified 05/05/19 10:47) cough valacyclovir HCl [From Valtrex] Allergy (Verified 05/05/19 10:47) Other venom-honey bee [bee venom (honey bee)] Allergy (Verified 05/05/19 10:47) Angioedema iodine Adverse Reaction (Severe, Verified 05/05/19 10:47) Other burning, rash lisinopril Adverse Reaction (Severe, Verified 05/05/19 10:47) Diarrhea Vomiting, Cough, Congestion, Pain, Headache, Drainage, Nausea metformin Adverse Reaction (Severe, Verified 05/05/19 10:47) Diarrhea, GI upset, Vomiting, Headache, Dizziness, Nausea Tetracyclines Adverse Reaction (Severe, Verified 05/05/19 10:47) headache, vomiting, rash nitrofurantoin [From Macrodantin] Adverse Reaction (Unknown, Verified 05/05/19 10:47) Unknown propoxyphene [From Darvocet-N] Adverse Reaction (Unknown, Verified 05/05/19 10:47) Unknown valacyclovir [From Valtrex] Adverse Reaction (Unknown, Verified 05/05/19 10:47) Seizure acetaminophen [From Darvocet-N 100] Adverse Reaction (Verified 05/05/19 10:47) Unknown animal dander Adverse Reaction (Verified 05/05/19 10:47) Other aspirin Adverse Reaction (Verified 05/05/19 10:47) Other atropine sulfate [From ] Adverse Reaction (Verified 05/05/19 10:47) Unknown codeine Adverse Reaction (Verified 05/05/19 10:47) Nausea/Vom/Diarrhea hyoscyamine sulfate [From ] Adverse Reaction (Verified 05/05/19 10:47) Unknown Iodinated Contrast Media [CONTRASTS] Adverse Reaction (Verified 05/05/19 10:47) Rash meperidine HCl [From Demerol] Adverse Reaction (Verified 05/05/19 10:47) Unknown niacin Adverse Reaction (Verified 05/05/19 10:47) Upset Stomach nitroglycerin [From Nitro-Dur] Adverse Reaction (Verified 05/05/19 10:47) Other RASH, CAUSED PATIENT TO GET AGITATED. oxytetracycline [From Terramycin] Adverse Reaction (Verified 05/05/19 10:47) Hives oxytetracycline HCl [From Terramycin] Adverse Reaction (Verified 05/05/19 10:47) Hives Penicillins Adverse Reaction (Verified 05/05/19 10:47) Hives perfume Adverse Reaction (Verified 05/05/19 10:47) Shortness of breath phenobarbital [From ] Adverse Reaction (Verified 05/05/19 10:47) Unknown piroxicam Adverse Reaction (Verified 05/05/19 10:47) Unknown prochlorperazine Adverse Reaction (Verified 05/05/19 10:47) Rash propoxyphene napsylate [From Darvocet-N 100] Adverse Reaction (Verified 05/05/19 10:47) Unknown scopolamine hydrobromide [From ] Adverse Reaction (Verified 05/05/19 10:47) Unknown Sulfa (Sulfonamide Antibiotics) Adverse Reaction (Verified 05/05/19 10:47) Rash terfenadine [From Seldane] Adverse Reaction (Verified 05/05/19 10:47) Unknown tetracycline Adverse Reaction (Verified 05/05/19 10:47) Rash Codeine Adverse Reaction (Unknown, Uncoded 05/05/19 10:47) Diarrhea, Vomiting, Nausea Prochlorperazine Adverse Reaction (Unknown, Uncoded 05/05/19 10:47) Rash sulfonamide antibiotics Adverse Reaction (Unknown, Uncoded 05/05/19 10:47) Rash, Hives Surgical History: Surgical History (Last Reviewed 09/04/20 @ 19:23 by JORGE Armando) History of coronary artery bypass graft x 3 (Chronic) Onset Date: ~10/13/12 Z95.1 FUENTES to LCX/OM; SVG to DX; SVG to RCA [facility]: 10/13/2012 Presence of coronary angioplasty implant and graft Onset Date: ~12/23/17 Z95.5 PTCA/ANGELIC to prox RCA and mid RCA 05/24/2017; PTCA/ANGELIC to LAD x2 in December 2017; History of cholecystectomy Z90.49 History of excision of pilonidal cyst Z98.890 History of hysterectomy Z90.710 Status post left oophorectomy Z90.721 - *Family History Maternal Family History: Family History (Last Reviewed 09/04/20 @ 19:24 by JORGE Armando) Father Heart disease CVA (cerebral vascular accident) Mother Colon cancer Brother Cancer Brother Cancer Paternal Family History: Family History (Last Reviewed 09/04/20 @ 19:24 by JORGE Armando) Father Heart disease CVA (cerebral vascular accident) Mother Colon cancer Brother Cancer Brother Cancer - Physical Exam Vitals/I&O's: Weight: 218 lb 0.595 oz Body Mass Index (BMI) 39.9 Finger Stick Blood Glucose 88 Current Medications Sodium Chloride () 250 mls @ 15 mls/hr IV .[id number] PRN PRN Reason: Saline Flush Sodium Chloride () 250 mls @ 15 mls/hr IV .[id number] PRN PRN Reason: Additional IVPB Infusion Nutritional Formula (Lactose Free) (Ensure Enlive 120 Ml Liquid) 120 ml PO 4X/DAY MARÍA Sodium Chloride (0.9% Saline Lock 10 Ml Syringe) 10 - 40 ml IV UD PRN PRN Reason: SALINE FLUSH Assessment/Plan Patient seen by JORGE Forde under my supervision Patient is an 85-year-old female with an extensive past medical history as outlined which includes a history of CAD s/p stents and CABG, asthma, ischemic cardiomyopathy, history of heart failure and pretension. Patient went to [place] emergency room on 09/04/2020 with a complaint of pressure-like chest pain which started around 1 PM on the afternoon of day of admission. Pain was persistent with no aggravating or relieving factors so she decided to go into the ED. She took sublingual nitroglycerin which did not help. In [place], EKG showed no acute ST changes and troponin done initially was also negative. Patient was transferred to [facility] for further work-up as there is no stress test facility available at [facility]. Patient was seen when she arrived at [facility]. She did not really have any chest pain at time of review. She denied any lightheadedness or dizziness, palpitations, nausea vomiting or diarrhea. Review of systems otherwise negative. She has been admitted to be managed for chest pain rule out ACS., She says she follows up with cardiology but her last documented visit in the EMR with Dr. 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 O/E: General: Alert, Oriented x3, Cooperative, obese HEENT: Atraumatic, PERRLA, EOMI, Normocephalic Neck: Supple, No JVD, Negative Carotid Bruits Lungs: Normal air movement, No rhonchi, No wheeze, No rales, Diminished Cardiovascular: Regular rate, Regular Rhythm, Normal S1, Normal S2, No murmurs Abdomen: Bowel Sounds Present, Soft, Non Tender Extremities: No edema, Capillary Refill Less than 3 Seconds, Peripheral Pulses Normal Skin: No rashes, No breakdown Musculoskeletal: No Tenderness to Palpation of Joints or Extremities Neurological: Cranial nerves II-XII grossly intact Psych/Mental Status: Normal Affect, Appropriate Plan is to admit patient to manage for chest pain rule out ACS. We will cycle troponins x3. Sublingual nitroglycerin as needed. P.o. aspirin 81 mg daily. To have a nuclear stress test tomorrow. Her last echo from August 2018 showed EF of 50% with mild segmental systolic dysfunction and mild diffuse mitral valve thickening. We will get another echo. Continue aspirin and Plavix. Cardiac diet. Continue losartan, metoprolol and ranolazine as well as Lasix. Continue Keppra for seizures. We will hold off on cardiology consult for now as she is not having any chest pain now and EKG showed no acute ST changes. She is having stress test and echo tomorrow and if these are abnormal, then cardiology will be consulted. Of note, patient had a high-sensitivity troponin done at [place] which was 7. We will cycle troponins here. Lovenox 40mg sq daily for DVT prophylaxis. Rest as per Yessica PATEL's note, which I have reviewed. OBSV E&M: [id number] Initial observation care L2
[2020-09-04 20:08] VITALS: BMI 39.9
--- NOTE | 2020-09-04 20:14 | EKG12_ITS ---
Test Reason : CP ADMIT Blood Pressure : / mmHG Vent. Rate : 059 BPM Atrial Rate : 059 BPM P-R Int : 182 ms QRS Dur : 150 ms QT Int : 468 ms P-R-T Axes : -01 018 159 degrees QTc Int : 463 ms Sinus bradycardia Left bundle branch block Abnormal ECG When compared with ECG of 24-DEC-2017 11:33, No significant change was found Confirmed by IRIS TREJO, DESHAWN ([id number]), story editor DIEGO CABRERA ([id number]) on 09/06/2020 8:27:58 AM Referred By: DR BECKER Confirmed By:MARIANGEL SIMMONS MD
--- NOTE | 2020-09-04 20:14 | ECHOD_ITS ---
Reason For Study: Arrhythmia Procedure This was a 2D Doppler, Color Flow transthoracic echocardiogram. The study was technically difficult. Exam performed in department. Left Ventricle Normal LV size. Segmental dysfunction with preserved ejection fraction (see wall motion). The estimated ejection fraction is 55 %. Post operative septal motion. No evidence for diastolic dysfunction. Basal inferoseptal: Hypokinetic. Mid-Anterior : Akinetic. Mid-inferoseptal : Hypokinetic. Mid-anteroseptal : Akinetic. Anterior [place] : Hypokinetic. Septal [place] : Hypokinetic. Right Ventricle Normal RV size. Normal systolic function. Atria The left atrium is mildly enlarged. Normal right atrium. No doppler evidence for ASD. Mitral Valve There is no mitral annular calcification. Normal mitral valve. Mild (1+) mitral valve insufficiency. Tricuspid Valve Normal tricuspid valve. Trivial tricuspid valve insufficiency. Right ventricular systolic pressure estimated to be 26 mmHg. Aortic Valve Trisinus/trileaflet aortic valve. Normal aortic valve. Pulmonic Valve The pulmonic valve is not well visualized. Great Vessels The aortic root is not well visualized. Pericardium/Pleural No pericardial effusion. MMode/2D Measurements & Calculations LVIDd: 4.1 cm IVSd: 1.0 cm LAV(MOD-bp): 56.4 ml LVIDs: 3.3 cm LVPWd: 1.0 cm LAV(MOD-bp) Indexed: 29.0 ml/m2 RVDd: 3.7 cm FS: 19.0 % LAV(MOD-sp2): 49.1 ml LAV(MOD-sp4): 62.2 ml SV(MOD-sp4): 35.8 ml LVAd ap4: 27.0 cm2 LVAd ap2: 28.3 cm2 LVLd ap4: 8.1 cm LVLd ap2: 7.9 cm EDV(MOD-sp4): 78.9 ml EDV(MOD-sp2): 88.2 ml EDV(sp4-el): 76.6 ml EDV(sp2-el): 86.5 ml LVAs ap4: 18.5 cm2 LVAs ap2: 17.1 cm2 LVLs ap4: 7.0 cm LVLs ap2: 7.0 cm ESV(MOD-sp4): 43.1 ml ESV(MOD-sp2): 36.4 ml ESV(sp4-el): 41.7 ml ESV(sp2-el): 35.5 ml EF(MOD-sp4): 45.3 % EF(MOD-sp2): 58.7 % EF(sp4-el): 45.5 % SV(MOD-sp2): 51.8 ml SV(sp4-el): 34.8 ml LA A4 area: 20.7 cm2 LA dimension(2D): 3.9 cm RA A4 area: 16.2 cm2 Doppler Measurements & Calculations MV E max arnel: 62.7 cm/sec Lat Peak E' Arnel: 6.3 cm/sec Med Peak E' Arnel: 4.5 cm/sec MV A max arnel: 89.5 cm/sec E/E' lat: 10.0 E/E' med: 13.9 MV E/A: 0.70 Ao V2 max: 145.6 cm/sec LV V1 max: 98.4 cm/sec PA V2 max: 105.8 cm/sec Ao max P.5 mmHg LV V1 max P.9 mmHg TR max arnel: 241.0 cm/sec TR max P.2 mmHg ECHO/Echo Complete Interpretation Summary The study was technically difficult. Segmental dysfunction with preserved ejection fraction (see wall motion). The estimated ejection fraction is 55 %. Post operative septal motion. The left atrium is mildly enlarged. Mild (1+) mitral valve insufficiency. Trivial tricuspid valve insufficiency. Right ventricular systolic pressure estimated to be 26 mmHg. No evidence for diastolic dysfunction. Ordering Physician: Yessica Keller Referring Physician: Stefany Durham Performed By: Radha Turner RDCS
[2020-09-04 20:31] LABS: Absolute Lymphocyte Count 3.13 X10^3/uL (0.83-4.51); Absolute Neutrophil Count 3.8 X10^3/uL (2.0-7.7); Basophil# 0.05 X10^3/uL; Basophil% 0.6 % (0-1); Eosinophil# 0.25 X10^3/uL; Eosinophils% 3.1 % (0-5); Hematocrit 40.9 % (37-47); Hemoglobin 12.7 g/dL (12.0-15.0); Lymphocyte # 3.13 X10^3/ul (0.83-4.51); Lymphocyte % 38.8 % (19-41); Mean Corp Hgb Conc 31.1 g/dL (32-36); Mean Corpuscular Hgb 31.2 pg (27.0-32.0); Mean Corpuscular Volume 100.5 fL (81-99); Mean Platelet Vol. 9.6 fl (6.2-12.0); Monocyte# 0.78 X10^3/uL; Monocyte% 9.7 % (0-10); NRBC Flagged by Analyzer 0 % (0-5); Neutrophil # 3.83 X10^3/uL (2.7-7.7); Neutrophil % 47.6 % (47-70); Platelet Count 334 K/mm3 (150-450); RBC Distribution Width CV 12.2 % (11.6-14.6); RBC Distribution Width SD 45.8 fl (35.1-43.9); Red Blood Count 4.07 M/mm3 (4.2-5.4); White Blood Count 8.1 K/mm3 (4.4-11.0)
[2020-09-04 20:41] VITALS: BP 140/64; PULSE 70; RESP 18; TEMP 37.1; O2SAT 92
[2020-09-04 20:55] LABS: Anion Gap 6 (5-15); BUN 14 mg/dL (7-18); BUN/Creat Ratio 13.7 RATIO (10-20); Calcium,Total 8.3 mg/dL (8.5-10.1); Chloride 106 mmol/L (98-107); Cholesterol 160 mg/dL (200); Creatinine, Serum 1.02 mg/dL (0.55-1.02); EST Glomerular Filtration Rate 55 mL/min (>60); Est Glom Filt Rate - Afr Amer 67 mL/min (>60); Estimated Creatinine Clearance 33.05 ml/min; Glucose 88 mg/dL (74-106); High Density Lipoprotein 37 mg/dL; Potassium 3.6 mmol/L (3.5-5.1); Sodium Level 141 mmol/L (136-145); Triglycerides 183 mg/dL; Very Low Density Lipoprotein 37 mg/dL (5-40)
[2020-09-04 20:57] LABS: D-Dimer Quantitative (DVT/PE) 0.33 FEU/ug/m (0.27-0.49)
--- NOTE | 2020-09-04 21:38 | CON.PCM_ITS ---
Problem List (1) Chest pain Status: Acute (2) Atherosclerotic heart disease of [place] coronary artery without angina pectoris Status: Chronic Qualifiers: (3) Presence of stent in coronary artery Status: Chronic Comment: PTCA/ANGELIC to prox RCA and mid RCA 05/24/2017; PTCA/ANGELIC to LAD x2 in December 2017; (4) History of coronary artery bypass graft x 3 Status: Chronic Comment: FUENTES to LCX/OM; SVG to DX; SVG to RCA [facility]: 10/13/2012 (5) Cardiomyopathy, ischemic Status: Chronic (6) CHF (congestive heart failure) Status: Chronic Qualifiers: (7) Pure hypercholesterolemia Status: Chronic (8) Essential (primary) hypertension Status: Chronic Reason for Consult Date of Consultation: 09/04/20 History of Present Illness: The patient is a 85 year old with a history of coronary artery disease status post coronary artery bypass surgery in 2012, PTCA/ANGELIC to proximal and mid RCA in May 2017, PTCA/ANEGLIC to distal LAD ?2 in December 2017, ischemic cardiomyopathy, hypertension, hyperlipidemia, seizure disorder, chronic kidney disease stage 3, and CVA presents in transfer from [facility] for concerns of atypical chest discomfort. According to the patient she presented to the hospital with symptoms of sharp fleeting stabbing chest discomfort. She states that she took nitroglycerin sublingual and maybe had partial relief. She notes that she has had on and off discomfort at various times. There are times she feels that it is not related to her heart and other times she feels that it may be related to her heart. She states she has been somewhat chronically short of breath. She denies orthopnea or PND at this time. She does not recall any ongoing palpita tions or episodes of near syncope or syncope. She presented to her local [facility] for further evaluation. She had a high-sensitivity troponin which was reportedly negative. Her ECG demonstrated sinus rhythm with a left bundle branch block. A chest x-ray was performed which was reportedly demonstrated with no acute cardiopulmonary findings. She was subsequently transferred to [facility] for further evaluation and care. She has undergone extensive cardiovascular evaluation in the past locally as well as at a tertiary care center. The results of her most recent noninvasive and invasive studies are noted below. [] Past Medical History Allergies/Adverse Reactions: Allergies acyclovir Allergy (Verified 05/05/19 10:47) Unknown belladonna alkaloids Allergy (Verified 05/05/19 10:47) Unknown tree and shrub pollen Allergy (Verified 05/05/19 10:47) cough valacyclovir HCl [From Valtrex] Allergy (Verified 05/05/19 10:47) Other venom-honey bee [bee venom (honey bee)] Allergy (Verified 05/05/19 10:47) Angioedema iodine Adverse Reaction (Severe, Verified 05/05/19 10:47) Other burning, rash lisinopril Adverse Reaction (Severe, Verified 05/05/19 10:47) Diarrhea Vomiting, Cough, Congestion, Pain, Headache, Drainage, Nausea metformin Adverse Reaction (Severe, Verified 05/05/19 10:47) Diarrhea, GI upset, Vomiting, Headache, Dizziness, Nausea Tetracyclines Adverse Reaction (Severe, Verified 05/05/19 10:47) headache, vomiting, rash nitrofurantoin [From Macrodantin] Adverse Reaction (Unknown, Verified 05/05/19 10:47) Unknown propoxyphene [From Darvocet-N] Adverse Reaction (Unknown, Verified 05/05/19 10:47) Unknown valacyclovir [From Valtrex] Adverse Reaction (Unknown, Verified 05/05/19 10:47) Seizure acetaminophen [From Darvocet-N 100] Adverse Reaction (Verified 05/05/19 10:47) Unknown animal dander Adverse Reaction (Verified 05/05/19 10:47) Other aspirin Adverse Reaction (Verified 05/05/19 10:47) Other atropine sulfate [From ] Adverse Reaction (Verified 05/05/19 10:47) Unknown codeine Adverse Reaction (Verified 05/05/19 10:47) Nausea/Vom/Diarrhea hyoscyamine sulfate [From ] Adverse Reaction (Verified 05/05/19 10:47) Unknown Iodinated Contrast Media [CONTRASTS] Adverse Reaction (Verified 05/05/19 10:47) Rash meperidine HCl [From Demerol] Adverse Reaction (Verified 05/05/19 10:47) Unknown niacin Adverse Reaction (Verified 05/05/19 10:47) Upset Stomach nitroglycerin [From Nitro-Dur] Adverse Reaction (Verified 05/05/19 10:47) Other RASH, CAUSED PATIENT TO GET AGITATED. oxytetracycline [From Terramycin] Adverse Reaction (Verified 05/05/19 10:47) Hives oxytetracycline HCl [From Terramycin] Adverse Reaction (Verified 05/05/19 10:47) Hives Penicillins Adverse Reaction (Verified 05/05/19 10:47) Hives perfume Adverse Reaction (Verified 05/05/19 10:47) Shortness of breath phenobarbital [From ] Adverse Reaction (Verified 05/05/19 10:47) Unknown piroxicam Adverse Reaction (Verified 05/05/19 10:47) Unknown prochlorperazine Adverse Reaction (Verified 05/05/19 10:47) Rash propoxyphene napsylate [From Darvocet-N 100] Adverse Reaction (Verified 05/05/19 10:47) Unknown scopolamine hydrobromide [From ] Adverse Reaction (Verified 05/05/19 10:47) Unknown Sulfa (Sulfonamide Antibiotics) Adverse Reaction (Verified 05/05/19 10:47) Rash terfenadine [From Seldane] Adverse Reaction (Verified 05/05/19 10:47) Unknown tetracycline Adverse Reaction (Verified 05/05/19 10:47) Rash Codeine Adverse Reaction (Unknown, Uncoded 05/05/19 10:47) Diarrhea, Vomiting, Nausea Prochlorperazine Adverse Reaction (Unknown, Uncoded 05/05/19 10:47) Rash sulfonamide antibiotics Adverse Reaction (Unknown, Uncoded 05/05/19 10:47) Rash, Hives Home Medications: Ambulatory Orders Medication Instructions Recorded Acetaminophen [Tylenol] 1,000 mg PO BID 12/03/15 Cholecalciferol (VIT D3) [Vitamin 1,000 unit PO BID 12/03/15 D3] Ferrous Sulfate 325 mg PO QHS 12/03/15 Fluticasone 0.05% [Flonase Nasal 2 spray NASAL BID 12/03/15 [place]] Loratadine [Claritin] 10 mg PO DAILY 12/03/15 Nitroglycerin (INPATIENT USE) 0.4 mg SUBLINGUAL Q5M PRN 12/03/15 [Nitrostat] levETIRAcetam tablet [Keppra 500 mg PO 0800,2000 12/03/15 tablet] proMETHazine tablet [Phenergan 25 mg PO Q6H PRN PRN 12/03/15 tablet] Albuterol Aerosols [Ventolin 2.5 mg INHALATION Q2H PRN PRN #90 04/27/17 Aerosols] vial.neb. albuterol sulfate 90 mcg/actuation 2 puff INHALATION Q4H PRN g 05/04/17 aerosol inhaler Aspirin E.C. [Ecotrin] 81 mg PO DAILY 12/01/17 Sodium Chloride 0.65% [[place] Nasal 1 spray NASAL PRN 12/01/17 [place]] Metoprolol Tartrate [Lopressor 25 mg PO BID 01/06/19 (beta emma)] coenzyme Q10 100 mg capsule 100 mg PO DAILY 02/08/19 dicyclomine 10 mg capsule 10 mg PO BID cap 02/08/19 diphenoxylate-atropine 2.5 1 tab PO Q6H PRN tab 02/08/19 mg-0.025 mg tablet estradiol 1 g VAGINAL 2XW 02/08/19 losartan 25 mg tablet 25 mg PO DAILY 02/08/19 clopidogrel 75 mg tablet 75 mg PO DAILY #90 tab 07/01/20 fenofibrate 160 mg tablet 160 mg PO DAILY #90 tab 07/01/20 furosemide 40 mg tablet 40 mg PO BID #180 tab 07/01/20 isosorbide mononitrate 60 mg 60 mg PO BID #180 tab 07/01/20 tablet,extended release 24 hr potassium chloride 10 mEq 20 meq PO BID #180 tab 07/25/20 tablet,extended release(part/cryst) Pantoprazole Sodium [Protonix] 40 mg PO BID 09/04/20 Past Medical History (Chronic Problems): Chronic Problems (Last Reviewed 09/04/20 @ 19:23 by Yessica Keller NP-C) History of coronary artery bypass graft x 3 (Chronic ~10/13/12) FUENTES to LCX/OM; SVG to DX; SVG to RCA [facility]: 10/13/2012 Presence of stent in coronary artery (Chronic ~12/23/17) PTCA/ANGELIC to prox RCA and mid RCA 05/24/2017; PTCA/ANGELIC to LAD x2 in December 2017; Atherosclerotic heart disease of [place] coronary artery without angina pectoris (Chronic) Pure hypercholesterolemia (Chronic) Essential (primary) hypertension (Chronic) 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) ELIE (obstructive sleep apnea) (Chronic) Noncomplaint Cardiomyopathy, ischemic (Chronic) CHF (congestive heart failure) (Chronic) Asthma (Chronic) Surgical History: appendectomy, coronary bypass surgery, hysterectomy - bladder surgery, pilonidal cyst, gallbladder surgery,, - - bladder surgery (multiple), left ovarian removal, pilonidal cyst surgery, coronary artery stent placement Psychiatric History: No pertinent psych hx WIRE INSERTER History: No pertinent WIRE INSERTER history - *Family History Maternal Family History: Family History (Last Reviewed 09/04/20 @ 19:24 by JORGE Armando) Father Heart disease CVA (cerebral vascular accident) Mother Colon cancer Brother Cancer Brother Cancer History Items: Cancer, - - colon cancer Paternal Family History: Family History (Last Reviewed 09/04/20 @ 19:24 by JORGE Armando) Father Heart disease CVA (cerebral vascular accident) Mother Colon cancer Brother Cancer Brother Cancer History Items: Stroke, - - father with cva Lives: Spouse/ Significant Other Smoking Status: Never smoker Alcohol: None Drugs: None Review of Systems - Review of Systems General: Denies: Fever, Night Sweats, Fatigue Cardiovascular: Reports: Chest Discomfort, Shortness of Breath. Denies: Orthopnea, PND, Peripheral Edema, Palpitations, Lightheadedness, Dizziness, Near Syncope, Syncope Respiratory: Reports: Shortness of Breath. Denies: Cough, Sputum Production, Hemoptysis Gastrointestinal: Denies: Hematemesis, Hematochezia, Melena Genitourinary: Denies: Dysuria, Hematuria Skin: Denies: Rash Subjectve: This is an 85-year-old white female who appears resting comfortably at the moment in no acute distress. Objective: Vital Signs Temp Pulse Resp BP Pulse Ox 98.7 F 70 18 140/64 H 92 09/04/20 20:41 09/04/20 20:41 09/04/20 20:41 09/04/20 20:41 09/04/20 20:41 Oxygen Delivery Method Room Air Weight: 218 lb 0.595 oz Body Mass Index (BMI) 39.9 Finger Stick Blood Glucose 88 General: Awake, Alert, Oriented x 3, Cooperative, No Acute Distress, Obese HEENT: Atraumatic, Normocephalic, PERRL, EOMI, Sclera Non Icteric Neck: Supple, Good ROM, No JVD Lungs: Clear to auscultation Cardiovascular: Regular Rhythm, Normal S1, Normal S2 Vascular: No Carotid Bruits, Normal Radial Pulses Abdomen: Bowel Sounds Present, Soft Extremities: Trace RLE Edema, Trace LLE Edema Neurological: No Focal Motor or Sensory Deficit Psych/Mental Status: Appropriate 09/04/20 20:19: WBC 8.1, RBC 4.07 L, Hgb 12.7, Hct 40.9, MCV 100.5 H, MCH 31.2, MCHC 31.1 L, Plt Count 334, MPV 9.6, Immature Gran % (Auto) 0.200, Neut % (Auto) 47.6, Lymph % (Auto) 38.8, Ward % (Auto) 9.7, Eos % (Auto) 3.1, Baso % (Auto) 0.6, Absolute Neuts (auto) 3.8, Nucleated RBC % 0 09/04/20 20:19: Sodium 141, Potassium 3.6, Chloride 106, Carbon Dioxide 29.0, Anion Gap 6, BUN 14, Creatinine 1.02, Est GFR (MDRD) Af Amer 67, Est GFR (MDRD) Non-Af 55 L, BUN/Creatinine Ratio 13.7, Glucose 88, Calcium 8.3 L, Triglycerides 183, Cholesterol 160, LDL Cholesterol 86, VLDL Cholesterol 37, HDL Cholesterol 37 L 09/04/20 20:19: D-Dimer Quant (PE/DVT) 0.33 09/04/20 20:19: Troponin I < 0.015 Rhythm: Sinus rhythm EKG: Sinus rhythm; LBBB ECHO: 08/30/2018 Interpretation Summary The study was technically difficult. Mild segmental systolic dysfunction (see wall motion). The estimated ejection fraction is 50 %. Mild diffuse mitral valve thickening. Mild (1+) mitral valve insufficiency. Trivial tricuspid valve insufficiency. Mild focal aortic valve calcification. Unable to estimate RV systolic pressure/pulmonary artery pressure due to technically difficult study. Unable to assess diastolic dysfunction. Stress Test Report Date: 08-30-18 Procedure: Pharmacologic stress nuclear imaging study Indications: Chest pain; shortness of breath/dyspnea on exertion GA: CAD; PCI; CABG Consent: Per the patient Procedure: The patient underwent pharmacologic (Regadenoson) evaluation with a peak heart rate of 88 beats per minute (63 %predicted maximal heart rate) and a peak blood pressure of 134/70 mmHg. The baseline ECG demonstrated sinus rhythm; left bundle branch block pattern. The peak pharmacologic ECG demonstrated continued left bundle branch block pattern. There were occasional PVCs during infusion and recovery. There was no complaint of chest discomfort during pharmacologic infusion or recovery. The examination was discontinued secondary to completion of protocol. Impression: 1. Pharmacologic (Regadenoson) evaluation 2. Peak pharmacologic ECG with continued left bundle branch block pattern. 3. There were occasional PVCs during infusion and recovery. 4. Nuclear images pending Myocardial perfusion imaging study: Technique: The patient was injected with 11.2 millicuries of technetium 99m Cardiolite and subsequently rest SPECT Cardiolite nuclear imaging was obtained in the horizontal long, vertical long, and short axis views. The patient underwent pharmacologic (Regadenoson) evaluation with a peak heart rate of 88 beats per minute (63 % percent predicted maximal heart rate) and a peak blood pressure of 134/70 mmHg. The patient was injected with 33.7 millicuries of technetium 99m Cardiolite and subsequently stress SPECT Cardiolite nuclear imaging was obtained in the horizontal long, vertical long, and short axis views. A gated Cardiolite study at peak stress was obtained. Interpretation: Rest and stress SPECT Cardiolite nuclear imaging status post realignment, normalization, and attenuation correction demonstrate diminished myocardial perfusion/tracer uptake in portions of the mid to distal anterior and anterior apical segments without significant change between rest and stress. There is diminished and systolic thickening and brightening. The gated Cardiolite study demonstrates diminished myocardial thickening and and were wall motion. The reported LVEF is 502%. Impression: 1. Rest and stress SPECT Cardiolite nuclear imaging demonstrate myocardial perfusion changes appearing compatible with an area of previous myocardial injury/infarction involving portions of the distal anterior and anterior apical segments with no myocardial perfusion changes consider diagnostic for associated stress-induced myocardial ischemia. 2. The gated Cardiolite study reports an LVEF of 52%. Cardiac Cath: 12/23/2017 CONCLUSIONS Elevated Left Ventricular End Diastolic Pressure [place] Multivessel CAD FUENTES to LCX/OM: patent SVG to DX1: patent SVG to RCA: previously documented as atretic and subsequently occluded and not reevaluated during this examination RECOMMENDATIONS Risk factor modification Medical therapy Referred for immediate PCI DESCRIPTION OF PROCEDURE The patient arrived to the procedure lab. The risks and benefits of the procedu re as well as a full description of our services here and current unavailability of surgical backup were fully explained to the patient and/or their significant other prior to the catheterization. The Timeout was completed, verifying the correct patient and procedure. The patient's procedural site was prepped and draped in the usual fashion. Local anesthetic was given subcutaneously to right groin region with Lidocaine 2%. Using a modified Seldinger technique, arterial access was obtained via the right femoral artery, a 4Fr sheath was inserted Left Coronary Artery selective angiography was performed in multiple views using a 4 Fr. JL5 catheter. Right Coronary Artery selective angiography was then performed in multiple views using a 4 Fr. 3DRC catheter. Left internal mammary artery graft to the Circumflex/OM selective angiography was performed in multiple views using a 4 Fr. JR4 catheter. Saphenous Vein graft to the DIAG 1 selective angiography was performed in multiple views using a 4 Fr. JR4 catheter.Contrast was injected through the sheath and the Right Iliac and Femoral artery were assessed for possible closure device.The arterial sheath was pulled and a Mynx closure device was deployed for hemostasis CORONARY ANGIOGRAPHY DOMINANCE: Right Dominant LEFT HEART ASSESSMENT Left Ventricular Ejection Fraction: Not assessed Elevated Left Ventricular End Diastolic Pressure LVEDP: 34 mmHg LEFT MAIN: Angiographically normal LEFT ANTERIOR DECENDING ARTERY: OSTIAL LAD: 25 % Stenosis PROX LAD: Mild calcification MID LAD: 75 % Stenosis CIRCUMFLEX ARTERY: PROX CIRC: Eccentric: 50 % Stenosis MID CIRC: Long: Diffuse: 50 % Stenosis RIGHT CORONARY ARTERY: PROX RCA: Previously placed stent is patent MID RCA: Previously placed stent is patent GRAFTS: FUENTES graft to the 1st OM is patent with no angiographically significant appearing disease distal to the graft attachment Saphenous Vein graft to the 1st Diagonal is patent with diffuse, irrgular, 75% stenosis distal to the graft attachment prior to proceeding as a small caliber vessel system Saphenous Vein graft to the RCA is totally occluded (documented on 05/24/2017 [facility] Cardiac Catheterization: not reevaluated during this examination) PCI: 12/23/2017 CONCLUSIONS Successful PTCA/ANGELIC of the of distal LAD with a 2.25 x 38 Resolute, followed immediately distally with a 2.25 x 12 Resolute ANGELIC; 85%-->0%, no dissection. CT Surgery: 10/13/2012: [facility] FUENTES to LCX/OM SVG to DX SVG to RCA Assessment/Plan 1. Chest pain The patient describes chest pain which appears to be somewhat atypical based upon its characteristics. Her outside hospital initial cardiovascular evaluation was reported as unremarkable. At the present time she appears to be resting comfortably. She will continue cardiac evaluation with cardiac enzymes, cardiac telemetry monitoring, and ECG follow-up. She can have additional cardiovascular follow-up with echocardiographic studies and pharmacologic stress nuclear imaging studies as deemed appropriate. Depending upon her clinical course and findings she may or may not need to be reevaluated in the cardiac catheterization laboratory. 2. CAD status post PCI status post CABG She does have an extensive cardiovascular history as noted. At the moment she appears to be without any ongoing acute symptoms. Her initial cardiovascular evaluation appears to be unremarkable. She will continue risk factor modification medical therapy. She will proceed with her noninvasive cardiovascular evaluation. 3. Ischemic mediated cardiomyopathy Her previous noninvasive and invasive studies are noted. At the moment she appears without acute symptoms. She will continue medical management and support in her noninvasive valuation. 4. CHF Her CHF, based upon her recent echocardiogram demonstrating borderline low LV systolic function, may be systolic mediated. She does not appear to have findings of acute on chronic CHF at this time. She will continue medical management and support. 5. Hyperlipidemia She should continue risk factor evaluation and care. 6. Hypertension Her blood pressure can be followed and her medications can be adjusted accordingly. Comment: The above was discussed with the patient she was agreeable to this approach. This note was generated using a voice recognition system and there may be incorrect words, spelling or punctuation that were not noted when reviewing the office note prior to saving. Procedure Criteria Procedure Type: Elective COVID Risk Discussion: The surgeon/proceduralist and patient have discussed in detail the risk of exposure to and/or potential harm posed by the COVID-19 virus with having a surgery/procedure at this time versus the risk of delaying the surgery/procedure. It is not possible to know either the risk of delaying the surgery or procedure or chance of getting an infection with perfect accuracy, but a joint decision was made between the patient and the surgeon/proceduralist to proceed at this time with the scheduled surgery/procedure as indicated on the consent form.
[2020-09-04] MEDS: Fluticasone 0.05% 1 SPRAY NASAL.SRY 2 SPRAY NASAL (21:46)
[2020-09-04 21:47] VITALS: PULSE 70
[2020-09-04] MEDS: Pantoprazole Sodium 40 MG Tablet PO (21:47)
[2020-09-04] MEDS: Metoprolol Tartrate 25 MG Tablet PO (21:47)
[2020-09-04] MEDS: Isosorbide Mononitrate 60 MG Tablet PO (21:48)
[2020-09-04] MEDS: Ferrous Sulfate 325 MG Tablet PO (21:48)
[2020-09-04] MEDS: Cholecalciferol (VIT D3) 25 MCG TABLET (1,000 UNITS) PO (21:48)
[2020-09-04] MEDS: levETIRAcetam 500 MG Tablet PO (21:49)
[2020-09-04 23:00] VITALS: PULSE 63
[2020-09-05] VITALS (8 sets, daily range): BP systolic 128–146; BP diastolic 54–76; PULSE 59–66; RESP 16–18; TEMP 36.4–37.1; O2SAT 92–99
[2020-09-05 01:50] LABS: Absolute Lymphocyte Count 3.21 X10^3/uL (0.83-4.51); Absolute Neutrophil Count 4.5 X10^3/uL (2.0-7.7); Basophil# 0.07 X10^3/uL; Basophil% 0.8 % (0-1); Eosinophil# 0.25 X10^3/uL; Eosinophils% 2.8 % (0-5); Hematocrit 37.9 % (37-47); Lymphocyte # 3.21 X10^3/ul (0.83-4.51); Lymphocyte % 36.1 % (19-41); Mean Corp Hgb Conc 31.7 g/dL (32-36); Mean Corpuscular Hgb 31.1 pg (27.0-32.0); Mean Corpuscular Volume 98.2 fL (81-99); Mean Platelet Vol. 9.7 fl (6.2-12.0); Monocyte# 0.88 X10^3/uL; Monocyte% 9.9 % (0-10); NRBC Flagged by Analyzer 0 % (0-5); Neutrophil # 4.45 X10^3/uL (2.7-7.7); Neutrophil % 50.2 % (47-70); Platelet Count 298 K/mm3 (150-450); RBC Distribution Width CV 12.4 % (11.6-14.6); RBC Distribution Width SD 44.5 fl (35.1-43.9); Red Blood Count 3.86 M/mm3 (4.2-5.4); White Blood Count 8.9 K/mm3 (4.4-11.0)
[2020-09-05] MEDS: Morphine 2 MG/ML Syringe IV (01:54)
[2020-09-05] MEDS: 0.9% Saline Lock 10 ML Syringe IV (01:55)
[2020-09-05 02:17] LABS: AST(SGOT) 18 U/L (15-37); Alanine Aminotransfer ALT/SGPT 26 U/L (13-56); Albumin, Serum 3.2 g/dL (3.2-5.0); Alkaline Phosphatase 29 U/L (45-117); Anion Gap 6 (5-15); BUN 15 mg/dL (7-18); BUN/Creat Ratio 15.2 RATIO (10-20); Calcium,Total 8.5 mg/dL (8.5-10.1); Chloride 107 mmol/L (98-107); Creatinine, Serum 0.98 mg/dL (0.55-1.02); EST Glomerular Filtration Rate 57 mL/min (>60); Est Glom Filt Rate - Afr Amer 69 mL/min (>60); Globulin 3.1 g/dL (2.2-4.2); Glucose 99 mg/dL (74-106); Potassium 3.5 mmol/L (3.5-5.1); Protein, Total 6.3 g/dL (6.4-8.2); Sodium Level 141 mmol/L (136-145)
--- NOTE | 2020-09-05 05:55 | EKG12_ITS ---
Test Reason : AM EKG Blood Pressure : / mmHG Vent. Rate : 058 BPM Atrial Rate : 058 BPM P-R Int : 214 ms QRS Dur : 148 ms QT Int : 484 ms P-R-T Axes : 049 005 130 degrees QTc Int : 475 ms Sinus bradycardia with 1st degree A-V block Left bundle branch block Abnormal ECG When compared with ECG of 04-SEP-2020 22:07, MANUAL COMPARISON REQUIRED, DATA IS UNCONFIRMED Confirmed by IRIS TREJO, DESHAWN ([id number]), editor continuity and script DIEGO CABRERA ([id number]) on 09/06/2020 8:26:41 AM Referred By: ROSITA Confirmed By:MARIANGEL SIMMONS MD
[2020-09-05] MEDS: Losartan Potassium 25 MG Tablet PO (06:05)
[2020-09-05] MEDS: Clopidogrel Bisulfate 75 MG Tablet PO (06:05)
[2020-09-05] MEDS: Aspirin E.C. 81 MG Tablet PO (06:05)
--- NOTE | 2020-09-05 09:15 | STRESSREP ---
Stress Test Report Date: 09-05-2020 Procedure: Pharmacologic stress nuclear imaging study Indications: Pain; CAD; PCI; CABG ischemic cardiomyopathy; abnormal ECG/left bundle branch block Consent: Per the patient Procedure: The patient underwent pharmacologic (Regadenoson 0.4mg ) evaluation with a peak heart rate of 99 beats per minute (72%predicted maximal heart rate) and a peak blood pressure of 148/70 mmHg. The baseline ECG demonstrated sinus rhythm; left bundle branch block. The peak pharmacologic ECG demonstrated no obvious ECG changes. There were no cardiac dysrhythmias pretest, during pharmacologic infusion, or recovery. There was no complaint of chest discomfort during pharmacologic infusion or recovery. The examination was discontinued secondary to completion of protocol. Impression: 1. Pharmacologic (Regadenoson) evaluation 2. Peak pharmacologic ECG with continued left bundle branch block with no obvious ECG changes. 3. There were no cardiac dysrhythmias pretest, during pharmacologic infusion, or recovery. 4. Nuclear images pending Myocardial perfusion imaging study: Technique: The patient was injected with 14.4 millicuries of technetium 99m Cardiolite and subsequently rest SPECT Cardiolite nuclear imaging was obtained in the horizontal long, vertical long, and short axis views. The patient underwent pharmacologic (Regadenoson) evaluation with a peak heart rate of 99 beats per minute (72% percent predicted maximal heart rate) and a peak blood pressure of 148/70 mmHg. The patient was injected with 44.5 millicuries of technetium 99m Cardiolite and subsequently stress SPECT Cardiolite nuclear imaging was obtained in the horizontal long, vertical long, and short axis views. A gated Cardiolite study at peak stress was obtained. Interpretation: Rest and stress SPECT Cardiolite nuclear imaging status post realignment, normalization, and attenuation correction demonstrate the appearance of diminished absence of myocardial perfusion/tracer uptake in portions of the distal anterior segments without significant change between rest and stress. There is diminished end systolic thickening and brightening in the aforementioned area. The gated Cardiolite study demonstrates diminished myocardial thickening and inward wall motion. The reported LVEF is 58%. Impression: 1. Rest and stress by current nuclear imaging demonstrate myocardial perfusion changes appearing compatible with an area of previous myocardial injury/infarction in portions of the distal anterior segments with no myocardial perfusion changes consider diagnostic for associated stress-induced myocardial ischemia. 2. The gated Cardiolite study reports an LVEF of 58%. This note was generated with Dragon dictation software. It may contain incorrect words, spelling, and punctuation that were not noted in checking the note before signing.
[2020-09-05] MEDS: Metoprolol Tartrate 25 MG Tablet PO (10:32)
[2020-09-05] MEDS: Acetaminophen 325 MG Tablet 650 MG PO (10:33)
[2020-09-05] MEDS: Fenofibrate 145 MG Tablet PO (10:33)
[2020-09-05] MEDS: Pantoprazole Sodium 40 MG Tablet PO (10:33)
[2020-09-05] MEDS: Loratadine 10 MG Tablet PO (10:33)
[2020-09-05] MEDS: Furosemide 40 MG Tablet PO (10:33)
[2020-09-05] MEDS: Potassium Chloride Oral Tablet 10 MEQ 20 MEQ PO (10:33)
[2020-09-05] MEDS: Isosorbide Mononitrate 60 MG Tablet PO (10:33)
[2020-09-05] MEDS: Cholecalciferol (VIT D3) 25 MCG TABLET (1,000 UNITS) PO (10:33)
[2020-09-05] MEDS: Fluticasone 0.05% 1 SPRAY NASAL.SRY 2 SPRAY NASAL (10:35)
[2020-09-05] MEDS: Enoxaparin 40 MG/0.4 ML Syringe SC (10:36)
--- NOTE | 2020-09-05 10:52 | DCINST_ITS ---
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) FUENTES to LCX/OM; SVG to DX; SVG to RCA [facility]: 10/13/2012 Presence of stent in coronary artery (Chronic ~12/23/17) PTCA/ANGELIC to prox RCA and mid RCA 05/24/2017; PTCA/ANGELIC to LAD x2 in December 2017; Atherosclerotic heart disease of [place] coronary artery without angina pectoris (Chronic) Pure hypercholesterolemia (Chronic) Essential (primary) hypertension (Chronic) 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) ELIE (obstructive sleep apnea) (Chronic) Noncomplaint Cardiomyopathy, ischemic (Chronic) CHF (congestive heart failure) (Chronic) Asthma (Chronic) You will use the following diet at home:: No restrictions Your food should be the consistency of: Regular Your liquids should be the consistency of: Regular/Thin Discharge Activity: Return to Normal Activity Weight Bearing Status: Full weight bearing Allergies/Adverse Reactions: Allergies acyclovir Allergy (Verified 05/05/19 10:47) Unknown belladonna alkaloids Allergy (Verified 05/05/19 10:47) Unknown tree and shrub pollen Allergy (Verified 05/05/19 10:47) cough valacyclovir HCl [From Valtrex] Allergy (Verified 05/05/19 10:47) Other venom-honey bee [bee venom (honey bee)] Allergy (Verified 05/05/19 10:47) Angioedema iodine Adverse Reaction (Severe, Verified 05/05/19 10:47) Other burning, rash lisinopril Adverse Reaction (Severe, Verified 05/05/19 10:47) Diarrhea Vomiting, Cough, Congestion, Pain, Headache, Drainage, Nausea metformin Adverse Reaction (Severe, Verified 05/05/19 10:47) Diarrhea, GI upset, Vomiting, Headache, Dizziness, Nausea Tetracyclines Adverse Reaction (Severe, Verified 05/05/19 10:47) headache, vomiting, rash nitrofurantoin [From Macrodantin] Adverse Reaction (Unknown, Verified 05/05/19 10:47) Unknown propoxyphene [From Darvocet-N] Adverse Reaction (Unknown, Verified 05/05/19 10:47) Unknown valacyclovir [From Valtrex] Adverse Reaction (Unknown, Verified 05/05/19 10:47) Seizure acetaminophen [From Darvocet-N 100] Adverse Reaction (Verified 05/05/19 10:47) Unknown animal dander Adverse Reaction (Verified 05/05/19 10:47) Other aspirin Adverse Reaction (Verified 05/05/19 10:47) Other atropine sulfate [From ] Adverse Reaction (Verified 05/05/19 10:47) Unknown codeine Adverse Reaction (Verified 05/05/19 10:47) Nausea/Vom/Diarrhea hyoscyamine sulfate [From ] Adverse Reaction (Verified 05/05/19 10:47) Unknown Iodinated Contrast Media [CONTRASTS] Adverse Reaction (Verified 05/05/19 10:47) Rash meperidine HCl [From Demerol] Adverse Reaction (Verified 05/05/19 10:47) Unknown niacin Adverse Reaction (Verified 05/05/19 10:47) Upset Stomach nitroglycerin [From Nitro-Dur] Adverse Reaction (Verified 05/05/19 10:47) Other RASH, CAUSED PATIENT TO GET AGITATED. oxytetracycline [From Terramycin] Adverse Reaction (Verified 05/05/19 10:47) Hives oxytetracycline HCl [From Terramycin] Adverse Reaction (Verified 05/05/19 10:47) Hives Penicillins Adverse Reaction (Verified 05/05/19 10:47) Hives perfume Adverse Reaction (Verified 05/05/19 10:47) Shortness of breath phenobarbital [From ] Adverse Reaction (Verified 05/05/19 10:47) Unknown piroxicam Adverse Reaction (Verified 05/05/19 10:47) Unknown prochlorperazine Adverse Reaction (Verified 05/05/19 10:47) Rash propoxyphene napsylate [From Darvocet-N 100] Adverse Reaction (Verified 05/05/19 10:47) Unknown scopolamine hydrobromide [From ] Adverse Reaction (Verified 05/05/19 10:47) Unknown Sulfa (Sulfonamide Antibiotics) Adverse Reaction (Verified 05/05/19 10:47) Rash terfenadine [From [place]ane] Adverse Reaction (Verified 05/05/19 10:47) Unknown tetracycline Adverse Reaction (Verified 05/05/19 10:47) Rash Codeine Adverse Reaction (Unknown, Uncoded 05/05/19 10:47) Diarrhea, Vomiting, Nausea Prochlorperazine Adverse Reaction (Unknown, Uncoded 05/05/19 10:47) Rash sulfonamide antibiotics Adverse Reaction (Unknown, Uncoded 05/05/19 10:47) Rash, Hives Medications to take at Discharge Acetaminophen [Tylenol] 1,000 mg PO BID 12/03/15 Cholecalciferol (VIT D3) [Vitamin D3] 1,000 unit PO BID 12/03/15 Ferrous Sulfate 325 mg PO QHS 12/03/15 Fluticasone 0.05% [Flonase Nasal [place]] 2 spray NASAL BID 12/03/15 Loratadine [Claritin] 10 mg PO DAILY 12/03/15 Nitroglycerin (INPATIENT USE) [Nitrostat] 0.4 mg SUBLINGUAL Q5M PRN 12/03/15 levETIRAcetam tablet [Keppra tablet] 500 mg PO 0800,199912/03/15 proMETHazine tablet [Phenergan tablet] 25 mg PO Q6H PRN PRN 12/03/15 Albuterol Aerosols [Ventolin Aerosols] 2.5 mg INHALATION Q2H PRN PRN #90 vial.neb. 04/27/17 albuterol sulfate 90 mcg/actuation aerosol inhaler 2 puff INHALATION Q4H PRN g 05/04/17 Aspirin E.C. [Ecotrin] 81 mg PO DAILY 12/01/17 Sodium Chloride 0.65% [[place] Nasal [place]] 1 spray NASAL PRN 12/01/17 Metoprolol Tartrate [Lopressor (beta emma)] 25 mg PO BID 01/06/19 coenzyme Q10 100 mg capsule 100 mg PO DAILY 02/08/19 dicyclomine 10 mg capsule 10 mg PO BID cap 02/08/19 diphenoxylate-atropine 2.5 mg-0.025 mg tablet 1 tab PO Q6H PRN tab 02/08/19 estradiol 1 g VAGINAL 2XW 02/08/19 losartan 25 mg tablet 25 mg PO DAILY 02/08/19 clopidogrel 75 mg tablet 75 mg PO DAILY #90 tab 07/01/20 fenofibrate 160 mg tablet 160 mg PO DAILY #90 tab 07/01/20 furosemide 40 mg tablet 40 mg PO BID #180 tab 07/01/20 isosorbide mononitrate 60 mg tablet,extended release 24 hr 60 mg PO BID #180 tab 07/01/20 potassium chloride 10 mEq tablet,extended release(part/cryst) 20 meq PO BID #180 tab 07/25/20 Pantoprazole Sodium [Protonix] 40 mg PO BID 09/04/20 Primary Care Physician: Stefany Durham DO [Primary Care Provider] - Please follow up with your Primary Care Physician in: in 1-2 weeks Test Results: Test results from this visit will be discussed in further detail at your follow- up appointment, if applicable. Please Follow Up With: Kailash Rueda MD When: in one month
[2020-09-05] MEDS: levETIRAcetam 500 MG Tablet PO (12:04)
--- NOTE | 2020-09-06 18:59 | DS.PCM_ITS ---
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) FUENTES to LCX/OM; SVG to DX; SVG to RCA [facility]: 10/13/2012 Presence of stent in coronary artery (Chronic ~12/23/17) PTCA/ANGELIC to prox RCA and mid RCA 05/24/2017; PTCA/ANGELIC to LAD x2 in December 2017; Atherosclerotic heart disease of [place] coronary artery without angina pectoris (Chronic) Pure hypercholesterolemia (Chronic) Essential (primary) hypertension (Chronic) 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 Patient was placed in observation status on PCU, serial cardiac enzymes were obtained and these remain normal, patient underwent an echocardiogram which showed a normal ejection fraction, she also underwent a pharmacological nuclear stress test which was negative for reversible ischemia. Patient was also seen in consultation by cardiology. On 09/05/2020, patient was seen and examined: On examination she appeared in good health and spirits, she does not appear to be in any distress. Vital signs as documented. Skin warm and dry and without overt rashes. Neck without JVD, thyroid appears normal, trachea is midline, neck is supple. Lungs clear, normal air movement was noted. Heart exam notable for regular rhythm, normal sounds and absence of murmurs, rubs or gallops. Abdomen unremarkable and without evidence of organomegaly, masses, or abdominal aortic enlargement, bowel sounds are present in all 4 quadrants, no abdominal tenderness was noted. Extremities nonedematous, no cyanosis was noted, no clubbing was noted. Neuro: Cranial nerves II through XII are grossly intact, no focal motor deficits were noted, sensation to light touch and pinprick is intact, motor exam 5/5 throughout. Psych: Patient is alert and oriented x3, she does not appear anxious or depressed, she does not appear agitated. Patient was discharged home in stable condition on 09/05/2020. Patient Problems: Active and Suspected Problems (Last Reviewed 09/04/20 @ 19:23 by Yessica Keller, [employer]-C) Chest pain (Acute) - Physical Exam Vitals/I&O's: Vital Signs Temp Pulse Resp BP Pulse Ox 97.6 F L 61 18 138/62 H 92 09/05/20 10:57 09/05/20 10:57 09/05/20 10:57 09/05/20 10:57 09/05/20 10:57 Oxygen Delivery Method Room Air Weight: 94.9 kg Body Mass Index (BMI) 39.9 Finger Stick Blood Glucose 88 Discharge Activity: Return to Normal Activity Weight Bearing Status: Full weight bearing Home Medications: Medications to take at Discharge Acetaminophen [Tylenol] 1,000 mg PO BID 12/03/15 Cholecalciferol (VIT D3) [Vitamin D3] 1,000 unit PO BID 12/03/15 Ferrous Sulfate 325 mg PO QHS 12/03/15 Fluticasone 0.05% [Flonase Nasal [place]] 2 spray NASAL BID 12/03/15 Loratadine [Claritin] 10 mg PO DAILY 12/03/15 Nitroglycerin (INPATIENT USE) [Nitrostat] 0.4 mg SUBLINGUAL Q5M PRN 12/03/15 levETIRAcetam tablet [Keppra tablet] 500 mg PO 0800,199912/03/15 proMETHazine tablet [Phenergan tablet] 25 mg PO Q6H PRN PRN 12/03/15 Albuterol Aerosols [Ventolin Aerosols] 2.5 mg INHALATION Q2H PRN PRN #90 vial.neb. 04/27/17 albuterol sulfate 90 mcg/actuation aerosol inhaler 2 puff INHALATION Q4H PRN g 05/04/17 Aspirin E.C. [Ecotrin] 81 mg PO DAILY 12/01/17 Sodium Chloride 0.65% [[place] Nasal [place]] 1 spray NASAL PRN 12/01/17 Metoprolol Tartrate [Lopressor (beta emma)] 25 mg PO BID 01/06/19 coenzyme Q10 100 mg capsule 100 mg PO DAILY 02/08/19 dicyclomine 10 mg capsule 10 mg PO BID cap 02/08/19 diphenoxylate-atropine 2.5 mg-0.025 mg tablet 1 tab PO Q6H PRN tab 02/08/19 estradiol 1 g VAGINAL 2XW 02/08/19 losartan 25 mg tablet 25 mg PO DAILY 02/08/19 clopidogrel 75 mg tablet 75 mg PO DAILY #90 tab 07/01/20 fenofibrate 160 mg tablet 160 mg PO DAILY #90 tab 07/01/20 furosemide 40 mg tablet 40 mg PO BID #180 tab 07/01/20 isosorbide mononitrate 60 mg tablet,extended release 24 hr 60 mg PO BID #180 tab 07/01/20 potassium chloride 10 mEq tablet,extended release(part/cryst) 20 meq PO BID #180 tab 07/25/20 Pantoprazole Sodium [Protonix] 40 mg PO BID 09/04/20 Primary Care Physician: Stefany Durham DO [Primary Care Provider] - Please follow up with your Primary Care Physician in: in 1-2 weeks Please Follow Up With: Kailash Rueda MD When: in one month Disposition: Home Minutes spent on discharge:: 31 Patient Condition:: Stable Medical Necessity - Tobacco Use Smoking Status: Never smoker Meaningful Use Info Meaningful Use Diagnoses (Choose all that apply): None applicable OBSV E&M: 91969 Observation care discharge
== END 2020-09-05 12:14 | disposition home or self-care (01) ==
PROVIDERS: Nurse Practitioner Family; Admitting Provider Student in an Organized Health Care Education/Training Program; PCP Family Medicine; Visit Provider Internal Medicine
DX: R07.89 Other chest pain (principal); I25.10 Atherosclerotic heart disease of native coronary artery without angina pectoris; E78.5 Hyperlipidemia, unspecified; I13.0 Hypertensive heart and chronic kidney disease with heart failure and stage 1 through stage 4 chronic kidney disease, or unspecified chronic kidney disease; G47.33 Obstructive sleep apnea (adult) (pediatric); I08.3 Combined rheumatic disorders of mitral, aortic and tricuspid valves; I44.7 Left bundle-branch block, unspecified; R00.1 Bradycardia, unspecified; J44.9 Chronic obstructive pulmonary disease, unspecified; I25.5 Ischemic cardiomyopathy; N18.30 Chronic kidney disease, stage 3 unspecified; I50.22 Chronic systolic (congestive) heart failure; E66.9 Obesity, unspecified; Z79.899 Other long term (current) drug therapy; Z95.1 Presence of aortocoronary bypass graft; Z79.51 Long term (current) use of inhaled steroids; Z79.82 Long term (current) use of aspirin; Z79.02 Long term (current) use of antithrombotics/antiplatelets; Z87.891 Personal history of nicotine dependence
CPT/HCPCS: 36415; 78452; 80048; 80053; 80061; 84484; 85025; 85379; 93005; 93017; 93306; 96372; 96374; 99218; A9500; A4216; G0378; J2785

== ENCOUNTER 2021-09-02 16:17 | Observation (INO) | payer MEDICARE, MEDICAID, SELFPAY ==
[2017-12-23 13:44] VITALS: BMI 40.0
[2021-09-02 16:17] VITALS: PULSE 69; RESP 18; TEMP 36.9; O2SAT 96; BMI 36.4
--- NOTE | 2021-09-02 16:26 | ED.RN ---
EMS REPORTS 324 ASA GIVEN IN ROUTE. PT TOOK 6 NITRO PRIOR TO CALLING SQUAD
[2021-09-02 16:39] LABS: Absolute Lymphocyte Count 3.12 X10^3/uL (0.83-4.51); Absolute Neutrophil Count 4.9 X10^3/uL (2.0-7.7); Basophil# 0.07 X10^3/uL; Basophil% 0.8 % (0-1); Eosinophil# 0.24 X10^3/uL; Eosinophils% 2.6 % (0-5); Hematocrit 39.7 % (37-47); Hemoglobin 12.8 g/dL (12.0-15.0); Lymphocyte # 3.12 X10^3/ul (0.83-4.51); Lymphocyte % 33.7 % (19-41); Mean Corp Hgb Conc 32.2 g/dL (32-36); Mean Corpuscular Hgb 32.1 pg (27.0-32.0); Mean Corpuscular Volume 99.5 fL (81-99); Mean Platelet Vol. 10.1 fl (6.2-12.0); Monocyte# 0.87 X10^3/uL; Monocyte% 9.4 % (0-10); NRBC Flagged by Analyzer 0 % (0-5); Neutrophil # 4.94 X10^3/uL (2.7-7.7); Neutrophil % 53.2 % (47-70); Platelet Count 365 K/mm3 (150-450); RBC Distribution Width CV 12.4 % (11.6-14.6); RBC Distribution Width SD 45.1 fl (35.1-43.9); Red Blood Count 3.99 M/mm3 (4.2-5.4); White Blood Count 9.3 K/mm3 (4.4-11.0)
--- NOTE | 2021-09-02 16:48 | EKG12_ITS ---
Test Reason : CP Blood Pressure : / mmHG Vent. Rate : 067 BPM Atrial Rate : 067 BPM P-R Int : 176 ms QRS Dur : 136 ms QT Int : 436 ms P-R-T Axes : 037 012 101 degrees QTc Int : 460 ms Sinus rhythm with frequent Premature ventricular complexes Left bundle branch block Nonspecific T wave abnormality Abnormal ECG Confirmed by COLLIN TREJO, SARWAT ([id number]), newspaper managing editor DIEGO CABRERA ([id number]) on 09/03/2021 8:48:01 AM Referred By: ER Confirmed By:SARWAT POLANCO MD
[2021-09-02 16:52] LABS: Anion Gap 5 (5-15); BUN 16 mg/dL (7-18); BUN/Creat Ratio 17.3 RATIO (10-20); Calcium,Total 8.7 mg/dL (8.5-10.1); Chloride 109 mmol/L (98-107); Creatinine, Serum 0.92 mg/dL (0.55-1.02); EST Glomerular Filtration Rate 62 mL/min (>60); Est Glom Filt Rate - Afr Amer 74 mL/min (>60); Glucose 94 mg/dL (74-106); Potassium 4.4 mmol/L (3.5-5.1); Sodium Level 141 mmol/L (136-145)
--- NOTE | 2021-09-02 16:53 | EDS_ITS ---
HPI History of Present Illness Chief Complaint: Chest Pain Informant: patient Onset/Context/Timing Onset: Weeks (1) Activity at onset: gradual Timing: Continuous (Past 2 or 3 days) Quality: Positive for Aching Location: Left Chest (With radiation straight through the left upper back and neck sometimes) Current Severity: 4/10 Maximum Severity: Severe Worsened By: Nothing; Not Worsened By Breathing Relieved By: NTG and NSAIDS (Aspirin given by EMS) Associated Symptoms: Positive for Nausea; Negative for Vomiting, Diaphoresis, Dyspnea, Cough, Fever, Lightheadedness and Palpitations Narrative Narrative: Patient arrives by EMS and states for the past week she has been having angina that feels like prior heart attack pain when she had her stent 5 years ago or so, however she waits to present today because today it became severe. It has been constant for the last couple days. She took 6 nitrogly cerin today before calling EMS, she states the first 1 helped some but then the other ones did not. EMS gave her aspirin and oxygen. She states the pain is improved now but still 4/10. Denies any pain or swelling in her legs recently, orthopnea/dyspnea with exertion. No recent illness or cough. Prior Similar Symptoms: Yes, With Prior DC and With Prior Angina [facility] Medical History (Updated 09/02/21 @ 20:[address] 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 NSTEMI (non-ST elevated myocardial infarction) ELIE (obstructive sleep apnea) Presence of stent in coronary artery (~12/23/17) Pure hypercholesterolemia Seizure Stage 1 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 Unstable angina Home Medications acetaminophen 1,000 mg PO BID 12/03/15 [History Last Taken 09/04/20 10:00] cholecalciferol (vitamin D3) 1,000 unit PO BID 12/03/15 [History Last Taken 09/04/20 10:00] ferrous sulfate 325 mg PO QHS 12/03/15 [History Last Taken 09/03/20] fluticasone propionate 2 spray NASAL BID 12/03/15 [History Last Taken 09/04/20 10:00] levetiracetam 500 mg PO 00,199912/03/15 [History Last Taken 09/04/20 08:00] loratadine 10 mg PO DAILY 12/03/15 [History Last Taken 09/04/20] nitroglycerin 0.4 mg SUBLINGUAL Q5M PRN 12/03/15 [History Last Taken 09/04/20] promethazine 25 mg PO Q6H PRN PRN 12/03/15 [History Last Taken 01/05/19 20:00] albuterol sulfate 2.5 mg INHALATION Q2H PRN PRN #90 vial.neb. 04/27/17 [Rx Last Taken 01/05/19 08:00] albuterol sulfate 90 mcg/actuation aerosol inhaler 2 puff INHALATION Q4H PRN g 05/04/17 [History Last Taken 09/04/20] aspirin 81 mg PO DAILY 12/01/17 [History Last Taken 09/04/20] sodium chloride 1 spray NASAL PRN 12/01/17 [History Last Taken 01/06/19 08:00] metoprolol tartrate 25 mg PO BID 01/06/19 [History Last Taken 09/04/20 10:00] coenzyme Q10 100 mg capsule 100 mg PO DAILY 02/08/19 [History Last Taken 09/04/20] dicyclomine 10 mg capsule 10 mg PO BID cap 02/08/19 [History Last Taken 09/04/20 10:00] diphenoxylate-atropine 2.5 mg-0.025 mg tablet 1 tab PO Q6H PRN tab 02/08/19 [History Last Taken 09/04/20] estradiol 1 g VAGINAL 2XW 02/08/19 [History Last Taken Unknown] losartan 25 mg tablet 25 mg PO DAILY 02/08/19 [History Last Taken 09/04/20] potassium chloride 10 mEq tablet,extended release(part/cryst) 20 meq PO BID #180 tab 07/25/20 [Rx Last Taken 09/04/20 10:00] pantoprazole 40 mg PO BID 09/04/20 [History Last Taken 09/04/20 10:00] clopidogrel 75 mg tablet 75 mg PO DAILY #90 tab 08/11/21 [Rx Last Taken Unknown] fenofibrate 160 mg tablet 160 mg PO DAILY #90 tab 08/11/21 [Rx Last Taken Unknown] furosemide 40 mg tablet 40 mg PO BID #180 tab 08/11/21 [Rx Last Taken Unknown] isosorbide mononitrate 60 mg tablet,extended release 24 hr 60 mg PO BID #180 tab 08/11/21 [Rx Last Taken Unknown] Allergy/AdvReac Type Severity Reaction Status Date / Time acyclovir Allergy Unknown Verified 05/05/19 10:47 belladonna alkaloids Allergy Unknown Verified 05/05/19 10:47 tree and shrub pollen Allergy cough Verified 05/05/19 10:47 valacyclovir HCl Allergy Other Verified 05/05/19 10:47 [From Valtrex] venom-honey bee Allergy Angioedema Verified 05/05/19 10:47 [bee venom (honey bee)] iodine AdvReac Severe Other Verified 05/05/19 10:47 lisinopril AdvReac Severe Diarrhea Verified 05/05/19 10:47 metformin AdvReac Severe Diarrhea, Verified 05/05/19 10:47 GI upset, Vomiting, Headache, Dizziness, Nausea Tetracyclines AdvReac Severe headache, Verified 05/05/19 10:47 vomiting, rash nitrofurantoin AdvReac Unknown Unknown Verified 05/05/19 10:47 [From Macrodantin] propoxyphene AdvReac Unknown Unknown Verified 05/05/19 10:47 [From Darvocet-N] valacyclovir [From Valtrex] AdvReac Unknown Seizure Verified 05/05/19 10:47 acetaminophen AdvReac Unknown Verified 05/05/19 10:47 [From Darvocet-N 100] animal dander AdvReac Other Verified 05/05/19 10:47 aspirin AdvReac Other Verified 05/05/19 10:47 atropine sulfate AdvReac Unknown Verified 05/05/19 10:47 [From ] codeine AdvReac Nausea/Vom/ Verified 05/05/19 10:47 Diarrhea hyoscyamine sulfate AdvReac Unknown Verified 05/05/19 10:47 [From ] Iodinated Contrast Media AdvReac Rash Verified 05/05/19 10:47 [CONTRASTS] meperidine HCl [From Demerol] AdvReac Unknown Verified 05/05/19 10:47 niacin AdvReac Upset Verified 05/05/19 10:47 Stomach nitroglycerin AdvReac Other Verified 05/05/19 10:47 [From Nitro-Dur] oxytetracycline AdvReac Hives Verified 05/05/19 10:47 [From Terramycin] oxytetracycline HCl AdvReac Hives Verified 05/05/19 10:47 [From Terramycin] Penicillins AdvReac Hives Verified 05/05/19 10:47 perfume AdvReac Shortness Verified 05/05/19 10:47 of breath phenobarbital [From ] AdvReac Unknown Verified 05/05/19 10:47 piroxicam AdvReac Unknown Verified 05/05/19 10:47 prochlorperazine AdvReac Rash Verified 05/05/19 10:47 propoxyphene napsylate AdvReac Unknown Verified 05/05/19 10:47 [From Darvocet-N 100] scopolamine hydrobromide AdvReac Unknown Verified 05/05/19 10:47 [From ] Sulfa (Sulfonamide AdvReac Rash Verified 05/05/19 10:47 Antibiotics) terfenadine [From Seldane] AdvReac Unknown Verified 05/05/19 10:47 tetracycline AdvReac Rash Verified 05/05/19 10:47 Codeine AdvReac Unknown Diarrhea, Uncoded 05/05/19 10:47 Vomiting, Nausea Prochlorperazine AdvReac Unknown Rash Uncoded 05/05/19 10:47 sulfonamide antibiotics AdvReac Unknown Rash, Hives Uncoded 05/05/19 10:47 Family History Father Heart disease CVA (cerebral vascular accident) Mother Colon cancer Brother Cancer skin Brother Cancer lung cancer Surgical History (Updated 09/02/21 @ 20:[address] Gianfranco Remy MD) History of cholecystectomy History of coronary artery bypass graft x 3 (~10/13/12) History of excision of pilonidal cyst History of hysterectomy Presence of coronary angioplasty implant and graft (~12/23/17) Status post left oophorectomy Social History Smoking Status: Never smoker how long ago did patient quit smokin second hand exposure: No alcohol intake: never substance use type: does not use caffeine: Yes Type: coffee Number of servings: 1 and tea what type of physical activity do you participate in: walking frequency: daily duration: 30-45 minutes/day seatbelt use: always do you feel safe at home: Yes ROS ROS ED Constitutional Constitutional ED: Denies chills or fever(s) Eyes Eyes: Denies change in vision or diplopia ENT ENT ED: Denies rhinorrhea or sore throat Cardiovascular Cardiovascular: Reports chest pain; Denies palpitations Respiratory/Chest Respiratory/Chest: Denies cough or dyspnea Gastrointestinal Gastrointestinal: Reports nausea; Denies abdominal pain, diarrhea or vomiting Genitourinary Genitourinary ED: Denies dysuria or hematuria Musculoskeletal Musculoskeletal: Denies back pain or neck pain Integumentary Denies abscess or rash Neurologic Neurologic: Denies headache(s), paresthesias or weakness Psychiatric Psychiatric: Denies anxiety or suicidal thoughts EXAM Physical Exam Const Vital Signs: 09/02/21 16:17 09/02/21 16:36 09/02/21 18:45 Temperature 98.4 F Temperature Source Oral Pulse Rate 69 64 Respiratory Rate 18 24 H Blood Pressure 134/47 H Blood Pressure Mean 76 Pulse Ox 96 96 Oxygen Delivery Method Room Air Room Air 09/02/21 20:00 Temperature Temperature Source Pulse Rate 74 Respiratory Rate 22 H Blood Pressure 113/80 Blood Pressure Mean 91 Pulse Ox 97 Oxygen Delivery Method Positive well nourished and well developed General Appearance ED: well developed and NAD HEENT Reports moist mucous membranes normocephalic and atraumatic Eyes PERRL and EOMs intact bilaterally Neck full ROM and supple Resp normal respiratory effort and clear to auscultation bilaterally Cardio regular rate, regular rhythm and no murmurs GI non-tender and non-distended Auscultation: normoactive bowel sounds Palpation: soft Back/Spine no CVA tenderness General Back: other FROM Extremity normal to inspection and no calf tenderness General Extremety ED: Negative for edema, pulses abnormal or tenderness General Extremity: Negative for edema or pulses abnormal Neuro oriented x3, CN's II-XII intact bilaterally and no sensory deficits noted Sensorium / Orientation: awake and alert Motor Exam: strength 5/5 throughout Skin no rashes or lesions noted and no wounds Heart Score History: Moderately Suspicious ECG: Nonspecific Repolarization Age: >/= 65 years Risk Factors: >/= 3 Risk Factors or History of CAD Troponin: </= Normal Limit Score: 6 MDM MDM MDM Narrative Medical decision making narrative: Since patient still having chest discomfort I offered her analgesics, she declined. Her initial troponin is normal at 5, her chest x-ray 1 view on my interpretation is normal, radiology in agreement, the rest of her labs are unremarkable. We observed her, she was having frequent ectopy but she had no other symptoms of palpitations, and we did a second troponin measurement 2 hours later, it is 7. She states her pain is improved continuously and is just barely present now and she feels okay. Discussed with cardiology Dr. Rueda. Patient really prefers to stay in the hospital. He states that if we keep her, he recommends a repeat pharmacologic nuclear stress test. Discussed with hospitalist. Lab Data Attestation: I reviewed the patient's lab results. Labs: Laboratory Results - last 24 hr 09/02/21 09/02/21 09/02/21 16:30 16:30 17:00 WBC 9.3 RBC 3.99 L Hgb 12.8 Hct 39.7 MCV 99.5 H MCH 32.1 H MCHC 32.2 RDW Std Deviation 45.1 H RDW Coeff of [place] 12.4 Plt Count 365 MPV 10.1 Immature Gran % (Auto) 0.300 Neut % (Auto) 53.2 Lymph % (Auto) 33.7 [place] % (Auto) 9.4 Eos % (Auto) 2.6 Baso % (Auto) 0.8 Absolute Neuts (auto) 4.9 Absolute Lymphs (auto) 3.12 Nucleated RBC % 0 Sodium 141 Potassium 4.4 Chloride 109 H Carbon Dioxide 27.0 Anion Gap 5 BUN 16 Creatinine 0.92 Estim Creat Clear Calc 36.00 Est GFR (MDRD) Af Amer 74 Est GFR (MDRD) Non-Af 62 BUN/Creatinine Ratio 17.3 Glucose 94 Calcium 8.7 Troponin I High Sens 5 09/02/21 19:21 WBC RBC Hgb Hct MCV MCH MCHC RDW Std Deviation RDW Coeff of [place] Plt Count MPV Immature Gran % (Auto) Neut % (Auto) Lymph % (Auto) [place] % (Auto) Eos % (Auto) Baso % (Auto) Absolute Neuts (auto) Absolute Lymphs (auto) Nucleated RBC % Sodium Potassium Chloride Carbon Dioxide Anion Gap BUN Creatinine Estim Creat Clear Calc Est GFR (MDRD) Af Amer Est GFR (MDRD) Non-Af BUN/Creatinine Ratio Glucose Calcium Troponin I High Sens 7 Radiography Diagnostic Testing: Clinical Impression(s) from Imaging Studies Chest X-Ray 09/02/21 19:22 IMPRESSION: No acute disease. Electronically Signed: Steve Andrade MD at 19:59 EDT Reading Location ID and State: [id number] Tel , Service support , Rhythm Strip Rhythm Strip: Sinus Rhythm Rate: 70 Ectopy: PVC(s) EKG Initial EKG: Attestation: I personally reviewed and interpreted this EKG as follows: Interpretation: Sinus Rhythm, No Acute Injury Pattern and LBBB Comments: Frequent PVCs and compensatory pauses Prior: Unchanged (LBBB morphology) Follow-up EKG: Attestation: I personally reviewed and interpreted this EKG as follows: Interpretation: Sinus Rhythm, No Acute Injury Pattern and LBBB Prior: Unchanged Discharge Plan Dx/Rx/DC Orders Clinical Impression: Chest pain, History of coronary artery bypass graft x 3 Disposition Disposition: Acute Care Hospital [facility]
[2021-09-02 17:27] LABS: Troponin-I HS (w/2H Reflex) 5 pg/mL (3.0-54.0)
[2021-09-02 18:45] VITALS: BP 134/47; PULSE 64; RESP 24; O2SAT 96
[2021-09-02 19:03] LABS: Reflex Troponin-HS? (from REC) Y
--- NOTE | 2021-09-02 19:22 | RAD_ITS ---
EXAM: XR CHEST, 1 VIEW CLINICAL INDICATION: chest pain TECHNIQUE: Frontal view of the chest. This report was created using [employer] report generation technology. COMPARISON: None. FINDINGS: LUNGS AND PLEURAL SPACES: Unremarkable. No consolidation or edema. No pneumothorax. No effusion. HEART: CABG surgical changes. MEDIASTINUM: Central airways and mediastinal contour are unremarkable. BONES/JOINTS: Question remote left distal clavicle resection. No suspicious lytic or sclerotic lesions of bone. SOFT TISSUES: Unremarkable. VASCULATURE: Atherosclerotic calcifications of the nonenlarged thoracic aortic arch. RAD/Chest 1 View (Portable) IMPRESSION: No acute disease. Electronically Signed: Steve Andrade MD at 19:59 EDT ,
[2021-09-02 19:49] LABS: Troponin-I HS 7 pg/mL (3.0-54.0)
[2021-09-02 20:00] VITALS: BP 113/80; PULSE 74; RESP 22; O2SAT 97
[2021-09-02 20:57] VITALS: BP 133/74; PULSE 66; RESP 20; TEMP 36.6; O2SAT 96
--- NOTE | 2021-09-02 21:06 | ED.RN ---
THIS NURSE CALLED PRIMARY AND SECONDARY CONTACT PER PATIENTS REQUEST. I SPOKE TO SON AND LEFT DAUGHTER A VOICEMAIL. FERMÍN MANLEY - [phone] CELESTE GONSALEZ- [phone]
--- NOTE | 2021-09-02 21:33 | HP.PCM_ITS ---
Documented by User: JORGE Armando 09/02/21 21:45 HPI - General General Date of Admission: 09/02/21 Date of Service: 09/02/21 Chief Complaint: Chest pain HPI Narrative SILVESTRE FERMIN, is a 86 F who presents with intermittent chest pain for the past weeks and she states she feels like she is having the same kind of pain that she had prior to her heart attack. Patient reports that she has had some place in the past. Patient also reports that she took 6 nitroglycerin tabs prior to calling EMS and states that the first 1 helped but subsequent dosing did not. Patient also reports nausea concurrent with the chest pain but other than that is asymptomatic. Upon evaluation in ER patient is no longer having chest pain. Patient has a medical history that includes CAD, CHF, CVA, hypertension, NSTEMI, ELIE, hypercholesterolemia, COPD. Patient has been diagnosed with unstable angina and has had similar episodes in the past. ER spoke with Dr. Rueda who states patient should be admitted overnight for observation and will receive a stress test in the morning. [facility] Medical History Asthma Atherosclerotic heart disease of [place] coronary artery without angina pectoris Cardiomyopathy, ischemic Cervical spinal stenosis CHF (congestive heart failure) CVA (cerebral vascular accident) Essential (primary) hypertension Gallbladder & bile duct stone with obstruction NSTEMI (non-ST elevated myocardial infarction) ELIE (obstructive sleep apnea) Presence of stent in coronary artery (~12/23/17) Pure hypercholesterolemia Seizure Stage 1 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 Unstable angina Home Medications acetaminophen 1,000 mg PO BID PRN 12/03/15 [History Last Taken 09/02/21] cholecalciferol (vitamin D3) 1,000 unit PO BID 12/03/15 [History Last Taken 09/02/21] fluticasone propionate 2 spray NASAL BID 12/03/15 [History Last Taken 09/02/21] levetiracetam 500 mg PO 799,199912/03/15 [History Last Taken 09/02/21] nitroglycerin 0.4 mg SUBLINGUAL Q5M PRN 12/03/15 [History Last Taken 09/04/20] promethazine 25 mg PO Q6H PRN PRN 12/03/15 [History Last Taken 01/05/19 20:00] sodium chloride 1 spray NASAL PRN 12/01/17 [History Last Taken 09/02/21] metoprolol tartrate 25 mg PO BID 01/06/19 [History Last Taken 09/02/21] coenzyme Q10 100 mg capsule 100 mg PO DAILY 02/08/19 [History Last Taken 09/02/21] diphenoxylate-atropine 2.5 mg-0.025 mg tablet 1 tab PO Q6H PRN tab 02/08/19 [History Last Taken 09/04/20] losartan 25 mg tablet 25 mg PO DAILY 02/08/19 [History Last Taken 09/02/21] potassium chloride 10 mEq tablet,extended release(part/cryst) 20 meq PO BID #180 tab 07/25/20 [Rx Last Taken 09/02/21] pantoprazole 40 mg PO BID 09/04/20 [History Last Taken 09/02/21] clopidogrel 75 mg tablet 75 mg PO DAILY #90 tab 08/11/21 [Rx Last Taken 09/02/21] fenofibrate 160 mg tablet 160 mg PO DAILY #90 tab 08/11/21 [Rx Last Taken 09/02/21] furosemide 40 mg tablet 40 mg PO BID #180 tab 08/11/21 [Rx Last Taken 09/02/21] isosorbide mononitrate 60 mg tablet,extended release 24 hr 60 mg PO BID #180 tab 08/11/21 [Rx Last Taken 09/02/21] Allergy/AdvReac Type Severity Reaction Status Date / Time acyclovir Allergy Unknown Verified 09/02/21 22:20 belladonna alkaloids Allergy Unknown Verified 09/02/21 22:20 tree and shrub pollen Allergy cough Verified 09/02/21 22:20 valacyclovir HCl Allergy Other Verified 09/02/21 22:20 [From Valtrex] venom-honey bee Allergy Angioedema Verified 09/02/21 22:20 [bee venom (honey bee)] iodine AdvReac Severe Other Verified 09/02/21 22:20 lisinopril AdvReac Severe Diarrhea Verified 09/02/21 22:20 metformin AdvReac Severe Diarrhea, Verified 09/02/21 22:20 GI upset, Vomiting, Headache, Dizziness, Nausea Tetracyclines AdvReac Severe headache, Verified 05/05/19 10:47 vomiting, rash nitrofurantoin AdvReac Unknown Unknown Verified 05/05/19 10:47 [From Macrodantin] propoxyphene AdvReac Unknown Unknown Verified 09/02/21 22:20 [From Darvocet-N] valacyclovir [From Valtrex] AdvReac Unknown Seizure Verified 09/02/21 22:20 acetaminophen AdvReac Unknown Verified 09/02/21 22:20 [From Darvocet-N 100] animal dander AdvReac Other Verified 09/02/21 22:20 aspirin AdvReac Other Verified 09/02/21 22:20 atropine sulfate AdvReac Unknown Verified 09/02/21 22:20 [From ] codeine AdvReac Nausea/Vom/ Verified 09/02/21 22:20 Diarrhea hyoscyamine sulfate AdvReac Unknown Verified 09/02/21 22:20 [From ] Iodinated Contrast Media AdvReac Rash Verified 09/02/21 22:20 [CONTRASTS] meperidine HCl [From Demerol] AdvReac Unknown Verified 09/02/21 22:20 niacin AdvReac Upset Verified 09/02/21 22:20 Stomach nitroglycerin AdvReac Other Verified 09/02/21 22:20 [From Nitro-Dur] oxytetracycline AdvReac Hives Verified 09/02/21 22:20 [From Terramycin] oxytetracycline HCl AdvReac Hives Verified 09/02/21 22:20 [From Terramycin] Penicillins AdvReac Hives Verified 09/02/21 22:20 perfume AdvReac Shortness Verified 09/02/21 22:20 of breath phenobarbital [From ] AdvReac Unknown Verified 09/02/21 22:20 piroxicam AdvReac Unknown Verified 09/02/21 22:20 prochlorperazine AdvReac Rash Verified 05/05/19 10:47 propoxyphene napsylate AdvReac Unknown Verified 09/02/21 22:20 [From Darvocet-N 100] scopolamine hydrobromide AdvReac Unknown Verified 09/02/21 22:20 [From ] Sulfa (Sulfonamide AdvReac Rash Verified 09/02/21 22:20 Antibiotics) terfenadine [From Seldane] AdvReac Unknown Verified 09/02/21 22:20 tetracycline AdvReac Rash Verified 09/02/21 22:20 Codeine AdvReac Unknown Diarrhea, Uncoded 09/02/21 22:20 Vomiting, Nausea Prochlorperazine AdvReac Unknown Rash Uncoded 05/05/19 10:47 sulfonamide antibiotics AdvReac Unknown Rash, Hives Uncoded 09/02/21 22:20 Family History Father Heart disease CVA (cerebral vascular accident) Mother Colon cancer Brother Cancer skin Brother Cancer lung cancer Surgical History History of cholecystectomy History of coronary artery bypass graft x 3 (~10/13/12) History of excision of pilonidal cyst History of hysterectomy Presence of coronary angioplasty implant and graft (~12/23/17) Status post left oophorectomy Social History Smoking Status: Never smoker how long ago did patient quit smokin second hand exposure: No alcohol intake: never substance use type: does not use caffeine: Yes Type: coffee Number of servings: 1 and tea what type of physical activity do you participate in: walking frequency: daily duration: 30-45 minutes/day seatbelt use: always do you feel safe at home: Yes ROS Constitutional Constitutional: Denies anorexia, chills, fatigue, malaise or weakness Cardiovascular Cardiovascular: Reports chest pain at rest, dyspnea at rest and nausea; Denies edema, palpitations or syncope Respiratory/Chest Respiratory/Chest: Denies cough, hemoptysis or wheezing Gastrointestinal Gastrointestinal: Denies abdominal pain, constipation, diarrhea, nausea or vomiting Genitourinary Genitourinary: Denies dysuria Musculoskeletal Musculoskeletal: Denies back pain, extremity pain, joint pain, joint stiffness or joint swelling Integumentary Integumentary: Denies dry skin Neurologic Neurologic: Denies abnormal gait, abnormal speech, confusion or dizziness Psychiatric Psychiatric: Denies anxiety or depression Endocrine Endocrinology: Denies change in body appearance Hematologic/Lymphatic Hematologic/Lymphatic: Denies anemia Vital Signs Vital Signs Vital Signs: 09/02/21 16:17 09/02/21 16:36 09/02/21 18:45 Temperature 98.4 F Temperature Source Oral Pulse Rate 69 64 Respiratory Rate 18 24 H Blood Pressure 134/47 H Blood Pressure Mean 76 Pulse Ox 96 96 Oxygen Delivery Method Room Air Room Air 09/02/21 20:00 09/02/21 20:57 Temperature 97.9 F Temperature Source Oral Pulse Rate 74 66 Respiratory Rate 22 H 20 H Blood Pressure 113/80 133/74 H Blood Pressure Mean 91 93 Pulse Ox 97 96 Oxygen Delivery Method Room Air Weight Weight: 199 lb 4.766 oz Body Mass Index (BMI) 36.4 Physical Exam Const alert, oriented x3 and no apparent distress General Appearance: cooperative HEENT normocephalic and head/scalp atraumatic Eyes conjunctivae normal and no scleral icterus Neck no lymphadenopathy and supple General: trachea midline Resp normal respiratory effort, normal air movement and clear to auscultation bilaterally Cardio regular rate, regular rhythm, S1 normal heart sound, S2 normal heart sound and peripheral pulses 2+ throughout GI normal to inspection, nondistended, normoactive bowel sounds, soft to palpation and non-tender Extremity normal capillary refill and no clubbing, cyanosis or edema General Extremity: no tenderness to palpation of joints or extremities Skin General Skin Exam: no breakdown and turgor normal Lesions: no lesions Rashes: no rashes Neuro no focal motor deficits and no sensory deficits noted Motor Exam: Negative for general weakness Psych thought process normal, cooperative and affect normal Appearance: appropriate Results Lab / Micro Data Result Diagrams: 09/02/21 16:30 09/02/21 16:30 Labs: Laboratory Results - last 24 hr 09/02/21 16:30: WBC 9.3, RBC 3.99 L, Hgb 12.8, Hct 39.7, MCV 99.5 H, MCH 32.1 H, MCHC 32.2, RDW Std Deviation 45.1 H, RDW Coeff of Khalida 12.4, Plt Count 365, MPV 10.1, Immature Gran % (Auto) 0.300, Neut % (Auto) 53.2, Lymph % (Auto) 33.7, Whitley % (Auto) 9.4, Eos % (Auto) 2.6, Baso % (Auto) 0.8, Absolute Neuts (auto) 4.9, Absolute Lymphs (auto) 3.12, Nucleated RBC % 0 09/02/21 16:30: Sodium 141, Potassium 4.4, Chloride 109 H, Carbon Dioxide 27.0, Anion Gap 5, BUN 16, Creatinine 0.92, Estim Creat Clear Calc 36.00, Est GFR ( MDRD) Af Amer 74, Est GFR (MDRD) Non-Af 62, BUN/Creatinine Ratio 17.3, Glucose 94, Calcium 8.7 09/02/21 17:00: Troponin I High Sens 5 09/02/21 19:21: Troponin I High Sens 7 Rhythm Strip Rhythm Strip: Sinus Rhythm Rate: 70 Ectopy: PVC(s) Radiology Impression Chest X-Ray 09/02/21 19:22 IMPRESSION: No acute disease. Electronically Signed: Steve Andrade MD at 19:59 EDT Reading Location ID and State: [facility] / [place] Tel , Service support , Assessment & Plan Assessment/Plan (1) Chest pain: QUALIFIERS: Chest pain type: unspecified Qualified Code(s): R07.9 - Chest pain, unspecified PLAN: 1. Chest pain -Admit to PCU for observation -First 2 troponins negative -Cardiac diet ordered, n.p.o. at midnight -CBC, BMP ordered for a.m. -Chemical stress test ordered for a.m. -Consult cardiology, case discussed with Dr. Rueda by Dr. Remy in ER -As needed nitroglycerin ordered 2. CAD -continue Plavix and aspirin 3. Hypertension -Continue furosemide, isosorbide, losartan, metoprolol -Continue potassium replacement secondary to furosemide administration -Vital signs per protocol, currently stable 4. GERD -Continue pantoprazole 5. Epilepsy -Continue Keppra 6. COPD -Currently stable -Continue as needed albuterol, scheduled fluticasone, loratadine DVT prophylaxis-not indicated This patient was seen by LULU ArmandoC under the supervision of Dr. Singh. 28 minutes spent in clinical coordination of patient's plan of care. Documented by User: Dr. 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 NSTEMI (non-ST elevated myocardial infarction) ELIE (obstructive sleep apnea) Presence of stent in coronary artery (~12/23/17) Pure hypercholesterolemia Seizure Stage 1 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 Unstable angina Home Medications acetaminophen 1,000 mg PO BID PRN 12/03/15 [History Last Taken 09/02/21] cholecalciferol (vitamin D3) 1,000 unit PO BID 12/03/15 [History Last Taken 09/02/21] fluticasone propionate 2 spray NASAL BID 12/03/15 [History Last Taken 09/02/21] levetiracetam 500 mg PO 0800,199912/03/15 [History Last Taken 09/02/21] nitroglycerin 0.4 mg SUBLINGUAL Q5M PRN 12/03/15 [History Last Taken 09/04/20] promethazine 25 mg PO Q6H PRN PRN 12/03/15 [History Last Taken 01/05/19 20:00] sodium chloride 1 spray NASAL PRN 12/01/17 [History Last Taken 09/02/21] metoprolol tartrate 25 mg PO BID 01/06/19 [History Last Taken 09/02/21] coenzyme Q10 100 mg capsule 100 mg PO DAILY 02/08/19 [History Last Taken 09/02/21] diphenoxylate-atropine 2.5 mg-0.025 mg tablet 1 tab PO Q6H PRN tab 02/08/19 [History Last Taken 09/04/20] losartan 25 mg tablet 25 mg PO DAILY 02/08/19 [History Last Taken 09/02/21] potassium chloride 10 mEq tablet,extended release(part/cryst) 20 meq PO BID #180 tab 07/25/20 [Rx Last Taken 09/02/21] pantoprazole 40 mg PO BID 09/04/20 [History Last Taken 09/02/21] clopidogrel 75 mg tablet 75 mg PO DAILY #90 tab 08/11/21 [Rx Last Taken 09/02/21] fenofibrate 160 mg tablet 160 mg PO DAILY #90 tab 08/11/21 [Rx Last Taken 09/02/21] furosemide 40 mg tablet 40 mg PO BID #180 tab 08/11/21 [Rx Last Taken 09/02/21] isosorbide mononitrate 60 mg tablet,extended release 24 hr 60 mg PO BID #180 tab 08/11/21 [Rx Last Taken 09/02/21] Allergy/AdvReac Type Severity Reaction Status Date / Time acyclovir Allergy Unknown Verified 09/02/21 22:20 belladonna alkaloids Allergy Unknown Verified 09/02/21 22:20 tree and shrub pollen Allergy cough Verified 09/02/21 22:20 valacyclovir HCl Allergy Other Verified 09/02/21 22:20 [From Valtrex] venom-honey bee Allergy Angioedema Verified 09/02/21 22:20 [bee venom (honey bee)] iodine AdvReac Severe Other Verified 09/02/21 22:20 lisinopril AdvReac Severe Diarrhea Verified 09/02/21 22:20 metformin AdvReac Severe Diarrhea, Verified 09/02/21 22:20 GI upset, Vomiting, Headache, Dizziness, Nausea Tetracyclines AdvReac Severe headache, Verified 05/05/19 10:47 vomiting, rash nitrofurantoin AdvReac Unknown Unknown Verified 05/05/19 10:47 [From Macrodantin] propoxyphene AdvReac Unknown Unknown Verified 09/02/21 22:20 [From Darvocet-N] valacyclovir [From Valtrex] AdvReac Unknown Seizure Verified 09/02/21 22:20 acetaminophen AdvReac Unknown Verified 09/02/21 22:20 [From Darvocet-N 100] animal dander AdvReac Other Verified 09/02/21 22:20 aspirin AdvReac Other Verified 09/02/21 22:20 atropine sulfate AdvReac Unknown Verified 09/02/21 22:20 [From ] codeine AdvReac Nausea/Vom/ Verified 09/02/21 22:20 Diarrhea hyoscyamine sulfate AdvReac Unknown Verified 09/02/21 22:20 [From ] Iodinated Contrast Media AdvReac Rash Verified 09/02/21 22:20 [CONTRASTS] meperidine HCl [From Demerol] AdvReac Unknown Verified 09/02/21 22:20 niacin AdvReac Upset Verified 09/02/21 22:20 Stomach nitroglycerin AdvReac Other Verified 09/02/21 22:20 [From Nitro-Dur] oxytetracycline AdvReac Hives Verified 09/02/21 22:20 [From Terramycin] oxytetracycline HCl AdvReac Hives Verified 09/02/21 22:20 [From Terramycin] Penicillins AdvReac Hives Verified 09/02/21 22:20 perfume AdvReac Shortness Verified 09/02/21 22:20 of breath phenobarbital [From ] AdvReac Unknown Verified 09/02/21 22:20 piroxicam AdvReac Unknown Verified 09/02/21 22:20 prochlorperazine AdvReac Rash Verified 05/05/19 10:47 propoxyphene napsylate AdvReac Unknown Verified 09/02/21 22:20 [From Darvocet-N 100] scopolamine hydrobromide AdvReac Unknown Verified 09/02/21 22:20 [From ] Sulfa (Sulfonamide AdvReac Rash Verified 09/02/21 22:20 Antibiotics) terfenadine [From Seldane] AdvReac Unknown Verified 09/02/21 22:20 tetracycline AdvReac Rash Verified 09/02/21 22:20 Codeine AdvReac Unknown Diarrhea, Uncoded 09/02/21 22:20 Vomiting, Nausea Prochlorperazine AdvReac Unknown Rash Uncoded 05/05/19 10:47 sulfonamide antibiotics AdvReac Unknown Rash, Hives Uncoded 09/02/21 22:20 Family History Father Heart disease CVA (cerebral vascular accident) Mother Colon cancer Brother Cancer skin Brother Cancer lung cancer Surgical History History of cholecystectomy History of coronary artery bypass graft x 3 (~10/13/12) History of excision of pilonidal cyst History of hysterectomy Presence of coronary angioplasty implant and graft (~12/23/17) Status post left oophorectomy Social History Smoking Status: Never smoker how long ago did patient quit smokin second hand exposure: No alcohol intake: never substance use type: does not use caffeine: Yes Type: coffee Number of servings: 1 and tea what type of physical activity do you participate in: walking frequency: daily duration: 30-45 minutes/day seatbelt use: always do you feel safe at home: Yes Results Lab / Micro Data Result Diagrams: 09/02/21 16:30 09/02/21 16:30 Charges/Coding Addendum Addendum: Dr. Singh: I personally reviewed the chart and examined the patient, and agree with the above findings. 86-year-old female presents to the hospital with chest pain for the past week. Is been coming and going and states that it felt like her heart attack 5 years ago where she needed to have a stent. She took several nitroglycerin today because it became severe and called EMS. Initial 2 troponins were negative the first was 5 and the second 1 was 7. She was very nervous about going home despite the normal troponins therefore she requested be admitted for a stress test to be sure. We will continue all of her home cardiac meds and obtain serial troponins. Clinical time spent in all aspects of patient care: 30 minutes Visit Charges OBSV E&M: [id number] Initial observation care L2
--- NOTE | 2021-09-02 21:45 | ED.RN ---
THIS NURSE SPOKE TO DAUGHTER (FERMÍN YOUNG) ON PHONE TO VERIFY MEDS AND HOME CARE. DAUGHTER SATES PATIENT WEARS 2L NC AT HOME, BASELINE & DOES WEAR A CPAP AT NIGHT TIME. DAUGHTER BELIEVES THAT PTS CHEST PAIN AND ANXIETY MAY BE CAUSED BY PTS LATE SPOUSE PASSING AWAY IN LATE MAY. DAUGHTER STATES THAT PT DOES NOT FOLLOW UP WITH PCP SHE SHOULD NOR DOES SHE TAKE SOME OF HER MEDICATIONS THEY ARE INTENDED. PLEASE CALL DAUGHTER WITH ANY QUESTIONS OR UPDATES. SEE PREVIOUS NOTE FOR NUMBER
--- NOTE | 2021-09-02 21:52 | EKG12_ITS ---
Test Reason : REPEAT CHEST PAIN Blood Pressure : / mmHG Vent. Rate : 063 BPM Atrial Rate : 063 BPM P-R Int : 184 ms QRS Dur : 138 ms QT Int : 460 ms P-R-T Axes : 041 001 116 degrees QTc Int : 470 ms Sinus rhythm with frequent Premature ventricular complexes Left bundle branch block Abnormal ECG Confirmed by COLLIN TREJO, SARWAT ([id number]), metropolitan editor DIEGO CABRERA ([id number]) on 09/03/2021 8:48:21 AM Referred By: Confirmed By:SARWAT POLANCO MD
[2021-09-02 22:04] VITALS: BP 147/91; PULSE 77; RESP 18; TEMP 36.7; O2SAT 98
[2021-09-02 22:05] VITALS: BMI 35.3
[2021-09-02 22:33] VITALS: PULSE 77
[2021-09-02 23:56] LABS: Troponin-I HS 7 pg/mL (3.0-54.0)
[2021-09-03] VITALS (10 sets, daily range): BP systolic 114–138; BP diastolic 42–82; PULSE 60–80; RESP 14–18; TEMP 36.6–36.9; O2SAT 94–98
[2021-09-03] MEDS: levETIRAcetam 500 MG Tablet PO ×3 (00:04→21:34)
[2021-09-03] MEDS: Clopidogrel Bisulfate 75 MG Tablet PO (05:19)
[2021-09-03] MEDS: Losartan Potassium 25 MG Tablet PO (05:19)
--- NOTE | 2021-09-03 06:00 | EKG12_ITS ---
Test Reason : CP Blood Pressure : / mmHG Vent. Rate : 069 BPM Atrial Rate : 069 BPM P-R Int : 196 ms QRS Dur : 142 ms QT Int : 464 ms P-R-T Axes : 047 011 112 degrees QTc Int : 497 ms Sinus rhythm with frequent Premature ventricular complexes Left bundle branch block Abnormal ECG Confirmed by COLLIN TREJO, SARWAT ([id number]), online editor DIEGO CABRERA ([id number]) on 09/04/2021 11:00:25 AM Referred By: VINCE Confirmed By:SARWAT POLANCO MD
[2021-09-03 06:02] LABS: Absolute Lymphocyte Count 3.39 X10^3/uL (0.83-4.51); Absolute Neutrophil Count 4.6 X10^3/uL (2.0-7.7); Basophil# 0.06 X10^3/uL; Basophil% 0.7 % (0-1); Eosinophil# 0.29 X10^3/uL; Eosinophils% 3.2 % (0-5); Hematocrit 37.9 % (37-47); Hemoglobin 12.1 g/dL (12.0-15.0); Lymphocyte # 3.39 X10^3/ul (0.83-4.51); Lymphocyte % 37.1 % (19-41); Mean Corp Hgb Conc 31.9 g/dL (32-36); Mean Corpuscular Hgb 31.6 pg (27.0-32.0); Mean Platelet Vol. 10.3 fl (6.2-12.0); Monocyte% 8.8 % (0-10); NRBC Flagged by Analyzer 0 % (0-5); Neutrophil # 4.57 X10^3/uL (2.7-7.7); Neutrophil % 49.9 % (47-70); Platelet Count 323 K/mm3 (150-450); RBC Distribution Width CV 12.5 % (11.6-14.6); RBC Distribution Width SD 45.3 fl (35.1-43.9); Red Blood Count 3.83 M/mm3 (4.2-5.4); White Blood Count 9.1 K/mm3 (4.4-11.0)
[2021-09-03 06:40] LABS: Anion Gap 7 (5-15); BUN 18 mg/dL (7-18); BUN/Creat Ratio 21.1 RATIO (10-20); Calcium,Total 8.3 mg/dL (8.5-10.1); Chloride 107 mmol/L (98-107); Creatinine, Serum 0.86 mg/dL (0.55-1.02); EST Glomerular Filtration Rate 67 mL/min (>60); Est Glom Filt Rate - Afr Amer 81 mL/min (>60); Estimated Creatinine Clearance 38.51 ml/min; Glucose 100 mg/dL (74-106); Potassium 4.2 mmol/L (3.5-5.1); Sodium Level 140 mmol/L (136-145)
--- NOTE | 2021-09-03 08:04 | PCM.CONS.C ---
Assessment & Plan Assessment/Plan (1) Chest pain: QUALIFIERS: Chest pain type: unspecified Qualified Code(s): R07.9 - Chest pain, unspecified PLAN: The patient presents with chest pain which is somewhat atypical. Her initial cardiac enzymes are negative. Her initial ECG demonstrated no acute ECG changes. She is going to continue medical management. She will undergo further evaluation with a pharmacologic stress nuclear imaging study to compare to her previous study. Depending upon the findings she may or may not need further evaluation in the cardiac catheterization laboratory. (2) Atherosclerotic heart disease of [place] coronary artery without angina pectoris: PLAN: She has a history of CAD. She has undergone previous noninvasive and invasive studies as well as both PCI and CABG. At the moment she will continue with her noninvasive evaluation. (3) Presence of stent in coronary artery: PLAN: Her most recent PCI appears to have been in 2018. It does not appear, other than her noninvasive studies performed in 2020, that she has required repeat invasive evaluation/intervention. She will continue her current therapy and follow-up. (4) History of coronary artery bypass graft x 3: PLAN: She does have a history of CABG. Her most recent evaluation on Status as noted by her 2018 cardiac catheterization procedure. She will continue her current medical therapy and noninvasive valuation. (5) Pure hypercholesterolemia: PLAN: She should continue risk factor evaluation and care/medical therapy as tolerated. (6) Essential (primary) hypertension: PLAN: Her blood pressure does not be monitored. Her medications can be adjusted as needed Addt'l Comments The patient's case has been previously discussed with the patient and Dr. Remy of the [facility] emergency department staff. This note was generated using a voice recognition system and there may be incorrect words, spelling or punctuation that were not noted when reviewing the office note prior to saving. HPI Consult Data Date of Consult: 09/03/21 HPI Narrative HPI Narrative: SILVESTRE FERMIN, is a 86 year old white female who presents for cardiovascular consultation based upon concerns of chest discomfort superimposed upon a history of CAD, CABG (2012-FUENTES to the LCx/OM, SVG to the diagonal branch, SVG to the RCA), PCI/ANGELIC to the proximal/mid RCA in May 2017, PCI/ANGELIC to the distal LAD x2 in December 2017, ischemic mediated cardiomyopathy, hyperlipidemia, hypertension, history of TIA/CVA, history of seizure disorder, and chronic renal insufficiency. Since the patient's last outpatient cardiovascular visit on 02-08-2019 she has not presented to the office for additional outpatient evaluation. She was evaluated at [facility] in August 2020 for concerns of chest discomfort. At that time she underwent noninvasive evaluation with a transthoracic echocardiogram and a pharmacologic stress nuclear imaging study. The results are noted below. She did not require reevaluation in the cardiac catheterization laboratory. She states that she has been having on and off chest discomfort in the left upper quadrant of her chest. She states it can sometimes feel like a sharp discomfort and other times a fevers discomfort. She describes it radiating somewhat to her left neck/left shoulder area. She believes she gets somewhat short of breath with it as well is occasionally nauseated with it as well as having some episodes of diaphoresis. She has used nitroglycerin sublingual which she states is partially helped but has not totally relieved her symptoms. Based upon her ongoing symptoms she presented to the emergency department for further evaluation. There she underwent evaluation with troponin I levels which were negative. Her ECG did not demonstrate any acute ECG changes. Her chest x-ray is as noted below. She was subsequently placed in the PCU for further evaluation and care. In the PCU she states she has been resting comfortably. She denies any orthopnea or PND or ongoing peripheral pitting edema. There is been no near-syncope or syncope. [facility] Medical History Asthma Atherosclerotic heart disease of [place] coronary artery without angina pectoris Cardiomyopathy, ischemic Cervical spinal stenosis CHF (congestive heart failure) CVA (cerebral vascular accident) Essential (primary) hypertension Gallbladder & bile duct stone with obstruction NSTEMI (non-ST elevated myocardial infarction) ELIE (obstructive sleep apnea) Presence of stent in coronary artery (~12/23/17) Pure hypercholesterolemia Seizure Stage 1 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 Unstable angina Home Medications acetaminophen 1,000 mg PO BID PRN 12/03/15 [History Last Taken 09/02/21] cholecalciferol (vitamin D3) 1,000 unit PO BID 12/03/15 [History Last Taken 09/02/21] fluticasone propionate 2 spray NASAL BID 12/03/15 [History Last Taken 09/02/21] levetiracetam 500 mg PO 0800,2000 07/19/16 [History Last Taken 09/02/21] nitroglycerin 0.4 mg SUBLINGUAL Q5M PRN 12/03/15 [History Last Taken 09/04/20] promethazine 25 mg PO Q6H PRN PRN 12/03/15 [History Last Taken 01/05/19 20:00] sodium chloride 1 spray NASAL PRN 12/01/17 [History Last Taken 09/02/21] metoprolol tartrate 25 mg PO BID 01/06/19 [History Last Taken 09/02/21] coenzyme Q10 100 mg capsule 100 mg PO DAILY 02/08/19 [History Last Taken 09/02/21] diphenoxylate-atropine 2.5 mg-0.025 mg tablet 1 tab PO Q6H PRN tab 02/08/19 [History Last Taken 09/04/20] losartan 25 mg tablet 25 mg PO DAILY 02/08/19 [History Last Taken 09/02/21] potassium chloride 10 mEq tablet,extended release(part/cryst) 20 meq PO BID #180 tab 07/25/20 [Rx Last Taken 09/02/21] pantoprazole 40 mg PO BID 09/04/20 [History Last Taken 09/02/21] clopidogrel 75 mg tablet 75 mg PO DAILY #90 tab 08/11/21 [Rx Last Taken 09/02/21] fenofibrate 160 mg tablet 160 mg PO DAILY #90 tab 08/11/21 [Rx Last Taken 09/02/21] furosemide 40 mg tablet 40 mg PO BID #180 tab 08/11/21 [Rx Last Taken 09/02/21] isosorbide mononitrate 60 mg tablet,extended release 24 hr 60 mg PO BID #180 tab 08/11/21 [Rx Last Taken 09/02/21] Allergy/AdvReac Type Severity Reaction Status Date / Time acyclovir Allergy Unknown Verified 09/02/21 22:20 belladonna alkaloids Allergy Unknown Verified 09/02/21 22:20 tree and shrub pollen Allergy cough Verified 09/02/21 22:20 valacyclovir HCl Allergy Other Verified 09/02/21 22:20 [From Valtrex] venom-honey bee Allergy Angioedema Verified 09/02/21 22:20 [bee venom (honey bee)] iodine AdvReac Severe Other Verified 09/02/21 22:20 lisinopril AdvReac Severe Diarrhea Verified 09/02/21 22:20 metformin AdvReac Severe Diarrhea, Verified 09/02/21 22:20 GI upset, Vomiting, Headache, Dizziness, Nausea Tetracyclines AdvReac Severe headache, Verified 05/05/19 10:47 vomiting, rash nitrofurantoin AdvReac Unknown Unknown Verified 05/05/19 10:47 [From Macrodantin] propoxyphene AdvReac Unknown Unknown Verified 09/02/21 22:20 [From Darvocet-N] valacyclovir [From Valtrex] AdvReac Unknown Seizure Verified 09/02/21 22:20 acetaminophen AdvReac Unknown Verified 09/02/21 22:20 [From Darvocet-N 100] animal dander AdvReac Other Verified 09/02/21 22:20 aspirin AdvReac Other Verified 09/02/21 22:20 atropine sulfate AdvReac Unknown Verified 09/02/21 22:20 [From ] codeine AdvReac Nausea/Vom/ Verified 09/02/21 22:20 Diarrhea hyoscyamine sulfate AdvReac Unknown Verified 09/02/21 22:20 [From ] Iodinated Contrast Media AdvReac Rash Verified 09/02/21 22:20 [CONTRASTS] meperidine HCl [From Demerol] AdvReac Unknown Verified 09/02/21 22:20 niacin AdvReac Upset Verified 09/02/21 22:20 Stomach nitroglycerin AdvReac Other Verified 09/02/21 22:20 [From Nitro-Dur] oxytetracycline AdvReac Hives Verified 09/02/21 22:20 [From Terramycin] oxytetracycline HCl AdvReac Hives Verified 09/02/21 22:20 [From Terramycin] Penicillins AdvReac Hives Verified 09/02/21 22:20 perfume AdvReac Shortness Verified 09/02/21 22:20 of breath phenobarbital [From ] AdvReac Unknown Verified 09/02/21 22:20 piroxicam AdvReac Unknown Verified 09/02/21 22:20 prochlorperazine AdvReac Rash Verified 05/05/19 10:47 propoxyphene napsylate AdvReac Unknown Verified 09/02/21 22:20 [From Darvocet-N 100] scopolamine hydrobromide AdvReac Unknown Verified 09/02/21 22:20 [From ] Sulfa (Sulfonamide AdvReac Rash Verified 09/02/21 22:20 Antibiotics) terfenadine [From Seldane] AdvReac Unknown Verified 09/02/21 22:20 tetracycline AdvReac Rash Verified 09/02/21 22:20 Codeine AdvReac Unknown Diarrhea, Uncoded 09/02/21 22:20 Vomiting, Nausea Prochlorperazine AdvReac Unknown Rash Uncoded 05/05/19 10:47 sulfonamide antibiotics AdvReac Unknown Rash, Hives Uncoded 09/02/21 22:20 Family History Father Heart disease CVA (cerebral vascular accident) Mother Colon cancer Brother Cancer skin Brother Cancer lung cancer Surgical History History of cholecystectomy History of coronary artery bypass graft x 3 (~10/13/12) History of excision of pilonidal cyst History of hysterectomy Presence of coronary angioplasty implant and graft (~12/23/17) Status post left oophorectomy Social History Smoking Status: Never smoker how long ago did patient quit smokin second hand exposure: No alcohol intake: never substance use type: does not use caffeine: Yes Type: coffee Number of servings: 1 and tea what type of physical activity do you participate in: walking frequency: daily duration: 30-45 minutes/day seatbelt use: always do you feel safe at home: Yes ROS Constitutional Constitutional: Reports as per HPI Eyes Eyes: Reports as per HPI ENT HEENT: Reports as per HPI Cardiovascular Cardiovascular: Reports chest pain, chest pain at rest, dyspnea and nausea Respiratory/Chest Respiratory/Chest: Reports dyspnea Gastrointestinal Gastrointestinal: Reports nausea Genitourinary Genitourinary: Reports as per HPI Musculoskeletal Musculoskeletal: Reports as per HPI Integumentary Integumentary: Reports as per HPI Neurologic Neurologic: Reports as per HPI Psychiatric Psychiatric: Reports as per HPI Physical Exam Const alert, oriented x3 and no apparent distress Orientation / Consciousness: awake HEENT normocephalic, head/scalp atraumatic and hearing grossly normal bilaterally Eyes PERRL, EOMs intact bilaterally and conjunctivae normal Neck full ROM, supple and no JVD Chest Chest: midline sternotomy incision Resp clear to auscultation bilaterally Cardio regular rate, regular rhythm, S1 normal heart sound and S2 normal heart sound Rhythm: abnormal rhythm ectopic beats GI normal to inspection, nondistended, normoactive bowel sounds Extremity no pedal edema Skin no rashes or lesions noted Neuro oriented x3, moves all extremities, no focal motor deficits and no sensory deficits noted Psych mental status grossly normal Risk Stratification Risk Stratification Applicable: Yes Age >/= 65: Yes >/= 3 CAD Risk Factors (HTN, HLD, DM, family hx of CAD, or current smoker): Yes Aspirin Use in the Past 7 Days: Yes Severe Angina (>/= episodes in 24 hours): Yes EKG ST Changes >/= 0.5mm: No Positive Cardiac Marker: No JOSE Risk Stratification Score: 4 JOSE % Risk: 20% Risk Procedure Criteria Type of Procedure Procedure Type: Elective Elective Risks - COVID COVID Risk Discussion: The surgeon/proceduralist and patient have discussed in detail the risk of exposure to and/or potential harm posed by the COVID-19 virus with having a surgery/procedure at this time versus the risk of delaying the surgery/procedure. It is not possible to know either the risk of delaying the surgery or procedure or chance of getting an infection with perfect accuracy, but a joint decision was made between the patient and the surgeon/proceduralist to proceed at this time with the scheduled surgery/procedure as indicated on the consent form. Objective Data Vital Signs: Vital Signs Temp Pulse Resp BP Pulse Ox 98 F 66 18 138/67 H 98 09/03/21 05:17 09/03/21 07:14 09/03/21 05:17 09/03/21 05:17 09/03/21 05:17 Oxygen Flow Rate (L/min) 2 Oxygen Delivery Method Nasal Cannula Weight: 193 lb 1.999 oz Body Mass Index (BMI) 35.3 Intake & Output: Intake and Output for Last 24 Hours 09/01/21 09/02/21 09/03/21 23:59 23:59 23:59 Intake Total 440 / 440 120 / 120 Balance 440 / 440 120 / 120 Lab / Micro Data Result Diagrams: 09/03/21 05:15 09/03/21 05:15 Labs: Laboratory Results - last 24 hr 09/02/21 16:30: WBC 9.3, RBC 3.99 L, Hgb 12.8, Hct 39.7, MCV 99.5 H, MCH 32.1 H, MCHC 32.2, RDW Std Deviation 45.1 H, RDW Coeff of [place] 12.4, Plt Count 365, MPV 10.1, Immature Gran % (Auto) 0.300, Neut % (Auto) 53.2, Lymph % (Auto) 33.7, [place] % (Auto) 9.4, Eos % (Auto) 2.6, Baso % (Auto) 0.8, Absolute Neuts (auto) 4.9, Absolute Lymphs (auto) 3.12, Nucleated RBC % 0 09/02/21 16:30: Sodium 141, Potassium 4.4, Chloride 109 H, Carbon Dioxide 27.0, Anion Gap 5, BUN 16, Creatinine 0.92, Estim Creat Clear Calc 36.00, Est GFR (MDRD) Af Amer 74, Est GFR (MDRD) Non-Af 62, BUN/Creatinine Ratio 17.3, Glucose 94, Calcium 8.7 09/02/21 17:00: Troponin I High Sens 5 09/02/21 19:21: Troponin I High Sens 7 09/02/21 23:15: Troponin I High Sens 7 09/03/21 05:15: WBC 9.1, RBC 3.83 L, Hgb 12.1, Hct 37.9, MCV 99.0, MCH 31.6, MCHC 31.9 L, RDW Std Deviation 45.3 H, RDW Coeff of [place] 12.5, Plt Count 323, MPV 10.3, Immature Gran % (Auto) 0.300, Neut % (Auto) 49.9, Lymph % (Auto) 37.1, [place] % (Auto) 8.8, Eos % (Auto) 3.2, Baso % (Auto) 0.7, Absolute Neuts (auto) 4.6, Absolute Lymphs (auto) 3.39, Nucleated RBC % 0 09/03/21 05:15: Sodium 140, Potassium 4.2, Chloride 107, Carbon Dioxide 26.0, Anion Gap 7, BUN 18, Creatinine 0.86, Estim Creat Clear Calc 38.51, Est GFR (MDRD) Af Amer 81, Est GFR (MDRD) Non-Af 67, BUN/Creatinine Ratio 21.1 H, Glucose 100, Calcium 8.3 L Rhythm Strip Rhythm Strip: Sinus Rhythm Rate: 70 Ectopy: PVC(s) Cardiology Labs/Tests 09/02/21 16:30: WBC 9.3, RBC 3.99 L, Hgb 12.8, Hct 39.7, MCV 99.5 H, MCH 32.1 H, MCHC 32.2, Plt Count 365, MPV 10.1, Immature Gran % (Auto) 0.300, Neut % (Auto) 53.2, Lymph % (Auto) 33.7, [place] % (Auto) 9.4, Eos % (Auto) 2.6, Baso % (Auto) 0.8, Absolute Neuts (auto) 4.9, Nucleated RBC % 0 09/02/21 16:30: Sodium 141, Potassium 4.4, Chloride 109 H, Carbon Dioxide 27.0, Anion Gap 5, BUN 16, Creatinine 0.92, Est GFR (MDRD) Af Amer 74, Est GFR (MDRD) Non-Af 62, BUN/Creatinine Ratio 17.3, Glucose 94, Calcium 8.7 09/03/21 05:15: WBC 9.1, RBC 3.83 L, Hgb 12.1, Hct 37.9, MCV 99.0, MCH 31.6, MCHC 31.9 L, Plt Count 323, MPV 10.3, Immature Gran % (Auto) 0.300, Neut % (Auto) 49.9, Lymph % (Auto) 37.1, [place] % (Auto) 8.8, Eos % (Auto) 3.2, Baso % (Auto) 0.7, Absolute Neuts (auto) 4.6, Nucleated RBC % 0 09/03/21 05:15: Sodium 140, Potassium 4.2, Chloride 107, Carbon Dioxide 26.0, Anion Gap 7, BUN 18, Creatinine 0.86, Est GFR (MDRD) Af Amer 81, Est GFR (MDRD) Non-Af 67, BUN/Creatinine Ratio 21.1 H, Glucose 100, Calcium 8.3 L Rhythm: Sinus rhythm EKG: As noted above ECHO: 09-04-2020 Interpretation Summary The study was technically difficult. Segmental dysfunction with preserved ejection fraction (see wall motion). The estimated ejection fraction is 55 %. Post operative septal motion. The left atrium is mildly enlarged. Mild (1+) mitral valve insufficiency. Trivial tricuspid valve insufficiency. Right ventricular systolic pressure estimated to be 26 mmHg. No evidence for diastolic dysfunction. Stress Test Report Date: 09-05-2020 Procedure: Pharmacologic stress nuclear imaging study Indications: Pain; CAD; PCI; CABG ischemic cardiomyopathy; abnormal ECG/left bundle branch block Consent: Per the patient Procedure: The patient underwent pharmacologic (Regadenoson 0.4mg ) evaluation with a peak heart rate of 99 beats per minute (72%predicted maximal heart rate) and a peak blood pressure of 148/70 mmHg. The baseline ECG demonstrated sinus rhythm; left bundle branch block. The peak pharmacologic ECG demonstrated no obvious ECG changes. There were no cardiac dysrhythmias pretest, during pharmacologic infusion, or recovery. There was no complaint of chest discomfort during pharmacologic infusion or recovery. The examination was discontinued secondary to completion of protocol. Impression: 1. Pharmacologic (Regadenoson) evaluation 2. Peak pharmacologic ECG with continued left bundle branch block with no obvious ECG changes. 3. There were no cardiac dysrhythmias pretest, during pharmacologic infusion, or recovery. 4. Nuclear images pending Myocardial perfusion imaging study: Technique: The patient was injected with 14.4 millicuries of technetium 99m Cardiolite and subsequently rest SPECT Cardiolite nuclear imaging was obtained in the horizontal long, vertical long, and short axis views. The patient underwent pharmacologic (Regadenoson) evaluation with a peak heart rate of 99 beats per minute (72% percent predicted maximal heart rate) and a peak blood pressure of 148/70 mmHg. The patient was injected with 44.5 millicuries of technetium 99m Cardiolite and subsequently stress SPECT Cardiolite nuclear imaging was obtained in the horizontal long, vertical long, and short axis views. A gated Cardiolite study at peak stress was obtained. Interpretation: Rest and stress SPECT Cardiolite nuclear imaging status post realignment, normalization, and attenuation correction demonstrate the appearance of diminished absence of myocardial perfusion/tracer uptake in portions of the distal anterior segments without significant change between rest and stress. There is diminished end systolic thickening and brightening in the aforementioned area. The gated Cardiolite study demonstrates diminished myocardial thickening and inward wall motion. The reported LVEF is 58%. Impression: 1. Rest and stress by current nuclear imaging demonstrate myocardial perfusion changes appearing compatible with an area of previous myocardial injury/infarction in portions of the distal anterior segments with no myocardial perfusion changes consider diagnostic for associated stress-induced myocardial ischemia. 2. The gated Cardiolite study reports an LVEF of 58%. Cardiac Cath: 12-23-2017 CONCLUSIONS Elevated Left Ventricular End Diastolic Pressure [place] Multivessel CAD FUENTES to LCX/OM: patent SVG to DX1: patent SVG to RCA: previously documented as atretic and subsequently occluded and not reevaluated during this examination RECOMMENDATIONS Risk factor modification Medical therapy Referred for immediate PCI DESCRIPTION OF PROCEDURE The patient arrived to the procedure lab. The risks and benefits of the procedure as well as a full description of our services here and current unavailability of surgical backup were fully explained to the patient and/or their significant other prior to the catheterization. The Timeout was completed, verifying the correct patient and procedure. The patient's procedural site was prepped and draped in the usual fashion. Local anesthetic was given subcutaneously to right groin region with Lidocaine 2%. Using a modified Seldinger technique, arterial access was obtained via the right femoral artery, a 4Fr sheath was inserted Left Coronary Artery selective angiography was performed in multiple views using a 4 Fr. JL5 catheter. Right Coronary Artery selective angiography was then performed in multiple views using a 4 Fr. 3DRC catheter. Left internal mammary artery graft to the Circumflex/OM selective angiography was performed in multiple views using a 4 Fr. JR4 catheter. Saphenous Vein graft to the DIAG 1 selective angiography was performed in multiple views using a 4 Fr. JR4 catheter.Contrast was injected through the sheath and the Right Iliac and Femoral artery were assessed for possible closure device.The arterial sheath was pulled and a Mynx closure device was deployed for hemostasis CORONARY ANGIOGRAPHY DOMINANCE: Right Dominant LEFT HEART ASSESSMENT Left Ventricular Ejection Fraction: Not assessed Elevated Left Ventricular End Diastolic Pressure LVEDP: 34 mmHg LEFT MAIN: Angiographically normal LEFT ANTERIOR DECENDING ARTERY: OSTIAL LAD: 25 % Stenosis PROX LAD: Mild calcification MID LAD: 75 % Stenosis CIRCUMFLEX ARTERY: PROX CIRC: Eccentric: 50 % Stenosis MID CIRC: Long: Diffuse: 50 % Stenosis RIGHT CORONARY ARTERY: PROX RCA: Previously placed stent is patent MID RCA: Previously placed stent is patent GRAFTS: FUENTES graft to the 1st OM is patent with no angiographically significant appearing disease distal to the graft attachment Saphenous Vein graft to the 1st Diagonal is patent with diffuse, irrgular, 75% stenosis distal to the graft attachment prior to proceeding as a small caliber vessel system Saphenous Vein graft to the RCA is totally occluded (documented on 05/24/2017 [facility] Cardiac Catheterization: not reevaluated during this examination) PCI: 12-23-2017 PTCA/ANGELIC of the distal LAD with a 2.25x38 Resolute followed by a 2.25x[address] Surgery: 10-13-2012: [facility] FUENTES to the OM of the LCx SVG to the diagonal branch SVG to the RCA Radiography Diagnostic Testing: Radiology Impression Chest X-Ray 09/02/21 19:22 IMPRESSION: No acute disease. Electronically Signed: Steve Andrade MD at 19:59 EDT ,
--- NOTE | 2021-09-03 09:02 | NURSING ---
Pt to stress test via [employer]
--- NOTE | 2021-09-03 12:43 | STRESSREP_ITS ---
Stress Test Report Date: 09-03-2021 Procedure: Pharmacologic stress nuclear imaging study Indications: Chest pain; CAD; s/p PCI; CABG Consent: Per the patient Procedure: The patient underwent pharmacologic (Regadenoson 0.4mg ) evaluation with a peak heart rate of 88 beats per minute (64%predicted maximal heart rate) and a peak blood pressure of 142/64 mmHg. The baseline ECG demonstrated sinus rhythm; left bundle branch block; PVCs. The peak pharmacologic ECG demonstrated no obvious ECG changes. There were occasional PVCs pretest, during pharmacologic infusion, and recovery. There was no complaint of chest discomfort during pharmacologic infusion or recovery. The examination was discontinued secondary to completion of protocol. Impression: 1. Pharmacologic (Regadenoson) evaluation 2. Peak pharmacologic ECG with no obvious ECG changes. 3. There were occasional PVCs pretest, during pharmacologic infusion, and recovery. 4. Nuclear images pending Myocardial perfusion imaging study: Technique: The patient was injected with 14.1 millicuries of technetium 99m Cardiolite and subsequently rest SPECT Cardiolite nuclear imaging was obtained in the horizontal long, vertical long, and short axis views. The patient underwent pharmacologic (Regadenoson) evaluation with a peak heart rate of 88 beats per minute (64% percent predicted maximal heart rate) and a peak blood pressure of 142/60 mmHg. The patient was injected with 42.9 millicuries of technetium 99m Cardiolite and subsequently stress SPECT Cardiolite nuclear imaging was obtained in the horizontal long, vertical long, and short axis views. A gated Cardiolite study at peak stress was obtained. Interpretation: Rest and stress SPECT Cardiolite nuclear imaging status post realignment, normalization, and attenuation correction demonstrate the appearance of diminished myocardial perfusion/tracer uptake in portions of the mid to distal anterior/anteroapical segments which status post stress appears to be somewhat more prominent in the distal anterior and anteroapical segments. There is diminished end-systolic thickening and brightening in the aforementioned areas. The gated Cardiolite study demonstrates myocardial thickening and inward wall motion. The reported LVEF is 46%. Impression: 1. Rest and stress SPECT current nuclear imaging demonstrate myocardial per fusion changes appearing compatible with an area of previous myocardial injury/infarction involving portions of the mid to distal anterior/anteroapical segments with post-rest myocardial perfusion changes appearing concerning for edgardo-infarct related myocardial ischemia. 2. The gated Cardiolite study reports an LVEF of 46%. This note was generated with [employer] software. It may contain incorrect words, spelling, and punctuation that were not noted in checking the note before signing.
--- NOTE | 2021-09-03 13:06 | PN.HOSP_ITS ---
Documented by User: Aleksandar HOBBS 09/03/21 15:12 Subjective Subjective Patient is an 86-year-old female comfortably resting in chair, alert and orient x3. Patient denies any chest pain, palpitations or shortness of breath. Does report some generalized weakness, but denies any infectious symptoms. Does not appear in acute distress. Objective Data Objective Data Vital Signs: Vital Signs Temp Pulse Resp BP Pulse Ox 98.2 F 72 16 133/82 H 98 09/03/21 11:05 09/03/21 11:23 09/03/21 11:05 09/03/21 11:05 09/03/21 11:05 Oxygen Flow Rate (L/min) 2 Oxygen Delivery Method Nasal Cannula Weight: 193 lb 1.999 oz Body Mass Index (BMI) 35.3 Intake & Output: Intake and Output for Last 24 Hours 09/01/21 09/02/21 09/03/21 23:59 23:59 23:59 Intake Total 440 / 440 120 / 120 Balance 440 / 440 120 / 120 Lab / Micro Data Result Diagrams: 09/03/21 05:15 09/03/21 05:15 Labs: Laboratory Results - last 24 hr 09/02/21 16:30: WBC 9.3, RBC 3.99 L, Hgb 12.8, Hct 39.7, MCV 99.5 H, MCH 32.1 H, MCHC 32.2, RDW Std Deviation 45.1 H, RDW Coeff of Khalida 12.4, Plt Count 365, MPV 10.1, Immature Gran % (Auto) 0.300, Neut % (Auto) 53.2, Lymph % (Auto) 33.7, [place] % (Auto) 9.4, Eos % (Auto) 2.6, Baso % (Auto) 0.8, Absolute Neuts (auto) 4.9, Absolute Lymphs (auto) 3.12, Nucleated RBC % 0 09/02/21 16:30: Sodium 141, Potassium 4.4, Chloride 109 H, Carbon Dioxide 27.0, Anion Gap 5, BUN 16, Creatinine 0.92, Estim Creat Clear Calc 36.00, Est GFR (MDRD) Af Amer 74, Est GFR (MDRD) Non-Af 62, BUN/Creatinine Ratio 17.3, Glucose 94, Calcium 8.7 09/02/21 17:00: Troponin I High Sens 5 09/02/21 19:21: Troponin I High Sens 7 09/02/21 23:15: Troponin I High Sens 7 09/03/21 05:15: WBC 9.1, RBC 3.83 L, Hgb 12.1, Hct 37.9, MCV 99.0, MCH 31.6, MCHC 31.9 L, RDW Std Deviation 45.3 H, RDW Coeff of Khalida 12.5, Plt Count 323, MPV 10.3, Immature Gran % (Auto) 0.300, Neut % (Auto) 49.9, Lymph % (Auto) 37.1, [place] % (Auto) 8.8, Eos % (Auto) 3.2, Baso % (Auto) 0.7, Absolute Neuts (auto) 4.6, Absolute Lymphs (auto) 3.39, Nucleated RBC % 0 09/03/21 05:15: Sodium 140, Potassium 4.2, Chloride 107, Carbon Dioxide 26.0, Anion Gap 7, BUN 18, Creatinine 0.86, Estim Creat Clear Calc 38.51, Est GFR (MDRD) Af Amer 81, Est GFR (MDRD) Non-Af 67, BUN/Creatinine Ratio 21.1 H, Glucose 100, Calcium 8.3 L Radiography Diagnostic Testing: Radiology Impression Chest X-Ray 09/02/21 19:22 IMPRESSION: No acute disease. Electronically Signed: Steve Andrade MD at 19:59 EDT Reading Location ID and State: [address] [place] [address] Tel , Service support , Rhythm Strip Rhythm Strip: Sinus Rhythm Rate: 70 Ectopy: PVC(s) Physical Exam Const alert, oriented x3 and no apparent distress HEENT head/scalp atraumatic and moist oral mucous membranes Head and Scalp: normocephalic Eyes PERRL and conjunctivae normal Neck no lymphadenopathy, supple and no JVD Resp normal respiratory effort, no retractions and no use of accessory muscles Cardio regular rhythm and no JVD GI normal to inspection, nondistended, normoactive bowel sounds and soft to palpation Extremity normal to inspection Skin no rashes or lesions noted Neuro CN's II-XII intact bilaterally Psych affect normal Assessment & Plan Assessment/Plan (1) Chest pain: QUALIFIERS: Chest pain type: unspecified Qualified Code(s): R07.9 - Chest pain, unspecified PLAN: Day 1 Discharge planning: To be determined. 1) chest pain Cardiac stress test is abnormal and are concerning for myocardial ischemia, LVEF is 46%. Patient will obtain a cardiac catheterization in a.m. 2) CAD Status post PCI and CABG x3, most recent PCI in 2018. Known to Dr. Rueda. Continue aspirin and Plavix. 3) HTN Well-controlled, continue Lasix, isosorbide, losartan and metoprolol. 4) GERD Continue PPI. 5) seizure disorder Continue Keppra. 6) COPD Does not appear to be in acute exacerbation, currently satting 96% on 2 L via nasal cannula. Continue as needed albuterol, scheduled fluticasone, loratadine DVT prophylaxis - SCDs Patient seen by Aleksandar Flores PA-C, under the supervision of Dr. Aleman. Time spent on patient care: 10 minutes. Documented by User: Dr. Bahman Aleman MD 09/03/21 16:13 Objective Data Lab / Micro Data Result Diagrams: 09/03/21 05:15 09/03/21 05:15 Assessment & Plan Addt'l Comments This patient was seen in conjunction with Aleksandar Flores PA-C. I have independently interviewed and examined the patient and reviewed pertinent historical, laboratory, and other data. Please refer to Aleksandar Flores PA-C's note for details of this patient's presentation, findings, and recommendations. I have reviewed Aleksandar Flores PA-C's note and concur with documented findings. In brief, patient is an 86-year-old lady with past medical history signal for coronary artery disease status post CABG and subsequent PCI who presented with chest pain. Placed on a monitored bed as part of patient's evaluation she underwent a nuclear stress test which was positive for stress-induced ischemia. Cardiology on consult plan is for patient to undergo left heart catheterization on 09/04/2021 Physical Examination: GENERAL: cooperative HEENT: Atraumatic; EYES; Anicteric, Normal Conjunctiva NECK; supple, normal thyroid, RESPIRATORY: Diminished to auscultation CARDIOVASCULAR: Regular S1 S2, GI: soft, normoactive bowel sounds, : No Renal angle tenderness; EXTREMITIES: No edema, no clubbing, MUSCULOSKELETAL: no muscle wasting NEURO: Awake; no lateralizing signs. SKIN: No Rash PSYCH; Flat affect Assessment: 1. Chest pain with a positive stress test 2. Essential hypertension 3. Coronary artery disease with CABG and subsequent PCI 4. GERD 5. Seizure disorder 6. Class II obesity with BMI of 35.3 6. COPD Recommendations: 1. I have discussed the results of my overview and impressions with the patient 2. Options for management were reviewed Total time spent by myself and the advanced practice practitioner evaluating patient, reviewing labs, subsequent management decisions, discussion with patient as well as other providers 45 minutes ( 25 of which was spent by myself) Charges/Coding Visit Charges OBSV E&M: 15117 Subsequent observation care L3
--- NOTE | 2021-09-03 14:09 | CASEMGMT ---
According to the [facility] dual website, the following are in-network tertiary facilities: [facility], [place], [facility], [facility], [facility], [facility], [place], [facility], and . Graciela ALCARAZ CM
--- NOTE | 2021-09-03 15:11 | CASEMGMT ---
RN JIE NOTE: Intro role of CM to patient and [facility] form explained re: Observation status for treatment of chest pain. Explained hospitalization will be paid per her insurance policy for Outpatient billing and condition will continue to be evaluated for Inpt necessity. Also let pt know that [facility] sends paper in the billing packet with their phone number if questions arise. Discussed Pharmacy section of [facility] form and self administered medication guideline. Pt verbalizes understanding and does not have further questions. Form signed, copy made and placed in chart, and original given to pt. Don LOCKETT RN CM
[2021-09-03] MEDS: Fenofibrate 145 MG Tablet PO (15:13)
[2021-09-03] MEDS: Furosemide 40 MG Tablet PO (15:13)
[2021-09-03] MEDS: Potassium Chloride Oral Tablet 20 MEQ PO (15:13)
[2021-09-03] MEDS: Fluticasone 0.05% 1 SPRAY NASAL.SRY 2 SPRAY NASAL (21:30)
[2021-09-03] MEDS: Famotidine 20 MG Tablet PO (21:31)
[2021-09-03] MEDS: Pantoprazole Sodium 40 MG Tablet PO (21:31)
[2021-09-03] MEDS: predniSONE 20 MG Tablet 60 MG PO (21:32)
[2021-09-03] MEDS: DiphenhydrAMINE 25 MG Capsule 50 MG PO (21:34)
[2021-09-03] MEDS: Metoprolol Tartrate 25 MG Tablet PO (21:34)
[2021-09-03] MEDS: Isosorbide Mononitrate 60 MG Tablet PO (21:34)
[2021-09-04] VITALS (15 sets, daily range): BP systolic 109–147; BP diastolic 56–87; PULSE 53–65; RESP 14–18; TEMP 36.6–36.7; O2SAT 90–100
--- NOTE | 2021-09-04 05:31 | EKG12_ITS ---
Test Reason : AM EKG Blood Pressure : / mmHG Vent. Rate : 063 BPM Atrial Rate : 063 BPM P-R Int : 210 ms QRS Dur : 148 ms QT Int : 506 ms P-R-T Axes : 039 -05 116 degrees QTc Int : 517 ms Sinus rhythm with 1st degree A-V block with frequent Premature ventricular complexes Left bundle branch block Abnormal ECG When compared with ECG of 03-SEP-2021 05:17, MANUAL COMPARISON REQUIRED, DATA IS UNCONFIRMED Confirmed by IRIS TREJO, DESHAWN ([id number]), social media editor DIEGO CABRERA ([id number]) on 09/04/2021 12:57:03 P M Referred By: DR LLAMAS Confirmed By:MARIANGEL SIMMONS MD
[2021-09-04] MEDS: Metoprolol Tartrate 25 MG Tablet PO (05:46)
[2021-09-04] MEDS: Isosorbide Mononitrate 60 MG Tablet PO (05:47)
[2021-09-04] MEDS: Clopidogrel Bisulfate 75 MG Tablet PO (05:47)
[2021-09-04] MEDS: Losartan Potassium 25 MG Tablet PO (05:47)
--- NOTE | 2021-09-04 05:55 | EKG12_ITS ---
Test Reason : CP Blood Pressure : / mmHG Vent. Rate : 069 BPM Atrial Rate : 069 BPM P-R Int : 180 ms QRS Dur : 146 ms QT Int : 456 ms P-R-T Axes : 051 009 085 degrees QTc Int : 488 ms Sinus rhythm with frequent Premature ventricular complexes Left bundle branch block Abnormal ECG Confirmed by COLLIN TREJO, SARWAT ([id number]), deputy editor in chief DIEGO CABRERA ([id number]) on 09/04/2021 11:04:12 AM Referred By: SHASTA Confirmed By:SARWAT POLANCO MD
[2021-09-04 07:03] LABS: Anion Gap 6 (5-15); BUN 20 mg/dL (7-18); BUN/Creat Ratio 23.5 RATIO (10-20); Calcium,Total 8.2 mg/dL (8.5-10.1); Chloride 109 mmol/L (98-107); Creatinine, Serum 0.85 mg/dL (0.55-1.02); EST Glomerular Filtration Rate 68 mL/min (>60); Est Glom Filt Rate - Afr Amer 82 mL/min (>60); Estimated Creatinine Clearance 38.97 ml/min; Glucose 165 mg/dL (74-106); Magnesium 2.2 mg/dL (1.6-2.6); Phosphorus 3.3 mg/dL (2.5-4.9); Potassium 4.2 mmol/L (3.5-5.1); Sodium Level 140 mmol/L (136-145)
[2021-09-04] MEDS: DiphenhydrAMINE 25 MG Capsule 50 MG PO (07:25)
[2021-09-04] MEDS: predniSONE 20 MG Tablet 60 MG PO (07:25)
[2021-09-04] MEDS: Famotidine 20 MG Tablet PO (07:25)
--- NOTE | 2021-09-04 07:34 | PN.CARD_ITS ---
Subjective Subjective Patient is awake and alert. She denies any ongoing acute symptoms with respect to chest discomfort or dyspnea at this time. Objective Data Vital Signs: Vital Signs Temp Pulse Resp BP Pulse Ox 98.1 F 61 14 123/63 H 96 09/04/21 06:15 09/04/21 06:15 09/04/21 06:15 09/04/21 06:15 09/04/21 06:15 Oxygen Flow Rate (L/min) 2 Oxygen Delivery Method Nasal Cannula Weight: 193 lb 1.999 oz Body Mass Index (BMI) 35.3 Intake & Output: Intake and Output for Last 24 Hours 09/02/21 09/03/21 09/04/21 23:59 23:59 23:59 Intake Total 440 / 440 900 / 900 120 / 120 Balance 440 / 440 900 / 900 120 / 120 Lab / Micro Data Result Diagrams: 09/03/21 05:15 09/04/21 06:30 Labs: Laboratory Results - last 24 hr 09/04/21 06:30: Sodium 140, Potassium 4.2, Chloride 109 H, Carbon Dioxide 25.0, Anion Gap 6, BUN 20 H, Creatinine 0.85, Estim Creat Clear Calc 38.97, Est GFR (MDRD) Af Amer 82, Est GFR (MDRD) Non-Af 68, BUN/Creatinine Ratio 23.5 H, Glucose 165 H, Calcium 8.2 L, Phosphorus 3.3, Magnesium 2.2 Rhythm Strip Rhythm Strip: Sinus Rhythm Rate: 70 Ectopy: PVC(s) Cardiology Labs/Tests 09/04/21 06:30: Sodium 140, Potassium 4.2, Chloride 109 H, Carbon Dioxide 25.0, Anion Gap 6, BUN 20 H, Creatinine 0.85, Est GFR (MDRD) Af Amer 82, Est GFR (MDRD) Non-Af 68, BUN/Creatinine Ratio 23.5 H, Glucose 165 H, Calcium 8.2 L, Phosphorus 3.3, Magnesium 2.2 Rhythm: Sinus rhythm ECHO: 09-04-2020 Interpretation Summary The study was technically difficult. Segmental dysfunction with preserved ejection fraction (see wall motion). The estimated ejection fraction is 55 %. Post operative septal motion. The left atrium is mildly enlarged. Mild (1+) mitral valve insufficiency. Trivial tricuspid valve insufficiency. Right ventricular systolic pressure estimated to be 26 mmHg. No evidence for diastolic dysfunction. Stress Test Report Date: 09-05-2020 Procedure: Pharmacologic stress nuclear imaging study Indications: Pain; CAD; PCI; CABG ischemic cardiomyopathy; abnormal ECG/left bundle branch block Consent: Per the patient Procedure: The patient underwent pharmacologic (Regadenoson 0.4mg ) evaluation with a peak heart rate of 99 beats per minute (72%predicted maximal heart rate) and a peak blood pressure of 148/70 mmHg. The baseline ECG demonstrated sinus rhythm; left bundle branch block. The peak pharmacologic ECG demonstrated no obvious ECG changes. There were no cardiac dysrhythmias pretest, during pharmacologic infusion, or recovery. There was no complaint of chest discomfort during pharmacologic infusion or arabella very. The examination was discontinued secondary to completion of protocol. Impression: 1. Pharmacologic (Regadenoson) evaluation 2. Peak pharmacologic ECG with continued left bundle branch block with no obvious ECG changes. 3. There were no cardiac dysrhythmias pretest, during pharmacologic infusion, or recovery. 4. Nuclear images pending Myocardial perfusion imaging study: Technique: The patient was injected with 14.4 millicuries of technetium 99m Cardiolite and subsequently rest SPECT Cardiolite nuclear imaging was obtained in the horizontal long, vertical long, and short axis views. The patient underwent pharmacologic (Regadenoson) evaluation with a peak heart rate of 99 beats per minute (72% percent predicted maximal heart rate) and a peak blood pressure of 148/70 mmHg. The patient was injected with 44.5 millicuries of technetium 99m Cardiolite and subsequently stress SPECT Cardiolite nuclear imaging was obtained in the horizontal long, vertical long, and short axis views. A gated Cardiolite study at peak stress was obtained. Interpretation: Rest and stress SPECT Cardiolite nuclear imaging status post realignment, normalization, and attenuation correction demonstrate the appearance of diminished absence of myocardial perfusion/tracer uptake in portions of the di stal anterior segments without significant change between rest and stress. There is diminished end systolic thickening and brightening in the aforementioned area. The gated Cardiolite study demonstrates diminished myocardial thickening and inward wall motion. The reported LVEF is 58%. Impression: 1. Rest and stress by current nuclear imaging demonstrate myocardial perfusion changes appearing compatible with an area of previous myocardial injury/infarction in portions of the distal anterior segments with no myocardial perfusion changes consider diagnostic for associated stress-induced myocardial ischemia. 2. The gated Cardiolite study reports an LVEF of 58%. Stress Test Report Date: 09-03-2021 Procedure: Pharmacologic stress nuclear imaging study Indications: Chest pain; CAD; s/p PCI; CABG Consent: Per the patient Procedure: The patient underwent pharmacologic (Regadenoson 0.4mg ) evaluation with a peak heart rate of 88 beats per minute (64%predicted maximal heart rate) and a peak blood pressure of 142/64 mmHg. The baseline ECG demonstrated sinus rhythm; left bundle branch block; PVCs. The peak pharmacologic ECG demonstrated no obvious ECG changes. There were occasional PVCs pretest, during pharmacologic infusion, and recovery. There was no complaint of chest discomfort during pharmacologic infusion or recovery. The examination was discontinued secondary to completion of protocol. Impression: 1. Pharmacologic (Regadenoson) evaluation 2. Peak pharmacologic ECG with no obvious ECG changes. 3. There were occasional PVCs pretest, during pharmacologic infusion, and recovery. 4. Nuclear images pending Myocardial perfusion imaging study: Technique: The patient was injected with 14.1 millicuries of technetium 99m Cardiolite and subsequently rest SPECT Cardiolite nuclear imaging was obtained in the horizontal long, vertical long, and short axis views. The patient underwent pharmacologic (Regadenoson) evaluation with a peak heart rate of 88 beats per minute (64% percent predicted maximal heart rate) and a peak blood pressure of 142/60 mmHg. The patient was injected with 42.9 millicuries of technetium 99m Cardiolite and subsequently stress SPECT Cardiolite nuclear imaging was obtained in the horizontal long, vertical long, and short axis views. A gated Cardiolite study at peak stress was obtained. Interpretation: Rest and stress SPECT Cardiolite nuclear imaging status post realignment, normalization, and attenuation correction demonstrate the appearance of diminished myocardial perfusion/tracer uptake in portions of the mid to distal anterior/anteroapical segments which status post stress appears to be somewhat more prominent in the distal anterior and anteroapical segments. There is diminished end-systolic thickening and brightening in the aforementioned areas. The gated Cardiolite study demonstrates myocardial thickening and inward wall motion. The reported LVEF is 46%. Impression: 1. Rest and stress SPECT current nuclear imaging demonstrate myocardial perfusion changes appearing compatible with an area of previous myocardial injury/infarction involving portions of the mid to distal anterior/anteroapical segments with post-rest myocardial perfusion changes appearing concerning for edgardo-infarct related myocardial ischemia. 2. The gated Cardiolite study reports an LVEF of 46%. Cardiac Cath: 12-23-2017 CONCLUSIONS Elevated Left Ventricular End Diastolic Pressure [place] Multivessel CAD FUENTES to LCX/OM: patent SVG to DX1: patent SVG to RCA: previously documented as atretic and subsequently occluded and not reevaluated during this examination RECOMMENDATIONS Risk factor modification Medical therapy Referred for immediate PCI DESCRIPTION OF PROCEDURE The patient arrived to the procedure lab. The risks and benefits of the procedure as well as a full description of our services here and current unavailability of surgical backup were fully explained to the patient and/or their significant other prior to the catheterization. The Timeout was completed, verifying the correct patient and procedure. The patient's procedural site was prepped and draped in the usual fashion. Local anesthetic was given subcu taneously to right groin region with Lidocaine 2%. Using a modified Seldinger technique, arterial access was obtained via the right femoral artery, a 4Fr sheath was inserted Left Coronary Artery selective angiography was performed in multiple views using a 4 Fr. JL5 catheter. Right Coronary Artery selective angiography was then performed in multiple views using a 4 Fr. 3DRC catheter. Left internal mammary artery graft to the Circumflex/OM selective angiography was performed in multiple views using a 4 Fr. JR4 catheter. Saphenous Vein graft to the DIAG 1 selective angiography was performed in multiple views using a 4 Fr. JR4 catheter.Contrast was injected through the sheath and the Right Iliac and Femoral artery were assessed for possible closure device.The arterial sheath was pulled and a Mynx closure device was deployed for hemostasis CORONARY ANGIOGRAPHY DOMINANCE: Right Dominant LEFT HEART ASSESSMENT Left Ventricular Ejection Fraction: Not assessed Elevated Left Ventricular End Diastolic Pressure LVEDP: 34 mmHg LEFT MAIN: Angiographically normal LEFT ANTERIOR DECENDING ARTERY: OSTIAL LAD: 25 % Stenosis PROX LAD: Mild calcification MID LAD: 75 % Stenosis CIRCUMFLEX ARTERY: PROX CIRC: Eccentric: 50 % Stenosis MID CIRC: Long: Diffuse: 50 % Stenosis RIGHT CORONARY ARTERY: PROX RCA: Previously placed stent is patent MID RCA: Previously placed stent is patent GRAFTS: FUENTES graft to the 1st OM is patent with no angiographically significant appearing disease distal to the graft attachment Saphenous Vein graft to the 1st Diagonal is patent with diffuse, irrgular, 75% stenosis distal to the graft attachment prior to proceeding as a small caliber vessel system Saphenous Vein graft to the RCA is totally occluded (documented on 05/24/2017 [facility] Cardiac Catheterization: not reevaluated during this examination) PCI: 12-23-2017 PTCA/ANGELIC of the distal LAD with a 2.25x38 Resolute followed by a 2.25x12 [address] Surgery: 10-13-2012: [facility] FUENTES to the OM of the LCx SVG to the diagonal branch SVG to the RCA Physical Exam Const alert, oriented x3 and no apparent distress Orientation / Consciousness: awake HEENT normocephalic, head/scalp atraumatic and hearing grossly normal bilaterally Eyes PERRL, EOMs intact bilaterally and conjunctivae normal Neck full ROM, supple and no JVD Chest Chest: midline sternotomy incision Resp clear to auscultation bilaterally Cardio regular rate, regular rhythm, S1 normal heart sound and S2 normal heart sound Rhythm: abnormal rhythm ectopic beats GI normal to inspection, nondistended, normoactive bowel sounds Extremity no pedal edema Skin no rashes or lesions noted Neuro oriented x3, moves all extremities, no focal motor deficits and no sensory deficits noted Psych mental status grossly normal Assessment & Plan Assessment/Plan (1) Chest pain: QUALIFIERS: Chest pain type: unspecified Qualified Code(s): R07.9 - Chest pain, unspecified PLAN: The patient presents with chest pain which is somewhat atypical. Her initial cardiac enzymes are negative. Her initial ECG demonstrated no acute ECG changes. She is going to continue medical management. She has undergone further evaluation with a pharmacologic stress nuclear imaging study with the results as noted. Based upon these results she was recommended for further evaluation with diagnostic cardiac catheterization. The procedure and risk were discussed with her. She was agreeable to this approach. (2) Atherosclerotic heart disease of [place] coronary artery without angina pectoris: PLAN: She has a history of CAD. She has undergone previous noninvasive and invasive studies as well as both PCI and CABG. She has subsequently undergone further evaluation with a pharmacologic stress nuclear imaging study. As noted above, based upon the results, she has been recommended for further evaluation with diagnostic cardiac catheterization. (3) Presence of stent in coronary artery: PLAN: Her most recent PCI appears to have been in 2017. It does not appear, other than her noninvasive studies performed in 2020, that she has required repeat invasive evaluation/intervention. She is going to proceed with further evaluation with diagnostic cardiac catheterization to reassess her q[place] vessels and graft vessels for progression of disease and the need for additional revascularization therapy. (4) History of coronary artery bypass graft x 3: PLAN: She does have a history of CABG. Her most recent evaluation on Status as noted by her 2018 cardiac catheterization procedure. She will continue her current medical therapy and and further invasive evaluation as noted. (5) Pure hypercholesterolemia: PLAN: She should continue risk factor evaluation and care/medical therapy as tolerated. (6) Essential (primary) hypertension: PLAN: Her blood pressure does not be monitored. Her medications can be adjusted as needed Addt'l Comments The patient's case was discussed and reviewed with the patient and previously with Dr. Aleman. This note was generated using a voice recognition system and there may be incorrect words, spelling or punctuation that were not noted when reviewing the office note prior to saving. Procedure Criteria Type of Procedure Procedure Type: Elective Elective Risks - COVID COVID Risk Discussion: The surgeon/proceduralist and patient have discussed in detail the risk of exposure to and/or potential harm posed by the COVID-19 virus with having a surgery/procedure at this time versus the risk of delaying the surgery/procedure. It is not possible to know either the risk of delaying the surgery or procedure or chance of getting an infection with perfect accuracy, but a joint decision was made between the patient and the surgeon/proceduralist to proceed at this time with the scheduled surgery/procedure as indicated on the consent form.
[2021-09-04] MEDS: 0.9% Normal Saline 1,000 ML 75 ML IV (09:38)
--- NOTE | 2021-09-04 09:47 | CL.D_ITS ---
Patient Name: SILVESTRE FERMIN Study Date: 09/04/2021 Performing: Kailash Rueda MD Ht: 62 inches 157 cm : 1935 Wt: 194.3 lbs 88 kg Age: 86 Gender: female BSA: 1.88 PROCEDURE(S) PERFORMED [id number])LHC/COR/LV/CABG CLINICAL PROFILE AND INDICATIONS Indications: Worsening Angina, Suspected CAD Heart Failure: None Stress/Imaging Date: 09/03/2021tress Test with SPECT MPI: Positive Intermediate Risk Angina Classification Anginal Classification w/in 2 Weeks: CCS IV CAD Presentations: Other: worsening angina CONCLUSIONS Normal Left Ventricular End Diastolic Pressure Segmented LV systolic dysfunction- Mild LVEF: by LV gram 55 % [place] Multivessel CAD LAD: stents: patent RCA: stents: patent FUENTES to OM2: patent SVG to DX1: patent SVG to RCA: previously documented as atretic and subsequently occluded and not reevaluated during thi s procedure RECOMMENDATIONS Risk factor modification Medical therapy Case discussed / reviewed with Dr. Moody of Interventional Cardiology DESCRIPTION OF PROCEDURE The patient arrived to the procedure lab. The risks and benefits of the procedure as well as a full d escription of our services here and current unavailability of surgical backup were fully explained to the patient and/or their significant other prior to the catheterization. The Timeout was completed, verifying the correct patient and procedure. The patient's procedural site was prepped and draped in the usual fashion. Local anesthetic was given subcutaneously to right groin region with Lidocaine 2%. Using a modified Seldinger technique, arterial access was obtained via the right femoral artery, a 4 Fr sheath was inserted Left Coronary Artery selective angiography was performed in multiple views us ing a 4 Fr. JL5 catheter. Right Coronary Artery selective angiography was then performed in multiple views using a 4 Fr. 3DRC catheter. Saphenous Vein graft to the DIAG 1 selective angiography was perfo rmed in multiple views using a 4 Fr. JR4 catheter. Left internal mammary artery graft to the Circumflex selective angiography was performed in multiple views using a 4 Fr. JR4 catheter. Left Ventriculography was performed in OQUENDO projection using a 4 Fr. Pigtail catheter. LV to AO pullback p ressures were then recorded.The arterial sheath was pulled and manual compression applied until hemos tasis is achieved. CORONARY ANGIOGRAPHY DOMINANCE: Right Dominant LEFT HEART ASSESSMENT Left Ventricular Ejection Fraction: by LV Gram 55 % Anterior Hypokinesis Normal Left Ventricular End Diastolic Pressure LEFT MAIN: Mild calcification, distal: hazy: eccentric: 25 % Stenosis LEFT ANTERIOR DESCENDING ARTERY: OSTIAL LAD: 25 % Stenosis PROX LAD: Mild calcification, Mild luminal irregularities MID LAD: Previously placed stent is patent DISTAL LAD: hazy: eccentric: 25 % Stenosis, Previously placed stent is patent CIRCUMFLEX ARTERY: PROX CIRC: Mild luminal irregularities MID CIRC: 50 % Stenosis, small caliber vessel: long: diffuse: smooth: 50 % Stenosis OM 1: Proximal - small caliber vessel: no angiographically significant appearing disease OM 2: Proximal - fills from antegrade flow and FUENTES graft flow with no angiographically significant a ppearing disease distal to the graft attachment RIGHT CORONARY ARTERY: PROX RCA: Previously placed stent is patent MID RCA: Previously placed stent is patent DISTAL RCA: Mild luminal irregularities GRAFTS: FUENTES graft to the 2nd OM is patent Saphenous Vein graft to the 1st Diagonal is patent with diffuse, irregular, 75 % stenosis distal to t he graft attachment prior to proceeding as a small caliber vessel system Saphenous Vein graft to the RCA is totally occluded (documented on 05/24/2017 [facility] Cardiac Catheteriza tion: not reevaluated during this examination) AORTIC ROOT: Angiographically normal COMPLICATIONS No Complications PROCEDURE MEDICATIONS Versed 1 mg IV Fentanyl 50 mcg IV Oxygen: 2 L/min via nasal cannula Solu-medrol 125 mg IV 09/04/2021 08:28:25 SUMMARY OF HEMODYNAMIC DATA Time AIR REST ECG 07:57:59 AO 124/49 (71) SA 08:28:47 LV 132/3, 20 08:54:06 LV 122/-1, 11 08:54:26 LV 124/-2, 10 08:55:20 LV 128/-2, 6 08:55:26 LVp 123/1, 13 08:55:29 AOp 128/46 (77) 08:55:34 Signed By Kailash Rueda MD On 09/04/2021 09:47:18 Kailash Rueda MD
--- NOTE | 2021-09-04 11:47 | PCM.DC ---
Discharge Instructions Diet Discharge Diet: Low fat / Low cholesterol and 2000 mg Sodium Diet Activity Discharge Activity: Return to Normal Activity Additional Activity Instructions:: follow post cath instructions Dressing / Incision Call your doctor if your incision/area has: Continuous Slow Oozing, Sudden Increased Bleeding, Increased Pain/ Swelling, Increased Redness, Foul Smelling Discharge and Swelling at the incision site Call your doctor if you observe: Shortness of breath, Dizziness and Chest pain Follow Up Care Test Results: Test results from this visit will be discussed in further detail at your follow-up appointment, if applicable. Discharge Plan Admission Admit Date/Time: 09/02/21 20:52 Primary Reason for Your Visit: chest pain, abnormal stress test Attending Provider: Bahman Aleman Primary Care Provider: Stefany Durham Discharge Orders/Prescriptions Prescriptions: New ranolazine 500 mg Tablet Extended Release 12 Hr 500 mg PO BID Qty: 60 RF: 0 Continued coenzyme Q10 100 mg capsule 100 mg PO DAILY RF: 0 diphenoxylate-atropine [Lomotil] 2.5-0.025 mg tablet 1 tab PO Q6H PRN (Reason: Diarrhea) RF: 0 losartan 25 mg tablet 25 mg PO DAILY RF: 0 levetiracetam 500 MG tablet 500 mg PO 0800,2000 RF: 0 acetaminophen 500 MG tablet 1,000 mg PO BID PRN (Reason: Pain) RF: 0 nitroglycerin 0.4 MG tablet 0.4 mg SUBLINGUAL Q5M PRN (Reason: Chest Pain) RF: 0 fluticasone propionate 1 SPRAY spray,suspension 2 spray NASAL BID RF: 0 cholecalciferol (vitamin D3) 1,000 UNIT tablet 1,000 unit PO BID RF: 0 promethazine 25 MG tablet 25 mg PO Q6H PRN PRN (Reason: Nausea) RF: 0 sodium chloride 1 SPRAY aerosol,spray 1 spray NASAL PRN RF: 0 metoprolol tartrate 25 MG tablet 25 mg PO BID RF: 0 pantoprazole 40 MG tablet 40 mg PO BID RF: 0 potassium chloride 10 mEq tablet,ER particles/crystals 20 meq PO BID Qty: 180 RF: 3 clopidogrel 75 mg tablet 75 mg PO DAILY Qty: 90 RF: 3 fenofibrate 160 mg tablet 160 mg PO DAILY Qty: 90 RF: 3 furosemide 40 mg tablet 40 mg PO BID Qty: 180 RF: 3 isosorbide mononitrate 60 mg tablet extended release 24 hr 60 mg PO BID Qty: 180 RF: 3 Referrals / Follow Up: Stefany Durham DO [Primary Care Provider] - In 1 Week Rosa Isela Cavanaugh NP, MICROBIOLOGY QUALITY CONTROL TECHNICIAN-C [Nurse Practitioner] - In 1 Week Disposition Disposition (needs filled in before D/C Order can be placed): Home, Self Care
--- NOTE | 2021-09-04 12:08 | PCM.DC.SUM ---
Documented by User: Geraldine Muñoz NP, CAN LINE OPERATOR-C 09/04/21 12:15 Providers Date of Admission: 09/02/21 Date of Discharge: 09/04/21 Primary Care Physician: Dr. Stefany Durham DO Reason For Visit: CHEST PAIN Diagnosis Discharge Diagnosis (1) Chest pain: Status: Acute Code(s): R07.9 - Chest pain, unspecified Qualifiers: Chest pain type: unspecified Qualified Code(s): R07.9 - Chest pain, unspecified (2) Atherosclerotic heart disease of [place] coronary artery without angina pectoris: Status: Chronic Code(s): I25.10 - Atherosclerotic heart disease of [place] coronary artery without angina pectoris (3) Presence of stent in coronary artery: Status: Chronic Code(s): Z95.5 - Presence of coronary angioplasty implant and graft (4) History of coronary artery bypass graft x 3: Status: Chronic Code(s): Z95.1 - Presence of aortocoronary bypass graft (5) Pure hypercholesterolemia: Status: Chronic Code(s): E78.00 - Pure hypercholesterolemia, unspecified (6) Essential (primary) hypertension: Status: Chronic Code(s): I10 - Essential (primary) hypertension Medications at Discharge Home Medications acetaminophen 1,000 mg PO BID PRN 12/03/15 cholecalciferol (vitamin D3) 1,000 unit PO BID 12/03/15 fluticasone propionate 2 spray NASAL BID 12/03/15 levetiracetam 500 mg PO 0800,199912/03/15 nitroglycerin 0.4 mg SUBLINGUAL Q5M PRN 12/03/15 promethazine 25 mg PO Q6H PRN PRN 12/03/15 sodium chloride 1 spray NASAL PRN 12/01/17 metoprolol tartrate 25 mg PO BID 01/06/19 coenzyme Q10 100 mg capsule 100 mg PO DAILY 02/08/19 diphenoxylate-atropine 2.5 mg-0.025 mg tablet 1 tab PO Q6H PRN tab 02/08/19 losartan 25 mg tablet 25 mg PO DAILY 02/08/19 potassium chloride 10 mEq tablet,extended release(part/cryst) 20 meq PO BID #180 tab 07/25/20 pantoprazole 40 mg PO BID 09/04/20 clopidogrel 75 mg tablet 75 mg PO DAILY #90 tab 08/11/21 fenofibrate 160 mg tablet 160 mg PO DAILY #90 tab 08/11/21 furosemide 40 mg tablet 40 mg PO BID #180 tab 08/11/21 isosorbide mononitrate 60 mg tablet,extended release 24 hr 60 mg PO BID #180 tab 08/11/21 ranolazine 500 mg PO BID #60 tab 09/04/21 Hospital Course Operations None Procedures Cardiac catheterization and Stress test Summary of Care Provided Hospital Course: Patient is an 86-year-old female admitted 09/02/2021 due to chest pain. 1. Chest pain-abnormal stress test. ACS ruled out. Cardiology consulted during admission. Patient underwent heart cath which showed nonobstructive CAD. Continue medical therapy. Initiated on Ranexa. Follow-up with cardiology as outpatient. 2. CAD with history of CABG/PCI-initiated on Ranexa as noted above. Continue metoprolol, losartan, Lasix, isosorbide, fenofibrate, Plavix. 3. Hypertension- stable, continue current regimen. 4. Hyperlipidemia-on fenofibrate. 5. GERD- on PPI. 6. Seizure disorder-on Keppra. 7. Chronic COPD-continue home inhaler regimen. Patient seen and examined prior to discharge. Physical assessment as noted below. Patient is stable for discharge with follow up recommendations as noted above. This patient was seen by JORGE Perry under the supervision of Dr. Aleman. Physical Exam Const alert, oriented x3 and no apparent distress Orientation / Consciousness: awake, oriented to person, oriented to place and oriented to time Nutritional Appearance: obese HEENT normocephalic and moist oral mucous membranes Eyes PERRL, EOMs intact bilaterally and conjunctivae normal Neck no lymphadenopathy Resp normal respiratory effort and clear to auscultation bilaterally Cardio regular rate, regular rhythm and no murmurs Peripheral Pulses: pulses 2+ throughout GI normal to inspection, nondistended, normoactive bowel sounds, non-tender and non-distended Extremity normal to inspection Skin no rashes or lesions noted Lesions: no lesions Rashes: no rashes Trauma: no lacerations or abrasions Neuro CN's II-XII intact bilaterally, no focal motor deficits, no sensory deficits noted and deep tendon reflexes 2+ bilaterally Psych mental status grossly normal and affect normal Weight / BMI Weight Weight: 193 lb 1.999 oz Body Mass Index (BMI) 35.3 ABG / Lab / Microbiology Data Result Diagrams: 09/03/21 05:15 09/04/21 06:30 Laboratory: Laboratory Results - last 24 hr 09/04/21 06:30: Sodium 140, Potassium 4.2, Chloride 109 H, Carbon Dioxide 25.0, Anion Gap 6, BUN 20 H, Creatinine 0.85, Estim Creat Clear Calc 38.97, Est GFR (MDRD) Af Amer 82, Est GFR (MDRD) Non-Af 68, BUN/Creatinine Ratio 23.5 H, Glucose 165 H, Calcium 8.2 L, Phosphorus 3.3, Magnesium 2.2 D/C Instructions Discharge Diet: Low fat / Low cholesterol and 2000 mg Sodium Diet Additional Activity Instructions: follow post cath instructions Call your doctor if your incision/area has: Continuous Slow Oozing, Sudden Increased Bleeding, Increased Pain/ Swelling, Increased Redness, Foul Smelling Discharge and Swelling at the incision site Call your doctor if you observe: Shortness of breath, Dizziness and Chest pain Meaningful Use Info Meaningful Use Diagnoses (Choose all that apply): None applicable Discharge Plan Admission Admit Date/Time: 09/02/21 20:52 Primary Reason for Your Visit: chest pain, abnormal stress test Attending Provider: Bahman Aleman Primary Care Provider: Stefany Durham Discharge Orders/Prescriptions Prescriptions: New ranolazine 500 mg Tablet Extended Release 12 Hr 500 mg PO BID Qty: 60 RF: 0 Continued coenzyme Q10 100 mg capsule 100 mg PO DAILY RF: 0 diphenoxylate-atropine [Lomotil] 2.5-0.025 mg tablet 1 tab PO Q6H PRN (Reason: Diarrhea) RF: 0 losartan 25 mg tablet 25 mg PO DAILY RF: 0 levetiracetam 500 MG tablet 500 mg PO 0800,2000 RF: 0 acetaminophen 500 MG tablet 1,000 mg PO BID PRN (Reason: Pain) RF: 0 nitroglycerin 0.4 MG tablet 0.4 mg SUBLINGUAL Q5M PRN (Reason: Chest Pain) RF: 0 fluticasone propionate 1 SPRAY spray,suspension 2 spray NASAL BID RF: 0 cholecalciferol (vitamin D3) 1,000 UNIT tablet 1,000 unit PO BID RF: 0 promethazine 25 MG tablet 25 mg PO Q6H PRN PRN (Reason: Nausea) RF: 0 sodium chloride 1 SPRAY aerosol,spray 1 spray NASAL PRN RF: 0 metoprolol tartrate 25 MG tablet 25 mg PO BID RF: 0 pantoprazole 40 MG tablet 40 mg PO BID RF: 0 potassium chloride 10 mEq tablet,ER particles/crystals 20 meq PO BID Qty: 180 RF: 3 clopidogrel 75 mg tablet 75 mg PO DAILY Qty: 90 RF: 3 fenofibrate 160 mg tablet 160 mg PO DAILY Qty: 90 RF: 3 furosemide 40 mg tablet 40 mg PO BID Qty: 180 RF: 3 isosorbide mononitrate 60 mg tablet extended release 24 hr 60 mg PO BID Qty: 180 RF: 3 Referrals / Follow Up: Stefany Durham DO [Primary Care Provider] - In 1 Week Rosa Isela Cavanaugh NP, CAN LINE OPERATOR-C [Nurse Practitioner] - In 1 Week Disposition Disposition (needs filled in before D/C Order can be placed): Home, Self Care Documented by User: Dr. Bahman Aleman MD 09/04/21 13:33 Providers Date of Admission: 09/02/21 Reason For Visit: CHEST PAIN Medications at Discharge Home Medications acetaminophen 1,000 mg PO BID PRN 12/03/15 cholecalciferol (vitamin D3) 1,000 unit PO BID 12/03/15 fluticasone propionate 2 spray NASAL BID 12/03/15 levetiracetam 500 mg PO 0800,2000 12/03/15 nitroglycerin 0.4 mg SUBLINGUAL Q5M PRN 12/03/15 promethazine 25 mg PO Q6H PRN PRN 12/03/15 sodium chloride 1 spray NASAL PRN 12/01/17 metoprolol tartrate 25 mg PO BID 01/06/19 coenzyme Q10 100 mg capsule 100 mg PO DAILY 02/08/19 diphenoxylate-atropine 2.5 mg-0.025 mg tablet 1 tab PO Q6H PRN tab 02/08/19 losartan 25 mg tablet 25 mg PO DAILY 02/08/19 potassium chloride 10 mEq tablet,extended release(part/cryst) 20 meq PO BID #180 tab 07/25/20 pantoprazole 40 mg PO BID 09/04/20 clopidogrel 75 mg tablet 75 mg PO DAILY #90 tab 08/11/21 fenofibrate 160 mg tablet 160 mg PO DAILY #90 tab 08/11/21 furosemide 40 mg tablet 40 mg PO BID #180 tab 08/11/21 isosorbide mononitrate 60 mg tablet,extended release 24 hr 60 mg PO BID #180 tab 08/11/21 ranolazine 500 mg PO BID #60 tab 09/04/21 Hospital Course Operations None Summary of Care Provided Minutes Spent on Discharge: 40 Hospital Course: This patient was seen in conjunction with JORGE Perry . I have independently interviewed and examined the patient and reviewed pertinent historical, laboratory, and other data. Please refer to JORGE Perry note for details of this patient's presentation, findings, and recommendations. I have reviewed JORGE Perry note and concur with documented findings. In brief, patient is an 86-year-old lady with past medical history signal for coronary artery disease status post CABG and subsequent PCI who presented with chest pain. Placed on a monitored bed as part of patient's evaluation she underwent a nuclear stress test which was positive for stress-induced ischemia. Cardiology on consult plan is for patient to undergo left heart catheterization on 09/04/2021 ?09/04/2021; patient underwent left heart catheterization this a.m. No obstructive CAD issues were found. Discharged home with addition of Ranexa to her treatment. Physical Examination: GENERAL: cooperative HEENT: Atraumatic; EYES; Anicteric, Normal Conjunctiva NECK; supple, normal thyroid, RESPIRATORY: Diminished to auscultation CARDIOVASCULAR: Regular S1 S2, GI: soft, normoactive bowel sounds, : No Renal angle tenderness; EXTREMITIES: No edema, no clubbing, MUSCULOSKELETAL: no muscle wasting NEURO: Awake; no lateralizing signs. SKIN: No Rash PSYCH; Flat affect Assessment: 1. Chest pain with a positive stress test 2. Essential hypertension 3. Coronary artery disease with CABG and subsequent PCI 4. GERD 5. Seizure disorder 6. Class II obesity with BMI of 35.3 6. COPD Hospital course; as documented above Total time spent by myself and the advanced practice practitioner evaluating patient, reviewing labs, subsequent management decisions, discussion with patient as well as other providers 40 minutes ( 25 of which was spent by myself) ABG / Lab / Microbiology Data Result Diagrams: 09/03/21 05:15 09/04/21 06:30 Discharge Plan Admission Admit Date/Time: 09/02/21 20:52 Primary Reason for Your Visit: chest pain, abnormal stress test Attending Provider: Bahman Aleman Primary Care Provider: Stefany Durham Discharge Orders/Prescriptions Prescriptions: New ranolazine 500 mg Tablet Extended Release 12 Hr 500 mg PO BID Qty: 60 RF: 0 Continued coenzyme Q10 100 mg capsule 100 mg PO DAILY RF: 0 diphenoxylate-atropine [Lomotil] 2.5-0.025 mg tablet 1 tab PO Q6H PRN (Reason: Diarrhea) RF: 0 losartan 25 mg tablet 25 mg PO DAILY RF: 0 levetiracetam 500 MG tablet 500 mg PO 0800,2000 RF: 0 acetaminophen 500 MG tablet 1,000 mg PO BID PRN (Reason: Pain) RF: 0 nitroglycerin 0.4 MG tablet 0.4 mg SUBLINGUAL Q5M PRN (Reason: Chest Pain) RF: 0 fluticasone propionate 1 SPRAY spray,suspension 2 spray NASAL BID RF: 0 cholecalciferol (vitamin D3) 1,000 UNIT tablet 1,000 unit PO BID RF: 0 promethazine 25 MG tablet 25 mg PO Q6H PRN PRN (Reason: Nausea) RF: 0 sodium chloride 1 SPRAY aerosol,spray 1 spray NASAL PRN RF: 0 metoprolol tartrate 25 MG tablet 25 mg PO BID RF: 0 pantoprazole 40 MG tablet 40 mg PO BID RF: 0 potassium chloride 10 mEq tablet,ER particles/crystals 20 meq PO BID Qty: 180 RF: 3 clopidogrel 75 mg tablet 75 mg PO DAILY Qty: 90 RF: 3 fenofibrate 160 mg tablet 160 mg PO DAILY Qty: 90 RF: 3 furosemide 40 mg tablet 40 mg PO BID Qty: 180 RF: 3 isosorbide mononitrate 60 mg tablet extended release 24 hr 60 mg PO BID Qty: 180 RF: 3 Referrals / Follow Up: Stefany Durham DO [Primary Care Provider] - In 1 Week Rosa Isela Cavanaugh NP, CAN LINE OPERATOR-C [Nurse Practitioner] - In 1 Week Disposition Disposition (needs filled in before D/C Order can be placed): Home, Self Care Hospital Course Operations None
[2021-09-04] MEDS: Potassium Chloride Oral Tablet 20 MEQ PO (13:23)
[2021-09-04] MEDS: Ranolazine 500 MG Tablet PO (13:23)
[2021-09-04] MEDS: Fenofibrate 145 MG Tablet PO (13:23)
[2021-09-04] MEDS: Furosemide 40 MG Tablet PO (13:24)
[2021-09-04] MEDS: levETIRAcetam 500 MG Tablet PO (13:24)
[2021-09-04] MEDS: Pantoprazole Sodium 40 MG Tablet PO (13:24)
[2021-09-04] MEDS: Fluticasone 0.05% 1 SPRAY NASAL.SRY 2 SPRAY NASAL (13:25)
== END 2021-09-04 11:48 | disposition home or self-care (01) ==
LOC: ED 21:05 → PCU 21:18
PROVIDERS: Admitting Provider Family Medicine; Emergency Provider Emergency Medicine; PCP Family Medicine; Visit Provider Internal Medicine
DX: I25.10 Atherosclerotic heart disease of native coronary artery without angina pectoris (principal); J44.9 Chronic obstructive pulmonary disease, unspecified; I13.0 Hypertensive heart and chronic kidney disease with heart failure and stage 1 through stage 4 chronic kidney disease, or unspecified chronic kidney disease; I50.22 Chronic systolic (congestive) heart failure; G40.909 Epilepsy, unspecified, not intractable, without status epilepticus; R00.2 Palpitations; N18.9 Chronic kidney disease, unspecified; Z79.02 Long term (current) use of antithrombotics/antiplatelets; G47.33 Obstructive sleep apnea (adult) (pediatric); E66.9 Obesity, unspecified; K21.9 Gastro-esophageal reflux disease without esophagitis; Z68.35 Body mass index [BMI] 35.0-35.9, adult; I25.5 Ischemic cardiomyopathy; E78.5 Hyperlipidemia, unspecified; Z79.899 Other long term (current) drug therapy; Z79.82 Long term (current) use of aspirin; I25.2 Old myocardial infarction; R94.39 Abnormal result of other cardiovascular function study
CPT/HCPCS: 36415; 71045; 78452; 80048; 83735; 84100; 84484; 85025; 93005; 93017; 93459; 96360; 96361; 99152; 99153; 99218; 99285; A9500; J7030; Q9967; A4216; C1769; C1894; G0378; J2785

== ENCOUNTER → 2022-01-27 | Outpatient (CLI) | payer MEDICARE, MEDICAID, SELFPAY ==
[2017-12-23 13:44] VITALS: BMI 40.0
--- NOTE | 2022-01-28 07:45 | PFTCOMP ---
COMPLETE PULMONARY FUNCTION TEST INTERPRETATION Brief HPI: Patient is an 86-year-old female, currently under the care of myself, who presents to [facility] for complete pulmonary function tests secondary to diagnosis of dyspnea. Respiratory therapist reports good effort and reproducible results. Interpretation: Forced expiration spirometry shows a mild large airways obstructive ventilatory defect with an FEV1 of 88% predicted. There is no significant bronchodilator response by strict ATS criteria. Spirograms are of good quality and plateau slowly, indicating slowly emptying areas of the lungs. The respiratory flow volume loop shows decreased expiratory flow rates at high lung volumes consistent with small airways obstruction. Lung volumes by body plethysmography show a normal total lung capacity at 3.49 L, 81% predicted. All other lung volumes are within normal limits. Diffusion capacity by carbon monoxide is at the lower limit of normal at 68% predicted. The airway resistance is normal. Compared to previous pulmonary function tests from 08/27/2017, there is been a significant improvement in DLCO by 17%. Impression: Irreversible mild large airways obstructive ventilatory defect with a disproportionate reduction in diffusing capacity, but some improvements compared to 2018.
== END | disposition home or self-care (01) ==
PROVIDERS: PCP Family Medicine; Referring Provider Internal Medicine Critical Care Medicine; Visit Provider Internal Medicine Critical Care Medicine
DX: R06.00 Dyspnea, unspecified (principal)
CPT/HCPCS: 94060; 94726; 94729

== ENCOUNTER → 2022-01-29 | Outpatient (CLI) | payer MEDICARE, MEDICAID, SELFPAY ==
[2017-12-23 13:44] VITALS: BMI 40.0
[2022-01-29 15:31] LABS: Absolute Neutrophil Count 4.5 X10^3/uL (2.0-7.7); Basophil# 0.07 X10^3/uL; Basophil% 0.8 % (0-1); Eosinophil# 0.21 X10^3/uL; Eosinophils% 2.4 % (0-5); Hematocrit 38.9 % (37-47); Hemoglobin 12.4 g/dL (12.0-15.0); Lymphocyte % 35.3 % (19-41); Mean Corp Hgb Conc 31.9 g/dL (32-36); Mean Corpuscular Volume 97.3 fL (81-99); Mean Platelet Vol. 9.8 fl (6.2-12.0); Monocyte# 0.89 X10^3/uL; Monocyte% 10.1 % (0-10); NRBC Flagged by Analyzer 0 % (0-5); Neutrophil # 4.49 X10^3/uL (2.7-7.7); Neutrophil % 51.1 % (47-70); Platelet Count 353 K/mm3 (150-450); RBC Distribution Width SD 46.5 fl (35.1-43.9); White Blood Count 8.8 K/mm3 (4.4-11.0)
[2022-01-29 15:52] LABS: Anion Gap 4 (5-15); BUN 15 mg/dL (7-18); BUN/Creat Ratio 20.1 RATIO (10-20); Calcium,Total 8.8 mg/dL (8.5-10.1); Chloride 111 mmol/L (98-107); Creatinine, Serum 0.74 mg/dL (0.55-1.02); EST Glomerular Filtration Rate 79 mL/min (>60); Est Glom Filt Rate - Afr Amer 95 mL/min (>60); Glucose 100 mg/dL (74-106); Potassium 4.3 mmol/L (3.5-5.1); Sodium Level 140 mmol/L (136-145)
== END | disposition home or self-care (01) ==
LOC: LAB 15:03
PROVIDERS: PCP Family Medicine; Referring Provider Nurse Practitioner Gerontology; Visit Provider Nurse Practitioner Gerontology
DX: R06.00 Dyspnea, unspecified (principal)
CPT/HCPCS: 36415; 80048; 83880; 85025

== ENCOUNTER → 2022-03-03 | Outpatient (CLI) | payer MEDICARE, MEDICAID, SELFPAY ==
[2017-12-23 13:44] VITALS: BMI 40.0
[2022-03-03 13:52] VITALS: PULSE 100; PULSE 106; PULSE 107; PULSE 108; PULSE 86; PULSE 90; O2SAT 90; O2SAT 91; O2SAT 92; O2SAT 93; O2SAT 94; O2SAT 96
--- NOTE | 2022-03-05 10:29 | PCM.PSN.6M ---
PSN 6 Minute Walk Test 6 Minute Walk Test 6 Minute Walk Test: 6 Minute Walk Test PSN:6-Minute Walk Test Start: 03/03/22 13:52 Freq: Status: Active Protocol: RESP.6MINW Document 03/03/22 13:52 CARLOS (Rec: 03/03/22 13:54 LARRYKARENPHILLIP [id number]) 6 Minute Walk Test Date Performed 03/03/22 Time Performed 13:30 Height 5 ft 2 in Weight: 195 lb Weight in Pounds 195.[address]: Abhijeet Galvan Assistive device used: Cane Pre-test Oxygen Delivery Method Room Air Pulse Ox (%) 96 Pulse Rate (60-100 beats/min) 86 Dyspnea Kya Scale (0-10) 0 Exertion Kya Scale (6-20) 6 1st minute Oxygen Delivery Method Room Air Pulse Ox (%) 94 Pulse Rate (60-100 beats/min) 100 2nd minute Oxygen Delivery Method Room Air Pulse Ox (%) 93 Pulse Rate (60-100 beats/min) 100 Number of Rests Taken 1 3rd minute Oxygen Delivery Method Room Air Pulse Ox (%) 92 Pulse Rate (60-100 beats/min) 106 H 4th minute Oxygen Delivery Method Room Air Pulse Ox (%) 93 Pulse Rate (60-100 beats/min) 106 H 5th minute Oxygen Delivery Method Room Air Pulse Ox (%) 91 Pulse Rate (60-100 beats/min) 107 H 6th minute Oxygen Delivery Method Room Air Pulse Ox (%) 90 Pulse Rate (60-100 beats/min) 108 H Dyspnea Kya Scale (0-10) 3 Exertion Kya Scale (6-20) 13 Post-test Oxygen Delivery Method Room Air Pulse Ox (%) 96 Pulse Rate (60-100 beats/min) 90 Full Laps Walked 10 Partial Lap, Number of Tiles Walked 15 Total Distance Walked (ft) 605 Interpretation Interpretation: The patient ambulated 605 feet over the course of 6 minutes beginning on room air with the use of a cane. Pretesting oxygen saturation was noted to be 96% on room air. With ambulation, the meghan oxygen saturation was 90%. This testing indicated the presence of impaired walk distance and significant exertional oxygen desaturation, consistent with a pulmonary limitation to exercise tolerance. Recommendations Recommendations: There is no indication for the use of supplemental oxygen at this time. However, close interval follow-up is recommended, given the degree of oxygen desaturation noted during this study.
== END | disposition home or self-care (01) ==
LOC: PSN 13:25
PROVIDERS: PCP Family Medicine; Referring Provider Internal Medicine Critical Care Medicine; Visit Provider Internal Medicine Critical Care Medicine
DX: R06.00 Dyspnea, unspecified (principal)
CPT/HCPCS: 94618

== ENCOUNTER → 2022-03-20 | Outpatient (CLI) | payer MEDICARE, MEDICAID, SELFPAY ==
[2017-12-23 13:44] VITALS: BMI 40.0
--- NOTE | 2022-03-20 10:50 | ART_ITS ---
Reason For Study: LEG PAIN Procedure A bilateral lower extremity continuous wave Doppler with analog waveform analysis,segmental pressures,and ankle brachial indexes without exercise. Left Segmental Pressures Left brachial= 146mmHg. Left posterior tibial artery = 190mmHg. Left dorsalis pedis artery = 181mmHg. Left digit = 121 mmHg. The left posterior tibial artery waveforms are triphasic. The left dorsalis pedis waveforms are triphasic. Right Segmental Pressures Right brachial= 157mmHg. Right posterior tibial artery = 158mmHg. Right dorsalis pedis artery = 176mmHg. Right digit = 138 mmHg. The right posterior tibial artery waveforms are triphasic. The right dorsalis pedis waveforms are biphasic. Indices The right ankle brachial index by the posterior tibial artery is 1.01. The right ankle brachial index by the dorsalis pedis is 1.12. The right digital-brachial index is 0.88. The left ankle brachial index by the posterior tibial artery is 1.21. The left ankle brachial index by the dorsalis pedis is 1.15. The left digital-brachial index is 0.77. VL/Lower Ext Art Exam w/o Exercis Interpretation Summary Triphasic and biphasic Doppler waveforms are noted at ankle level on the right. Triphasic Doppler waveforms are noted at ankle level on the left. Pulse-volume recordings appear satisfactory at all levels bilaterally. Resting ankle-brachial indices are normal bilaterally. Digi yolanda-brachial indices are normal bilaterally. There is no evidence of significant arterial occlusive disease in the lower ext remities bilaterally. Ordering Physician: Stefany Durham Referring Physician: Stefany Durham Performed By: Adolfo Gibson RVT
== END | disposition home or self-care (01) ==
LOC: CVS 10:49
PROVIDERS: PCP Family Medicine; Referring Provider Family Medicine; Visit Provider Family Medicine
DX: I73.9 Peripheral vascular disease, unspecified (principal); M79.661 Pain in right lower leg; M79.662 Pain in left lower leg
CPT/HCPCS: 93923

== ENCOUNTER → 2022-07-08 | Outpatient (CLI) | payer MEDICARE, MEDICAID, SELFPAY ==
[2017-12-23 13:44] VITALS: BMI 40.0
--- NOTE | 2022-07-08 11:05 | RAD_ITS ---
STUDY: X-RAY CHEST REASON FOR EXAM: Female, 87 years old. Fever and cough TECHNIQUE: PA and lateral views of the chest. COMPARISON: 09/02/2021 FINDINGS: The lungs are clear and expanded. There is no demonstrated pleural abnormality. Sternal cerclage wires and vascular clips are present from a prior sternotomy and coronary artery bypass graft procedure (CABG). Normal mediastinum and ana maria. Normal visualized pulmonary arteries. Normal visualized aortic arch and descending thoracic aorta. There are diffuse degenerative changes of the visualized thoracic spine. Normal visualized ribs, clavicles, and shoulders. There is no demonstrated abnormality of the visualized soft tissue structures of the upper abdomen. RAD/Chest PA and Lateral IMPRESSION: No acute pulmonary process, no interval change Electronically Signed: Garret Angela MD at 11:48 EST ,
[2022-07-08 13:08] LABS: Absolute Lymphocyte Count 3.06 X10^3/uL (0.83-4.51); Absolute Neutrophil Count 3.3 X10^3/uL (2.0-7.7); Basophil# 0.06 X10^3/uL; Basophil% 0.8 % (0-1); Eosinophil# 0.15 X10^3/uL; Hematocrit 41.6 % (37-47); Hemoglobin 12.9 g/dL (12.0-15.0); Lymphocyte # 3.06 X10^3/ul (0.83-4.51); Lymphocyte % 40.9 % (19-41); Mean Corpuscular Hgb 31.6 pg (27.0-32.0); Mean Platelet Vol. 10.3 fl (6.2-12.0); Monocyte# 0.84 X10^3/uL; Monocyte% 11.2 % (0-10); NRBC Flagged by Analyzer 0 % (0-5); Neutrophil # 3.34 X10^3/uL (2.7-7.7); Neutrophil % 44.7 % (47-70); Platelet Count 312 K/mm3 (150-450); RBC Distribution Width CV 12.3 % (11.6-14.6); RBC Distribution Width SD 46.6 fl (35.1-43.9); Red Blood Count 4.08 M/mm3 (4.2-5.4); White Blood Count 7.5 K/mm3 (4.4-11.0)
[2022-07-08 13:44] LABS: BNP,B-Type NATRIURETIC PEPTIDE 11.9 pg/mL (0-100)
[2022-07-08 14:43] LABS: Anion Gap 9 (5-15); BUN 17 mg/dL (7-18); BUN/Creat Ratio 16.3 RATIO (10-20); Calcium,Total 9.4 mg/dL (8.5-10.1); Chloride 105 mmol/L (98-107); Creatinine, Serum 1.04 mg/dL (0.55-1.02); EST Glomerular Filtration Rate 54 mL/min (>60); Est Glom Filt Rate - Afr Amer 65 mL/min (>60); Glucose 121 mg/dL (74-106); Sodium Level 140 mmol/L (136-145)
== END | disposition home or self-care (01) ==
PROVIDERS: PCP Family Medicine; Visit Provider Nurse Practitioner Gerontology
DX: R06.00 Dyspnea, unspecified (principal); I50.9 Heart failure, unspecified
CPT/HCPCS: 36415; 71046; 80048; 83880; 85025

== ENCOUNTER → 2023-07-16 | Outpatient (CLI) | payer MEDICARE, MEDICAID, SELFPAY ==
[2017-12-23 13:44] VITALS: BMI 40.0
[2023-07-16 11:00] LABS: Absolute Neutrophil Count 5.3 X10^3/uL (2.0-7.7); Basophil# 0.07 X10^3/uL; Basophil% 0.7 % (0-1); Eosinophil# 0.21 X10^3/uL; Eosinophils% 2.2 % (0-5); Hemoglobin 13.2 g/dL (12.0-15.0); Lymphocyte % 32.2 % (19-41); Mean Corpuscular Hgb 31.4 pg (27.0-32.0); Mean Corpuscular Volume 95.2 fL (81-99); Mean Platelet Vol. 9.4 fl (6.2-12.0); Monocyte# 0.91 X10^3/uL; Monocyte% 9.5 % (0-10); NRBC Flagged by Analyzer 0 % (0-5); Neutrophil % 55.1 % (47-70); Platelet Count 364 K/mm3 (150-450); RBC Distribution Width CV 12.4 % (11.6-14.6); RBC Distribution Width SD 42.9 fl (35.1-43.9); White Blood Count 9.6 K/mm3 (4.4-11.0)
[2023-07-16 11:21] LABS: Anion Gap 3 (5-15); BUN 20 mg/dL (7-18); BUN/Creat Ratio 21.7 RATIO (10-20); Calcium,Total 9.1 mg/dL (8.5-10.1); Chloride 109 mmol/L (98-107); Creatinine, Serum 0.92 mg/dL (0.55-1.02); EST Glomerular Filtration Rate 61 mL/min (>60); Est Glom Filt Rate - Afr Amer 74 mL/min (>60); Glucose 94 mg/dL (74-106); Sodium Level 140 mmol/L (136-145)
[2023-07-16 11:23] LABS: BNP,B-Type NATRIURETIC PEPTIDE 28.9 pg/mL (0-100)
== END | disposition home or self-care (01) ==
LOC: LAB 10:32
PROVIDERS: PCP Family Medicine; Referring Provider Nurse Practitioner Gerontology; Visit Provider Nurse Practitioner Gerontology
DX: R06.00 Dyspnea, unspecified (principal)
CPT/HCPCS: 36415; 80048; 83880; 85025

== ENCOUNTER → 2023-08-19 | Outpatient (CLI) | payer MEDICARE, MEDICAID, SELFPAY ==
[2017-12-23 13:44] VITALS: BMI 40.0
--- NOTE | 2023-08-19 13:14 | ECHOD_ITS ---
Reason For Study: RAMIREZ Procedure This was a 2D Doppler, Color Flow transthoracic echocardiogram. Exam performed in department. Left Ventricle Normal LV size. Moderate segmental systolic dysfunction (see wall motion). The left ventricular ejection fraction is 40 %. Stage 1 diastolic dysfunction. Mid-Anterior : Akinetic. Anterior [place] : Severely Hypokinetic. Basal anteroseptal: Hypokinetic. Mid-anteroseptal : Akinetic. The rest of the wall segments are normal. Right Ventricle Normal RV size. Normal systolic function. Atria Normal left atrium. Normal right atrium. Cannot rule out tiny PFO. Mitral Valve Normal mitral valve. Tricuspid Valve Normal tricuspid valve. Mild tricuspid valve insufficiency. Pulmonary artery systolic pressure is 23 mmHg. Aortic Valve Trisinus/trileaflet aortic valve. Pulmonic Valve Normal pulmonic valve. Great Vessels Normal aortic root. The pulmonary artery is normal size. Normal inferior vena cava. Pericardium/Pleural No pericardial effusion. Medication 22 gauge I.V. with prn adaptor inserted into right arm. Performed a rapid injection of agitated mix of 9 cc saline and 1cc air to assess for atrial septal defect. MMode/2D Measurements & Calculations LVIDd: 5.0 cm IVSd: 0.89 cm LA dimension: 5.0 cm LVIDs: 3.9 cm LVPWd: 1.00 cm RVDd: 4.2 cm FS: 20.5 % LAV(MOD-bp): 71.1 ml LA A4 area: 21.0 cm2 RA A4 area: 15.2 cm2 LAV(MOD-bp) Indexed: 37.8 ml/m2 LAV(MOD-sp2): 75.1 ml LAV(MOD-sp4): 61.0 ml Time Measurements MV dec time: 0.29 sec Doppler Measurements & Calculations MV E max arnel: 39.4 cm/sec Lat Peak E' Arnel: 7.9 cm/sec Med Peak E' Arnel: 4.3 cm/sec MV A max arnel: 68.6 cm/sec E/E' lat: 5.0 E/E' med: 9.2 MV E/A: 0.57 MV V2 max: 88.8 cm/sec MV P1/2t max arnel: 49.0 cm/sec Ao V2 max: 120.9 cm/sec MV max P.2 mmHg MV P1/2t: 102.9 msec Ao max P.8 mmHg MV V2 mean: 41.2 cm/sec MV dec slope: 139.3 cm/sec2 Ao V2 mean: 82.2 cm/sec MV mean P.82 mmHg Ao mean P.1 mmHg MV V2 VTI: 21.3 cm MVA(P1/2t): 2.1 cm2 Ao V2 VTI: 27.0 cm AV (velocity ratio): 0.70 LV V1 max: 87.4 cm/sec PA V2 max: 91.0 cm/sec TR max arnel: 219.2 cm/sec LV V1 max P.1 mmHg TR max P.2 mmHg LV V1 mean P.7 mmHg LV V1 mean: 61.1 cm/sec LV V1 VTI: 19.0 cm ECHO/Echo Complete Interpretation Summary The left ventricular ejection fraction is 40 %. Stage 1 diastolic dysfunction. Moderate segmental systolic dysfunction (see wall motion). Compared to previous study, the left ventricular systolic function has worsened .. Ordering Physician: Rosa Isela Cavanaugh Referring Physician: Rosa Isela Cavanaugh Performed By: Randall Rome RCS
== END | disposition home or self-care (01) ==
LOC: CVS 13:13
PROVIDERS: PCP Family Medicine; Referring Provider Nurse Practitioner Gerontology; Visit Provider Nurse Practitioner Gerontology
DX: R06.00 Dyspnea, unspecified (principal)
CPT/HCPCS: 93306; A4216

== ENCOUNTER 2023-10-08 15:27 | Emergency (ER) | payer MEDICARE, MEDICAID, SELFPAY ==
[2017-12-23 13:44] VITALS: BMI 40.0
[2023-10-08] VITALS (7 sets, daily range): BP systolic 113–130; BP diastolic 47–95; PULSE 60–64; RESP 17–24; TEMP 36.8–37; O2SAT 95–99; BMI 37.7
--- NOTE | 2023-10-08 15:39 | EKG12_ITS ---
Test Reason : CP Blood Pressure : / mmHG Vent. Rate : 058 BPM Atrial Rate : 058 BPM P-R Int : 196 ms QRS Dur : 146 ms QT Int : 472 ms P-R-T Axes : 038 002 113 degrees QTc Int : 463 ms Sinus bradycardia with sinus arrhythmia Left bundle branch block Abnormal ECG Confirmed by Jairo Byrne ([id number]), clinical editor OMID PATTERSON ([id number]) on 10/11/2023 8:15:16 AM Referred By: Confirmed By:Jairo Byrne
--- NOTE | 2023-10-08 15:41 | ED.VIS.CHEST ---
HPI History of Present Illness Chief Complaint: Chest Pain Detail of Chief Complaint: Central chest pain Informant: patient Onset/Context/Timing Onset: Today and Days (0900.) Activity at onset: sudden and sleep Timing: Continuous Quality: Positive for - (Patient states she cannot describe what it feels like.) Current Severity: Mild Maximum Severity: Moderate Worsened By: Nothing Relieved By: Nothing Associated Symptoms: Positive for Nausea, Diaphoresis and Dyspnea; Negative for Cough, Fever, Lightheadedness, Acid Reflux or Palpitations Narrative Narrative: Patient is an 88-year-old woman. She has history of atherosclerotic heart disease, essential hypertension, ischemic cardiomyopathy, congestive heart failure, COPD who presents with pain that awoke her from sleep at 0900 located central portion of her chest. She states she cannot qualitate with the pain feels like. Did radiate to her posterior neck bilaterally. She had associated symptoms of nausea, diaphoresis and shortness of breath. She states she had this in the past with no determine etiology. She does have history of hiatal hernia and reflux. She denies black or maroon-colored stool. She denies leg pain, discoloration but does endorse swelling of her feet and ankles. She has had this over the last couple of days. She endorses occasional two-pillow orthopnea. She denies history of PE or DVT. She denies upper respiratory symptoms. She has not taken anything for the pain. Prior Similar Symptoms: Yes (Unknown cause) Recent Illness/Hospitalization: No CVD Risk Factors: Positive for Hypertension and Smoking PE Risk Factors: Negative for Recent Travel/Surgery, Recent Immobilization, Prior DVT or PE, Cancer or OCP + Smoking + >/=35 TAD Risk Factors: Positive for Hypertension; Negative for Marfan's Syndrome or Family History [facility] Medical History Dyspnea on exertion History of left heart catheterization (LHC) (~09/04/21) Atherosclerotic heart disease of [place] coronary artery without angina pectoris CVA (cerebral vascular accident) Presence of stent in coronary artery (~12/23/17) Pure hypercholesterolemia Essential (primary) hypertension Unstable angina Stage 1 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 ELIE (obstructive sleep apnea) Cardiomyopathy, ischemic NSTEMI (non-ST elevated myocardial infarction) Gallbladder & bile duct stone with obstruction Seizure Cervical spinal stenosis Asthma CHF (congestive heart failure) Home Medications ?Medication ?Instructions ?Recorded ?Last Taken ?Type acetaminophen 500 mg tablet 1,000 mg PO BID PRN Pain 12/03/15 09/02/21 History cholecalciferol (vitamin D3) 25 1,000 unit PO BID SUPPLEMENT 12/03/15 10/08/23 History mcg (1,000 unit) tablet losartan 25 mg tablet 25 mg PO DAILY 02/08/19 10/08/23 History albuterol sulfate 90 mcg/actuation 2 puff inhalation Q4H PRN 10/03/21 10/08/23 History aerosol inhaler shortness of breath or wheezing levetiracetam 750 mg tablet 750 mg PO BID 10/03/21 10/08/23 History melatonin 5 mg capsule 5 - 10 mg PO QHS PRN insomnia 01/29/22 Unknown History pravastatin 20 mg tablet 20 mg PO DAILY 01/29/22 10/07/23 History biotin 10,000 mcg chewable tablet 10,000 mcg PO DAILY 07/08/22 10/08/23 History (Hair, Skin and Nails (biotin)) multivitamin (One Daily 1 tab PO DAILY 07/08/22 10/08/23 History Multivitamin tablet) pantoprazole 40 mg tablet,delayed 40 mg PO DAILY ACID REFLUX 07/08/22 10/08/23 History release furosemide 40 mg tablet 40 mg PO DAILY WATER PILL #90 tabs 12/07/22 10/08/23 Rx fluticasone propionate 50 2 spray NASAL BID ALLERGIES #16 03/19/23 10/08/23 Rx mcg/actuation nasal grams spray,suspension clopidogrel 75 mg tablet 75 mg PO DAILY CLOTS #90 tabs 05/05/23 10/08/23 Rx fenofibrate 160 mg tablet 160 mg PO DAILY CHOLESTEROL #90 05/05/23 10/08/23 Rx tabs isosorbide mononitrate 60 mg 60 mg PO BID VASODILATOR #180 tabs 05/05/23 10/08/23 Rx tablet,extended release 24 hr nitroglycerin 0.4 mg sublingual 0.4 mg sublingual Q5M PRN Chest 07/16/23 10/08/23 Rx tablet Pain #25 tabs metoprolol tartrate 25 mg tablet 50 mg (2 x 25 mg) PO BID blood 08/17/23 10/08/23 Rx pressure #180 tabs spironolactone 25 mg tablet 25 mg PO DAILY #30 tabs 08/23/23 10/08/23 Rx ketoconazole 2 % shampoo 1 applic topical QODAY 10/08/23 10/07/23 History potassium chloride 10 mEq 20 meq PO BID 10/08/23 10/08/23 History tablet,extended release(part/cryst) Allergy/AdvReac Type Severity Reaction Status Date / Time acyclovir Allergy Unknown Verified 10/08/23 15:30 belladonna alkaloids Allergy Unknown Verified 10/08/23 15:30 tree and shrub pollen Allergy cough Verified 10/08/23 15:30 valacyclovir HCl (From Allergy Other Verified 10/08/23 15:30 Valtrex) venom-honey bee (bee venom Allergy Angioedema Verified 10/08/23 15:30 (honey bee)) iodine AdvReac Severe Other Verified 07/16/23 10:01 lisinopril AdvReac Severe Diarrhea Verified 10/08/23 15:30 metformin AdvReac Severe Diarrhea, Verified 10/08/23 15:30 GI upset, Vomiting, Headache, Dizziness, Nausea Tetracyclines AdvReac Severe headache, Verified 10/08/23 15:30 vomiting, rash nitrofurantoin (From AdvReac Unknown Unknown Verified 10/08/23 15:30 Macrodantin) propoxyphene (From AdvReac Unknown Unknown Verified 10/08/23 15:30 Darvocet-N) valacyclovir (From Valtrex) AdvReac Unknown Seizure Verified 10/08/23 15:30 acetaminophen (From AdvReac Unknown Verified 10/08/23 15:30 Darvocet-N 100) animal dander AdvReac Other Verified 10/08/23 15:30 aspirin AdvReac Other Verified 10/08/23 15:30 atropine sulfate (From AdvReac Unknown Verified 10/08/23 15:30 ) codeine AdvReac Nausea/Vom/ Verified 10/08/23 15:30 Diarrhea hyoscyamine sulfate (From AdvReac Unknown Verified 10/08/23 15:30 ) Iodinated Contrast Media AdvReac Rash Verified 10/08/23 15:30 (CONTRASTS) meperidine HCl (From Demerol) AdvReac Unknown Verified 10/08/23 15:30 niacin AdvReac Upset Verified 10/08/23 15:30 Stomach nitroglycerin (From AdvReac Other Verified 10/08/23 15:30 Nitro-Dur) oxytetracycline (From AdvReac Hives Verified 10/08/23 15:30 Terramycin) oxytetracycline HCl (From AdvReac Hives Verified 10/08/23 15:30 Terramycin) Penicillins AdvReac Hives Verified 10/08/23 15:30 perfume AdvReac Shortness Verified 10/08/23 15:30 of breath phenobarbital (From ) AdvReac Unknown Verified 10/08/23 15:30 piroxicam AdvReac Unknown Verified 10/08/23 15:30 prochlorperazine AdvReac Rash Verified 10/08/23 15:30 propoxyphene napsylate (From AdvReac Unknown Verified 10/08/23 15:30 Darvocet-N 100) scopolamine hydrobromide AdvReac Unknown Verified 10/08/23 15:30 (From ) Sulfa (Sulfonamide AdvReac Rash, HIVES Verified 10/08/23 15:30 Antibiotics) terfenadine (From Seldane) AdvReac Unknown Verified 10/08/23 15:30 tetracycline AdvReac Rash Verified 10/08/23 15:30 Family History Father Heart disease CVA (cerebral vascular accident) Mother Colon cancer Brother Cancer skin Brother Cancer lung cancer Surgical History History of right cataract surgery History of coronary artery bypass graft x 3 (~10/13/12) Presence of coronary angioplasty implant and graft (~12/23/17) History of hysterectomy History of excision of pilonidal cyst Status post left oophorectomy History of cholecystectomy Social History Smoking Status: Former smoker how long ago did patient quit smokin second hand exposure: No alcohol intake: never substance use type: does not use caffeine: Yes Type: coffee Number of servings: 1 and tea what type of physical activity do you participate in: walking frequency: daily duration: 30-45 minutes/day seatbelt use: always do you feel safe at home: Yes ROS ROS ED Constitutional Constitutional ED: Denies chills, fever(s), subjective, sweats or weight loss Eyes Eyes: Reports none; Denies blurry vision, change in vision or diplopia ENT ENT ED: Denies ear pain, rhinorrhea or sore throat Cardiovascular Cardiovascular: Reports as per HPI and orthopnea; Denies paroxysmal nocturnal dyspnea Respiratory/Chest Respiratory/Chest: Reports dyspnea, dyspnea on exertion and orthopnea; Denies cough, paroxysmal nocturnal dyspnea or sputum Gastrointestinal Gastrointestinal: Reports nausea; Denies abdominal pain, constipation, diarrhea, melena or vomiting Genitourinary Genitourinary ED: Denies dysuria, LMP (females 10-50) or urinary frequency Musculoskeletal Musculoskeletal: Denies arthralgias, myalgias or neck pain Integumentary Denies rash Neurologic Neurologic: Denies paresthesias or weakness Endocrine Endocrinology: Denies cold intolerance or heat intolerance Hematologic/Lymphatic Hematologic/Lymphatic: Denies easy bleeding or easy bruising EXAM Physical Exam Const Vital Signs: 10/08/23 15:27 10/08/23 15:27 10/08/23 15:27 Temperature 98.6 F 98.6 F Temperature Source Oral Oral Pulse Rate 64 64 Respiratory Rate 18 18 Respiratory Effort Normal Non-Labored Respiratory Pattern Normal Blood Pressure 126/95 H 126/95 H Blood Pressure Mean 105 105 Pulse Ox 99 99 Oxygen Delivery Method Nasal Cannula Nasal Cannula Oxygen Flow Rate (L/min) 2 2 10/08/23 15:39 10/08/23 16:27 10/08/23 16:45 Temperature 98.2 F Temperature Source Temporal Pulse Rate 60 61 Respiratory Rate 17 22 H Respiratory Effort Respiratory Pattern Blood Pressure 113/95 H 130/57 H Blood Pressure Mean 101 81 Pulse Ox 99 97 98 Oxygen Delivery Method Nasal Cannula Room Air Nasal Cannula Oxygen Flow Rate (L/min) 2 2 10/08/23 17:45 10/08/23 18:00 Temperature 98.5 F 98.3 F Temperature Source Temporal Temporal Pulse Rate 63 60 Respiratory Rate 24 H 19 H Respiratory Effort Respiratory Pattern Blood Pressure 117/69 125/51 H Blood Pressure Mean 85 75 Pulse Ox 99 97 Oxygen Delivery Method Nasal Cannula Nasal Cannula Oxygen Flow Rate (L/min) 2 2 Positive well nourished and well developed General Appearance ED: well developed, NAD and pallor HEENT Reports moist mucous membranes normocephalic and atraumatic Eyes PERRL and EOMs intact bilaterally General Eye ED: Negative for pale conjunctiva or scleral icterus Neck no lymphadenopathy, supple and no JVD Chest Wall inspection of chest normal and palpation of chest normal Chest Narrative: There is no pain palpation of the chest. Resp normal respiratory effort and No clear to auscultation bilaterally Resp Narrative: Rales noted lower lobe posteriorly on the left. Effort and Inspection: respiratory distress Cardio regular rate, regular rhythm, S1 normal heart sound, S2 normal heart sound and no murmurs GI normal to inspection, nondistended, normoactive bowel sounds, soft to palpation, non-distended and no masses; Negative for non-tender or hepatosplenomegaly GI Narrative: There is tenderness in the epigastric area. Negative clinical Lee sign. There is no guarding or peritoneal findings. Back/Spine no CVA tenderness Extremity General Extremety ED: Yes edema General Extremity: edema Neuro oriented x3 and CN's II-XII intact bilaterally Sensorium / Orientation: awake and alert Psych mental status grossly normal Skin no rashes or lesions noted and no wounds General Skin Exam: pallor; Negative for jaundice Heart Score History: Slightly/Non-Suspicious ECG: Normal Age: >/= 65 years Risk Factors: >/= 3 Risk Factors or History of CAD Troponin: </= Normal Limit Score: 4 MDM MDM MDM Narrative Medical decision making narrative: In light of patient's history risk factors need to rule out cardiac versus noncardiac. Noncardiac would include GERD, hiatal hernia, esophageal pathology, pulmonary pathology. Patient was treated with aspirin and EKG, chest x-ray and appropriate labs were obtained to determine the cause of her symptoms and findings. History & Record Review Additional record(s) reviewed:: Prior inpatient record (Cardiac catheterization report was reviewed. Mainly not on significant stenosis of multiple vessels per cardiac catheterization performed 2021.) Lab Data Attestation: I reviewed the patient's lab results. Lab results narrative: CBC reveals mild anemia with normal indices. Basic metabolic panel with slight elevation of chloride which is insignificant. First troponin is normal at 7. BNP is normal. Second troponin is 7. Delta 0. With both troponins 7 or less negative predictive value was 100%. Therefore will discharge to home. Labs: Laboratory Results - last 24 hr 10/08/23 10/08/23 15:50 18:05 WBC 8.3 RBC 3.86 L Hgb 11.9 L Hct 37.6 MCV 97.4 MCH 30.8 MCHC 31.6 L RDW Std Deviation 44.6 H RDW Coeff of Khalida 12.6 Plt Count 332 MPV 9.8 Immature Gran % (Auto) 0.400 Neut % (Auto) 50.5 Lymph % (Auto) 34.9 Coke % (Auto) 10.2 H Eos % (Auto) 3.2 Baso % (Auto) 0.8 Absolute Neuts (auto) 4.2 Absolute Lymphs (auto) 2.90 Nucleated RBC % 0 Sodium 138 Potassium 3.8 Chloride 108 H Carbon Dioxide 24.0 Anion Gap 6 BUN 18 Creatinine 0.88 Estim Creat Clear Calc 48.87 Est GFR (MDRD) Af Amer 78 Est GFR (MDRD) Non-Af 65 BUN/Creatinine Ratio 20.5 H Glucose 97 Calcium 8.7 Troponin I High Sens 7 7 B-Natriuretic Peptide 42.7 Radiography Chest X-Ray - ED: 1 View and Read by ED Physician (Independent reviewed interpreted by me at 1600. Cardiac silhouette is unremarkable. There is mild cardiomegaly. There is no evidence of heart failure, effusion or infiltrate. Hilum is unremarkable. Osseous structures are unremarkable.) Diagnostic Testing: Clinical Impression(s) from Imaging Studies Chest X-Ray 10/08/23 15:46 IMPRESSION: No definite acute or significant abnormality seen. Electronically Signed: Robbie Roy MD at 16:04 EDT , EKG Initial EKG: Attestation: I personally reviewed and interpreted this EKG as follows: Interpretation: Sinus Bradycardia (Rate is 58. There is evidence of left bundle branch block. NE interval is 196 ms. Cures duration 146 ms. QT intervals 472 ms.) Treatment and Re-Evaluation :: Patient was informed of her results i.e. laboratory, chest x-ray and EKG. She was informed that a repeat troponin was ordered and is pending. If this is normal plan is to go home. Patient's heart score is 4. Patient's history is very vague and nonspecific. With 2 troponins of 7 or less and delta of 0 this is not cardiac chest pain. 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 Discharge Plan Triage Chief Complaint: Chest Pain ED Provider: Favio Haines Dx/Rx/DC Orders Clinical Impression: Chest pain, Essential (primary) hypertension, History of ischemic cardiomyopathy, History of chronic CHF, Lymphedema associated with obesity Instructions: ED Chest Pain, Uncertain Cause, ED Lymphedema Prescriptions: No Action losartan 25 mg tablet 25 mg PO DAILY albuterol sulfate 90 mcg/actuation HFA aerosol inhaler 2 puff inhalation Q4H PRN (Reason: shortness of breath or wheezing) levetiracetam 750 mg tablet 750 mg PO BID furosemide 40 mg tablet 40 mg PO DAILY Qty: 90 3RF pravastatin 20 mg tablet 20 mg PO DAILY melatonin 5 mg capsule 5 - 10 mg PO QHS PRN (Reason: insomnia) multivitamin [One Daily Multivitamin] Tablet 1 tab PO DAILY Hair, Skin and Nails (biotin) 10,000 mcg tablet,chewable 10,000 mcg PO DAILY nitroglycerin 0.4 mg tablet, sublingual 0.4 mg sublingual Q5M PRN (Reason: Chest Pain) Qty: 25 6RF spironolactone 25 mg tablet 25 mg PO DAILY Qty: 30 11RF acetaminophen 500 MG tablet 1,000 mg PO BID PRN (Reason: Pain) Patient Comments: pain cholecalciferol (vitamin D3) 1,000 UNIT tablet 1,000 unit PO BID Patient Comments: supplement pantoprazole 40 mg tablet,delayed release (DR/EC) 40 mg PO DAILY ketoconazole 2 % shampoo 1 applic topical QODAY potassium chloride 10 mEq tablet,ER particles/crystals 20 meq PO BID fluticasone propionate 50 mcg/actuation spray,suspension 2 spray NASAL BID Qty: 16 11RF fenofibrate 160 mg tablet 160 mg PO DAILY Qty: 90 3RF isosorbide mononitrate 60 mg tablet extended release 24 hr 60 mg PO BID Qty: 180 3RF clopidogrel 75 mg tablet 75 mg PO DAILY Qty: 90 3RF metoprolol tartrate 25 mg tablet 50 mg PO BID Qty: 180 3RF Primary Care Provider: Stefany Durham Referrals: Stefany Durham DO [Primary Care Provider] - 3-5 Days Print Language: Moldovan Disposition Disposition: Home, Self Care
--- NOTE | 2023-10-08 15:46 | RAD_ITS ---
STUDY: X-RAY CHEST REASON FOR EXAM: Female, 88 years old. chest pain TECHNIQUE: Single AP portable view of the chest. COMPARISON: 07/08/2022. FINDINGS: The lungs are clear and expanded. There is no demonstrated pleural abnormality. Normal size heart. Previous CABG. Normal mediastinum and ana maria. Normal visualized pulmonary arteries. There is atherosclerotic calcification of the aortic arch with tortuosity. Normal visualized thoracic spine. Stable degenerative changes of the left shoulder. There is a new right shoulder arthroplasty. There is no demonstrated abnormality of the visualized soft tissue structures of the upper abdomen. RAD/Chest 1 View (Portable) IMPRESSION: No definite acute or significant abnormality seen. Electronically Signed: Robbie Roy MD at 16:04 EDT ,
[2023-10-08 16:03] LABS: Absolute Neutrophil Count 4.2 X10^3/uL (2.0-7.7); Basophil# 0.07 X10^3/uL; Basophil% 0.8 % (0-1); Eosinophil# 0.27 X10^3/uL; Eosinophils% 3.2 % (0-5); Hematocrit 37.6 % (37-47); Hemoglobin 11.9 g/dL (12.0-15.0); Lymphocyte % 34.9 % (19-41); Mean Corp Hgb Conc 31.6 g/dL (32-36); Mean Corpuscular Hgb 30.8 pg (27.0-32.0); Mean Corpuscular Volume 97.4 fL (81-99); Mean Platelet Vol. 9.8 fl (6.2-12.0); Monocyte# 0.85 X10^3/uL; Monocyte% 10.2 % (0-10); NRBC Flagged by Analyzer 0 % (0-5); Neutrophil % 50.5 % (47-70); Platelet Count 332 K/mm3 (150-450); RBC Distribution Width CV 12.6 % (11.6-14.6); RBC Distribution Width SD 44.6 fl (35.1-43.9); Red Blood Count 3.86 M/mm3 (4.2-5.4); White Blood Count 8.3 K/mm3 (4.4-11.0)
[2023-10-08 16:33] LABS: Anion Gap 6 (5-15); BUN 18 mg/dL (7-18); BUN/Creat Ratio 20.5 RATIO (10-20); Calcium,Total 8.7 mg/dL (8.5-10.1); Chloride 108 mmol/L (98-107); Creatinine, Serum 0.88 mg/dL (0.55-1.02); EST Glomerular Filtration Rate 65 mL/min (>60); Est Glom Filt Rate - Afr Amer 78 mL/min (>60); Estimated Creatinine Clearance 48.87 ml/min; Glucose 97 mg/dL (74-106); Potassium 3.8 mmol/L (3.5-5.1); Sodium Level 138 mmol/L (136-145); Troponin-I HS (w/2H Reflex) 7 pg/mL (3.0-54.0)
[2023-10-08 17:25] LABS: BNP,B-Type NATRIURETIC PEPTIDE 42.7 pg/mL (0-100)
[2023-10-08 17:58] LABS: Reflex Troponin-HS? (from REC) Y
[2023-10-08 18:54] LABS: Troponin-I HS 7 pg/mL (3.0-54.0)
== END 2023-10-08 19:25 | disposition home or self-care (01) ==
PROVIDERS: Emergency Provider Emergency Medicine; PCP Family Medicine; Visit Provider Emergency Medicine
DX: R07.9 Chest pain, unspecified (principal); I11.0 Hypertensive heart disease with heart failure; I50.9 Heart failure, unspecified; J44.9 Chronic obstructive pulmonary disease, unspecified; I25.10 Atherosclerotic heart disease of native coronary artery without angina pectoris; I25.5 Ischemic cardiomyopathy; Z87.891 Personal history of nicotine dependence; Z86.73 Personal history of transient ischemic attack (TIA), and cerebral infarction without residual deficits; E78.00 Pure hypercholesterolemia, unspecified; I25.2 Old myocardial infarction; Z79.899 Other long term (current) drug therapy; Z79.02 Long term (current) use of antithrombotics/antiplatelets; Z95.5 Presence of coronary angioplasty implant and graft; Z90.710 Acquired absence of both cervix and uterus; Z90.721 Acquired absence of ovaries, unilateral; Z90.49 Acquired absence of other specified parts of digestive tract; I89.0 Lymphedema, not elsewhere classified
CPT/HCPCS: 71045; 80048; 83880; 84484; 85025; 93005; 99284; A4216

== ENCOUNTER → 2023-10-19 | Outpatient (CLI) | payer MEDICARE, MEDICAID, SELFPAY ==
[2017-12-23 13:44] VITALS: BMI 40.0
[2023-10-19 11:28] LABS: Absolute Neutrophil Count 5.4 X10^3/uL (2.0-7.7); Basophil# 0.07 X10^3/uL; Basophil% 0.7 % (0-1); Eosinophil# 0.24 X10^3/uL; Eosinophils% 2.5 % (0-5); Hematocrit 39.1 % (37-47); Hemoglobin 12.3 g/dL (12.0-15.0); Lymphocyte % 28.6 % (19-41); Mean Corp Hgb Conc 31.5 g/dL (32-36); Mean Corpuscular Hgb 30.6 pg (27.0-32.0); Mean Corpuscular Volume 97.3 fL (81-99); Mean Platelet Vol. 9.9 fl (6.2-12.0); Monocyte# 1.03 X10^3/uL; Monocyte% 10.9 % (0-10); NRBC Flagged by Analyzer 0 % (0-5); Neutrophil # 5.36 X10^3/uL (2.7-7.7); Neutrophil % 56.9 % (47-70); Platelet Count 384 K/mm3 (150-450); RBC Distribution Width CV 12.9 % (11.6-14.6); RBC Distribution Width SD 46.4 fl (35.1-43.9); Red Blood Count 4.02 M/mm3 (4.2-5.4); White Blood Count 9.4 K/mm3 (4.4-11.0)
[2023-10-19 11:53] LABS: BNP,B-Type NATRIURETIC PEPTIDE 23.1 pg/mL (0-100)
[2023-10-19 11:55] LABS: Anion Gap 4 (5-15); BUN 17 mg/dL (7-18); BUN/Creat Ratio 18.3 RATIO (10-20); Calcium,Total 9.2 mg/dL (8.5-10.1); Chloride 107 mmol/L (98-107); Creatinine, Serum 0.93 mg/dL (0.55-1.02); EST Glomerular Filtration Rate 61 mL/min (>60); Est Glom Filt Rate - Afr Amer 73 mL/min (>60); Glucose 102 mg/dL (74-106); Potassium 3.6 mmol/L (3.5-5.1); Sodium Level 139 mmol/L (136-145)
== END | disposition home or self-care (01) ==
PROVIDERS: PCP Family Medicine; Referring Provider Nurse Practitioner Gerontology; Visit Provider Nurse Practitioner Gerontology
DX: R06.09 Other forms of dyspnea (principal)
CPT/HCPCS: 36415; 80048; 83880; 85025

== ENCOUNTER 2024-07-28 09:21 | Observation (INO) | payer MEDICARE, MEDICAID, SELFPAY ==
[2017-12-23 13:44] VITALS: BMI 40.0
[2024-07-28] VITALS (7 sets, daily range): BP systolic 140–172; BP diastolic 45–100; PULSE 64–78; RESP 12–19; TEMP 36.4–37.1; O2SAT 95–98; BMI 35.6; BMI 35.2
--- NOTE | 2024-07-28 09:45 | EKG12_ITS ---
Test Reason : NEURO SX Blood Pressure : */* mmHG Vent. Rate : 67 BPM Atrial Rate : 67 BPM P-R Int : 190 ms QRS Dur : 150 ms QT Int : 470 ms P-R-T Axes : 27 -20 110 degrees QTcB Int : 496 ms Normal sinus rhythm Left bundle branch block Abnormal ECG Confirmed by IRIS TREJO, DESHAWN ([id number]), editorial intern OMID PATTERSON ([id number]) on 07/31/2024 10:52:34 AM Referred By: Helena Pineda Confirmed By: DESHAWN SIMMONS MD
--- NOTE | 2024-07-28 10:06 | EX.ED.DYSGE1 ---
HPI History of Present Illness Chief Complaint: Neuro S/Sx Narrative Narrative: Chief complaint and HPI: Strokelike symptoms. 89-year-old female with past medical history of CVA, HTN, CAD, COPD, CHF, seizures presents for evaluation of strokelike symptoms. Patient states she was at her last known normal at approximately 10 PM on Wednesday evening. She states Wednesday she woke up with left facial droop, slurred speech, and left upper and lower extremity weakness. At baseline she has weakness on the left side due to previous CVA however it is worse. She followed up with Dr. Gomez in the office today and he recommended her to the emergency department. Per his report to nursing patient complained of crushing chest pain in the office. However patient and family member who is present with her states that she did not have crushing chest pain or has chest pain currently. She has had chest pain in the past. She denies any fever, chills, shortness of breath, abdominal pain, nausea, vomiting, dysuria, numbness or tingling. No recent falls. Patient is on Plavix otherwise no blood thinners Review of systems: See HPI Medications: As listed on the chart Allergies: As listed on the chart PFSH: Per chart Vital signs: As listed on the chart. Reviewed. Physical exam: Gen: A&O x4, NAD Head: Normocephalic, atraumatic Eyes: No sclera icterus, conjunctiva clear, PERRL, EOMI, no visual field deficits ENT: Moist mucous membranes, minimal left-sided mouth droop with smile Neck: Trachea midline, No JVD CV: RRR, no murmurs, + 2 pitting peripheral edema Resp: Lungs CTA BL, no w/r/c GI: Abd soft, non-distended, non-tender, no r/r/g Musc: Moves all extremity, no deformity, patient has drift to the left lower extremity compared to the right-does not hit the bed, has drift to the left upper extremity compared to the right but states that she is having pain in her shoulder which is causing her difficulty-the pain unknown if the drift is secondary to pain versus true weakness, no ataxia in the upper or lower extremities, normal sensation, mild dysarthria per daughter, no aphasia Skin: Warm, dry, intact Neuro: Alert, oriented, grossly intact, sensation intact Psych: Cooperative, appropriate mood and affect [facility] Medical History Dyspnea on exertion History of left heart catheterization (LHC) (~09/04/21) Atherosclerotic heart disease of [place] coronary artery without angina pectoris CVA (cerebral vascular accident) Presence of stent in coronary artery (~12/23/17) Pure hypercholesterolemia Essential (primary) hypertension Unstable angina Stage 1 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 ELIE (obstructive sleep apnea) Cardiomyopathy, ischemic NSTEMI (non-ST elevated myocardial infarction) Gallbladder & bile duct stone with obstruction Seizure Cervical spinal stenosis Asthma CHF (congestive heart failure) Home Medications ?Medication ?Instructions ?Recorded ?Last Taken ?Type acetaminophen 500 mg tablet 1,000 mg PO BID PRN Pain 12/03/15 09/02/21 History levetiracetam 750 mg tablet 750 mg PO BID ASK PCP 10/03/21 10/08/23 History melatonin 5 mg capsule 5 - 10 mg PO QHS PRN insomnia 01/29/22 Unknown History multivitamin (One Daily 1 tab PO DAILY health maintenance 07/08/22 10/08/23 History Multivitamin tablet) pantoprazole 40 mg tablet,delayed 40 mg PO DAILY ACID REFLUX 07/08/22 10/08/23 History release clopidogrel 75 mg tablet 75 mg PO DAILY CLOTS #90 tabs 05/05/23 10/08/23 Rx cyclobenzaprine 10 mg tablet 10 mg PO TID PRN muscle spasm 10/19/23 Unknown History ranolazine 1,000 mg 1,000 mg PO BID 10/19/23 Unknown History tablet,extended release,12 hr albuterol sulfate 90 mcg/actuation 2 puff inhalation Q4H PRN 12/13/23 Unknown Rx aerosol inhaler shortness of breath or wheezing #8.5 grams atorvastatin 40 mg tablet 40 mg PO QHS ASK PCP 12/13/23 Unknown History empagliflozin 10 mg tablet 10 mg PO QDAY ASK PCP 12/13/23 Unknown History (Jardiance) fenofibrate 160 mg tablet 200 mg PO DAILY CHOLESTEROL 12/13/23 Unknown History sacubitril 24 mg-valsartan 26 mg 1 tab PO BID ASK PCP 12/13/23 Unknown History tablet (Entresto) furosemide 40 mg tablet 40 mg PO DAILY WATER PILL #90 tabs 01/28/24 Unknown Rx nitroglycerin 0.4 mg sublingual 0.4 mg sublingual Q5M PRN Chest 05/05/24 Unknown Rx tablet Pain #25 tabs amlodipine 2.5 mg tablet (Norvasc) 2.5 mg PO QDAY #30 tabs 07/20/24 Unknown Rx semaglutide 0.25 mg or 0.5 mg (2 0.25 mg subcut QWEEK ASK PCP 07/20/24 Unknown History mg/3 mL) subcutaneous pen injector (Ozempic) cholecalciferol (vitamin D3) 25 25 mcg PO BID ASK PCP 07/28/24 Unknown History mcg (1,000 unit) capsule cyanocobalamin (vitamin B-12) PO DAILY arminda maintenance 07/28/24 Unknown History fluticasone propionate 50 2 spray NASAL Q12H ALLERGIES 07/28/24 Unknown History mcg/actuation nasal spray,suspension isosorbide mononitrate 30 mg 60 mg PO BID heart 07/28/24 Unknown History tablet,extended release 24 hr metoprolol tartrate 25 mg tablet 50 mg PO BID blood pressure 07/28/24 Unknown History polyethylene glycol 3350 17 17 g PO DAILY ASK PCP 07/28/24 Unknown History gram/dose oral powder (Miralax) pyridoxine (vitamin B6) PO DAILY ASK PCP 07/28/24 Unknown History Allergy/AdvReac Type Severity Reaction Status Date / Time acyclovir Allergy Unknown Verified 07/28/24 09:24 belladonna alkaloids Allergy Unknown Verified 07/28/24 09:24 tree and shrub pollen Allergy cough Verified 07/28/24 09:24 valacyclovir HCl (From Allergy Other Verified 07/28/24 09:24 Valtrex) venom-honey bee (bee venom Allergy Angioedema Verified 07/28/24 09:24 (honey bee)) iodine AdvReac Severe Other Verified 07/28/24 09:24 lisinopril AdvReac Severe Diarrhea Verified 07/28/24 09:24 metformin AdvReac Severe Diarrhea, Verified 07/28/24 09:24 GI upset, Vomiting, Headache, Dizziness, Nausea Tetracyclines AdvReac Severe headache, Verified 07/28/24 09:24 vomiting, rash nitrofurantoin (From AdvReac Unknown Unknown Verified 07/28/24 09:24 Macrodantin) propoxyphene (From AdvReac Unknown Unknown Verified 07/28/24 09:24 Darvocet-N) valacyclovir (From Valtrex) AdvReac Unknown Seizure Verified 07/28/24 09:24 acetaminophen (From AdvReac Unknown Verified 07/28/24 09:24 Darvocet-N 100) animal dander AdvReac Other Verified 07/28/24 09:24 aspirin AdvReac Other Verified 07/28/24 09:24 atropine sulfate (From AdvReac Unknown Verified 07/28/24 09:24 ) codeine AdvReac Nausea/Vom/ Verified 07/28/24 09:24 Diarrhea hyoscyamine sulfate (From AdvReac Unknown Verified 07/28/24 09:24 ) Iodinated Contrast Media AdvReac Rash Verified 07/28/24 09:24 (CONTRASTS) meperidine HCl (From Demerol) AdvReac Unknown Verified 07/28/24 09:24 niacin AdvReac Upset Verified 07/28/24 09:24 Stomach nitroglycerin (From AdvReac Other Verified 07/28/24 09:24 Nitro-Dur) oxytetracycline (From AdvReac Hives Verified 07/28/24 09:24 Terramycin) oxytetracycline HCl (From AdvReac Hives Verified 07/28/24 09:24 Terramycin) Penicillins AdvReac Hives Verified 07/28/24 09:24 perfume AdvReac Shortness Verified 07/28/24 09:24 of breath phenobarbital (From ) AdvReac Unknown Verified 07/28/24 09:24 piroxicam AdvReac Unknown Verified 07/28/24 09:24 prochlorperazine AdvReac Rash Verified 07/28/24 09:24 propoxyphene napsylate (From AdvReac Unknown Verified 07/28/24 09:24 Darvocet-N 100) scopolamine hydrobromide AdvReac Unknown Verified 07/28/24 09:24 (From ) Sulfa (Sulfonamide AdvReac Rash, HIVES Verified 07/28/24 09:24 Antibiotics) terfenadine (From Seldane) AdvReac Unknown Verified 07/28/24 09:24 tetracycline AdvReac Rash Verified 03/14/25 09:24 Family History Father Heart disease CVA (cerebral vascular accident) Mother Colon cancer Brother Cancer skin Brother Cancer lung cancer Surgical History History of right cataract surgery History of coronary artery bypass graft x 3 (~10/13/12) Presence of coronary angioplasty implant and graft (~12/23/17) History of hysterectomy History of excision of pilonidal cyst Status post left oophorectomy History of cholecystectomy Social History Smoking Status: Former smoker how long ago did patient quit smokin second hand exposure: No alcohol intake: never substance use type: does not use caffeine: Yes Type: coffee Number of servings: 1 and tea what type of physical activity do you participate in: walking frequency: daily duration: 30-45 minutes/day seatbelt use: always do you feel safe at home: Yes EXAM Physical Exam Const Vital Signs: 07/28/24 09:22 07/28/24 11:14 Temperature 97.6 F L Temperature Source Oral Pulse Rate 77 66 Respiratory Rate 16 12 Blood Pressure 151/100 H 156/73 H Blood Pressure Mean 117 100 Pulse Ox 97 96 Oxygen Delivery Method Room Air Room Air MDM MDM MDM Narrative Medical decision making narrative: 89-year-old female with past medical history of CVA, HTN, CAD, COPD, CHF, seizures presents for evaluation of strokelike symptoms. Differential diagnosis includes but is not limited to CVA, intracranial abnormality, electrolyte abnormality, SWATI, CHF exacerbation. Patient has iodine contrast therefore we will hold off on CTA as patient is out of the LVO window. Patient is outside the TNK window as well as symptoms developed 3 days ago. Differential diagnosis includes but is not limited to CVA, electrolyte abnormality, CHF exacerbation. Stroke workup ordered including BNP to assess for CHF exacerbation. EKG and chest x-ray reviewed see below. CBC without leukocytosis or anemia. Coagulation panel unremarkable. BMP relatively unremarkable. BNP unremarkable. Troponin unremarkable. CT brain shows small punctate hyperdense focus identified in the left cerebral hemisphere. Could be artifact however small hemorrhage cannot be excluded. Repeat CT in 4 to 6 hours recommended. Patient's strokelike symptoms are left-sided therefore this would not correspond with her symptoms. She has mild small vessel ischemic/degenerative changes. Patient will warrant admission for MRI brain as well as CVA workup. Patient and family confirmed understand the plan. Patient admitted to the hospitalist service. EKG: Interpreted by me/EM physician: EKG shows normal sinus rhythm with left bundle branch block. No acute ischemic changes. Heart rate is 58. Patient has a known left bundle branch block Diagnostic: Interpreted by me/EM physician: Chest x-ray without pneumonia, large effusion. Patient does have pulmonary congestion. Impression: 1. Left-sided deficits, concern for CVA 2. History of CVA Lab Data Labs: Laboratory Results - last 24 hr 07/28/24 07/28/24 09:55 10:05 WBC 7.3 RBC 4.16 L Hgb 13.0 Hct 39.8 MCV 95.7 MCH 31.3 MCHC 32.7 RDW Std Deviation 48.6 H RDW Coeff of Khalida 13.8 Plt Count 360 MPV 9.9 Immature Gran % (Auto) 0.300 Neut % (Auto) 50.6 Lymph % (Auto) 34.1 Letcher % (Auto) 10.9 H Eos % (Auto) 3.0 Baso % (Auto) 1.1 H Absolute Neuts (auto) 3.7 Absolute Lymphs (auto) 2.50 Nucleated RBC % 0 PT 13.4 INR 1.0 APTT 26.5 Sodium 141 Potassium 3.5 Chloride 106 Carbon Dioxide 21.9 Anion Gap 14 BUN 15 Creatinine 0.84 Estim Creat Clear Calc 48.70 L Est GFR (MDRD) Non-Af 67 BUN/Creatinine Ratio 17.9 Glucose 105 H Calcium 9.0 Troponin T High Sens 12 NT pro BNP II 453 POC Glucose 97 Radiography Diagnostic Testing: Clinical Impression(s) from Imaging Studies Brain CT 07/28/24 10:10 IMPRESSION: 1. Small punctate hyperdense focus identified in the left cerebellar hemisphere on axial image 9. This could be artifact. However, small hemorrhage can not be excluded. Repeat CT in 4-6 hours recommended. 2. Mild small vessel ischemic/degenerative changes. Findings were discussed with Dr. Ibanez by phone on 07/28/2024 at 1124 hours. Reading [facility] Chest X-Ray 07/28/24 10:10 IMPRESSION: Pulmonary venous congestion. Reading Location[facility] Disposition Disposition: Acute Care Hospital [facility] Discharge Date/Time: 07/28/24 12:43
[2024-07-28 10:08] LABS: Absolute Neutrophil Count 3.7 X10^3/uL (2.0-7.7); Basophil# 0.08 X10^3/uL; Basophil% 1.1 % (0-1); Eosinophil# 0.22 X10^3/uL; Hematocrit 39.8 % (37-47); Lymphocyte % 34.1 % (19-41); Mean Corp Hgb Conc 32.7 g/dL (32-36); Mean Corpuscular Hgb 31.3 pg (27.0-32.0); Mean Corpuscular Volume 95.7 fL (81-99); Mean Platelet Vol. 9.9 fl (6.2-12.0); Monocyte% 10.9 % (0-10); NRBC Flagged by Analyzer 0 % (0-5); Neutrophil # 3.71 X10^3/uL (2.7-7.7); Neutrophil % 50.6 % (47-70); Platelet Count 360 K/mm3 (150-450); RBC Distribution Width CV 13.8 % (11.6-14.6); RBC Distribution Width SD 48.6 fl (35.1-43.9); Red Blood Count 4.16 M/mm3 (4.2-5.4); White Blood Count 7.3 K/mm3 (4.4-11.0)
--- NOTE | 2024-07-28 10:10 | RAD_ITS ---
EXAM: XR Chest, 1 View CLINICAL INDICATION: NEURO DEFICIT, STROKE SUSPECTED TECHNIQUE: Frontal view of the chest. COMPARISON: No relevant prior studies available. FINDINGS: LUNGS AND PLEURAL SPACES: Pulmonary venous congestion. No consolidation. No pneumothorax. HEART: Unremarkable. No cardiomegaly. MEDIASTINUM: Unremarkable. Normal mediastinal contour. BONES/JOINTS: Unremarkable. No acute fracture. RAD/Chest 1 View IMPRESSION: Pulmonary venous congestion. Reading [facility]
--- NOTE | 2024-07-28 10:10 | CT_ITS ---
EXAM: CT Head Without Intravenous Contrast CLINICAL INDICATION: STROKE SUSPECTED, NEUROLOGICAL DEFICIT TECHNIQUE: Axial computed tomography images of the head/brain without intravenous contrast. This CT exam was performed using one or more of the following dose reduction techniques: automated exposure control, adjustment of the mA and/or kV according to patient size, and/or use of iterative reconstruction technique. COMPARISON: No relevant prior studies available. FINDINGS: BRAIN AND EXTRA-AXIAL SPACES: Small punctate hyperdense focus identified in the left cerebellar hemisphere on axial image 9. This could be artifact. However, small hemorrhage can not be excluded. Repeat CT in 4-6 hours recommended. The cerebral and cerebellar sulci are mildly prominent consistent with mild brain atrophy. Mild areas of decreased attenuation in the deep cerebral white matter are consistent with mild small vessel ischemic/degenerative changes. BONES/JOINTS: Unremarkable. No acute fracture. SOFT TISSUES: Unremarkable. SINUSES: Unremarkable as visualized. No acute sinusitis. MASTOID AIR CELLS: Unremarkable as visualized. No mastoid effusion. CT/STROKE Brain/Head without Cont IMPRESSION: 1. Small punctate hyperdense focus identified in the left cerebellar hemispher e on axial image 9. This could be artifact. However, small hemorrhage can not be excluded. Repeat CT in 4-6 hours recommen ded. 2. Mild small vessel ischemic/degenerative changes. Findings were discussed with Dr. Ibanez by phone on 07/28/2024 at 1124 hours. Reading Location: [facility]
[2024-07-28 10:17] LABS: Partial Thromboplast Time 26.5 Seconds (24.1-36.2)
[2024-07-28 10:20] LABS: Prothrombin Time (Protime)PT. 13.4 SECONDS (11.7-14.9)
[2024-07-28 10:24] LABS: Bedside Glucose 97 mg/dL (74-106)
[2024-07-28 10:37] LABS: Anion Gap 14 (5-15); BUN 15 mg/dL (4-19); BUN/Creat Ratio 17.9 RATIO (10-20); Carbon Dioxide 21.9 mmol/L (21.0-32.0); Chloride 106 mmol/L (98-108); Creatinine, Serum 0.84 mg/dL (0.70-1.20); EST Glomerular Filtration Rate 67 (>60); Glucose 105 mg/dL (70-99); Potassium 3.5 mmol/L (3.3-5.1); Sodium Level 141 mmol/L (133-145)
[2024-07-28 10:50] LABS: Troponin T High Sensitivity 12 ng/L (<=14)
[2024-07-28 11:02] LABS: Pro- Brain NATRIURETIC PEPTIDE 453 pg/mL (<=1800)
--- NOTE | 2024-07-28 11:38 | HP.PCM.HOS_ITS ---
[facility] - General General Date of Admission: 07/28/24 Date of Service: 07/28/24 Chief Complaint: stroke like symptoms. HPI Narrative SILVESTRE FERMIN, is a 89 F with a PMH as outlined who presents via the ED On 07/28/2024 with a complaint of stroke like symptoms. Last known well was ~ 10pm on Wednesday07/24/2024. She woke up the next day with a left facial droop, slurred speecha nd left upper and lower extremity weakness. She went to see her neurologist on outpatient basis today and was told to come to the ED. She does have residual left sided deficits from previous strokes, though she said it had improved. She denied any lightheadedness, dizziness, or any chest pain. Patient apparently complained of crushing chest pain in her neurologist's office. She had a history of recurrent falls due to her history of seizures. Review of systems is otherwise negative. Vitals in the ED were BP of 156/73, AR of 66, RR of 12 and she was saturating at 96% on room air. CBC showed wbc of 7.3, Hb of 13 and platelets of 360. INR was 1. CHemistry showed sodium of 141 and potassium 3.5 and bicarb of 21.9. Cr was 0.84. proBNP was 453. Chest x-ray showed no acute cardiopulmonary pathology. Brain CT showed small punctate hyperdense focus identified in the left cerebellar hemisphere which could be an infarct though small hemorrhage cannot be excluded and mild small vessel ischemic/degenerative changes. She has been admitted for stroke rule out. She did not have a CTA head and neck due to patient's allergy to contrast. She has been admitted to be managed for stroke rule out [facility] Medical History Dyspnea on exertion History of left heart catheterization (LHC) (~09/04/21) Atherosclerotic heart disease of [place] coronary artery without angina pectoris CVA (cerebral vascular accident) Presence of stent in coronary artery (~12/23/17) Pure hypercholesterolemia Essential (primary) hypertension Unstable angina Stage 1 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 ELIE (obstructive sleep apnea) Cardiomyopathy, ischemic NSTEMI (non-ST elevated myocardial infarction) Gallbladder & bile duct stone with obstruction Seizure Cervical spinal stenosis Asthma CHF (congestive heart failure) Home Medications ?Medication ?Instructions ?Recorded ?Last Taken ?Type acetaminophen 500 mg tablet 1,000 mg PO BID PRN Pain 0 12/03/15 09/02/21 History levetiracetam 750 mg tablet 750 mg PO BID ASK PCP 09/1510/08/23 History melatonin 5 mg capsule 5 - 10 mg PO QHS PRN insomni a 01/29/22 Unknown History multivitamin (One Daily 1 tab PO DAILY [facility] 07/08/22 10/08/23 History Multivitamin tablet) pantoprazole 40 mg tablet,delayed 40 mg PO DAILY ACID REFLUX 07/08/22 10/08/23 History release clopidogrel 75 mg tablet 75 mg PO DAILY CLOTS #90 tab s 05/05/23 10/08/23 Rx cyclobenzaprine 10 mg tablet 10 mg PO TID PRN muscle s pasm 10/19/23 Unknown History ranolazine 1,000 mg 1,000 mg PO BID 10/19/23 Unk nown History tablet,extended release,12 hr albuterol sulfate 90 mcg/actuation 2 puff inhalation Q 4H PRN 12/13/23 Unknown Rx aerosol inhaler shortness of breath or wheez ing #8.5 grams atorvastatin 40 mg tablet 40 mg PO QHS ASK PCP 4 Unknown History empagliflozin 10 mg tablet 10 mg PO QDAY ASK PCP 12/12 Unknown History (Jardiance) fenofibrate 160 mg tablet 200 mg PO DAILY CHOLESTEROL 12/13/23 Unknown History sacubitril 24 mg-valsartan 26 mg 1 tab PO BID ASK PCP 12/13/23 Unknown History tablet (Entresto) furosemide 40 mg tablet 40 mg PO DAILY WATER PILL #9 0 tabs 01/28/24 Unknown Rx nitroglycerin 0.4 mg sublingual 0.4 mg sublingual Q5M PRN Chest 05/05/24 Unknown Rx tablet Pain #25 tabs amlodipine 2.5 mg tablet (Norvasc) 2.5 mg PO QDAY #30 tabs 07/20/24 Unknown Rx semaglutide 0.25 mg or 0.5 mg (2 0.25 mg subcut QWEEK ASK PCP 07/20/24 Unknown History mg/3 mL) subcutaneous pen injector (Ozempic) cholecalciferol (vitamin D3) 25 25 mcg PO BID ASK PCP 07/28/24 Unknown History mcg (1,000 unit) capsule cyanocobalamin (vitamin B-12) PO DAILY arminda maintenan ce 07/28/24 Unknown History fluticasone propionate 50 2 spray NASAL Q12H ALLERGIES 07/28/24 Unknown History mcg/actuation nasal spray,suspension isosorbide mononitrate 30 mg 60 mg PO BID heart Unknown History tablet,extended release 24 hr metoprolol tartrate 25 mg tablet 50 mg PO BID blood pr essure 07/28/24 Unknown History polyethylene glycol 3350 17 17 g PO DAILY ASK PCP 07/15 09/08 Unknown History gram/dose oral powder (Miralax) pyridoxine (vitamin B6) PO DAILY ASK PCP 07/28/24 Un known History Allergy/AdvReac Type Severity Reaction Status Date / Time acyclovir Allergy Unknown Verified 07/28/24 09:24 belladonna alkaloids Allergy Unknown Verified 07/28/24 09:24 tree and shrub pollen Allergy cough Verified 07/28/24 09:24 valacyclovir HCl (From Allergy Other Verified 07/28/24 09:24 Valtrex) venom-honey bee (bee venom Allergy Angioedema Verified 07/28/24 09:24 (honey bee)) iodine AdvReac Severe Other Verified 07/28/24 09:24 lisinopril AdvReac Severe Diarrhea Verified 07/28/24 09:24 metformin AdvReac Severe Diarrhea, Verified 07/28/24 09:24 GI upset, Vomiting, Headache, Dizziness, Nausea Tetracyclines AdvReac Severe headache, Verified 07/28/24 09:24 vomiting, rash nitrofurantoin (From AdvReac Unknown Unknown Verified 07/28/24 09:24 Macrodantin) propoxyphene (From AdvReac Unknown Unknown Verified 07/28/24 09:24 Darvocet-N) valacyclovir (From Valtrex) AdvReac Unknown Seizure Verified 07/28/24 09:24 acetaminophen (From AdvReac Unknown Verified 07/28/24 09:24 Darvocet-N 100) animal dander AdvReac Other Verified 07/28/24 09:24 aspirin AdvReac Other Verified 07/28/24 09:24 atropine sulfate (From AdvReac Unknown Verified 07/28/24 09:24 ) codeine AdvReac Nausea/Vom/ Verified 07/28/24 09:24 Diarrhea hyoscyamine sulfate (From AdvReac Unknown Verified 07/28/24 09:24 ) Iodinated Contrast Media AdvReac Rash Verified 07/28/24 09:24 (CONTRASTS) meperidine HCl (From Demerol) AdvReac Unknown Verified 07/28/24 09:24 niacin AdvReac Upset Verified 07/28/24 09:24 Stomach nitroglycerin (From AdvReac Other Verified 07/28/24 09:24 Nitro-Dur) oxytetracycline (From AdvReac Hives Verified 07/28/24 09:24 Terramycin) oxytetracycline HCl (From AdvReac Hives Verified 07/28/24 09:24 Terramycin) Penicillins AdvReac Hives Verified 07/28/24 09:24 perfume AdvReac Shortness Verified 07/28/24 09:24 of breath phenobarbital (From ) AdvReac Unknown Verified 07/28/24 09:24 piroxicam AdvReac Unknown Verified 07/28/24 09:24 prochlorperazine AdvReac Rash Verified 07/28/24 09:24 propoxyphene napsylate (From AdvReac Unknown Verified 07/28/24 09:24 Darvocet-N 100) scopolamine hydrobromide AdvReac Unknown Verified 07/28/24 09:24 (From ) Sulfa (Sulfonamide AdvReac Rash, HIVES Verified 07/28/24 09:24 Antibiotics) terfenadine (From Seldane) AdvReac Unknown Verified 07/28/24 09:24 tetracycline AdvReac Rash Verified 07/28/24 09:24 Family History Father Heart disease CVA (cerebral vascular accident) Mother Colon cancer Brother Cancer skin Brother Cancer lung cancer Surgical History History of right cataract surgery History of coronary artery bypass graft x 3 (~10/13/12) Presence of coronary angioplasty implant and graft (~12/23/17) History of hysterectomy History of excision of pilonidal cyst Status post left oophorectomy History of cholecystectomy Social History Smoking Status: Former smoker how long ago did patient quit smokin second hand exposure: No alcohol intake: never substance use type: does not use caffeine: Yes Type: coffee Number of servings: 1 and tea what type of physical activity do you participate in: walking frequency: daily duration: 30-45 minutes/day seatbelt use: always do you feel safe at home: Yes ROS Constitutional Constitutional: Reports fatigue, malaise and weakness; Denies anorexia, chills or fever(s) Eyes Eyes: Denies change in vision ENT HEENT: Denies dysphagia, headache(s) or sore throat Cardiovascular Cardiovascular: Denies chest pain, dyspnea on exertion, edema, lightheadedness, orthopnea, palpitations, paroxysmal nocturnal dyspnea, rapid heart rate or syncope Respiratory/Chest Respiratory/Chest: Denies cough, dyspnea, productive cough, shortness of breath at rest, shortness of breath with exertion or wheezing Gastrointestinal Gastrointestinal: Denies constipation, diarrhea, nausea or vomiting Genitourinary Genitourinary: Denies dysuria Musculoskeletal Musculoskeletal: Denies arthralgias or joint pain Neurologic Neurologic: Reports focal weakness, numbness, paresthesias and tingling; Denies abnormal gait, abnormal speech, confusion, disequilibrium, dizziness, headache(s), seizure-like activity, seizures, syncope or tremor(s) Endocrine Endocrinology: Denies change in body appearance Vital Signs Vital Signs Vital Signs: 07/28/24 09:22 07/28/24 11:14 Temperature 97.6 F L Temperature Source Oral Pulse Rate 77 66 Respiratory Rate 16 12 Blood Pressure 151/100 H 156/73 H Blood Pressure Mean 117 100 Pulse Ox 97 96 Oxygen Delivery Method Room Air Room Air Weight Weight: 194 lb 11.2 oz Body Mass Index (BMI) 35.6 Physical Exam Const alert, oriented x3 and no apparent distress Constitutional Narrative: class III obesity General Appearance: cooperative HEENT normocephalic, head/scalp atraumatic, hearing grossly normal bilaterally and moist oral mucous membranes Mouth: oral and palatal mucosa normal Eyes PERRL, EOMs intact bilaterally and conjunctivae normal Neck no lymphadenopathy and supple Resp normal respiratory effort, no retractions, no use of accessory muscles and clear to auscultation bilaterally Resp Narrative: on room air. Cardio regular rate, regular rhythm, S1 normal heart sound, S2 normal heart sound and no murmurs GI normal to inspection, nondistended, normoactive bowel sounds, soft to palpation, non-tender and non-distended Extremity normal to inspection, full ROM and no clubbing, cyanosis or edema Neuro Neuro Narrative: speech slightly slurred,CN II-XII otherwise intact. power in all extremities is 5/5. Sensation to light touch intact in all extremities and on face. Sensorium / Orientation: awake and alert Motor Exam: strength 5/5 throughout Psych affect normal Results Lab / Micro Data 07/28/24 09:55 07/28/24 09:55 Labs: Laboratory Results - last 24 hr 07/28/24 09:55: WBC 7.3, RBC 4.16 L, Hgb 13.0, Hct 39.8, MCV 95.7, MCH 31.3, MCHC 32.7, RDW Std Deviation 48.6 H, RDW Coeff of Khalida 13.8, Plt Count 360, MPV 9.9, Immature Gran % (Auto) 0.300, Neut % (Auto) 50.6, Lymph % (Auto) 34.1, [place] % (Auto) 10.9 H, Eos % (Auto) 3.0, Baso % (Auto) 1.1 H, Absolute Neuts (auto) 3.7, Absolute Lymphs (auto) 2.50, Nucleated RBC % 0, PT 13.4, INR 1.0, APTT 26.5, Sodium 141, Potassium 3.5, Chloride 106, Carbon Dioxide 21.9, Anion Gap 14, BUN 15, Creatinine 0.84, Estim Creat Clear Calc 48.70 L, Est GFR (MDRD) Non- Af 67, BUN/Creatinine Ratio 17.9, Glucose 105 H, Calcium 9.0, Troponin T High Sens 12, NT pro BNP II 453 07/28/24 10:05: POC Glucose 97 Imaging Radiology Impression Brain CT 07/28/24 10:10 IMPRESSION: 1. Small punctate hyperdense focus identified in the left cerebellar hemisphere on axial image 9. This could be artifact. However, small hemorrhage can not be excluded. Repeat CT in 4-6 hours recommended. 2. Mild small vessel ischemic/degenerative changes. Findings were discussed with Dr. Ibanez by phone on 07/28/2024 at 1124 hours. Reading Location: [facility] Chest X-Ray 07/28/24 10:10 IMPRESSION: Pulmonary venous congestion. Reading Location: [facility] Assessment & Plan Assessment/Plan (1) Stroke-like symptoms: PLAN: Plan #Stroke like symptoms * Patient admitted with a complaint of left-sided facial numbness and worsening left-sided weakness. * she has a history of stroke and had underlying left sided stroke but says it has worsened. * On arrival in the ED, the numbness had resolved and NIHSS was 1, for the mildly slurred speech. * CT brain showed small punctate hyperdense focus identified in the left cerebellar hemisphere which could be artifact, however small hemorrhage cannot be excluded; mild small vessel ischemic/degenerative changes. * get MRI of the brain without contrast. * CTA of the head and neck ordered; patient says she has allergy to contrast. She gets a rash in response to the rash. Patient therefore given contrast allergy premedication with benadryl and solumedrol. * consult neurology * hold aspirin and plavix until intracranial hemorrhage is ruled out. * high intensity statin. * PT/OT on board. Fall precautions. * #History of CAD: * s/p CABG x 3. * on high intensity statin and fenofibrate * Hold plavix until intracranial hemorrhage is ruled out. * On imdur and ranolazine #Chronic heart failure: * not in exacerbation. Breathing treatment with bronchodilators. On lasix, entresto and metoprolol. * CXR showed evidence of pulmonary venous congestion. #Hypertension: on amlodipine. #TYpe 2 diabetes mellitus: on jardiance and ozempic. ISS. Accuchecks ACHS #Hyperlipidemia: on statin and fenofibrate. #Seizure disordder: on keppra DVT prophylaxis: SCDs. No anticoagulation due to concern for brain bleed. Code status: full code * Patient counseled extensively about different types of CODE STATUS including full code, DNR CCA and DNR CCA. * Patient elects to be full code. * Total [id number] time 17 minutes. Charges/Coding Visit Charges Inpatient E&M: 56081 Init Hosp L2 Procedures Hospitalists Procedures: 03790 Advncd Care Plan 30 Min
--- NOTE | 2024-07-28 13:43 | MRI_ITS ---
PROCEDURE: BRAIN WITHOUT CONTRAST (MRIBR), 07/28/2024 REASON FOR EXAM: STROKE COMPARISON: 07/28/2024. TECHNIQUE: Multisequence multiplanar MRI brain was performed without intravenous contrast. Contrast: None. FINDINGS: Cerebrum: No acute infarct, mass, or definite appreciable hemorrhage identified. Mild cerebral volume loss and supratentorial white matter abnormalities which are nonspecific but compatible with chronic microvascular ischemic changes. Cerebellum: Unremarkable. No correlate for the previously questioned CT finding in the left hemisphere. Brainstem: Unremarkable. Ventricles/extra-axial spaces: Unremarkable. Major flow voids: Grossly unremarkable within limits of nondedicated technique. Paranasal sinuses: Unremarkable. Scalp/calvarium: Nonspecific 1.3 cm right and 1.9 cm left T1 dark lesion frontal bone lesions with associated restricted diffusion. Question a faint focal sclerotic correlate on the left on previous CT. Orbits: Bilateral cataract surgery.. Other: None. MRI/Brain without Contrast IMPRESSION: 1. No definite evidence of an acute intracranial process. 2. Nonspecific bilateral frontal bone lesions up to 1.9 cm on the left. Correl ate for any possible history of known malignancy and consider outpatient bone scan versus attention on follow-up to evaluate sta bility, as indicated. Comparison with any available outside imaging may also be helpful. 3. Additional description as above. Reading Location: [id number]
--- NOTE | 2024-07-28 13:43 | ECHOL_ITS ---
Reason For Study : TIA/CVA Procedure This was a limited 2D transthoracic echocardiogram. The study was technically limited. Definity declined by patient due to saline allergy. Exam performed portable in patient room. Mitral Valve There is no mitral valve stenosis. Tricuspid Valve There is no tricuspid stenosis. Aortic Valve Trisinus/trileaflet aortic valve. There is no aortic stenosis. Pericardium/Pleural No pericardial effusion. MMode/2D Measurements & Calculations LVIDd: 4.5 cm IVSd: 1.1 cm LAV(MOD- bp): 51.8 ml LVIDs: 4.0 cm LVPWd: 1.2 cm FS: 10.7 % LAV(MOD- bp) Indexed: 27.4 ml/m2 LAV(MOD- sp2): 51.7 ml LAV(MOD- sp4): 51.1 ml LVAd ap4: 27.6 cm2 SV(MOD-sp4): 46.7 ml SV(sp4- el): 46.3 ml LVLd ap4: 7.5 cm SI(MOD-sp4): 24.7 ml/m2 EDV(MOD-sp4): 87.0 ml EDV(sp4-el): 86.8 ml LVAs ap4: 18.0 cm2 ECHO/Echo, Limited Study Interpretation Summary Limited study. LVEF is 40 to 45% with hypokinesis of the anterior wall and septum Ordering Physician: Helena Pineda Referring Physician: Helena Pineda Performed By: Ct Maldonado RCS
[2024-07-28] MEDS: DiphenhydrAMINE 50 MG/ML Syringe IV (14:55)
[2024-07-28] MEDS: Methylprednisolone Sod Succ 40 MG/ML VIAL IV (14:55)
[2024-07-28] MEDS: 0.9% Saline Lock 10 ML Syringe IV (14:57)
--- NOTE | 2024-07-28 16:15 | CT_ITS ---
PROCEDURE: STROKE CTA HEAD AND NECK W/CON REASON FOR EXAM: NEURO DEFICIT, ACUTE, STROKE SUSPECTED TECHNIQUE: CTA head and neck was performed with IV contrast. Multiplanar reformats as well as MIP and 3D reconstructions were generated. CONTRAST: 89 mL Isovue 370 COMPARISON: MRI and CT of same date. FINDINGS: CTA NECK: Motion limitation through the upper chest. Additional streak artifact related to right shoulder arthroplasty, sternal wires, and the densely opacified left subclavian and brachiocephalic veins Aortic Arch: Atherosclerosis. Essentially two-vessel arch anatomy. Patent great vessel origins. Brachiocephalic and Subclavians: Nonobstructing atherosclerosis. RIGHT Carotid: Right CCA: Nonobstructing atherosclerosis in the bulb. Right ICA: Unremarkable. Right ECA: Patent with [id number] stenosis at the origin. LEFT Carotid: Left CCA: Nonobstructing atherosclerosis in the bulb. Left ICA: Unremarkable. Left ECA: Unremarkable. Vertebrals: Codominant. Arise from the subclavians. Both vertebrals form the basilar. RIGHT Vertebral: Multifocal stenoses distally up to moderate/severe. LEFT Vertebral: Mild stenosis distally. CTA HEAD: Slight limitation related to venous contamination. Anterior circulation: No high-grade stenosis or large vessel occlusion identified. Prominent but nonobstructing atherosclerosis in the distal intracranial ICA on the right. Moderate atherosclerotic stenosis along the clinoid/slip supraclinoid ICA on the left. Posterior circulation: No high-grade stenosis or large vessel occlusion identified. Left AICA nonvisualized. origin of the right CNC GRINDER. Atherosclerotic irregularity in the vertebrals and basilar arteries without hemodynamically significant stenosis. 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 Major venous structures: Grossly unremarkable. Other: Demineralization. Multilevel spondylosis. Straightening of the normal cervical lordosis which could be positional or degenerative. Effacement of the left piriform sinus. Question at least mild partially imaged upper mediastinal lymphadenopathy. Right paratracheal air cyst, normal variant. CT/STROKE CTA Head AND Neck W/Con IMPRESSION: 1. [id number] stenosis of the right ECA origin, otherwise no high-grade stenosis or large vessel occlusion identified. 2. Question at least mild partially imaged upper mediastinal lymphadenopathy. Correlate with medical history and recommend outpatient CT chest, ideally with IV contrast. 3. 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 Clinical follow-up recommended. 4. Effacement of the left piriform sinus without measurable mass on nondedicate d evaluation. This could be related to a nonvisualized mass on the left versus pathology involving the right recurrent l imited laryngeal nerve with associated asymmetric atrophy. Recommend outpatient ENT consultation and direct visualization. 5. Additional description as above. Reading Location: [id number]
[2024-07-28] MEDS: amLODIPine 2.5 MG Tablet PO (18:52)
[2024-07-28] MEDS: Isosorbide Mononitrate 60 MG Tablet PO (22:00)
[2024-07-28] MEDS: Ranolazine 500 MG Tablet 1000 MG PO (22:00)
[2024-07-28] MEDS: Fluticasone 0.05% 1 SPRAY NASAL.SRY 2 SPRAY NASAL (22:00)
[2024-07-28] MEDS: SACUBITRIL/VALSARTAN 24/26 MG TABLET 1 EACH PO (22:00)
[2024-07-28] MEDS: levETIRAcetam 750 MG Tablet PO (22:00)
[2024-07-28] MEDS: Atorvastatin Calcium 40 MG Tablet PO (22:00)
[2024-07-28] MEDS: Cholecalciferol (VIT D3) 25 MCG TABLET (1,000 UNITS) PO (22:00)
[2024-07-28] MEDS: Metoprolol Tartrate 50 MG Tablet PO (22:00)
[2024-07-29 03:00] VITALS: BP 112/84; PULSE 59; RESP 16; TEMP 36.6; O2SAT 97
[2024-07-29 07:26] LABS: Anion Gap 11 (5-15); BUN 12 mg/dL (4-19); BUN/Creat Ratio 19.1 RATIO (10-20); Calcium,Total 8.8 mg/dL (7.6-11.0); Carbon Dioxide 22.5 mmol/L (21.0-32.0); Chloride 108 mmol/L (98-108); Cholesterol 128 mg/dL (<=200); Creatinine, Serum 0.61 mg/dL (0.70-1.20); EST Glomerular Filtration Rate 86 (>60); Estimated Creatinine Clearance 50.82 ml/min (50-250); Glucose 108 mg/dL (70-99); High Density Lipoprotein 43 mg/dL; Low Density Lipoprotein Calc. 66 mg/dL; Potassium 3.7 mmol/L (3.3-5.1); Sodium Level 141 mmol/L (133-145); Triglycerides 96 mg/dL; Very Low Density Lipoprotein 19 mg/dL (5-40); cholesterol:hdl ratio screen 2.99
[2024-07-29 08:33] LABS: Absolute Lymphocyte Count 2.74 X10^3/uL (0.83-4.51); Absolute Neutrophil Count 5.2 X10^3/uL (2.0-7.7); Basophil# 0.04 X10^3/uL; Basophil% 0.4 % (0-1); Eosinophil# 0.04 X10^3/uL; Eosinophils% 0.4 % (0-5); Hematocrit 35.5 % (37-47); Hemoglobin 11.7 g/dL (12.0-15.0); Lymphocyte # 2.74 X10^3/ul (0.83-4.51); Lymphocyte % 30.8 % (19-41); Mean Corpuscular Hgb 31.5 pg (27.0-32.0); Mean Corpuscular Volume 95.7 fL (81-99); Monocyte# 0.86 X10^3/uL; Monocyte% 9.7 % (0-10); NRBC Flagged by Analyzer 0 % (0-5); Neutrophil # 5.19 X10^3/uL (2.7-7.7); Neutrophil % 58.4 % (47-70); Platelet Count 320 K/mm3 (150-450); RBC Distribution Width CV 13.8 % (11.6-14.6); RBC Distribution Width SD 48.8 fl (35.1-43.9); Red Blood Count 3.71 M/mm3 (4.2-5.4); White Blood Count 8.9 K/mm3 (4.4-11.0)
--- NOTE | 2024-07-29 08:33 | NEURO.CONS ---
Assessment and Plan: Neuro Assessment/Plan SILVESTRE FERMIN is a 89 F with a past medical history of CVA, HTN, CAD, COPD, CHF, seizures , being evaluated by Teleneurology for left sided weakness. Baseline weakness due to past stroke. She noted worsening earlier in the week but now back at baseline. MRI Brain is negative, no new stroke. CTA showed M2 aneurysm. Suspect recrudescence. Diagnosis: Stroke recrudescence Plan: - No further work up inpatient - PT/OT assessments - Follow up with neurosurgery for M2 aneurysm I personally attended this patient and spent a total time of 32 minutes evaluating this patient including clinical assessment, review of chart, medical history imaging, and determining appropriate treatment and workup. HPI Consult Data Date of Consult: 07/29/24 HPI Narrative HPI Narrative: SILVESTRE FERMIN, is a 89 F with history of CVA, HTN, CAD, COPD, CHF, seizures who presents with worsening left sided weakness. Yesterday patient woke up with worsening of her baseline left sided weakness on Wednesday. She has a history of prior stroke with residual weakness but felt worse and she noticed her left face drooping. It began getting better on Wednesday, she now feels back to normal. She presented to her outpatient neurologist yesterday for follow up who recommended she present to the ER for an evaluation. She denies any cough, fevers, chills, urinary symptoms. Left sided weakness has now returned to her baseline. CTH on arrival showed artifact vs small hemorrhage. MRI brain was non acute. 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 [facility] Medical History Dyspnea on exertion History of left heart catheterization (LHC) (~09/04/21) Atherosclerotic heart disease of [place] coronary artery without angina pectoris CVA (cerebral vascular accident) Presence of stent in coronary artery (~12/23/17) Pure hypercholesterolemia Essential (primary) hypertension Unstable angina Stage 1 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 ELIE (obstructive sleep apnea) Cardiomyopathy, ischemic NSTEMI (non-ST elevated myocardial infarction) Gallbladder & bile duct stone with obstruction Seizure Cervical spinal stenosis Asthma CHF (congestive heart failure) Home Medications ?Medication ?Instructions ?Recorded ?Last Taken ?Type acetaminophen 500 mg tablet 1,000 mg PO BID PRN Pain 12/03/15 09/02/21 History levetiracetam 750 mg tablet 750 mg PO BID ASK PCP 10/03/21 10/08/23 History melatonin 5 mg capsule 5 - 10 mg PO QHS PRN insomnia 01/29/22 Unknown History multivitamin (One Daily 1 tab PO DAILY health maintenance 07/08/22 10/08/23 History Multivitamin tablet) pantoprazole 40 mg tablet,delayed 40 mg PO DAILY ACID REFLUX 07/08/22 10/08/23 History release clopidogrel 75 mg tablet 75 mg PO DAILY CLOTS #90 tabs 05/05/23 10/08/23 Rx cyclobenzaprine 10 mg tablet 10 mg PO TID PRN muscle spasm 10/19/23 Unknown History ranolazine 1,000 mg 1,000 mg PO BID 10/19/23 Unknown History tablet,extended release,12 hr albuterol sulfate 90 mcg/actuation 2 puff inhalation Q4H PRN 12/13/23 Unknown Rx aerosol inhaler shortness of breath or wheezing #8.5 grams atorvastatin 40 mg tablet 40 mg PO QHS ASK PCP 12/13/23 Unknown History empagliflozin 10 mg tablet 10 mg PO QDAY ASK PCP 12/13/23 Unknown History (Jardiance) fenofibrate 160 mg tablet 200 mg PO DAILY CHOLESTEROL 12/13/23 Unknown History sacubitril 24 mg-valsartan 26 mg 1 tab PO BID ASK PCP 12/13/23 Unknown History tablet (Entresto) furosemide 40 mg tablet 40 mg PO DAILY WATER PILL #90 tabs 01/28/24 Unknown Rx nitroglycerin 0.4 mg sublingual 0.4 mg sublingual Q5M PRN Chest 05/05/24 Unknown Rx tablet Pain #25 tabs amlodipine 2.5 mg tablet (Norvasc) 2.5 mg PO QDAY #30 tabs 07/20/24 Unknown Rx semaglutide 0.25 mg or 0.5 mg (2 0.25 mg subcut QWEEK ASK PCP 07/20/24 Unknown History mg/3 mL) subcutaneous pen injector (Ozempic) cholecalciferol (vitamin D3) 25 25 mcg PO BID ASK PCP 07/28/24 Unknown History mcg (1,000 unit) capsule cyanocobalamin (vitamin B-12) PO DAILY [place]inda maintenance 07/28/24 Unknown History fluticasone propionate 50 2 spray NASAL Q12H ALLERGIES 07/28/24 Unknown History mcg/actuation nasal spray,suspension isosorbide mononitrate 30 mg 60 mg PO BID heart 07/28/24 Unknown History tablet,extended release 24 hr metoprolol tartrate 25 mg tablet 50 mg PO BID blood pressure 07/28/24 Unknown History polyethylene glycol 3350 17 17 g PO DAILY ASK PCP 07/28/24 Unknown History gram/dose oral powder (Miralax) pyridoxine (vitamin B6) PO DAILY ASK PCP 07/28/24 Unknown History Allergy/AdvReac Type Severity Reaction Status Date / Time acyclovir Allergy Unknown Verified 07/28/24 09:24 belladonna alkaloids Allergy Unknown Verified 07/28/24 09:24 tree and shrub pollen Allergy cough Verified 07/28/24 09:24 valacyclovir HCl (From Allergy Other Verified 07/28/24 09:24 Valtrex) venom-honey bee (bee venom Allergy Angioedema Verified 07/28/24 09:24 (honey bee)) iodine AdvReac Severe Other Verified 07/28/24 09:24 lisinopril AdvReac Severe Diarrhea Verified 07/28/24 09:24 metformin AdvReac Severe Diarrhea, Verified 07/28/24 09:24 GI upset, Vomiting, Headache, Dizziness, Nausea Tetracyclines AdvReac Severe headache, Verified 07/28/24 09:24 vomiting, rash nitrofurantoin (From AdvReac Unknown Unknown Verified 07/28/24 09:24 Macrodantin) propoxyphene (From AdvReac Unknown Unknown Verified 07/28/24 09:24 Darvocet-N) valacyclovir (From Valtrex) AdvReac Unknown Seizure Verified 07/28/24 09:24 acetaminophen (From AdvReac Unknown Verified 07/28/24 09:24 Darvocet-N 100) animal dander AdvReac Other Verified 07/28/24 09:24 aspirin AdvReac Other Verified 07/28/24 09:24 atropine sulfate (From AdvReac Unknown Verified 07/28/24 09:24 ) codeine AdvReac Nausea/Vom/ Verified 07/28/24 09:24 Diarrhea hyoscyamine sulfate (From AdvReac Unknown Verified 07/28/24 09:24 ) Iodinated Contrast Media AdvReac Rash Verified 07/28/24 09:24 (CONTRASTS) meperidine HCl (From Demerol) AdvReac Unknown Verified 07/28/24 09:24 niacin AdvReac Upset Verified 07/28/24 09:24 Stomach nitroglycerin (From AdvReac Other Verified 07/28/24 09:24 Nitro-Dur) oxytetracycline (From AdvReac Hives Verified 07/28/24 09:24 Terramycin) oxytetracycline HCl (From AdvReac Hives Verified 07/28/24 09:24 Terramycin) Penicillins AdvReac Hives Verified 07/28/24 09:24 perfume AdvReac Shortness Verified 07/28/24 09:24 of breath phenobarbital (From ) AdvReac Unknown Verified 07/28/24 09:24 piroxicam AdvReac Unknown Verified 07/28/24 09:24 prochlorperazine AdvReac Rash Verified 07/28/24 09:24 propoxyphene napsylate (From AdvReac Unknown Verified 07/28/24 09:24 Darvocet-N 100) scopolamine hydrobromide AdvReac Unknown Verified 07/28/24 09:24 (From ) Sulfa (Sulfonamide AdvReac Rash, HIVES Verified 07/28/24 09:24 Antibiotics) terfenadine (From [place]ane) AdvReac Unknown Verified 07/28/24 09:24 tetracycline AdvReac Rash Verified 07/28/24 09:24 Family History Father Heart disease CVA (cerebral vascular accident) Mother Colon cancer Brother Cancer skin Brother Cancer lung cancer Surgical History History of right cataract surgery History of coronary artery bypass graft x 3 (~10/13/12) Presence of coronary angioplasty implant and graft (~12/23/17) History of hysterectomy History of excision of pilonidal cyst Status post left oophorectomy History of cholecystectomy Social History Smoking Status: Former smoker how long ago did patient quit smokin second hand exposure: No alcohol intake: never substance use type: does not use caffeine: Yes Type: coffee Number of servings: 1 and tea what type of physical activity do you participate in: walking frequency: daily duration: 30-45 minutes/day seatbelt use: always do you feel safe at home: Yes Vital Signs Vital Signs Vital Signs: 07/28/24 09:22 07/28/24 11:14 07/28/24 12:19 Temperature 97.6 F L Temperature Source Oral Pulse Rate 77 66 68 Respiratory Rate 16 12 19 H Respiratory Effort Respiratory Depth Respiratory Pattern Blood Pressure 151/100 H 156/73 H 172/92 H Blood Pressure Mean 117 100 118 Blood Pressure Source Blood Pressure Position Blood Pressure Location Pulse Ox 97 96 97 Oxygen Delivery Method Room Air Room Air Room Air Oxygen Flow Rate (L/min) 07/28/24 12:19 07/28/24 13:44 07/28/24 14:00 Temperature 98.7 F 97.5 F L Temperature Source Temporal Pulse Rate 64 73 Respiratory Rate 19 H 18 Respiratory Effort Normal Non-Labored Respiratory Depth Normal Respiratory Pattern Normal Blood Pressure 172/92 H 140/45 H Blood Pressure Mean 118 76 Blood Pressure Source Monitor Blood Pressure Position Semi-Fowlers Blood Pressure Location Right Arm Pulse Ox 95 98 Oxygen Delivery Method Room Air Room Air Oxygen Flow Rate (L/min) 07/28/24 17:57 07/28/24 21:00 07/28/24 22:00 Temperature 97.7 F L Temperature Source Oral Pulse Rate 78 78 Respiratory Rate 16 Respiratory Effort Respiratory Depth Respiratory Pattern Blood Pressure 154/55 H 154/55 H Blood Pressure Mean 88 Blood Pressure Source Monitor Blood Pressure Position Semi-Fowlers Blood Pressure Location Right Arm Pulse Ox 97 98 Oxygen Delivery Method Room Air Nasal Cannula Oxygen Flow Rate (L/min) 2 07/28/24 22:00 07/29/24 03:00 07/29/24 08:00 Temperature 97.8 F Temperature Source Oral Pulse Rate 59 L Respiratory Rate 16 Respiratory Effort Normal Respiratory Depth Normal Respiratory Pattern Normal Blood Pressure 112/84 H Blood Pressure Mean 93 Blood Pressure Source Monitor Blood Pressure Position Semi-Fowlers Blood Pressure Location Right Arm Pulse Ox 97 Oxygen Delivery Method Nasal Cannula Nasal Cannula Room Air Oxygen Flow Rate (L/min) 2 2 Weight Weight: 87.3 kg Body Mass Index (BMI) 35.2 EEG Results Procedure Details EEG Procedure Details: SILVESTRE FERMIN is a 89 year old F with a past medical history of , who presents for evaluation of Electroencephalogram on DATE at TIME NIHSS NIHSS Nursing Documentation NIHSS Nursing Documentation: NIHSS: Ischemic Stroke/TIA Start: 07/28/24 13:42 Text: For PCU Patients: NIH and Neuro Check every 4 Status: Complete hours, PRN and with change in RN caregiver. Freq: [id number] Protocol: Activity Type Activity Date Activity User E-sign Co-sign Detail Recorded Client Recorded Date Recorded By Document 07/28/24 13:56 JM8 [id number] 07/28/24 13:59 JM8 07/28/24 13:56 NIH Stroke Scale [NIHSS] A score of 0 is normal or asymptomatic . Total possible score is 42. Inpatient: RN or Physician to activate a stroke alert for onset of new stroke symptoms or with NIHSS increase >/= 3 points. Following change in neurological status, NIHSS will be performed per physician order or more frequently PRN. -1a. Level of Consciousness Alert; keenly responsive -1b. LOC Questions Answers BOTH questions correctly. -1c. LOC Commands Performs both tasks correctly . -2. Best Gaze Normal -3. Visual No visual loss -4. Facial Palsy Normal symmetrical movements -5a. Left Arm No drift; arm holds 90 (or 45 ) degrees for full 10 seconds -5b. Right Arm No drift; arm holds 90 (or 45 ) degrees for full 10 seconds -6a. Left Leg No drift; leg holds 30-degree position for full 5 seconds -6b. Right Leg No drift; leg holds 30-degree position for full 5 seconds -7. Limb Ataxia Absent -8. Sensory Normal; no sensory loss -9. Best Language No aphasia; normal -10. Dysarthria Normal -11. Extinction and Inattention No abnormality -Total 0 Query Text:A score of 0 is normal or asymptomatic. Total possible score is 42 . ED: Notify Physician for NIHSS increase by > / = 3 points. Inpatient: RN or Physician to activate a stroke alert for NIHSS increase of > / = 3 points. Coma Scale [Assess] -Eye Opening Spontaneous -Motor Obeys Commands -Verbal Oriented [Total] -Coma Scale Total 15 NIHSS 1a. Level of Consciousness: Alert; keenly responsive 1b. LOC Questions: Answers BOTH questions correctly. 1c. LOC Commands: Performs both tasks correctly. 2. Best Gaze: Normal 3. Visual: No visual loss 4. Facial Palsy: Normal symmetrical movements 5a. Left Arm: No drift; arm holds 90 (or 45) degrees for full 10 seconds 5b. Right Arm: No drift; arm holds 90 (or 45) degrees for full 10 seconds 6a. Left Leg: Drift; leg falls by the end of 5-seconds, but does not hit bed 6b. Right Leg: No drift; leg holds 30-degree position for full 5 seconds 7. Limb Ataxia: Absent 8. Sensory: Normal; no sensory loss 9. Best Language: No aphasia; normal 10. Dysarthria: Normal 11. Extinction and Inattention: No abnormality Total: 1 Physical Exam Neuro oriented x3 and CN's II-XII intact bilaterally Neuro Narrative: Strength full with exception of left leg which drifts slightly antigravity. Cranial Nerves: CN normal except as noted Coordination / Balance: [id number] test normal and [id number] test normal Speech: speech normal Sensory Exam: double simultaneous stimulation for sensation normal Motor Exam: no pronator drift, no tremor, no asterixis and no movement abnormalities noted Lab / Micro Data 07/29/24 06:38 07/29/24 06:38 Labs: Laboratory Results - last 24 hr 07/28/24 09:55: WBC 7.3, RBC 4.16 L, Hgb 13.0, Hct 39.8, MCV 95.7, MCH 31.3, MCHC 32.7, RDW Std Deviation 48.6 H, RDW Coeff of Khalida 13.8, Plt Count 360, MPV 9.9, Immature Gran % (Auto) 0.300, Neut % (Auto) 50.6, Lymph % (Auto) 34.1, [place] % (Auto) 10.9 H, Eos % (Auto) 3.0, Baso % (Auto) 1.1 H, Absolute Neuts (auto) 3.7, Absolute Lymphs (auto) 2.50, Nucleated RBC % 0, PT 13.4, INR 1.0, APTT 26.5, Sodium 141, Potassium 3.5, Chloride 106, Carbon Dioxide 21.9, Anion Gap 14, BUN 15, Creatinine 0.84, Estim Creat Clear Calc 48.70 L, Est GFR (MDRD) Non-Af 67, BUN/Creatinine Ratio 17.9, Glucose 105 H, Calcium 9.0, Troponin T High Sens 12, NT pro BNP II 453 07/28/24 10:05: POC Glucose 97 07/29/24 06:38: WBC 8.9, RBC 3.71 L, Hgb 11.7 L, Hct 35.5 L, MCV 95.7, MCH 31.5, MCHC 33.0, RDW Std Deviation 48.8 H, RDW Coeff of [place] 13.8, Plt Count 320, MPV 10.0, Immature Gran % (Auto) 0.300, Neut % (Auto) 58.4, Lymph % (Auto) 30.8, [place] % (Auto) 9.7, Eos % (Auto) 0.4, Baso % (Auto) 0.4, Absolute Neuts (auto) 5.2, Absolute Lymphs (auto) 2.74, Nucleated RBC % 0, Sodium 141, Potassium 3.7, Chloride 108, Carbon Dioxide 22.5, Anion Gap 11, BUN 12, Creatinine 0.61 L, Estim Creat Clear Calc 50.82, Est GFR (MDRD) Non-Af 86, BUN/Creatinine Ratio 19.1, Glucose 108 H, Calcium 8.8, Triglycerides 96, Cholesterol 128, LDL Cholesterol, Calc 66, VLDL Cholesterol 19, HDL Cholesterol 43, Cholesterol/HDL Ratio 2.99 Imaging Radiology Impression Brain CT 07/28/24 10:10 IMPRESSION: 1. Small punctate hyperdense focus identified in the left cerebellar hemisphere on axial image 9. This could be artifact. However, small hemorrhage can not be excluded. Repeat CT in 4-6 hours recommended. 2. Mild small vessel ischemic/degenerative changes. Findings were discussed with Dr. Ibanez by phone on 07/28/2024 at 1124 hours. Reading Location: [facility] Chest X-Ray 07/28/24 10:10 IMPRESSION: Pulmonary venous congestion. Reading Location: [facility] Brain MRI 07/28/24 13:43 IMPRESSION: 1. No definite evidence of an acute intracranial process. 2. Nonspecific bilateral frontal bone lesions up to 1.9 cm on the left. Correlate for any possible history of known malignancy and consider outpatient bone scan versus attention on follow-up to evaluate stability, as indicated. Comparison with any available outside imaging may also be helpful. 3. Additional description as above. Reading Location: [facility] Head/Neck CTA 07/28/24 16:15 IMPRESSION: 1. [id number] stenosis of the right ECA origin, otherwise no high-grade stenosis or large vessel occlusion identified. 2. Question at least mild partially imaged upper mediastinal lymphadenopathy. Correlate with medical history and recommend outpatient CT chest, ideally with IV contrast. 3. 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 Clinical follow-up recommended. 4. Effacement of the left piriform sinus without measurable mass on nondedicated evaluation. This could be related to a nonvisualized mass on the left versus pathology involving the right recurrent limited laryngeal nerve with associated asymmetric atrophy. Recommend outpatient ENT consultation and direct visualization. 5. Additional description as above. Reading Location: [facility] Active Medications Active Medications Active Medications: Current Medications Generic Name Dose Route Start Last Admin Trade Name Freq PRN Reason Stop Dose Admin Amlodipine Besylate 2.5 mg 07/28/24 18:15 07/28/24 18:52 Amlodipine 2.5 Mg Tablet PO 2.5 mg DAILY MARÍA Administration Protocol Atorvastatin Calcium 40 mg 07/28/24 22:00 07/28/24 22:00 Atorvastatin Calcium 40 Mg Tablet PO 40 mg QHS MARÍA Administration Cholecalciferol 25 mcg 07/28/24 22:00 07/28/24 22:00 Cholecalciferol (Vit D3) 25 Mcg Tablet (1,000 Units) PO 25 mcg BID MARÍA Administration Clopidogrel Bisulfate 75 mg 07/29/24 10:00 Clopidogrel Bisulfate 75 Mg Tablet PO DAILY MARÍA Cyclobenzaprine HCl 10 mg 07/28/24 13:34 Cyclobenzaprine Hcl 10 Mg Tablet PO TID PRN muscle spasm Fenofibrate 145 mg 07/29/24 08:00 [facility]ibrate 145 [facility] Fluticasone Propionate 2 spray 07/28/24 22:00 07/28/24 22:00 Fluticasone 0.05% 1 [place] Nasal.Sry NASAL 2 spray BID MARÍA Administration Furosemide 40 mg 07/29/24 10:00 Furosemide 40 Mg Tablet PO DAILY MARÍA Protocol Hydralazine HCl 5 mg 07/28/24 13:37 Hydralazine 20 Mg/Ml Vial IV 07/29/24 13:42 Q30M PRN maintain BP parameters with HR <60 Isosorbide Mononitrate 60 mg 07/28/24 22:00 07/28/24 22:00 Isosorbide Mononitrate 60 Mg Tablet PO 60 mg BID MARÍA Administration Protocol Labetalol HCl 10 - 20 mg 07/28/24 13:37 Labetalol 20mg/4ml Syringe IV 07/29/24 13:42 Q10M PRN PRN maintain BP parameters with HR >/=60 Levetiracetam 750 mg 07/28/24 22:00 07/28/24 22:00 Levetiracetam 750 Mg Tablet PO 750 mg BID MARÍA Administration Melatonin 3 mg 07/28/24 13:59 Melatonin 3 Mg Tablet PO QHS PRN insomnia Metoprolol Tartrate 50 mg 07/28/24 22:00 07/28/24 22:00 Metoprolol Tartrate 50 Mg Tablet PO 50 mg BID MARÍA Administration Protocol Multivitamins 1 tablet 07/29/24 08:00 Multivitamins,Therapeutic Tablet PO DAILYCM [facility] Ondansetron HCl 4 mg 07/28/24 13:37 Ondansetron 4 Mg/2 Ml Vial IV Q8H PRN PRN NAUSEA/VOMITING Pantoprazole Sodium 40 mg 07/29/24 10:00 Pantoprazole Sodium 40 Mg Tablet PO DAILY [facility] Polyethylene Glycol 17 gm 07/29/24 10:00 Polyethylene Glycol 3350 17 Gm Packet PO DAILY [facility] Ranolazine 1,000 mg 07/28/24 22:00 07/28/24 22:00 Ranolazine 500 Mg Tablet PO 1,000 mg BID MARÍA Administration Sacubitril/Valsartan 1 each 07/28/24 22:00 07/28/24 22:00 Sacubitril/Valsartan 24/26 Mg Tablet PO 1 each BID MARÍA Administration Senna 1 tablet 07/28/24 16:38 Senna Tablet PO DAILY PRN PRN CONSTIPATION Sodium Chloride 10 - 40 ml 07/28/24 13:32 07/28/24 14:57 0.9% Saline Lock 10 Ml Syringe IV 10 ml UD PRN Administration SALINE FLUSH
--- NOTE | 2024-07-29 08:46 | CASEMGMT ---
Social Work PHQ-9 not completed as it appears pt did not have a stroke. JASON Cummings
[2024-07-29 09:00] VITALS: BP 155/63; PULSE 78; RESP 18; TEMP 36.6; O2SAT 96
[2024-07-29 09:27] VITALS: BMI 35.2
[2024-07-29] MEDS: Multivitamins,Therapeutic Tablet 1 TABLET PO (09:38)
[2024-07-29] MEDS: Fluticasone 0.05% 1 SPRAY NASAL.SRY 2 SPRAY NASAL (09:38)
[2024-07-29] MEDS: Cholecalciferol (VIT D3) 25 MCG TABLET (1,000 UNITS) PO (09:38)
[2024-07-29] MEDS: SACUBITRIL/VALSARTAN 24/26 MG TABLET 1 EACH PO (09:38)
[2024-07-29] MEDS: Clopidogrel Bisulfate 75 MG Tablet PO (09:38)
[2024-07-29] MEDS: Ranolazine 500 MG Tablet 1000 MG PO (09:38)
[2024-07-29] MEDS: Polyethylene Glycol 3350 17 GM PACKET PO (09:39)
[2024-07-29] MEDS: Isosorbide Mononitrate 60 MG Tablet PO (09:39)
[2024-07-29] MEDS: levETIRAcetam 750 MG Tablet PO (09:39)
[2024-07-29] MEDS: Pantoprazole Sodium 40 MG Tablet PO (09:40)
[2024-07-29] MEDS: Fenofibrate 145 MG Tablet PO (09:40)
[2024-07-29] MEDS: Furosemide 40 MG Tablet PO (09:40)
[2024-07-29 09:51] VITALS: BP 155/63; PULSE 78
[2024-07-29] MEDS: amLODIPine 2.5 MG Tablet PO (09:51)
[2024-07-29] MEDS: Metoprolol Tartrate 50 MG Tablet PO (09:51)
--- NOTE | 2024-07-29 13:36 | DS.PCM_ITS ---
Providers Date of Admission: 07/28/24 Date of Discharge: 07/29/24 Primary Care Physician: Dr. Stefany Durham, DO Consultations 07/28/24 13:42 Consult: Tele-Neurology Routine Consulting Provider: [facility] Reason for Consult: Acute Ischemic Stroke/TIA EMERGENT Consult: No MD Notified: Yes Date Notified: 07/28/24 Time Notified: 13:42 Method of Notification: Answering Service Nursing Unit Staff Notify [facility] of Tele-Neurology Consult: Yes Reason For Visit: STROKE LIKE SYMPTOMS Diagnosis Discharge Diagnosis (1) Stroke-like symptoms: Status: Acute Code(s): R29.90 - Unspecified symptoms and signs involving the nervous system Plan #Stroke like symptoms * Patient admitted with a complaint of left-sided facial numbness and worsening left-sided weakness. * she has a history of stroke and had underlying left sided stroke but says it has worsened. * On arrival in the ED, the numbness had resolved and NIHSS was 1, for the mildly slurred speech. * CT brain showed small punctate hyperdense focus identified in the left cerebellar hemisphere which could be artifact, however small hemorrhage cannot be excluded; mild small vessel ischemic/degenerative changes. * get MRI of the brain without contrast. * CTA of the head and neck ordered; patient says she has allergy to contrast. She gets a rash in response to the rash. Patient therefore given contrast allergy premedication with benadryl and solumedrol. * consult neurology * hold aspirin and plavix until intracranial hemorrhage is ruled out. * high intensity statin. * PT/OT on board. Fall precautions. * #History of CAD: * s/p CABG x 3. * on high intensity statin and fenofibrate * Hold plavix until intracranial hemorrhage is ruled out. * On imdur and ranolazine #Chronic heart failure: * not in exacerbation. Breathing treatment with bronchodilators. On lasix, entresto and metoprolol. * CXR showed evidence of pulmonary venous congestion. #Hypertension: on amlodipine. #TYpe 2 diabetes mellitus: on jardiance and ozempic. ISS. Accuchecks ACHS #Hyperlipidemia: on statin and fenofibrate. #Seizure disordder: on keppra DVT prophylaxis: SCDs. No anticoagulation due to concern for brain bleed. Code status: full code * Patient counseled extensively about different types of CODE STATUS including full code, DNR CCA and DNR CCA. * Patient elects to be full code. * Total [id number]-[id number] time 17 minutes. Medications at Discharge Home Medications acetaminophen 500 mg tablet 1,000 mg PO BID PRN Pain 12/03/15 levetiracetam 750 mg tablet 750 mg PO BID ASK PCP 10/03/21 melatonin 5 mg capsule 5 - 10 mg PO QHS PRN insomnia 01/29/22 multivitamin (One Daily Multivitamin tablet) 1 tab PO DAILY health maintenance 07/08/22 pantoprazole 40 mg tablet,delayed release 40 mg PO DAILY ACID REFLUX 07/08/22 clopidogrel 75 mg tablet 75 mg PO DAILY CLOTS #90 tabs 05/05/23 cyclobenzaprine 10 mg tablet 10 mg PO TID PRN muscle spasm 10/19/23 ranolazine 1,000 mg tablet,extended release,12 hr 1,000 mg PO BID 10/19/23 albuterol sulfate 90 mcg/actuation aerosol inhaler 2 puff inhalation Q4H PRN shortness of breath or wheezing #8.5 grams 12/13/23 atorvastatin 40 mg tablet 40 mg PO QHS ASK PCP 12/13/23 empagliflozin 10 mg tablet (Jardiance) 10 mg PO QDAY ASK PCP 12/13/23 fenofibrate 160 mg tablet 200 mg PO DAILY CHOLESTEROL 12/13/23 sacubitril 24 mg-valsartan 26 mg tablet (Entresto) 1 tab PO BID ASK PCP 12/13/23 furosemide 40 mg tablet 40 mg PO DAILY WATER PILL #90 tabs 01/28/24 nitroglycerin 0.4 mg sublingual tablet 0.4 mg sublingual Q5M PRN Chest Pain #25 tabs 05/05/24 amlodipine 2.5 mg tablet (Norvasc) 2.5 mg PO QDAY #30 tabs 07/20/24 semaglutide 0.25 mg or 0.5 mg (2 mg/3 mL) subcutaneous pen injector (Ozempic) 0.25 mg subcut QWEEK ASK PCP 07/20/24 cholecalciferol (vitamin D3) 25 mcg (1,000 unit) capsule 25 mcg PO BID ASK PCP 07/28/24 cyanocobalamin (vitamin B-12) PO DAILY arminda maintenance 07/28/24 fluticasone propionate 50 mcg/actuation nasal spray,suspension 2 spray NASAL Q12H ALLERGIES 07/28/24 isosorbide mononitrate 30 mg tablet,extended release 24 hr 60 mg PO BID heart 07/28/24 metoprolol tartrate 25 mg tablet 50 mg PO BID blood pressure 07/28/24 polyethylene glycol 3350 17 gram/dose oral powder (Miralax) 17 g PO DAILY ASK PCP 07/28/24 pyridoxine (vitamin B6) PO DAILY ASK PCP 07/28/24 Hospital Course Operations None Procedures 2-D Echocardiogram Summary of Care Provided Minutes Spent on Discharge: 45 Hospital Course: SILVESTRE FERMIN, is a 89 F with a PMH as outlined who presents via the ED On 07/28/2024 with a complaint of stroke like symptoms. Last known well was ~ 10pm on Wednesday07/24/2024. She woke up the next day with a left facial droop, slurred speecha nd left upper and lower extremity weakness. She went to see her neurologist on outpatient basis today and was told to come to the ED. She does have residual left sided deficits from previous strokes, though she said it had improved. She denied any lightheadedness, dizziness, or any chest pain. Patient apparently complained of crushing chest pain in her neurologist's office. She had a history of recurrent falls due to her history of seizures. Review of systems is otherwise negative. Vitals in the ED were BP of 156/73, NM of 66, RR of 12 and she was saturating at 96% on room air. CBC showed wbc of 7.3, Hb of 13 and platelets of 360. INR was 1. CHemistry showed sodium of 141 and potassium 3.5 and bicarb of 21.9. Cr was 0.84. proBNP was 453. Chest x-ray showed no acute cardiopulmonary pathology. Brain CT showed small punctate hyperdense focus identified in the left cerebellar hemisphere which could be an infarct though small hemorrhage cannot be excluded and mild small vessel ischemic/degenerative changes. She has been admitted for stroke rule out. She did not have a CTA head and neck due to patient's allergy to contrast. She has been admitted to be managed for stroke rule out. CTA head and neck was done after patient was premedicated with IV solumedrol and benadryl. She had CTA head and neck which showed moderate to severe stenosis of the right ECA origin, otherwise no high grade stenosis or large vessel occlusion identified. THere was also a question of mild partially imaged upper mediastinal lymphadenopathy. MRI of the brain showed no evidence of acute stroke, with no definite evidence of an acute intracranial process and nonspecific bilateral frontal bone lesion up to 1.9cm on the left. Neurology reviewed patient and felt the symptoms were likely due to stroke recrudescens. 2D echo showed EF of 40-45% with hypokinesis of the anterior wall and septum. This was similar to previous echo on 05/02/2024 which showed EF of 35% with moderately decreased LV systolic function and no LV hypertrophy. She remained stable and was discharged home on 07/29/2024. She is to follow up with her PCP and neurologist within 1-2 weeks. Patient seen and examined. She had no active complaints. Review of systems is otherwise negative. Labs and vitals reviewed. Home meds reviewed and reconciled. Physical Exam Const alert, oriented x3 and no apparent distress Constitutional Narrative: class III obesity General Appearance: cooperative and comfortable Orientation / Consciousness: awake Exam Limitations: no limitations HEENT normocephalic, head/scalp atraumatic, hearing grossly normal bilaterally and moist oral mucous membranes Mouth: oral and palatal mucosa normal Eyes PERRL, EOMs intact bilaterally and conjunctivae normal Neck no lymphadenopathy and supple Resp normal respiratory effort, no retractions, no use of accessory muscles and clear to auscultation bilaterally Resp Narrative: on room air. Cardio regular rate, regular rhythm, S1 normal heart sound, S2 normal heart sound and no murmurs GI normal to inspection, nondistended, normoactive bowel sounds, soft to palpation, non-tender and non-distended Extremity normal to inspection, full ROM and no clubbing, cyanosis or edema Skin no rashes or lesions noted Neuro oriented x3, CN's II-XII intact bilaterally, moves all extremities, no focal motor deficits and no sensory deficits noted Neuro Narrative: slurred speech has resolved. Sensorium / Orientation: awake and alert Motor Exam: strength 5/5 throughout Psych affect normal Weight / BMI Weight Weight: 192 lb 7.417 oz Body Mass Index (BMI) 35.2 ABG / Lab / Microbiology Data 07/29/24 06:38 07/29/24 06:38 Laboratory: Laboratory Results - last 24 hr 07/29/24 06:38: WBC 8.9, RBC 3.71 L, Hgb 11.7 L, Hct 35.5 L, MCV 95.7, MCH 31.5, MCHC 33.0, RDW Std Deviation 48.8 H, RDW Coeff of Khalida 13.8, Plt Count 320, MPV 10.0, Immature Gran % (Auto) 0.300, Neut % (Auto) 58.4, Lymph % (Auto) 30.8, Wallace % (Auto) 9.7, Eos % (Auto) 0.4, Baso % (Auto) 0.4, Absolute Neuts (auto) 5.2, Absolute Lymphs (auto) 2.74, Nucleated RBC % 0, Sodium 141, Potassium 3.7, Chloride 108, Carbon Dioxide 22.5, Anion Gap 11, BUN 12, Creatinine 0.61 L, Estim Creat Clear Calc 50.82, Est GFR (MDRD) Non-Af 86, BUN/Creatinine Ratio 19.1, Glucose 108 H, Calcium 8.8, Triglycerides 96, Cholesterol 128, LDL Cholesterol, Calc 66, VLDL Cholesterol 19, HDL Cholesterol 43, Cholesterol/HDL Ratio 2.99 Radiography Diagnostic Testing: Radiology Impression Brain MRI 07/28/24 13:43 IMPRESSION: 1. No definite evidence of an acute intracranial process. 2. Nonspecific bilateral frontal bone lesions up to 1.9 cm on the left. Correlate for any possible history of known malignancy and consider outpatient bone scan versus attention on follow-up to evaluate stability, as indicated. Comparison with any available outside imaging may also be helpful. 3. Additional description as above. Reading Location: [id number] Echocardiogram 07/28/24 13:43 Interpretation Summary Limited study. LVEF is 40 to 45% with hypokinesis of the anterior wall and septum Ordering Physician: Helena Pineda Referring Physician: Helena Pineda Performed By: Widder, Ct, RCS Head/Neck CTA 07/28/24 16:15 IMPRESSION: 1. [id number] stenosis of the right ECA origin, otherwise no high-grade stenosis or large vessel occlusion identified. 2. Question at least mild partially imaged upper mediastinal lymphadenopathy. Correlate with medical history and recommend outpatient CT chest, ideally with IV contrast. 3. 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 Clinical follow-up recommended. 4. Effacement of the left piriform sinus without measurable mass on nondedicated evaluation. This could be related to a nonvisualized mass on the left versus pathology involving the right recurrent limited laryngeal nerve with associated asymmetric atrophy. Recommend outpatient ENT consultation and direct visualization. 5. Additional description as above. Reading Location: [facility] D/C Instructions Discharge Diet: Low fat / Low cholesterol Discharge Activity: Return to Normal Activity Weight Bearing Status: Weight bearing as tolerated Call your doctor if you observe: Fever of 101 or Higher, Shortness of breath, Dizziness, Swelling in the ankles and Chest pain DC O2, CPAP, BIPAP Needs Home O2 Discharge instructions: No DC home with Oxygen: No Meaningful Use Info Meaningful Use Meaningful Use Diagnoses (Choose all that apply): None applicable Ischemic Stroke Statin Dosing Therapy Reference: STATIN DOSE THERAPY REFERENCE: * Patients > 75 years receive moderate or high dose statin therapy. * Patients 75 years or YOUNGER should receive HIGH intensity statin dose unless contraindicated. You will be required to document reason for non-treatment if statin daily dose does not meet guidelines. HIGH DOSE STATIN THERAPY DAILY Atorvastatin > than or = to 40 mg Rosuvastatin > than or = to 20 mg Amlodipine + Atorvastatin > than or = to 2.5/40 mg Ezetimibe + Simvastatin 10/80 mg Simvastatin 80mg Discharge Plan Admission Admit Date/Time: 07/28/24 11:47 Primary Reason for Your Visit: stroke like symptoms Attending Provider: Helena Pineda Primary Care Provider: Stefany Durham Consulting Providers: Brodie Burgess; Marii Davis; Dinorah Cleary; Shira Carranza; Kristin Roy; Manfred Escalera; Sloane Poon; Rodriguez Multani; Syed Montana; Alexys Michelle; Ivon Woods; Ulises Oliveros; Zainab Alston; Esme Terrazas; Leda Pruitt; Umesh Shirley; Pastora Gauthier; Tk Curry; Ting Jara; Ivan Hua Instructions Patient Instructions: Booklet - Understanding Stroke Discharge Orders/Prescriptions Prescriptions: Continued levetiracetam 750 mg tablet 750 mg PO BID melatonin 5 mg capsule 5 - 10 mg PO QHS PRN (Reason: insomnia) multivitamin [One Daily Multivitamin] Tablet 1 tab PO DAILY atorvastatin 40 mg tablet 40 mg PO QHS Jardiance 10 mg tablet 10 mg PO QDAY sacubitril-valsartan [Entresto] 24-26 mg tablet 1 tab PO BID fenofibrate 160 mg tablet 200 mg PO DAILY albuterol sulfate 90 mcg/actuation HFA aerosol inhaler 2 puff inhalation Q4H PRN (Reason: shortness of breath or wheezing) Qty: 8.5 11RF cyclobenzaprine 10 mg tablet 10 mg PO TID PRN (Reason: muscle spasm) ranolazine 1,000 mg tablet extended release 12 hr 1,000 mg PO BID Ozempic 0.25 mg or 0.5 mg (2 mg/3 mL) pen injector 0.25 mg subcut QWEEK Rx Instructions: for 4 weeks amlodipine [Norvasc] 2.5 mg tablet 2.5 mg PO QDAY Qty: 30 11RF acetaminophen 500 MG tablet 1,000 mg PO BID PRN (Reason: Pain) Patient Comments: pain pantoprazole 40 mg tablet,delayed release (DR/EC) 40 mg PO DAILY cholecalciferol (vitamin D3) 25 mcg (1,000 unit) capsule 25 mcg PO BID cyanocobalamin (vitamin B-12) PO DAILY isosorbide mononitrate 30 mg tablet extended release 24 hr 60 mg PO BID Patient Comments: Pt list says 60mg BID-so dose should be 60mg...NOT 2 tabs equaling 120mg polyethylene glycol 3350 [Miralax] 17 gram/dose powder 17 g PO DAILY pyridoxine (vitamin B6) PO DAILY fluticasone propionate 50 mcg/actuation spray,suspension 2 spray NASAL Q12H metoprolol tartrate 25 mg tablet 50 mg PO BID clopidogrel 75 mg tablet 75 mg PO DAILY Qty: 90 3RF furosemide 40 mg tablet 40 mg PO DAILY Qty: 90 3RF nitroglycerin 0.4 mg tablet, sublingual 0.4 mg sublingual Q5M PRN (Reason: Chest Pain) Qty: 25 3RF Referrals / Follow Up: Stefany Durham DO [Primary Care Provider] - Within 1 Week Disposition Disposition (needs filled in before D/C Order can be placed): Home, Self Care Charges/Coding Visit Charges Inpatient E&M: 76689 Disch Hosp >30min
[2024-07-29 13:45] VITALS: BMI 35.2
[2024-07-29 14:00] VITALS: BP 155/55; PULSE 78; RESP 16; TEMP 36.1; O2SAT 99
--- NOTE | 2024-07-29 14:53 | CASEMGMT ---
LISSA CM in to discuss [employer] form with patient. RN CM explained MAL[employer] form, patient voiced understanding. Pt signed form and filed in chart. Pt provided with a copy of signed [employer]ON form. Patient had no further questions or concerns at this time.
== END 2024-07-29 13:34 | disposition home or self-care (01) ==
LOC: ED 11:49 → PCU 12:09
PROVIDERS: Admitting Provider Student in an Organized Health Care Education/Training Program; Emergency Provider Surgery; PCP Family Medicine; Referring Provider Student in an Organized Health Care Education/Training Program; Visit Provider Student in an Organized Health Care Education/Training Program
DX: R47.81 Slurred speech (principal); I69.354 Hemiplegia and hemiparesis following cerebral infarction affecting left non-dominant side; I11.0 Hypertensive heart disease with heart failure; I50.9 Heart failure, unspecified; J44.89 Other specified chronic obstructive pulmonary disease; G40.909 Epilepsy, unspecified, not intractable, without status epilepticus; E11.9 Type 2 diabetes mellitus without complications; R07.89 Other chest pain; Z79.02 Long term (current) use of antithrombotics/antiplatelets; I25.10 Atherosclerotic heart disease of native coronary artery without angina pectoris; Z87.891 Personal history of nicotine dependence; Z79.85 Long-term (current) use of injectable non-insulin antidiabetic drugs; E78.00 Pure hypercholesterolemia, unspecified; R29.810 Facial weakness; Z79.899 Other long term (current) drug therapy
CPT/HCPCS: 36415; 70450; 70496; 70498; 70551; 71045; 80048; 80061; 82962; 83880; 84484; 85025; 85610; 85730; 92610; 93005; 93308; 94762; 96374; 96375; 97162; 97166; 97802; 99221; 99284; Q9967; A4216; G0378

== ENCOUNTER → 2024-11-01 | Outpatient (CLI) | payer MEDICARE, MEDICAID, SELFPAY ==
[2024-11-01 11:33] VITALS: BMI 40.0
[2024-11-01 12:54] LABS: Absolute Lymphocyte Count 2.83 X10^3/uL (0.83-4.51); Basophil# 0.06 X10^3/uL; Basophil% 0.6 % (0-1); Hematocrit 39.3 % (37-47); Hemoglobin 12.9 g/dL (12.0-15.0); Lymphocyte # 2.83 X10^3/ul (0.83-4.51); Lymphocyte % 28.8 % (19-41); Mean Corp Hgb Conc 32.8 g/dL (32-36); Mean Corpuscular Hgb 31.9 pg (27.0-32.0); Mean Platelet Vol. 9.8 fl (6.2-12.0); Monocyte# 0.78 X10^3/uL; NRBC Flagged by Analyzer 0 % (0-5); Neutrophil % 61.2 % (47-70); Platelet Count 322 K/mm3 (150-450); RBC Distribution Width CV 13.4 % (11.6-14.6); Red Blood Count 4.05 M/mm3 (4.2-5.4); White Blood Count 9.8 K/mm3 (4.4-11.0)
[2024-11-01 13:21] LABS: Anion Gap 11 (5-15); BUN 15 mg/dL (4-19); BUN/Creat Ratio 19.8 RATIO (10-20); Calcium,Total 9.4 mg/dL (7.6-11.0); Carbon Dioxide 26.5 mmol/L (21.0-32.0); Chloride 105 mmol/L (98-108); Creatinine, Serum 0.78 mg/dL (0.70-1.20); EST Glomerular Filtration Rate 74 (>60); Glucose 94 mg/dL (70-99); Potassium 3.6 mmol/L (3.3-5.1); Sodium Level 143 mmol/L (133-145)
== END | disposition home or self-care (01) ==
LOC: LAB 11:38
PROVIDERS: PCP Family Medicine; Referring Provider Student in an Organized Health Care Education/Training Program; Visit Provider Student in an Organized Health Care Education/Training Program
DX: D64.9 Anemia, unspecified (principal); I25.5 Ischemic cardiomyopathy; I10 Essential (primary) hypertension
CPT/HCPCS: 36415; 80048; 85025